=== PATIENT | female | born 1990 | race Caucasian/White ===

== ENCOUNTER 2019-11-23 23:24 | Emergency (ER) | payer MEDICAID, SELFPAY ==
[2019-11-23 23:25] VITALS: BP 132/63; PULSE 72; RESP 16; TEMP 36.2; O2SAT 100
[2019-11-23 23:51] LABS: Basophils Absolute Auto 0.1 K/mm3 (0.0-0.1); Basophils Percent Auto 0.5 % (0.2-1.2); Eosinophils Absolute Auto 0.2 K/mm3 (0-0.3); Hematocrit 40.7 % (37.0-47.0); Hemoglobin 13.1 g/dL (12.0-15.0); Immature Granulocyte Absolute 0.05 K/mm3 (0.00-0.031); Immature Granulocyte Percent A 0.4 % (0-0.5); Lymphocytes Absolute Auto 4.13 K/mm3 (0.9-3.2); Lymphocytes Percent Auto 36.7 % (18.3-44.2); Mean Corpuscular HGB Conc 32.2 g/dl (32-36); Mean Corpuscular Hemoglobin 26.9 pg (26-34); Mean Corpuscular Volume 83.6 fl (80-100); Mean Platelet Volume 10.7 fl (7.4-10.4); Monocytes Absolute Auto 0.5 K/mm3 (0.1-0.6); Monocytes Percent Auto 4.8 % (2.6-8.5); Neutrophils Absolute Auto 6.3 K/mm3 (1.3-6.7); Neutrophils Percent Auto 55.6 % (45.5-73.1); Platelet Count Result 294 k/mm3 (150-375); Red Blood Count 4.87 M/mm3 (4.2-5.4); Red Cell Distribution Width 13.4 % (11.5-14.5); White Blood Count 11.3 K/mm3 (4.5-10.0)
[2019-11-23 23:53] LABS: Add Urine Microscopic? YES; Appearance Urine Clear (Clear); Bacteria Urine Trace /hpf; Bilirubin Urine Negative (Negative); Blood Urine Negative (Negative); Color Urine Yellow (Yellow); Glucose Urine UA Negative (Negative); Ketones Urine Negative (Negative); Leukocyte Esterase Ur Trace LEU/UL (Negative); Mucus Urine Few /lpf; Nitrate Urine Negative (Negative); Protein Urine Negative (Negative); RBC Urine 0-2 /hpf (0-2); Specific Grav Ur 1.029 (1.001-1.035); Squamous Epithelial Cell Urine Moderate /hpf (Few); Urobilinogen Urine Negative mg/dL (<2.0)
[2019-11-24 00:02] LABS: Alanine Aminotransferase 21 U/L (4-35); Albumin Level 4.4 g/dL (3.5-5.1); Alkaline Phosphatase 121 U/L (38-126); Aspartate Amino Transferase 24 U/L (14-36); Bilirubin,Total 0.3 mg/dL (0.2-1.3); Blood Urea Nitrogen 15 mg/dL (7-17); Calcium 9.3 mg/dL (8.4-10.2); Carbon Dioxide 30 mmol/L (22-30); Chloride 103 mmol/L (98-107); Estimated CRCL calculation 94 ml/min; Estimated Glomerular Filt Rate > 60; Glucose 110 mg/dL (65-105); Lipase 144 U/L (23-300); Potassium 3.8 mmol/L (3.4-5.0); Sodium 138 mmol/L (137-145)
[2019-11-24 01:15] VITALS: BP 112/78; PULSE 58; RESP 16; O2SAT 98
[2019-11-24] MEDS: MECLIZINE HCL 25 MG TABLET (01:32)
[2019-11-24] MEDS: SODIUM CHLORIDE 0.9% IV 1,000 ML 999 ML (01:32)
[2019-11-24] MEDS: IBUPROFEN 600 MG TABLET (01:33)
--- NOTE | 2019-11-24 01:33 | PC.NURSE ---
IQRA FROM DR HOPPER TO GIVE MOTRIN 600, MECLIZINE 25 MG AND 1L NS X1
--- NOTE | 2019-11-24 02:57 | ED.HA ---
HPI - Headache General Chief Complaint: Abdominal Pain Stated Complaint: DIZZY/ABD PAIN History of Present Illness HPI Narrative: Patient presents with her fianc? for dizziness and vomiting since 5 PM. She has a history of migraine headaches and has a headache now 8 out of 10. The headache is bilateral temporal. She has photophobia. She has vomited 5 times. She has had vertigo before but never this bad. Her vision is impaired because [place]. She feels a little better since she is already had IV fluids. MD elicited complaint: headache and migraine Onset description: gradually Location: frontal Exacerbating factors: movement of head/neck and light Relieving factors: dark room Context: occurred at rest Associated symptoms: nausea, vomiting and photophobia Treatments prior to arrival: none Related Data Allergies Allergy/AdvReac Type Severity Reaction Status Date / Time No Known Allergies Allergy Verified 11/24/19 00:03 Review of Systems Review of Systems: Narrative: CONSTITUTIONAL: Denies fever, chills, or sweats. EYES: Denies visual changes, redness, or discharge. ENT: Denies rhinorrhea, congestion, sore throat, or otalgia. CARDIOVASCULAR: Denies chest pain, palpitations, or edema. RESPIRATORY: Denies cough or dyspnea. GASTROINTESTINAL: Denies abdominal pain, or diarrhea. GENITOURINARY: Denies dysuria or hematuria. SKIN: Denies rash or itching. MUSCULOSKELETAL: Denies back pain, joint pain, or myalgia. NEUROLOGIC: Denies numbness, or weakness. PSYCHIATRIC: Denies anxiety or depression. [facility] Past Medical History Medical History (Updated 11/24/19 @ 03:01 by Krysta Rodríguez MD) Migraine headache Vertigo Surgical History Surgical History (Updated 11/24/19 @ 03:00 by Krysta Rodríguez MD) History of appendectomy History of ovarian cystectomy Social History Social History (Updated 11/24/19 @ 03:00 by Krysta Rodríguez MD) Smoking status: Current every day smoker Alcohol intake: current Substance use: current Substance use type: marijuana Exam Narrative: Exam Narrative: GENERAL: Well-appearing, well-nourished, and in no acute distress. Fever blister on the top lip. HEAD: Normocephalic, atraumatic. EYES: PERRLA and EOMI. no nystagmus ENT: Nares clear, no rhinorrhea or epistaxis. Mucous membranes moist. NECK: Supple. CHEST: Clear to auscultation. No respiratory distress. HEART: Regular rate and rhythm. No murmur heard. Normal peripheral pulses. ABDOMEN: Soft, nontender, nondistended, normal active bowel sounds. EXTREMITIES: Normal range of motion. No edema. SKIN: Warm, dry, no rash. NEURO: No focal deficits. Alert and oriented x3. PSYCH: Normal mood and affect. Course Reevaluation(s) Reevaluation #1: Went in to recheck on the patient, and she is sound asleep. Woke her up and she said she feels entirely better. Her fianc? is going to take her home. Date: 11/24/19 Time: 04:36 Vital Signs Vital signs: Vital Signs Temperature 97.2 F L 11/23/19 23:25 Pulse Rate 72 11/23/19 23:25 Respiratory Rate 16 11/23/19 23:25 Blood Pressure 132/63 11/23/19 23:25 Pulse Oximetry 100 11/23/19 23:25 Temperature 97.2 F L 11/23/19 23:25 Pulse Rate 57 L 11/24/19 03:28 Respiratory Rate 16 11/24/19 03:28 Blood Pressure 115/67 11/24/19 03:28 Pulse Oximetry 98 11/24/19 03:28 MDM - Headache Differential Diagnosis Differential diagnosis: Likely migraine and headache Medical Records Attestation: I reviewed the patient's medical records. Lab Data Result diagrams: 11/23/19 23:33 11/23/19 23:33 Labs: Lab Results 11/23/19 11/23/19 11/23/19 Range/Units 23:33 23:33 23:33 WBC 11.3 H (4.5-10.0) K/mm3 RBC 4.87 (4.2-5.4) M/mm3 Hgb 13.1 (12.0-15.0) g/dL Hct 40.7 (37.0-47.0) % MCV 83.6 (80-100) fl MCH 26.9 (26-34) pg MCHC 32.2 (32-36) g/dl RDW 13.4 (11.5-14.5) % Plt Coun
[2019-11-24 03:28] VITALS: BP 115/67; PULSE 57; RESP 16; O2SAT 98
[2019-11-24] MEDS: KETOROLAC 15 MG/ML VIAL (*BKC) IV PUSH (03:28)
[2019-11-24] MEDS: SODIUM CHLORIDE 0.9% IV 1,000 ML 999 ML IV CONT (03:28)
[2019-11-24 04:36] VITALS: BP 128/74; PULSE 62; RESP 16; O2SAT 98
== END 2019-11-24 05:00 | disposition home or self-care (01) ==
PROVIDERS: Emergency Provider Emergency Medicine; PCP Physician Assistant
DX: R42 Dizziness and giddiness (principal); G43.909 Migraine, unspecified, not intractable, without status migrainosus; F17.200 Nicotine dependence, unspecified, uncomplicated
CPT/HCPCS: 36415; 80053; 81001; 81025; 83690; 85025; 96374; 96375; 99284; A9270; J1200; J1885; J7030

== ENCOUNTER 2020-01-17 18:15 | Emergency (ER) | payer BC, OTHER, SELFPAY ==
[2020-01-17 18:58] VITALS: BP 124/85; PULSE 79; RESP 18; TEMP 36.6; O2SAT 100
--- NOTE | 2020-01-17 19:14 | ED.LOWEXIN ---
HPI - Extremity Injury (Lower) General Chief Complaint: Extremity Injury, Lower Stated Complaint: R UPPER LEG NUMBNESS, 13 WEEKS PREG Time Seen by Provider: 01/17/20 19:11 History of Present Illness HPI Narrative: Pain in the lateral right thigh down to the knee. Radiates into the right lower back. Worse with prolonged standing. Associated with tingling. Feels swollen. No bruising, chest pain, SOB. Related Data Home Medications Medication Instructions Recorded Confirmed PNV cmb#95-ferrous fumarate-FA 1 tablet PO DAILY 01/17/20 [] paroxetine HCl [Paxil] 10 mg PO QAM 01/17/20 Allergies Allergy/AdvReac Type Severity Reaction Status Date / Time No Known Allergies Allergy Verified 11/24/19 00:03 Review of Systems Review of Systems: All systems reviewed & are unremarkable except as noted in HPI and below Constitutional: Constitutional: Denies fever(s) Cardiovascular: Cardiovascular: Denies chest pain Respiratory: Respiratory: Denies dyspnea Musculoskeletal: Musculoskeletal: Denies back pain PMFSH Past Medical History Medical History Migraine headache Vertigo Surgical History Surgical History History of appendectomy History of ovarian cystectomy Social History Social History Smoking status: Current every day smoker Alcohol intake: current Substance use: current Substance use type: marijuana Exam Const: General: healthy appearing, no acute distress and alert Orientation/consciousness: patient oriented x3 HENMT: Head: normal to inspection Neck: Neck: normal visual inspection and no lymphadenopathy Chest: Chest palpation & inspection: no tenderness Resp: Effort & Inspection: normal respiratory effort Auscultation: clear to auscultation bilaterally, no rales, no rhonchi and no wheezes Cardio: Jugular venous distension: no JVD Rate: regular rate Rhythm: regular rhythm Heart sounds: no murmurs GI: Inspection: non-distended GI Palp: Yes Soft to palpation and No Tenderness to palpation present (GI) Skin: General skin exam: normal color Neuro: General: patient oriented x3 and moves all extremities Speech: normal speech Extrem: Right lower extremity: normal to inspection Left lower extremity: normal to inspection Psych: Appearance: well kempt Affect: normal affect Course Vital Signs Vital signs: Vital Signs Temperature 36.6 C 01/17/20 18:58 Pulse Rate 79 01/17/20 18:58 Respiratory Rate 18 01/17/20 18:58 Blood Pressure 124/85 01/17/20 18:58 Pulse Oximetry 100 01/17/20 18:58 Temperature 36.6 C 01/17/20 18:58 Pulse Rate 79 01/17/20 18:58 Respiratory Rate 18 01/17/20 18:58 Blood Pressure 124/85 01/17/20 18:58 Pulse Oximetry 100 01/17/20 18:58 Procedures Other Procedure Procedure 1: Other Procedure: Bedside Ultrasound I personally performed bedside ultrasound. Right femoral and popliteal veins fully compressible. No DVT. Discharge Plan Discharge Clinical Impression: Sciatica of right side Patient Disposition: Home, Self-Care Condition: Stable Instructions: Sciatica (ED) Prescriptions: New cyclobenzaprine 10 mg tablet 10 mg PO TID PRN (Reason: muscle spasm) Qty: 20 RF: 0 No Action paroxetine HCl [Paxil] 10 mg Tablet 10 mg PO QAM RF: 0 PNV cmb#95-ferrous fumarate-FA [] 28 mg iron- 800 mcg Tablet 1 tablet PO DAILY RF: 0 Follow-up/Referrals: Ender,DARLENE Alaniz [Primary Care Provider] -
--- NOTE | 2020-01-17 19:39 | PC.NURSE ---
[facility] here 193
[2020-01-17] MEDS: CYCLOBENZAPRINE HCL 10 MG TABLET PO (20:02)
== END 2020-01-17 20:18 | disposition home or self-care (01) ==
PROVIDERS: Emergency Provider Emergency Medicine; PCP Physician Assistant
DX: O99.89 Other specified diseases and conditions complicating pregnancy, childbirth and the puerperium (principal); Z3A.13 13 weeks gestation of pregnancy; M54.31 Sciatica, right side; O99.331 Smoking (tobacco) complicating pregnancy, first trimester; F17.200 Nicotine dependence, unspecified, uncomplicated
CPT/HCPCS: 99283; A9270

== ENCOUNTER 2020-01-18 15:10 | Emergency (ER) | payer BC, OTHER, SELFPAY ==
--- NOTE | ~2020-01-18 | US_ITS ---
EXAMINATION: US OB <= 14 weeks fetus DATE: 01/18/2020 16:12 INDICATION: Vaginal bleeding during first trimester TECHNIQUE: Real-time pelvic transabdominal and transvaginal ultrasound was performed. COMPARISON: None. FINDINGS: The uterus measures 10.6 x 5.2 x 7.7 cm. There is an intrauterine gestational sac. A yolk sac is identified. heart motion is identified measuring 169 beats per minute (bpm) by M-mode Do ppler. The crown rump length measures 2.3 cm , which correlates with an estimated gestational a ge of 9 weeks and 0 day(s) (+/-) 6 day(s). The right ovary is not visualized however no right adnexal abnormality is seen. The left ovary measur es 1.8 x 2.2 x 2.7 cm. There is no free fluid in the pelvis. IMPRESSION: 1. Live intrauterine with an estimated gestational age of 9 weeks and 0 day(s) (+/-) 6 day( s) and an estimated delivery date of 08/22/2020. Reviewed, dictated and finalized at location A. IMPRESSION: 1. Live intrauterine with an estimated gestational age of 9 weeks and 0 day(s) (+/-) 6 day(s) and an estimated delivery date of 08/22/2020.
[2020-01-18 15:13] VITALS: BP 116/69; PULSE 92; RESP 17; TEMP 37.1; O2SAT 100
--- NOTE | 2020-01-18 15:24 | ED.FEMALEGU ---
HPI - Female Genitourinary General Chief complaint: Vaginal Bleeding Stated complaint: 13 wks - spotting and cramping Time Seen by Provider: 01/18/20 15:18 Source: patient Mode of arrival: ambulatory Limitations: no limitations History of Present Illness HPI Narrative: Patient is a 29-year-old female, G5, P1 1031, who presents to the emergency department for evaluation of vaginal spotting. Patient reports she is approximately 13 weeks by last menstrual period, has not had a confirmatory ultrasound. In the past, patient has had 3 spontaneous first trimester miscarriages. She denies recent vaginal trauma or intercourse. She denies any new discharge aside from mild spotting. No brisk bleeding. Patient reports mild back pain. No fever or chills. No dysuria or hematuria. Patient follows with Dr. Escalera at [facility]. Pt reports blood type is B+. Related Data Home Medications Medication Instructions Recorded Confirmed PNV cmb#95-ferrous fumarate-FA 1 tablet PO DAILY 01/17/20 [] paroxetine HCl [Paxil] 10 mg PO QAM 01/17/20 Allergies Allergy/AdvReac Type Severity Reaction Status Date / Time No Known Allergies Allergy Verified 01/18/20 15:22 Review of Systems Review of Systems: Narrative: CONSTITUTIONAL: Denies fever CARDIOVASCULAR: Denies chest pain RESPIRATORY: Denies cough or dyspnea. GASTROINTESTINAL: Denies abdominal pain, reports mild back pain : Light vaginal bleeding, no purulent discharge, no dysuria SKIN: Denies rash MUSCULOSKELETAL: Reports mild back pain NEUROLOGIC: Denies headache PMFSH Past Medical History Medical History Migraine headache Vertigo Surgical History Surgical History History of appendectomy History of ovarian cystectomy Social History Social History Smoking status: Current every day smoker Alcohol intake: current Substance use: current Substance use type: marijuana Gender identity (if verbalized by the patient): Female Exam Narrative: Exam Narrative: GENERAL: Awake, alert, conversant HEAD: Normocephalic, atraumatic. EYES: PERRLA and EOMI. ENT: Nares clear, no rhinorrhea or epistaxis. Mucous membranes moist. NECK: Supple. CHEST: No respiratory distress, breathing even and non labored HEART: Regular rate, sinus rhythm ABDOMEN:Non distended, non tender : Labia majora and minora normal without lesions. Vagina with no blood. No blood clot. No cervical motion tenderness. No adnexal tenderness or fullness bilaterally. No discharge present. EXTREMITIES: Normal range of motion. No edema. SKIN: Warm, dry, no rash. NEURO:No focal deficits. Alert and oriented x3 Course Vital Signs Vital signs: Vital Signs Temperature 37.1 C 01/18/20 15:13 Pulse Rate 92 01/18/20 15:13 Respiratory Rate 17 01/18/20 15:13 Blood Pressure 116/69 01/18/20 15:13 Pulse Oximetry 100 01/18/20 15:13 Temperature 37.1 C 01/18/20 15:13 Pulse Rate 92 01/18/20 15:13 Respiratory Rate 17 01/18/20 15:13 Blood Pressure 116/69 01/18/20 15:13 Pulse Oximetry 100 01/18/20 15:13 MDM - Female Genitourinary MDM Narrative Medical decision making narrative: Patient presenting for evaluation vaginal bleeding in the setting of early . At the time of initial assessment, ABCs are intact and vital signs are stable. No severe pain on exam, pelvic exam is reassuring. No sign of cervicitis or PID. No current bleeding. Ultrasound obtained shows intrauterine , heart rate 160s. Hemoglobin and hematocrit is stable. No UTI. At this point, patient given pelvic precautions, discharged home with ORCHESTRA DIRECTOR follow-up. Differential Diagnosis Differential diagnosis: Likely urinary tract infection, bacterial vaginosis, cervicitis, ovarian cyst, vaginitis and dysme
[2020-01-18 16:22] LABS: Basophils Percent Auto 0.4 % (0.2-1.2); Eosinophils Absolute Auto 0.1 K/mm3 (0-0.3); Eosinophils Percent Auto 1.4 % (0-4.4); Hematocrit 38.2 % (37.0-47.0); Hemoglobin 12.6 g/dL (12.0-15.0); Immature Granulocyte Absolute 0.04 K/mm3 (0.00-0.031); Immature Granulocyte Percent A 0.4 % (0-0.5); Lymphocytes Absolute Auto 2.49 K/mm3 (0.9-3.2); Lymphocytes Percent Auto 25.3 % (18.3-44.2); Mean Corpuscular Hemoglobin 26.8 pg (26-34); Mean Corpuscular Volume 81.1 fl (80-100); Mean Platelet Volume 10.6 fl (7.4-10.4); Monocytes Absolute Auto 0.6 K/mm3 (0.1-0.6); Monocytes Percent Auto 6.1 % (2.6-8.5); Neutrophils Absolute Auto 6.5 K/mm3 (1.3-6.7); Neutrophils Percent Auto 66.4 % (45.5-73.1); Platelet Count Result 242 k/mm3 (150-375); Red Blood Count 4.71 M/mm3 (4.2-5.4); Red Cell Distribution Width 15.2 % (11.5-14.5); White Blood Count 9.9 K/mm3 (4.5-10.0)
[2020-01-18 16:34] LABS: Anion Gap 11.7 mmol/L (7-16); Blood Urea Nitrogen 8 mg/dL (7-17); Calcium 9.4 mg/dL (8.4-10.2); Carbon Dioxide 22 mmol/L (22-30); Chloride 104 mmol/L (98-107); Estimated CRCL calculation 138 ml/min; Estimated Glomerular Filt Rate > 60; Glucose 101 mg/dL (65-105); Potassium 3.7 mmol/L (3.4-5.0); Sodium 134 mmol/L (137-145)
[2020-01-18 17:26] LABS: Add Urine Microscopic? NO; Appearance Urine Clear (Clear); Bilirubin Urine Negative (Negative); Blood Urine Negative (Negative); Color Urine Yellow (Yellow); Glucose Urine UA Negative (Negative); Ketones Urine Negative (Negative); Leukocyte Esterase Ur Negative LEU/UL (Negative); Nitrate Urine Negative (Negative); Protein Urine Negative (Negative); Specific Grav Ur 1.014 (1.001-1.035); Urobilinogen Urine Negative mg/dL (<2.0)
== END 2020-01-18 17:48 | disposition home or self-care (01) ==
PROVIDERS: Emergency Provider Emergency Medicine; PCP Physician Assistant
DX: O20.9 Hemorrhage in early pregnancy, unspecified (principal); Z3A.09 9 weeks gestation of pregnancy; O99.331 Smoking (tobacco) complicating pregnancy, first trimester; F17.210 Nicotine dependence, cigarettes, uncomplicated
CPT/HCPCS: 36415; 76801; 80048; 81003; 84702; 85025; 85461; 99284

== ENCOUNTER 2020-02-01 12:08 | Emergency (ER) | payer OTHER, SELFPAY ==
--- NOTE | ~2020-02-01 | US_ITS ---
EXAMINATION: US OB <= 14 weeks fetus DATE: 02/01/2020 13:11 INDICATION: Cramping during first trimester TECHNIQUE: Real-time pelvic transabdominal and transvaginal ultrasound was performed. COMPARISON: None. FINDINGS: The uterus measures 14.4 x 5.5 x 8.6 cm. There is an intrauterine gestational sac. There i s a 1.7 cm hypoechoic area adjacent to the gestational sac. A yolk sac is identified. heart mot ion is identified measuring 154 beats per minute (bpm) by M-mode Doppler. The crown rump length measures 4.1 cm , which correlates with an estimated gestational age of 11 weeks and 0 day(s) (+/-) 7 day(s). The right ovary is not visualized however no right adnexal abnormality is seen. The left ovary measur es 2.4 x 1.8 x 1.7 cm. There is normal vascular flow in the left ovary. There is no free fluid in the pelvis. IMPRESSION: 1. Live intrauterine with an estimated gestational age of 11 weeks and 0 day(s) (+/-) 7 day (s) and an estimated delivery date of 08/22/2020. 2. Small subchorionic hematoma. Reviewed, dictated and finalized at location A. IMPRESSION: 1. Live intrauterine with an estimated gestational age of 11 weeks an d 0 day(s) (+/-) 7 day(s) and an estimated delivery date of 08/22/2020. 2. Small subchorionic hematoma.
[2020-02-01 12:25] VITALS: BP 119/74; PULSE 97; RESP 18; TEMP 36.7; O2SAT 99
--- NOTE | 2020-02-01 12:44 | ED.ABDPAIN ---
HPI - Abdominal Pain General Chief Complaint: Abdominal Pain <Manolo Tejada PA-C - Last Filed: 02/01/20 14:43> Stated Complaint: Craping, 12 Weeks Preg <Manolo Tejada PA-C - Last Filed: 02/01/20 14:43> Time Seen by Provider: 02/01/20 12:09 <Manolo Tejada PA-C - Last Filed: 02/01/20 14:43> Source: patient and family <Manolo Tejada PA-C - Last Filed: 02/01/20 14:43> Mode of arrival: ambulatory <Manolo Tejada PA-C - Last Filed: 02/01/20 14:43> Limitations: no limitations <Manolo Tejada PA-C - Last Filed: 02/01/20 14:43> History of Present Illness HPI narrative: Patient is a 29-year-old female who presents 12 weeks for evaluation of cramping that began this morning noting pain in the lower segments of the abdomen notes that she has been fine through this but is off felt slightly dizzy and lightheaded over the last day but does note history of anxiety and panic disorder. Patient denies illness injury or trauma or any bleeding or discharge. Patient is followed by beauty parlor cleaner out of [facility] who she last saw 2 weeks ago and notes that she has had normal ultrasounds during the <Manolo Tejada PA-C - Last Filed: 02/01/20 14:43> Related Data Home Medications: Home Medications Medication Instructions Recorded Confirmed PNV cmb#95-ferrous fumarate-FA 1 tablet PO DAILY 01/17/20 [] <Manolo Tejada PA-C - Last Filed: 02/01/20 14:43> Allergies/Adverse Reactions: Allergies Allergy/AdvReac Type Severity Reaction Status Date / Time No Known Allergies Allergy Verified 02/01/20 12:27 <Manolo Tejada PA-C - Last Filed: 02/01/20 14:43> Review of Systems Review of Systems: All systems reviewed & are unremarkable except as noted in HPI and below <Manolo Tejada PA-C - Last Filed: 02/01/20 14:43> [facility] Past Medical History Medical History: Medical History Migraine headache Vertigo <Manolo Tejada PA-C - Last Filed: 02/01/20 14:43> Surgical History Surgical History: Surgical History History of appendectomy History of ovarian cystectomy <Manolo Tejada PA-C - Last Filed: 02/01/20 14:43> Social History Social History: Social History Smoking status: Current every day smoker Alcohol intake: current Substance use: current Substance use type: marijuana Gender identity (if verbalized by the patient): Female <Manolo Tejada PA-C - Last Filed: 02/01/20 14:43> Exam Narrative: Exam Narrative: GENERAL: Well-appearing, well-nourished, and in no acute distress. HEAD: Normocephalic, atraumatic. EYES: PERRLA and EOMI. ENT: Nares clear, no rhinorrhea or epistaxis. Mucous membranes moist. Oropharynx without tonsillar hypertrophy exudate or other lesions. CHEST: Clear to auscultation. No respiratory distress. No wheezes rales or rhonchi HEART: Regular rate and rhythm. No murmur heard. Normal peripheral pulses. ABDOMEN: Soft, nontender, distended EXTREMITIES: Normal range of motion. No edema. SKIN: Warm, dry, no rash. NEURO: No focal deficits. Alert and oriented x3. Cranial nerves II through XII grossly intact PSYCH: Normal mood and affect. <Manolo Tejada PA-C - Last Filed: 02/01/20 14:43> Course Course Emergency Course: Patient in the room in no distress resting comfortably aware of case findings treatment plan and diagnosis agreeing to follow-up with her beauty parlor cleaner by phone today feeling much better with interventions made aware of all of her imaging and blood results <Manolo Tejada PA-C - Last Filed: 02/01/20 14:43> Vital Signs Vital signs: Vital Signs Temperature 98.1 F 02/01/20 12:25 Pulse Rate 97 02/01/20 12:25 Respiratory Rate 18 02/01/20 12:25 Blood P
[2020-02-01 13:23] VITALS: BP 102/57; BP 95/52; BP 99/63; PULSE 113; PULSE 67; PULSE 76
[2020-02-01] MEDS: SODIUM CHLORIDE 0.9% IV 1,000 ML 999 ML IV CONT (13:24)
[2020-02-01 13:34] LABS: Basophils Percent Auto 0.4 % (0.2-1.2); Eosinophils Absolute Auto 0.1 K/mm3 (0-0.3); Eosinophils Percent Auto 1.4 % (0-4.4); Hematocrit 37.7 % (37.0-47.0); Hemoglobin 12.2 g/dL (12.0-15.0); Immature Granulocyte Absolute 0.05 K/mm3 (0.00-0.031); Immature Granulocyte Percent A 0.5 % (0-0.5); Lymphocytes Absolute Auto 2.57 K/mm3 (0.9-3.2); Mean Corpuscular HGB Conc 32.4 g/dl (32-36); Mean Corpuscular Hemoglobin 26.3 pg (26-34); Mean Corpuscular Volume 81.4 fl (80-100); Mean Platelet Volume 10.3 fl (7.4-10.4); Monocytes Absolute Auto 0.5 K/mm3 (0.1-0.6); Monocytes Percent Auto 5.5 % (2.6-8.5); Neutrophils Absolute Auto 6.6 K/mm3 (1.3-6.7); Neutrophils Percent Auto 66.2 % (45.5-73.1); Platelet Count Result 239 k/mm3 (150-375); Red Blood Count 4.63 M/mm3 (4.2-5.4); White Blood Count 9.9 K/mm3 (4.5-10.0)
[2020-02-01 13:42] LABS: Add Urine Microscopic? YES; Appearance Urine Clear (Clear); Bacteria Urine Trace /hpf; Bilirubin Urine Negative (Negative); Blood Urine Negative (Negative); Color Urine Yellow (Yellow); Glucose Urine UA Negative (Negative); Ketones Urine Negative (Negative); Leukocyte Esterase Ur Trace LEU/UL (Negative); Mucus Urine Rare /lpf; Nitrate Urine Negative (Negative); Protein Urine Negative (Negative); RBC Urine 0-2 /hpf (0-2); Specific Grav Ur 1.027 (1.001-1.035); Squamous Epithelial Cell Urine Many /hpf (Few); Urobilinogen Urine Negative mg/dL (<2.0); WBC Urine 0-3 /hpf
[2020-02-01 13:45] LABS: Alanine Aminotransferase 12 U/L (4-35); Albumin Level 3.9 g/dL (3.5-5.1); Alkaline Phosphatase 96 U/L (38-126); Anion Gap 10.8 mmol/L (7-16); Aspartate Amino Transferase 17 U/L (14-36); Bilirubin,Total 0.3 mg/dL (0.2-1.3); Blood Urea Nitrogen 8 mg/dL (7-17); Calcium 9.1 mg/dL (8.4-10.2); Carbon Dioxide 23 mmol/L (22-30); Chloride 104 mmol/L (98-107); Estimated CRCL calculation 136 ml/min; Estimated Glomerular Filt Rate > 60; Glucose 100 mg/dL (65-105); Potassium 3.8 mmol/L (3.4-5.0); Sodium 134 mmol/L (137-145)
[2020-02-01 15:04] VITALS: BP 98/56; PULSE 62; RESP 16
== END 2020-02-01 15:05 | disposition home or self-care (01) ==
PROVIDERS: Emergency Medicine Emergency Medical Services; Emergency Provider General Practice; PCP Physician Assistant
DX: O26.891 Other specified pregnancy related conditions, first trimester (principal); R10.9 Unspecified abdominal pain; Z3A.11 11 weeks gestation of pregnancy
CPT/HCPCS: 36415; 76801; 80053; 81001; 84702; 85025; 85461; 96365; 99284; J0131; J7030

== ENCOUNTER 2020-02-23 10:36 | Emergency (ER) | payer OTHER, SELFPAY | END 2020-02-23 11:00 | disposition left against medical advice (07) | LOC: ANHED 03-13 17:48 | PROVIDERS: PCP Physician Assistant | DX: Z53.21 Procedure and treatment not carried out due to patient leaving prior to being seen by health care provider (principal) | CPT/HCPCS: 99199; A4565 ==

== ENCOUNTER 2020-03-01 15:13 | Emergency (ER) | payer OTHER, SELFPAY ==
--- NOTE | ~2020-03-01 | XR_ITS ---
EXAMINATION: XR chest 1V portable DATE: 03/01/2020 16:42 INDICATION: Shortness of breath. Left chest pain. TECHNIQUE: A single frontal view of the chest was obtained. COMPARISON: None. FINDINGS: The chest demonstrates clear lungs without pneumonia, pleural effusion, or pneumothorax. Th e heart size is normal. IMPRESSION: 1. No acute cardiopulmonary disease. Reviewed, dictated and finalized at location A.
[2020-03-01 15:19] VITALS: BP 129/71; PULSE 82; RESP 18; TEMP 36.9; O2SAT 100
--- NOTE | 2020-03-01 15:24 | ECG_ITS ---
Measurements Intervals [place] Rate: 84 P: 44 AR: 149 QRS: 29 QRSD: 97 T: 5 QT: 362 QTc: 429 Interpretive Statements SINUS RHYTHM INCOMPLETE RIGHT BUNDLE BRANCH BLOCK BORDERLINE T WAVE ABNORMALITY- INFERIOR LEADS BASELINE ARTIFACT- I, II, III, AVR, AVF, V4-V6 BORDERLINE ECG Electronically Signed On 03-01-2020 16:32:51 CDT by Geoff Lai D.O.
[2020-03-01 15:43] LABS: Basophils Percent Auto 0.4 % (0.2-1.2); Eosinophils Absolute Auto 0.1 K/mm3 (0-0.3); Eosinophils Percent Auto 1.3 % (0-4.4); Hematocrit 35.5 % (37.0-47.0); Immature Granulocyte Absolute 0.06 K/mm3 (0.00-0.031); Immature Granulocyte Percent A 0.6 % (0-0.5); Lymphocytes Absolute Auto 2.37 K/mm3 (0.9-3.2); Lymphocytes Percent Auto 23.2 % (18.3-44.2); Mean Corpuscular HGB Conc 33.8 g/dl (32-36); Mean Corpuscular Hemoglobin 27.4 pg (26-34); Mean Corpuscular Volume 81.1 fl (80-100); Mean Platelet Volume 10.3 fl (7.4-10.4); Monocytes Absolute Auto 0.6 K/mm3 (0.1-0.6); Monocytes Percent Auto 5.7 % (2.6-8.5); Neutrophils Percent Auto 68.8 % (45.5-73.1); Platelet Count Result 230 k/mm3 (150-375); Red Blood Count 4.38 M/mm3 (4.2-5.4); Red Cell Distribution Width 14.1 % (11.5-14.5); White Blood Count 10.2 K/mm3 (4.5-10.0)
[2020-03-01 15:55] LABS: Anion Gap 7 mmol/L (8-16); Blood Urea Nitrogen 6 mg/dL (7-17); Calcium 9.1 mg/dL (8.4-10.2); Carbon Dioxide 23 mmol/L (22-30); Chloride 105 mmol/L (98-107); Estimated CRCL calculation 137 ml/min; Estimated Glomerular Filt Rate > 60; Glucose 91 mg/dL (65-105); Potassium 3.7 mmol/L (3.4-5.0); Sodium 135 mmol/L (137-145)
--- NOTE | 2020-03-01 15:57 | ED.SOB ---
HPI - SOB/Dyspnea General Chief Complaint: Shortness of Breath/Dyspnea Stated Complaint: 5 months preg/sob Time Seen by Provider: 03/01/20 15:57 History of Present Illness HPI Narrative: Dull left sided chest pain for a few days. Associated with SOB. Worst when she is lying down. No cough, congestion, fever, nayan pain, swelling. She does have ah/o anxiety Additionally she is 5 months and she has not felt the baby move today. Related Data Home Medications Medication Instructions Recorded Confirmed PNV cmb#95-ferrous fumarate-FA 1 tablet PO DAILY 01/17/20 [] Allergies Allergy/AdvReac Type Severity Reaction Status Date / Time No Known Allergies Allergy Verified 02/01/20 12:27 Review of Systems Review of Systems: All systems reviewed & are unremarkable except as noted in HPI and below Constitutional: Constitutional: Denies fever(s) ENT: Denies sore throat Cardiovascular: Cardiovascular: Reports chest pain Respiratory: Respiratory: Denies chest congestion, Denies cough, Reports dyspnea and Denies wheezing Gastrointestinal: Gastrointestinal: Denies abdominal pain, Denies nausea and Denies vomiting Genitourinary: Genitourinary: Denies hematuria and Denies dysuria Musculoskeletal: Musculoskeletal: Reports back pain Neurologic: Denies numbness and Denies weakness Psychiatric: Psychiatric: Reports anxiety PMFSH Past Medical History Medical History Migraine headache Vertigo Surgical History Surgical History History of appendectomy History of ovarian cystectomy Social History Social History Smoking status: Current every day smoker Alcohol intake: current Substance use: current Substance use type: marijuana Gender identity (if verbalized by the patient): Female Exam Const: General: healthy appearing, no acute distress and alert Orientation/consciousness: patient oriented x3 HENMT: Head: normal to inspection Neck: Neck: normal visual inspection and no lymphadenopathy Chest: Chest palpation & inspection: tenderness pectoral muscle on the left Resp: Effort & Inspection: normal respiratory effort Auscultation: clear to auscultation bilaterally, no rales, no rhonchi and no wheezes Cardio: Jugular venous distension: no JVD Rate: regular rate Rhythm: regular rhythm Heart sounds: no murmurs GI: GI Palp: Yes Soft to palpation, Yes Tenderness to palpation present (GI) (minimal bilateral lower quadrant), No Guarding due to palpation present (GI) and No Rebound tenderness present Other: Gravid Skin: General skin exam: normal color Neuro: General: patient oriented x3 and moves all extremities Speech: normal speech Extrem: General: no edema Psych: Appearance: well kempt Affect: normal affect Course Vital Signs Vital signs: Vital Signs Temperature 36.9 C 03/01/20 15:19 Pulse Rate 82 03/01/20 15:19 Respiratory Rate 18 03/01/20 15:19 Blood Pressure 129/71 03/01/20 15:19 Pulse Oximetry 100 03/01/20 15:19 Temperature 36.9 C 03/01/20 15:19 Pulse Rate 82 03/01/20 17:15 Respiratory Rate 16 03/01/20 17:15 Blood Pressure 105/60 03/01/20 17:15 Pulse Oximetry 99 03/01/20 17:15 Procedures Other Procedure Procedure 1: Other Procedure: Bedside US Grossly normal fetus. Reassuring movement. FHR 150. MDM - SOB/Dyspnea MDM Narrative Medical decision making narrative: not tachycardic. O2 saturation 99-100%. Pain and SOB worse at rest. Most likely anxiety. D-dimer ordered during triage came back positive. This is likely related to and obesity. I feel the risk of to the fetus outways the possible benefit of doing a CT at this time. Medical Records Attestation: I reviewed the patient's medical records. Lab Data Attestation: I reviewed the patient's
[2020-03-01 16:14] LABS: D Dimer 0.97 ug/mL (<0.48)
[2020-03-01 16:30] VITALS: BP 105/72; PULSE 80; RESP 16; O2SAT 98
[2020-03-01 17:15] VITALS: BP 105/60; PULSE 82; RESP 16; O2SAT 99
== END 2020-03-01 17:15 | disposition home or self-care (01) ==
PROVIDERS: Emergency Medicine; Emergency Provider Emergency Medicine
DX: O26.892 Other specified pregnancy related conditions, second trimester (principal); R07.89 Other chest pain; O99.332 Smoking (tobacco) complicating pregnancy, second trimester; F17.200 Nicotine dependence, unspecified, uncomplicated; O99.412 Diseases of the circulatory system complicating pregnancy, second trimester; I45.10 Unspecified right bundle-branch block; R94.31 Abnormal electrocardiogram [ECG] [EKG]; Z3A.00 Weeks of gestation of pregnancy not specified
CPT/HCPCS: 36415; 71045; 80048; 85025; 85380; 93005; 99284

== ENCOUNTER 2020-03-06 03:36 | Emergency (ER) | payer OTHER, SELFPAY ==
[2020-03-06 03:47] VITALS: BP 122/78; PULSE 82; RESP 20; TEMP 36.8; O2SAT 100
[2020-03-06] MEDS: SODIUM CHLORIDE 0.9% IV 1,000 ML 999 ML IV CONT (04:42)
--- NOTE | 2020-03-06 04:42 | ED.GENADULT ---
HPI - General Adult General Chief complaint: Urogenital-Female Stated complaint: Pelvic pain, cramps, 17 wks Time Seen by Provider: 03/06/20 03:50 History of Present Illness HPI narrative: Patient is a 29-year-old female who presents the ER with lower pelvic cramping. Ongoing throughout the evening. No vaginal bleeding or leakage of fluid. Mild vaginal discharge. Symptoms are worse with movement and at rest. No urinary frequency or urgency, no dysuria. She is without fevers or chills or sweats. Has had no issues with constipation or diarrhea. Has not taken any pain medication for pelvic cramping. Receives her OB care from [facility], she is 17 weeks along. She has had a ultrasound in her . Related Data Home Medications Medication Instructions Recorded Confirmed PNV cmb#95-ferrous fumarate-FA 1 tablet PO DAILY 01/17/20 [] Allergies Allergy/AdvReac Type Severity Reaction Status Date / Time No Known Allergies Allergy Verified 03/06/20 03:47 Review of Systems Review of Systems: All systems reviewed & are unremarkable except as noted in HPI and below Constitutional: Constitutional: Denies chills, Denies fever(s) and Denies weakness ENT: Denies nasal congestion and Denies sore throat Respiratory: Respiratory: Denies cough, Denies dyspnea and Denies wheezing Gastrointestinal: Gastrointestinal: Reports abdominal pain, Denies nausea and Denies vomiting Genitourinary: Genitourinary: Denies abnormal vaginal bleeding, Denies hematuria, Denies nocturia, Denies dysuria, Reports pelvic pain and Reports vaginal discharge PMFSH Social History Social History Smoking status: Current every day smoker Alcohol intake: current Substance use: current Substance use type: marijuana Gender identity (if verbalized by the patient): Female Exam Narrative: Exam Narrative: GENERAL: Uncomfortable-appearing, well-nourished, and in no acute distress. HEAD: Normocephalic, atraumatic. ENT: Mucous membranes moist. CHEST: Clear to auscultation. No respiratory distress. HEART: Regular rate and rhythm. Normal peripheral pulses. ABDOMEN: Soft, mild bilateral lower quadrant abdominal discomfort, nondistended. EXTREMITIES: Normal range of motion. No edema. NEURO: Alert and oriented x3. PSYCH: Normal mood and affect. Course Course Emergency Course: Pain improved with tylenol and fluids. D/c. Reevaluation(s) Reevaluation #1: Labs pending. Bedside ultrasound shows positive movement and heart rate. Date: 03/06/20 Time: 04:15 Vital Signs Vital signs: Vital Signs Temperature 98.3 F 03/06/20 03:47 Pulse Rate 82 03/06/20 03:47 Respiratory Rate 20 03/06/20 03:47 Blood Pressure 122/78 03/06/20 03:47 Pulse Oximetry 100 03/06/20 03:47 Temperature 98.3 F 03/06/20 03:47 Pulse Rate 82 03/06/20 03:47 Respiratory Rate 20 03/06/20 03:47 Blood Pressure 122/78 03/06/20 03:47 Pulse Oximetry 100 03/06/20 03:47 Medical Decision Making Vital Signs Vital Signs: Vital Signs Temperature 98.3 F 03/06/20 03:47 Pulse Rate 82 03/06/20 03:47 Respiratory Rate 03/06/20 03:47 Blood Pressure 122/78 03/06/20 03:47 Pulse Oximetry 100 03/06/20 03:47 Temperature 98.3 F 03/06/20 03:47 Pulse Rate 82 03/06/20 03:47 Respiratory Rate 20 03/06/20 03:47 Blood Pressure 122/78 03/06/20 03:47 Pulse Oximetry 100 03/06/20 03:47 Lab Data Result diagrams: 03/06/20 04:35 03/06/20 04:35 Labs: Lab Results 03/06/20 03/06/20 03/06/20 Range/Units 04:35 04:35 05:49 WBC 10.6 H (4.5-10.0) K/mm3 RBC 4.30 (4.2-5.4) M/mm3 Hgb 11.9 L (12.0-15.0) g/dL Hct 35.4 L (37.0-47.0) % MCV 82.3 (80-100) fl MCH 27.7 (26-34) pg MCHC 33.6 (32-36) g/dl RDW 14.1 (11.5-14.5) % Plt Count 217 (150-375) k/mm3 MPV 10.6 H (7
[2020-03-06 04:53] LABS: Basophils Absolute Auto 0.1 K/mm3 (0.0-0.1); Basophils Percent Auto 0.5 % (0.2-1.2); Eosinophils Absolute Auto 0.2 K/mm3 (0-0.3); Eosinophils Percent Auto 1.6 % (0-4.4); Hematocrit 35.4 % (37.0-47.0); Hemoglobin 11.9 g/dL (12.0-15.0); Immature Granulocyte Absolute 0.07 K/mm3 (0.00-0.031); Immature Granulocyte Percent A 0.7 % (0-0.5); Lymphocytes Absolute Auto 2.83 K/mm3 (0.9-3.2); Lymphocytes Percent Auto 26.6 % (18.3-44.2); Mean Corpuscular HGB Conc 33.6 g/dl (32-36); Mean Corpuscular Hemoglobin 27.7 pg (26-34); Mean Corpuscular Volume 82.3 fl (80-100); Mean Platelet Volume 10.6 fl (7.4-10.4); Monocytes Absolute Auto 0.6 K/mm3 (0.1-0.6); Monocytes Percent Auto 5.3 % (2.6-8.5); Neutrophils Percent Auto 65.3 % (45.5-73.1); Platelet Count Result 217 k/mm3 (150-375); Red Cell Distribution Width 14.1 % (11.5-14.5); White Blood Count 10.6 K/mm3 (4.5-10.0)
[2020-03-06 05:11] LABS: Anion Gap 7 mmol/L (8-16); Blood Urea Nitrogen 6 mg/dL (7-17); Calcium 9.1 mg/dL (8.4-10.2); Carbon Dioxide 23 mmol/L (22-30); Chloride 105 mmol/L (98-107); Estimated CRCL calculation 162 ml/min; Estimated Glomerular Filt Rate > 60; Glucose 91 mg/dL (65-105); Potassium 3.4 mmol/L (3.4-5.0); Sodium 135 mmol/L (137-145)
[2020-03-06 06:01] LABS: Add Urine Microscopic? YES; Appearance Urine Clear (Clear); Bacteria Urine Trace /hpf; Bilirubin Urine Negative (Negative); Blood Urine Negative (Negative); Color Urine Yellow (Yellow); Glucose Urine UA Negative (Negative); Ketones Urine 1+ mg/dL (Negative); Leukocyte Esterase Ur Negative LEU/UL (Negative); Mucus Urine Moderate /lpf; Nitrate Urine Negative (Negative); Protein Urine Negative (Negative); Squamous Epithelial Cell Urine Moderate /hpf (Few); Urobilinogen Urine Negative mg/dL (<2.0)
[2020-03-06 06:05] LABS: Specific Grav Ur 1.034 (1.001-1.035)
[2020-03-06 06:53] VITALS: BP 99/58; PULSE 80; RESP 17; O2SAT 96
== END 2020-03-06 06:54 | disposition home or self-care (01) ==
PROVIDERS: Emergency Provider Emergency Medicine; PCP Physician Assistant
DX: R10.2 Pelvic and perineal pain (principal); O99.89 Other specified diseases and conditions complicating pregnancy, childbirth and the puerperium; Z3A.17 17 weeks gestation of pregnancy; O99.332 Smoking (tobacco) complicating pregnancy, second trimester; F17.210 Nicotine dependence, cigarettes, uncomplicated
CPT/HCPCS: 36415; 80048; 81001; 85025; 96361; 96374; 99284; J0131; J7030

== ENCOUNTER 2020-04-13 18:33 | Observation (INO) | payer OTHER, SELFPAY ==
--- NOTE | ~2020-04-13 | US_ITS ---
EXAMINATION: US OB limited EXAM DATE: 04/13/2020 21:07 INDICATION: , vaginal spotting, leaking. Check placenta and LAWRENCE. 2nd trimester. TECHNIQUE: Pelvic obstetrical transabdominal sonogram was performed by a technologist. There are mu ltiple grayscale and Doppler images available for interpretation. Comparison is made to prior examina tion from 02/01/2020. FINDINGS: There is a single fetus identified in breech presentation with a heart rate of 155 beats pe r minute. The placenta is located in the posterior position. There is no sonographic evidence of ret roplacental hemorrhage identified. The amniotic fluid index is 14.5 centimeters, which is normal. Attila cental margin to internal cervical os distance is 2.7 cm. There is no cervical funneling. IMPRESSION: 1. Single fetus, breech presentation with heart rate of 155 bpm. 2. Normal amniotic fluid index of 14.5 cm. 3. Placental margin to internal cervical os distance 2.7 cm. Reviewed, dictated and finalized at location A.
--- NOTE | 2020-04-13 18:26 | PC.NURSE ---
REPORT TO MAXX STEWART. TRANSFER TO OB [facility]
[2020-04-13 19:14] VITALS: TEMP 36.4
[2020-04-13 19:17] VITALS: BP 114/62; PULSE 87
[2020-04-13 20:03] LABS: Add Urine Microscopic? YES; Appearance Urine Clear (Clear); Bacteria Urine Trace /hpf; Bilirubin Urine Negative (Negative); Blood Urine Negative (Negative); Color Urine Yellow (Yellow); Glucose Urine UA Negative (Negative); Ketones Urine Negative (Negative); Leukocyte Esterase Ur Negative LEU/UL (NEGATIVE); Mucus Urine Rare /lpf; Nitrate Urine Negative (Negative); Protein Urine Negative (Negative); RBC Urine 0-2 /hpf (0-2); Squamous Epithelial Cell Urine Moderate /hpf (Few); Urobilinogen Urine Negative mg/dL (<2.0)
[2020-04-13 23:29] VITALS: BMI 35.9
--- NOTE | 2020-04-13 23:29 | OBADM ---
This patient, Alexus Starr, admitted to the OB room OB Post 113 for observation. Patient/family oriented to hospital policies and general routines including ID bracelet, bed and alarms, visiting hours, pain management, procedures, bathroom and other care routines, personal items, smoking policy, room service/diet, and visiting hours. Patient/Family are encouraged to report perceived risks to care and to ask questions if they do not understand what they are told or what they should do.
--- NOTE | 2020-05-07 20:42 | P.PNOB_ITS ---
OB - Triage/Final Diagnosis Evaluation Laboratory results: Laboratory Tests 04/13/20 04/13/20 19:52 19:52 Urine Color Yellow Urine Appearance Clear Urine pH 6.0 Ur Specific [place] 1.030 Urine Protein Negative Urine Glucose (UA) Negative Urine Ketones Negative Ur Blood (Man) Negative Urine Nitrate Negative Urine Bilirubin Negative Urine Urobilinogen Negative Ur Leukocyte Esterase Negative Urine RBC 0-2 Urine WBC 4-6 H Ur Squamous Epith Cells Moderate H Urine Bacteria Trace Urine Mucus Rare Blood Type B Positive Antibody Screen Negative Final Diagnosis (1) False labor: Code(s): O47.9 - False labor, unspecified Status: Acute
== END 2020-04-13 22:40 | disposition home or self-care (01) ==
PROVIDERS: Advanced Practice Midwife; Admitting Provider Obstetrics & Gynecology; PCP Physician Assistant; Visit Provider Obstetrics & Gynecology
DX: O47.02 False labor before 37 completed weeks of gestation, second trimester (principal); Z3A.22 22 weeks gestation of pregnancy
CPT/HCPCS: 36415; 76815; 81001; 86850; 86900; 86901; 87086; G0378; G0379

== ENCOUNTER 2020-04-17 19:45 | Observation (INO) | payer OTHER, SELFPAY ==
[2020-04-17 20:00] VITALS: BMI 35.9
[2020-04-17 21:31] LABS: Add Urine Microscopic? YES; Appearance Urine Clear (Clear); Bacteria Urine Trace /hpf; Bilirubin Urine Negative (Negative); Blood Urine Negative (Negative); Color Urine Straw (Yellow); Glucose Urine UA Negative (Negative); Ketones Urine Trace mg/dL (Negative); Leukocyte Esterase Ur Negative LEU/UL (NEGATIVE); Mucus Urine Rare /lpf; Nitrate Urine Negative (Negative); Protein Urine Negative (Negative); Specific Grav Ur 1.009 (1.001-1.035); Squamous Epithelial Cell Urine Occasional /hpf (Few); Urobilinogen Urine Negative mg/dL (<2.0); WBC Urine 0-3 /hpf (0-3)
--- NOTE | 2020-04-18 02:59 | OBADM ---
This patient, Alexus Starr, admitted to the OB room Labor/Delivery/Recovery 107 for observation. Patient/family oriented to hospital policies and general routines including ID bracelet, bed and alarms, visiting hours, pain management, procedures, bathroom and other care routines, personal items, smoking policy, room service/diet, and visiting hours. Patient/Family are encouraged to report perceived risks to care and to ask questions if they do not understand what they are told or what they should do.
--- NOTE | 2020-04-18 03:09 | PC.NURSE ---
[id number] Pt is 22 weeks gestation TO room per wheelchair. Pt states she has not felt baby move for one hour and has low abdominal cramping. Pt concerned she is having contractions see OBIX documentation.
--- NOTE | 2020-04-20 03:06 | P.PNOB_ITS ---
OB - Triage/Final Diagnosis Visit Information Date of evaluation: 04/17/20 Reason for evaluation: threatened labor Evaluation Laboratory results: Laboratory Tests 04/17/20 21:07 Urine Color Straw Urine Appearance Clear Urine pH 6.0 Ur Specific [place] 1.009 Urine Protein Negative Urine Glucose (UA) Negative Urine Ketones Trace Ur Blood (Man) Negative Urine Nitrate Negative Urine Bilirubin Negative Urine Urobilinogen Negative Ur Leukocyte Esterase Negative Urine WBC 0-3 Ur Squamous Epith Cells Occasional Urine Bacteria Trace Urine Mucus Rare
== END 2020-04-17 23:00 | disposition home or self-care (01) ==
PROVIDERS: Advanced Practice Midwife; Admitting Provider Obstetrics & Gynecology; PCP Physician Assistant; Visit Provider Obstetrics & Gynecology
DX: O47.02 False labor before 37 completed weeks of gestation, second trimester (principal); Z3A.22 22 weeks gestation of pregnancy; Z79.899 Other long term (current) drug therapy
CPT/HCPCS: 81001; 87086; 87088; G0378; G0379

== ENCOUNTER 2020-05-26 21:06 | Observation (INO) | payer OTHER, SELFPAY ==
[2020-05-26] VITALS (8 sets, daily range): BP systolic 88–127; BP diastolic 40–71; PULSE 72–82; BMI 38.3
[2020-05-26 21:54] LABS: Basophils Absolute Auto 0.1 K/mm3 (0.0-0.1); Basophils Percent Auto 0.4 % (0.2-1.2); Eosinophils Absolute Auto 0.2 K/mm3 (0-0.3); Eosinophils Percent Auto 1.9 % (0-4.4); Immature Granulocyte Absolute 0.27 K/mm3 (0.00-0.031); Immature Granulocyte Percent A 2.2 % (0-0.5); Lymphocytes Absolute Auto 3.02 K/mm3 (0.9-3.2); Lymphocytes Percent Auto 24.4 % (18.3-44.2); Mean Corpuscular HGB Conc 33.3 g/dl (32-36); Mean Corpuscular Hemoglobin 28.5 pg (26-34); Mean Corpuscular Volume 85.5 fl (80-100); Monocytes Absolute Auto 0.8 K/mm3 (0.1-0.6); Monocytes Percent Auto 6.5 % (2.6-8.5); Neutrophils Percent Auto 64.6 % (45.5-73.1); Platelet Count Result 218 k/mm3 (150-375); Red Blood Count 3.86 M/mm3 (4.2-5.4); Red Cell Distribution Width 14.6 % (11.5-14.5); White Blood Count 12.4 K/mm3 (4.5-10.0)
[2020-05-26 22:01] LABS: Add Urine Microscopic? YES; Amorphous Sediment Urine Few; Appearance Urine Cloudy (Clear); Bacteria Urine Trace /hpf; Bilirubin Urine Negative (Negative); Blood Urine Negative (Negative); Color Urine Yellow (Yellow); Glucose Urine UA Negative (Negative); Ketones Urine Negative (Negative); Leukocyte Esterase Ur Negative LEU/UL (NEGATIVE); Mucus Urine Rare /lpf; Nitrate Urine Negative (Negative); Protein Urine Negative (Negative); RBC Urine 0-2 /hpf (0-2); Specific Grav Ur 1.019 (1.001-1.035); Squamous Epithelial Cell Urine Occasional /hpf (Few); Urobilinogen Urine Negative mg/dL (<2.0)
[2020-05-26 22:04] LABS: Alanine Aminotransferase 12 U/L (4-35); Albumin Level 3.7 g/dL (3.5-5.1); Alkaline Phosphatase 102 U/L (38-126); Anion Gap 6 mmol/L (8-16); Aspartate Amino Transferase 20 U/L (14-36); Bilirubin,Total 0.2 mg/dL (0.2-1.3); Blood Urea Nitrogen 7 mg/dL (7-17); Calcium 9.3 mg/dL (8.4-10.2); Carbon Dioxide 27 mmol/L (22-30); Chloride 104 mmol/L (98-107); Estimated Glomerular Filt Rate > 60; Glucose 96 mg/dL (65-105); Potassium 3.8 mmol/L (3.4-5.0); Sodium 137 mmol/L (137-145); Uric Acid 4.8 mg/dL (2.5-7.5)
[2020-05-26 22:06] LABS: Creatinine Urine 163.8 mg/dL; Total Protein Urine Random 10 mg/dL
[2020-05-26 22:21] LABS: Fetal Fibronectin Negative
--- NOTE | 2020-05-26 22:38 | OBADM ---
This patient, Alexus Starr, admitted to the OB room Labor/Delivery/Recovery 106 for observation. Patient/family oriented to hospital policies and general routines including ID bracelet, bed and alarms, visiting hours, pain management, procedures, bathroom and other care routines, personal items, smoking policy, room service/diet, and visiting hours. Patient/Family are encouraged to report perceived risks to care and to ask questions if they do not understand what they are told or what they should do.
[2020-05-26] MEDS: ACETAMINOPHEN 500 MG TABLET 1000 MG PO (22:47)
--- NOTE | 2020-05-30 07:17 | PM.OBTRLD ---
OB - Triage/Final Diagnosis Visit Information Date of evaluation: 05/26/20 Comments/Additional reasons for admission: elevated blood pressure Evaluation Laboratory results: Laboratory Tests 05/26/20 05/26/20 05/26/20 21:37 21:37 21:37 WBC 12.4 H RBC 3.86 L Hgb 11.0 L Hct 33.0 L MCV 85.5 MCH 28.5 MCHC 33.3 RDW 14.6 H Plt Count 218 MPV 10.0 Immature Gran % (Auto) 2.2 H Neut % (Auto) 64.6 Lymph % (Auto) 24.4 [place] % (Auto) 6.5 Eos % (Auto) 1.9 Baso % (Auto) 0.4 Lymph # (Auto) 3.02 [place] # (Auto) 0.8 H Eos # (Auto) 0.2 Baso # (Auto) 0.1 Abs Immat Gran (auto) 0.27 H Absolute Neuts (auto) 8.0 H Absolute Nucleated RBC 0.0 Nucleated RBC % 0.0 Sodium Potassium Chloride Carbon Dioxide Anion Gap BUN Creatinine Estim Creat Clear Calc Estimated GFR Glucose Uric Acid Calcium Total Bilirubin AST ALT Alkaline Phosphatase Total Protein Albumin Urine Color Yellow Urine Appearance Cloudy H Urine pH 7.0 Ur Specific [place] 1.019 Urine Protein Negative Urine Glucose (UA) Negative Urine Ketones Negative Ur Blood (Man) Negative Urine Nitrate Negative Urine Bilirubin Negative Urine Urobilinogen Negative Ur Leukocyte Esterase Negative Urine RBC 0-2 Ur Squamous Epith Cells Occasional Amorphous Sediment Few H Urine Bacteria Trace Urine Mucus Rare U Random Total Protein 10 Urine Creatinine 163.8 Fibronectin 05/26/20 05/26/20 21:37 21:42 WBC RBC Hgb Hct MCV MCH MCHC RDW Plt Count MPV Immature Gran % (Auto) Neut % (Auto) Lymph % (Auto) [place] % (Auto) Eos % (Auto) Baso % (Auto) Lymph # (Auto) Clarke # (Auto) Eos # (Auto) Baso # (Auto) Abs Immat Gran (auto) Absolute Neuts (auto) Absolute Nucleated RBC Nucleated RBC % Sodium 137 Potassium 3.8 Chloride 104 Carbon Dioxide 27 Anion Gap 6 L BUN 7 Creatinine 0.80 Estim Creat Clear Calc Not Reportable Estimated GFR > 60 Glucose 96 Uric Acid 4.8 Calcium 9.3 Total Bilirubin 0.2 AST 20 ALT 12 Alkaline Phosphatase 102 Total Protein 7.0 Albumin 3.7 Urine Color Urine Appearance Urine pH Ur Specific [place] Urine Protein Urine Glucose (UA) Urine Ketones Ur Blood (Man) Urine Nitrate Urine Bilirubin Urine Urobilinogen Ur Leukocyte Esterase Urine RBC Ur Squamous Epith Cells Amorphous Sediment Urine Bacteria Urine Mucus U Random Total Protein Urine Creatinine Fibronectin Negative
--- NOTE | 2020-06-03 17:22 | PM.OBTRLD ---
OB - Triage/Final Diagnosis Visit Information Date of evaluation: 05/26/20 Reason for evaluation: threatened labor Evaluation Laboratory results: Laboratory Tests 05/26/20 05/26/20 05/26/20 21:37 21:37 21:37 WBC 12.4 H RBC 3.86 L Hgb 11.0 L Hct 33.0 L MCV 85.5 MCH 28.5 MCHC 33.3 RDW 14.6 H Plt Count 218 MPV 10.0 Immature Gran % (Auto) 2.2 H Neut % (Auto) 64.6 Lymph % (Auto) 24.4 [place] % (Auto) 6.5 Eos % (Auto) 1.9 Baso % (Auto) 0.4 Lymph # (Auto) 3.02 [place] # (Auto) 0.8 H Eos # (Auto) 0.2 Baso # (Auto) 0.1 Abs Immat Gran (auto) 0.27 H Absolute Neuts (auto) 8.0 H Absolute Nucleated RBC 0.0 Nucleated RBC % 0.0 Sodium Potassium Chloride Carbon Dioxide Anion Gap BUN Creatinine Estim Creat Clear Calc Estimated GFR Glucose Uric Acid Calcium Total Bilirubin AST ALT Alkaline Phosphatase Total Protein Albumin Urine Color Yellow Urine Appearance Cloudy H Urine pH 7.0 Ur Specific [place] 1.019 Urine Protein Negative Urine Glucose (UA) Negative Urine Ketones Negative Ur Blood (Man) Negative Urine Nitrate Negative Urine Bilirubin Negative Urine Urobilinogen Negative Ur Leukocyte Esterase Negative Urine RBC 0-2 Ur Squamous Epith Cells Occasional Amorphous Sediment Few H Urine Bacteria Trace Urine Mucus Rare U Random Total Protein 10 Urine Creatinine 163.8 Fibronectin 05/26/20 05/26/20 21:37 21:42 WBC RBC Hgb Hct MCV MCH MCHC RDW Plt Count MPV Immature Gran % (Auto) Neut % (Auto) Lymph % (Auto) [place] % (Auto) Eos % (Auto) Baso % (Auto) Lymph # (Auto) [place] # (Auto) Eos # (Auto) Baso # (Auto) Abs Immat Gran (auto) Absolute Neuts (auto) Absolute Nucleated RBC Nucleated RBC % Sodium 137 Potassium 3.8 Chloride 104 Carbon Dioxide 27 Anion Gap 6 L BUN 7 Creatinine 0.80 Estim Creat Clear Calc Not Reportable Estimated GFR > 60 Glucose 96 Uric Acid 4.8 Calcium 9.3 Total Bilirubin 0.2 AST 20 ALT 12 Alkaline Phosphatase 102 Total Protein 7.0 Albumin 3.7 Urine Color Urine Appearance Urine pH Ur Specific [place] Urine Protein Urine Glucose (UA) Urine Ketones Ur Blood (Man) Urine Nitrate Urine Bilirubin Urine Urobilinogen Ur Leukocyte Esterase Urine RBC Ur Squamous Epith Cells Amorphous Sediment Urine Bacteria Urine Mucus U Random Total Protein Urine Creatinine Fibronectin Negative
== END 2020-05-26 23:11 | disposition home or self-care (01) ==
PROVIDERS: Advanced Practice Midwife; Admitting Provider Obstetrics & Gynecology; PCP Physician Assistant; Visit Provider Obstetrics & Gynecology
DX: O16.9 Unspecified maternal hypertension, unspecified trimester (principal); Z3A.00 Weeks of gestation of pregnancy not specified
CPT/HCPCS: 36415; 80053; 81001; 82570; 82731; 84156; 84550; 85025; 87086; 87088; A9270; G0378; G0379

== ENCOUNTER 2020-06-12 19:07 | Observation (INO) | payer OTHER, SELFPAY ==
[2020-06-12] VITALS (11 sets, daily range): BP systolic 108–124; BP diastolic 57–70; PULSE 76–98; TEMP 37; BMI 37.5
[2020-06-12 20:29] LABS: Add Urine Microscopic? YES; Amorphous Sediment Urine Few; Appearance Urine Cloudy (Clear); Bacteria Urine Trace /hpf; Bilirubin Urine Negative (Negative); Blood Urine Negative (Negative); Color Urine Yellow (Yellow); Glucose Urine UA Negative (Negative); Ketones Urine Negative (Negative); Leukocyte Esterase Ur Negative LEU/UL (Negative); Mucus Urine Rare /lpf; Nitrate Urine Negative (Negative); Protein Urine Negative (Negative); RBC Urine 0-2 /hpf (0-2); Specific Grav Ur 1.018 (1.001-1.035); Squamous Epithelial Cell Urine Moderate /hpf (Few); Urobilinogen Urine Negative mg/dL (<2.0); WBC Urine 0-3 /hpf
[2020-06-12 20:50] LABS: Fetal Fibronectin Negative
--- NOTE | 2020-06-12 21:19 | LDADM ---
This patient, Alexus Starr, was admitted to OB Post 117 on 06/12/20 at 19:07. Plans for labor, pain management and were discussed with patient. Patient/family oriented to hospital policies and general routines including ID bracelet, bed and alarms, visiting hours, pain management, procedures, bathroom and other care routines, personal items, smoking policy, room service/diet and guest tray routines, infant security routines, and visiting hours. Patient/Family are encouraged to report perceived risks to care and to ask questions if they do not understand what they are told or what they should do. See OBIX for further documentation.
--- NOTE | 2020-06-12 21:22 | PC.NURSE ---
1906- pt came to L&D c/o contractions/back pain/pelvic pressure since 1714 windy. no complications with the . pt also states that she hasn't felt baby move since she started having pain. pt states that she may also be leaking but she's not sure. 1954- called Dr. Blanc to inform of pt admission. FHT reviewed. pt has felt baby move since she has been here. contractions not picking up on monitor, palpation of abdomen with mild contractions. orders received for FFN, UA, cervical exam and oral hydration. will continue to monitor and call with results of tests/concerns/questions.
--- NOTE | 2020-06-12 22:04 | PC.NURSE ---
2155- called Dr. Blanc- lab results reviewed. FHT reviewed. pt states that abdominal cramping is better but still having some back pain and pelvic pressure. ok to send home with instructions for tylenol for pain, heat to the back as needed, rest, increase po fluid intake. pt agrees that she is ready to go home. pt to f/u in office for regular scheduled appt or sooner if concerns.
--- NOTE | 2020-06-15 07:28 | PM.OBTRLD ---
OB - Triage/Final Diagnosis Evaluation Laboratory results: Laboratory Tests 06/12/20 06/12/20 20:05 20:05 Urine Color Yellow Urine Appearance Cloudy H Urine pH 7.0 Ur Specific [place] 1.018 Urine Protein Negative Urine Glucose (UA) Negative Urine Ketones Negative Ur Blood (Man) Negative Urine Nitrate Negative Urine Bilirubin Negative Urine Urobilinogen Negative Leukocyte Esterase Rfl Negative Urine RBC 0-2 Urine WBC 0-3 Ur Squamous Epith Cells Moderate H Amorphous Sediment Few H Urine Bacteria Trace Urine Mucus Rare Fibronectin Negative Final Diagnosis (1) False labor: Code(s): O47.9 - False labor, unspecified Status: Acute
== END 2020-06-12 22:15 | disposition home or self-care (01) ==
PROVIDERS: Admitting Provider Obstetrics & Gynecology; PCP Physician Assistant; Visit Provider Obstetrics & Gynecology
DX: O47.03 False labor before 37 completed weeks of gestation, third trimester (principal); Z3A.29 29 weeks gestation of pregnancy
CPT/HCPCS: 81001; 82731; 84112; G0378; G0379

== ENCOUNTER 2020-07-12 16:14 | Outpatient (CLI) | payer OTHER, SELFPAY ==
[2020-07-12 17:23] VITALS: BP 114/71; PULSE 93
--- NOTE | 2020-07-12 17:38 | PC.NURSE ---
Pt came in for leaking fluid, ROM plus negative. FHR reactive, called. Orders received to discharge pt home
== END 2020-07-12 17:30 | disposition home or self-care (01) ==
LOC: ANHOBOP 16:23
PROVIDERS: PCP Physician Assistant; Visit Provider Obstetrics & Gynecology
DX: O46.90 Antepartum hemorrhage, unspecified, unspecified trimester (principal); Z3A.00 Weeks of gestation of pregnancy not specified
CPT/HCPCS: 59025; 84112

== ENCOUNTER 2020-07-21 14:21 | Outpatient (CLI) | payer OTHER, SELFPAY ==
--- NOTE | ~2020-07-21 | US_ITS ---
EXAMINATION: US venous doppler [facility] EXAM DATE: 07/21/2020 15:51 INDICATION: Leg pain, swelling of right leg pain. TECHNIQUE: Multiple grayscale, color flow and Doppler images of the lower extremity deep venous syste ms bilaterally were obtained and reviewed. There is no prior study for comparison. FINDINGS: Slow flow, viscous appearing hypoechoic blood in the multiple veins. Right side: The right common femoral, femoral and profunda veins demonstrate normal color flow, respi ratory variation, augmentation and compressibility. Compressibility, color flow confirmed within the right popliteal, posterior tibial, peroneal, and greater saphenous veins. Left side: The left common femoral, femoral and profunda veins demonstrate normal color flow, respira tory variation, augmentation and compressibility. Compressibility, color flow confirmed within the l eft popliteal, posterior tibial, peroneal, and greater saphenous veins. IMPRESSION: 1. No lower extremity deep venous thrombosis bilaterally. 2. Slow flow, echogenic blood in the multiple veins. Reviewed, dictated and finalized at location A. NER MACHINE TENDER
[2020-07-21 14:44] VITALS: BP 124/72; PULSE 92
[2020-07-21 14:46] VITALS: BP 125/75; PULSE 93
[2020-07-21 14:52] VITALS: TEMP 36.9
[2020-07-21 14:59] LABS: Basophils Absolute Auto 0.1 K/mm3 (0.0-0.1); Basophils Percent Auto 0.6 % (0.2-1.2); Eosinophils Absolute Auto 0.2 K/mm3 (0-0.3); Eosinophils Percent Auto 1.4 % (0-4.4); Hematocrit 33.2 % (37.0-47.0); Hemoglobin 10.7 g/dL (12.0-15.0); Immature Granulocyte Absolute 0.23 K/mm3 (0.00-0.031); Lymphocytes Absolute Auto 2.67 K/mm3 (0.9-3.2); Lymphocytes Percent Auto 22.7 % (18.3-44.2); Mean Corpuscular HGB Conc 32.2 g/dl (32-36); Mean Corpuscular Hemoglobin 26.6 pg (26-34); Mean Corpuscular Volume 82.6 fl (80-100); Mean Platelet Volume 10.2 fl (7.4-10.4); Monocytes Absolute Auto 0.6 K/mm3 (0.1-0.6); Monocytes Percent Auto 5.4 % (2.6-8.5); Neutrophils Percent Auto 67.9 % (45.5-73.1); Platelet Count Result 224 k/mm3 (150-375); Red Blood Count 4.02 M/mm3 (4.2-5.4); Red Cell Distribution Width 14.9 % (11.5-14.5); White Blood Count 11.8 K/mm3 (4.5-10.0)
[2020-07-21 15:01] VITALS: BP 127/79; PULSE 92
[2020-07-21 15:05] LABS: Add Urine Microscopic? YES; Appearance Urine Cloudy (Clear); Bacteria Urine Trace /hpf; Bilirubin Urine Negative (Negative); Blood Urine Negative (Negative); Color Urine Yellow (Yellow); Glucose Urine UA Negative (Negative); Ketones Urine Negative (Negative); Leukocyte Esterase Ur Negative LEU/UL (NEGATIVE); Mucus Urine Rare /lpf; Nitrate Urine Negative (Negative); Protein Urine Negative (Negative); RBC Urine 0-2 /hpf (0-2); Specific Grav Ur 1.018 (1.001-1.035); Squamous Epithelial Cell Urine Many /hpf (Few); Urobilinogen Urine Negative mg/dL (<2.0); WBC Urine 0-3 /hpf (0-3)
[2020-07-21 15:06] LABS: Creatinine Urine 110.3 mg/dL; Total Protein Urine Random 8 mg/dL; Ur Ttl Prot Creatinine Ratio 0.07 mg/mg (0-0.20)
[2020-07-21 15:16] VITALS: BP 107/55; PULSE 83
[2020-07-21 15:18] LABS: Alanine Aminotransferase 11 U/L (4-35); Albumin Level 3.6 g/dL (3.5-5.1); Alkaline Phosphatase 142 U/L (38-126); Anion Gap 4 mmol/L (8-16); Aspartate Amino Transferase 22 U/L (14-36); Bilirubin,Total 0.3 mg/dL (0.2-1.3); Blood Urea Nitrogen 8 mg/dL (7-17); Carbon Dioxide 23 mmol/L (22-30); Chloride 104 mmol/L (98-107); Estimated Glomerular Filt Rate > 60; Glucose 100 mg/dL (65-105); Potassium 4.4 mmol/L (3.4-5.0); Sodium 131 mmol/L (137-145); Uric Acid 4.9 mg/dL (2.5-7.5)
--- NOTE | 2020-07-21 16:05 | PC.NURSE ---
Kevin Castro at bedside evaluating patient. Dopplers negative, will give Firoicet one tablet now and discharge patient to home.
== END 2020-07-21 16:26 | disposition home or self-care (01) ==
LOC: ANHOBOP 14:28 → ANHOBPP 14:29
PROVIDERS: Advanced Practice Midwife; PCP Physician Assistant; Visit Provider Obstetrics & Gynecology
DX: O13.9 Gestational [pregnancy-induced] hypertension without significant proteinuria, unspecified trimester (principal); Z3A.00 Weeks of gestation of pregnancy not specified; M79.89 Other specified soft tissue disorders
CPT/HCPCS: 36415; 59025; 80053; 81001; 82570; 84156; 84550; 85025; 87086; 93970; 99199; A9270

== ENCOUNTER 2020-07-22 01:09 | Observation (INO) | payer OTHER, SELFPAY ==
[2020-07-22] VITALS (31 sets, daily range): BP systolic 93–144; BP diastolic 44–113; PULSE 77–106; TEMP 36.5–36.9
[2020-07-22] MEDS: LACTATED RINGERS 500 ML 150 ML IV CONT (03:09)
--- NOTE | 2020-07-22 09:27 | PC.NURSE ---
0920- SJessica Castro CNM at bedside. Patient to be discharged to home with one dose of Ambien 10 mg to be given before discharge.
--- NOTE | 2020-07-22 09:27 | PM.OBPNLAB ---
Pain Control Date/time seen: 07/22/20 09:27 Pt arrived to LD with abd pain and dizziness, monitored overnight with stable VS, no contractions, cervix closed per RN. THis am pt now feeling better no abd pain, occ pressure with some bouts of dizziness, pt has noted been unable to sleep well x 2 days VSS plan: d/c home to rest, increase hydration, ambien for sleep today, f/u wed as scheduled and precautions reviewed
[2020-07-22] MEDS: ZOLPIDEM TARTRATE (*CRX) 5 MG TABLET 10 MG PO (09:31)
--- NOTE | 2020-07-22 09:33 | PM.OBTRLD ---
OB - Triage/Final Diagnosis Visit Information Date of evaluation: 07/22/20 Reason for evaluation: other (abd pain, dizziness) Evaluation Vital signs: Vital Signs - 24 hr 07/22/20 01:30 07/22/20 01:45 07/22/20 02:00 Temperature Pulse Rate 106 H 93 97 Blood Pressure 132/85 121/81 124/79 07/22/20 02:15 07/22/20 02:30 07/22/20 02:45 Temperature Pulse Rate 90 92 97 Blood Pressure 111/66 118/69 112/67 07/22/20 03:00 07/22/20 03:15 07/22/20 03:30 Temperature Pulse Rate 87 85 80 Blood Pressure 100/50 L 115/75 102/79 07/22/20 03:45 07/22/20 04:00 07/22/20 04:05 Temperature Pulse Rate 78 84 84 Blood Pressure 103/57 L 93/44 L 107/61 07/22/20 04:15 07/22/20 04:30 07/22/20 04:45 Temperature Pulse Rate 80 81 83 Blood Pressure 101/49 L 98/47 L 93/52 L 07/22/20 05:09 07/22/20 05:15 07/22/20 05:30 Temperature 36.5 C Pulse Rate 80 77 Blood Pressure 122/67 122/69 07/22/20 05:45 07/22/20 06:00 07/22/20 06:15 Temperature Pulse Rate 77 78 78 Blood Pressure 121/70 118/66 113/62 07/22/20 06:30 07/22/20 06:45 07/22/20 07:00 Temperature 36.9 C Pulse Rate 77 87 92 Blood Pressure 112/57 L 112/74 123/50 L 07/22/20 07:15 07/22/20 07:30 07/22/20 07:45 Temperature Pulse Rate 91 87 90 Blood Pressure 144/113 H 117/69 116/71 07/22/20 08:00 07/22/20 08:15 07/22/20 08:30 Temperature Pulse Rate 84 85 81 Blood Pressure 108/66 97/53 L 115/75 07/22/20 08:45 Temperature Pulse Rate 86 Blood Pressure 110/67
--- NOTE | 2020-07-22 09:49 | PC.NURSE ---
0935- RFA IV removed.
== END 2020-07-22 09:45 | disposition home or self-care (01) ==
PROVIDERS: Admitting Provider Obstetrics & Gynecology; PCP Physician Assistant; Visit Provider Obstetrics & Gynecology
DX: O26.893 Other specified pregnancy related conditions, third trimester (principal); R10.9 Unspecified abdominal pain; R42 Dizziness and giddiness; Z3A.36 36 weeks gestation of pregnancy
CPT/HCPCS: 84112; 96361; 96365; A9270; G0378; G0379; J0131; J7120

== ENCOUNTER 2020-07-26 13:14 | Observation (INO) | payer OTHER, SELFPAY ==
--- NOTE | ~2020-07-26 | US_ITS ---
EXAMINATION: US venous doppler [facility] DATE: 07/26/2020 14:45 INDICATION: Right lower limb pain and swelling TECHNIQUE: Grayscale ultrasound images without and with compression and Doppler ultrasound images of the right lower extremity veins were obtained. COMPARISON: 07/21/2020 FINDINGS: The visualized portions of right common femoral vein, profunda (deep) femoral vein, femoral vein, pop liteal vein, peroneal trunk, posterior tibial veins, peroneal veins and greater saphenous vein outflo w are patent. IMPRESSION: 1. No deep venous thrombosis in the right lower limb. Reviewed, dictated and finalized at location B. [employer]
[2020-07-26 13:21] VITALS: TEMP 36.9
[2020-07-26 13:25] VITALS: BMI 39.4
[2020-07-26 14:16] VITALS: BP 113/64; PULSE 88
[2020-07-26] MEDS: CYCLOBENZAPRINE HCL 10 MG TABLET PO (15:55)
--- NOTE | 2020-07-28 12:21 | PM.OBTRLD ---
OB - Triage/Final Diagnosis Visit Information Date of evaluation: 07/27/20 Reason for evaluation: other (swelling) Comments/Additional reasons for admission: I have assessed the risk for this patient, Alexus Starr, and determined that she would benefit from observation care.
== END 2020-07-26 16:00 | disposition home or self-care (01) ==
PROVIDERS: Admitting Provider Obstetrics & Gynecology; PCP Physician Assistant; Visit Provider Obstetrics & Gynecology
DX: O26.893 Other specified pregnancy related conditions, third trimester (principal); M79.89 Other specified soft tissue disorders; Z3A.37 37 weeks gestation of pregnancy
CPT/HCPCS: 93971; A9270; G0378; G0379

== ENCOUNTER 2020-07-27 13:16 | Observation (INO) | payer OTHER, SELFPAY ==
[2020-07-27] VITALS (7 sets, daily range): BP systolic 96–123; BP diastolic 65–80; PULSE 76–98; TEMP 36.6; BMI 39.6
--- NOTE | ~2020-07-27 | XR_ITS ---
EXAMINATION: XR wrist RT min 3V DATE: 07/27/2020 14:55 INDICATION: Right wrist pain. Fall. TECHNIQUE: 4 views of right wrist were obtained. COMPARISON: None. FINDINGS: Bone alignment is normal. No fracture. Joint spaces are well maintained. IMPRESSION: 1. Normal right wrist. Reviewed, dictated and finalized at location A. LA TENDER HELPER IMPRESSION: 1. Normal right wrist.
--- NOTE | ~2020-07-27 | XR_ITS ---
EXAMINATION: XR hand RT min 3V DATE: 07/27/2020 14:55 INDICATION: Right hand pain. Fall. TECHNIQUE: 3 views of right hand were obtained. COMPARISON: None. FINDINGS: Bone alignment is normal. No fracture. Joint spaces are well maintained. IMPRESSION: 1. Normal right hand. Reviewed, dictated and finalized at location A. F OF FIELD OPERATIONS IMPRESSION: 1. Normal right hand.
[2020-07-27] MEDS: CYCLOBENZAPRINE HCL 10 MG TABLET PO (15:18)
--- NOTE | 2020-07-27 16:07 | OBADM ---
This patient, Alexus Starr, admitted to the OB room OB Post 112 for observation. Patient/family oriented to hospital policies and general routines including ID bracelet, bed and alarms, visiting hours, pain management, procedures, bathroom and other care routines, personal items, smoking policy, room service/diet, and visiting hours. Patient/Family are encouraged to report perceived risks to care and to ask questions if they do not understand what they are told or what they should do.
--- NOTE | 2020-07-27 17:05 | PC.NURSE ---
Updated Dr. Blanc of patient back pain. Patient reports back pain that is worse with palpation. Lower back found to be bruised where patient had fallen. Patient states back is hurting where bruise is. Orders received.
[2020-07-27] MEDS: ACETAMINOPHEN 500 MG TABLET 1000 MG PO (17:13)
[2020-07-27] MEDS: ZOLPIDEM TARTRATE (*CRX) 5 MG TABLET PO (20:23)
[2020-07-27] MEDS: HYDROcodone/acetaminophen (*CRX) 5-325 MG TABLET 1 TAB PO (21:41)
[2020-07-28] MEDS: CYCLOBENZAPRINE HCL 10 MG TABLET PO ×2 (00:01→07:53)
[2020-07-28 07:00] VITALS: BP 107/60; PULSE 81
[2020-07-28] MEDS: ACETAMINOPHEN 500 MG TABLET 1000 MG PO (07:07)
[2020-07-28] MEDS: HYDROcodone/acetaminophen (*CRX) 5-325 MG TABLET 1 TAB PO (09:06)
--- NOTE | 2020-07-28 09:12 | PC.NURSE ---
Pt states she feel better after the Flexeril, however continues to rate pressure an eight .
[2020-07-28 09:33] VITALS: BP 128/69; PULSE 91
[2020-07-28 10:19] LABS: Add Urine Microscopic? YES; Appearance Urine Clear (Clear); Bacteria Urine 1+ /hpf; Bilirubin Urine Negative (Negative); Blood Urine Negative (Negative); Color Urine Straw (Yellow); Glucose Urine UA Negative (Negative); Ketones Urine Negative (Negative); Leukocyte Esterase Ur Trace LEU/UL (Negative); Mucus Urine Rare /lpf; Nitrate Urine Negative (Negative); Protein Urine Negative (Negative); RBC Urine 0-2 /hpf (0-2); Squamous Epithelial Cell Urine Moderate /hpf (Few); Urobilinogen Urine Negative mg/dL (<2.0)
--- NOTE | 2020-07-28 10:23 | PM.IMHP ---
H&P: HPI History of Present Illness Date/Time: 07/28/20 10:23 Chief Complaint: s/p fall on ice Narrative: Alexus Starr is a 29 year old female at 37+ week who fell on ice yesterday at 1300. She fell and landed on her back/butt. Her toddler fell also and while on the ground, she picked toddler up and put her on her belly a little hard. She had back pain prior to this admission, and in fact was seen the day prior for this complaint. She also had been having irregular contractions prior to the fall. She has a prior CS. Since admission she has had a few spurts of contractions and irritability, but has not changed her cervix (1cm) from day prior. No vaginal bleeding at all. This morning she complains of back, abdominal, right thumb pain. XR of thumb was normal. Pain is relieved with flexeril and norco and she states she slept well with ambien. She is able to ambulate. No LE weakness or numbness. Review of Systems Review of Systems: All systems reviewed & are unremarkable except as noted in HPI and below (hpi) PENDING SALE TO [facility] Past Medical History Medical History (Updated 05/07/20 @ 20:42 by RAFAT Martínez) Migraine headache Vertigo Surgical History Surgical History History of appendectomy History of ovarian cystectomy Social History Social History Smoking status: Current every day smoker Alcohol intake: current Substance use: current Substance use type: marijuana Gender identity (if verbalized by the patient): Female Meds Home Medications and Allergies Home Medications Medication Instructions Recorded Confirmed Type PNV cmb#95-ferrous fumarate-FA 1 tablet PO DAILY 01/17/20 07/22/20 History [] Allergies Allergy/AdvReac Type Severity Reaction Status Date / Time No Known Allergies Allergy Verified 03/06/20 03:47 Vital Signs Vital Signs - 24 hr 07/27/20 14:30 07/27/20 15:01 07/27/20 15:30 Temperature Pulse Rate 98 76 93 Blood Pressure 112/73 96/80 L 108/67 07/27/20 16:00 07/27/20 17:00 07/27/20 18:17 Temperature Pulse Rate 95 86 83 Blood Pressure 123/75 119/75 122/72 07/27/20 20:25 07/28/20 07:00 07/28/20 09:33 Temperature 97.9 F Pulse Rate 92 81 91 Blood Pressure 116/65 107/60 128/69 Exam Const: Other: Appears comforable upon entering dark room, but grimaces with interaction. GI: Other: Abdomen soft. Mild tenderness globally, no rebound or guarding. Back/Spine/Pelvis: Back: ecchymosis (near sacrum) and back tenderness Back/spine/pelvis image: 1. area of ecchymosis Skin: General skin exam: normal color and no rashes or lesions noted Extrem: General: normal to inspection and normal exam except as noted Right upper extremity: full ROM Left upper extremity: full ROM Right lower extremity: full ROM Left lower extremity: full ROM Psych: Mental Status: mental status grossly normal Affect: normal affect H&P: Results Labs Labs: Urine 07/28/20 Range/Units 09:42 Urine Color Straw (Yellow) Urine Appearance Clear (Clear) Urine pH 6.0 (5.0-9.0) Ur Specific [place] 1.010 (1.001-1.035) Urine Protein Negative (Negative) mg/dL Urine Glucose (UA) Negative (Negative) mg/dL Assessment and Plan Additional Plan Rh pos s/p fall 1300 yesterday thumb pain- XR normal= ice and tylenol back pain- preexisting but exacerbated by fall. heat, ice, flexeril. no neurologic symptoms abdominal pain- no contractions currently, when present palpate mild per RNs, no cervical change has been made. No suspicion for abruption as no bleeding or regular contractions. suspect also musculoskeletal source of pain. status- category 1 entire admission. normal FM per pt. Pt desires DC home at 24 hours s/p fall. has ambien and flexeril at home already. may have a few norco. FU this week in office. has a
== END 2020-07-28 10:35 | disposition home or self-care (01) ==
PROVIDERS: Admitting Provider Obstetrics & Gynecology; PCP Physician Assistant; Visit Provider Obstetrics & Gynecology
DX: O99.891 Other specified diseases and conditions complicating pregnancy (principal); M25.531 Pain in right wrist; M54.9 Dorsalgia, unspecified; W19.XXXA Unspecified fall, initial encounter; Z3A.37 37 weeks gestation of pregnancy; F17.200 Nicotine dependence, unspecified, uncomplicated
CPT/HCPCS: 73110; 73130; 81001; 84112; A9270; G0378; G0379

== ENCOUNTER 2020-08-07 18:14 | Observation (INO) | payer OTHER, SELFPAY ==
[2020-08-07 18:26] VITALS: BP 123/78; PULSE 77
[2020-08-07 19:01] VITALS: BP 142/66; PULSE 83
[2020-08-07 19:31] VITALS: BP 122/79; PULSE 79
[2020-08-07 20:00] VITALS: BMI 39.4
--- NOTE | 2020-08-07 22:11 | OBADM ---
This patient, Alexus Starr, admitted to the OB room Labor/Delivery/Recovery 103 for observation. Patient/family oriented to hospital policies and general routines including ID bracelet, bed and alarms, visiting hours, pain management, procedures, bathroom and other care routines, personal items, smoking policy, room service/diet, and visiting hours. Patient/Family are encouraged to report perceived risks to care and to ask questions if they do not understand what they are told or what they should do.
--- NOTE | 2020-08-23 08:08 | PM.OBTRLD ---
OB - Triage/Final Diagnosis Visit Information Comments/Additional reasons for admission: I have assessed the risk for this patient, Alexus Starr, and determined that she would benefit from observation care. Final Diagnosis (1) False labor: Code(s): O47.9 - False labor, unspecified Status: Acute
== END 2020-08-07 20:20 | disposition home or self-care (01) ==
PROVIDERS: Admitting Provider Obstetrics & Gynecology; PCP Physician Assistant; Visit Provider Obstetrics & Gynecology
DX: O47.1 False labor at or after 37 completed weeks of gestation (principal); Z3A.37 37 weeks gestation of pregnancy
CPT/HCPCS: G0378; G0379

== ENCOUNTER 2020-08-11 16:31 | Observation (INO) | payer OTHER, SELFPAY ==
--- NOTE | 2020-08-11 16:31 | OBADM ---
This patient, Alexus Starr, admitted to the OB room Labor/Delivery/Recovery 120 for observation. Patient/family oriented to hospital policies and general routines including ID bracelet, bed and alarms, visiting hours, pain management, procedures, bathroom and other care routines, personal items, smoking policy, room service/diet, and visiting hours. Patient/Family are encouraged to report perceived risks to care and to ask questions if they do not understand what they are told or what they should do.
[2020-08-11 16:41] VITALS: TEMP 36.9
--- NOTE | 2020-08-11 16:46 | PC.NURSE ---
Dr. Daniel notified of patient arrival to OB unit. Updated on maternal assessment, sve, assessment and contractions. Orders received.
[2020-08-11 17:01] VITALS: BP 89/59; PULSE 86
--- NOTE | 2020-08-11 17:10 | PC.NURSE ---
Plan of care discussed with patient. Patient states understanding of plan of care and denies any questions.
[2020-08-11] MEDS: DEXTROSE 5%/LACTATED RINGERS 1,000 ML 150 ML IV CONT (17:11)
[2020-08-11 17:16] VITALS: BP 101/61; PULSE 89
[2020-08-11 17:31] VITALS: BP 92/58; PULSE 93
[2020-08-11 17:46] VITALS: BP 104/63; PULSE 94
[2020-08-11 18:01] VITALS: BP 113/74; PULSE 96
--- NOTE | 2020-08-11 18:02 | PC.NURSE ---
Dr. Daniel updated on maternal assessment and SVE. Discharge orders received.
--- NOTE | 2020-08-11 18:11 | PC.NURSE ---
Discharge instructions reviewed with patient. Patient states understanding of discharge instructions and denies questions.
== END 2020-08-11 18:16 | disposition home or self-care (01) ==
PROVIDERS: Admitting Provider Obstetrics & Gynecology; PCP Physician Assistant; Visit Provider Obstetrics & Gynecology
DX: O47.1 False labor at or after 37 completed weeks of gestation (principal); Z3A.38 38 weeks gestation of pregnancy
CPT/HCPCS: 96360; G0378; G0379; J7121

== ENCOUNTER 2020-08-15 04:50 | Inpatient (IN) | payer OTHER, SELFPAY ==
[2020-08-15] VITALS (54 sets, daily range): BP systolic 75–136; BP diastolic 32–82; PULSE 45–97; RESP 12–20; TEMP 36.2–36.7; O2SAT 97–100; BMI 40.3
--- NOTE | 2020-08-15 04:50 | LDADM ---
This patient, Alexus Starr, was admitted to Labor/Delivery/Recovery 120 on 08/15/20 at 04:50. Plans for labor, pain management and were discussed with patient. Patient/family oriented to hospital policies and general routines including ID bracelet, bed and alarms, visiting hours, pain management, procedures, bathroom and other care routines, personal items, smoking policy, room service/diet and guest tray routines, infant security routines, and visiting hours. Patient/Family are encouraged to report perceived risks to care and to ask questions if they do not understand what they are told or what they should do. See OBIX for further documentation.
[2020-08-15] MEDS: LACTATED RINGERS 1,000 ML 125 ML IV CONT ×3 (05:30→08:24)
[2020-08-15 06:02] LABS: Basophils Percent Auto 0.5 % (0.2-1.2); Eosinophils Percent Auto 0.5 % (0-4.4); Hematocrit 32.2 % (37.0-47.0); Hemoglobin 10.3 g/dL (12.0-15.0); Immature Granulocyte Absolute 0.09 K/mm3 (0.00-0.031); Immature Granulocyte Percent A 1.6 % (0-0.5); Lymphocytes Absolute Auto 1.82 K/mm3 (0.9-3.2); Lymphocytes Percent Auto 32.3 % (18.3-44.2); Mean Corpuscular Hemoglobin 26.4 pg (26-34); Mean Corpuscular Volume 82.6 fl (80-100); Mean Platelet Volume 10.5 fl (7.4-10.4); Monocytes Absolute Auto 0.6 K/mm3 (0.1-0.6); Monocytes Percent Auto 9.8 % (2.6-8.5); Neutrophils Absolute Auto 3.1 K/mm3 (1.3-6.7); Neutrophils Percent Auto 55.3 % (45.5-73.1); Nucleated Red Blood Cells Perc 0.4 % (0.0-0.2); Platelet Count Result 194 k/mm3 (150-375); Red Cell Distribution Width 16.1 % (11.5-14.5); White Blood Count 5.6 K/mm3 (4.5-10.0)
--- NOTE | 2020-08-15 07:28 | PM.IMHP ---
H&P: HPI History of Present Illness Date/Time: 08/15/20 07:28 Chief Complaint: Term Narrative: Alexus Starr is a 29 year old female, multiparous, at term with a previous delivery who desires repeat delivery. We have agreed to perform repeat . She has no complaints. She denies any loss of fluid or vaginal bleeding. She denies any contractions. She reports good movement. She denies any nausea, vomiting, fever, chills. She denies any chest pain or shortness of breath. Review of Systems Constitutional: Constitutional: Reports no additional constitutional complaints, Denies fatigue, Denies headache(s), Denies lethargy and Denies weakness Eyes: Eyes: Reports no additional eye complaints, Denies blurry vision and Denies photophobia ENT: Reports as per HPI, Denies headache(s) and Denies neck pain Cardiovascular: Cardiovascular: Denies chest pain, Denies diaphoresis, Denies leg edema, Denies palpitations and Denies dyspnea Respiratory: Respiratory: Denies hemoptysis, Denies dyspnea and Denies wheezing Gastrointestinal: Gastrointestinal: Denies abdominal pain, Denies melena, Denies bloating, Denies hematochezia, Denies nausea and Denies vomiting Genitourinary: Genitourinary: Reports no additional female genitourinary complaints Musculoskeletal: Musculoskeletal: Denies joint swelling, Denies neck pain, Denies numbness and Denies stiffness Neurologic: Denies Abnormal speech present, Denies confusion, Denies headache(s), Denies numbness and Denies weakness Psychiatric: Psychiatric: Denies anxiety, Denies confusion, Denies depression, Denies homicidal ideation and Denies suicidal ideation Endocrine: Endocrine: Denies fatigue and Denies palpitations Allergic/Immunologic: Allergic/Immunologic: Denies wheezing PMFSH Past Medical History Medical History (Updated 08/15/20 @ 07:30 by Sanjeev Daniel MD) Migraine headache Vertigo Surgical History Surgical History (Updated 08/15/20 @ 07:30 by Sanjeev Daniel MD) History of appendectomy History of ovarian cystectomy Family History Family History (Updated 08/10/20 @ 11:00 by Dania Olivo RN) Father Epilepsy Diabetes mellitus Sibling Epilepsy Social History Social History Smoking status: Former smoker Second hand tobacco smoke exposure: Yes Alcohol intake: current Substance use: current Substance use type: marijuana Other substance usage details: Hydrocodone prescribed by Dr. Daniel used for a few days last month Last use: Hydrocodone and Marijuana - over a week ago Gender identity (if verbalized by the patient): Female Spiritual care concerns: No Meds Home Medications and Allergies Home Medications Medication Instructions Recorded Confirmed Type PNV cmb#95-ferrous fumarate-FA 1 tablet PO DAILY 01/17/20 08/15/20 History [] zolpidem 5 mg PO HS PRN 08/07/20 08/15/20 History cyclobenzaprine [Flexeril] 5 mg PO TID PRN 08/15/20 08/15/20 History Allergies Allergy/AdvReac Type Severity Reaction Status Date / Time No Known Allergies Allergy Verified 03/06/20 03:47 Vital Signs Vital Signs - 24 hr 08/15/20 05:23 Pulse Rate 91 Blood Pressure 114/71 Exam Const: General: healthy appearing, comfortable and no acute distress; No confusion Orientation/consciousness: No confusion Eyes: Direct Ophthalmoscopy: No photophobia Resp: Auscultation: clear to auscultation bilaterally, no rales, no rhonchi and no wheezes Cardio: Rate: regular rate Heart sounds: no click, no murmurs and no rubs GI: Inspection: non-distended GI Palp: No abdominal tenderness Auscultation: normal bowel sounds Neuro: General: No confusion Speech: No Abnormal speech present Extrem: General: normal to inspection, no pedal edema and no calf tenderness H&P: Results Labs Labs: Short CBC 08/15/20 Range/Units 05:27 WBC 5.6 (4.5-
--- NOTE | 2020-08-15 07:29 | WPDANESEPPF ---
Anes - Initial Pre Proc Eval Procedure: Operation Date: 08/15/20 07:30 Proposed Procedures p Repeat Section - Sanjeev Daniel MD Date/Time: 08/15/20 07:29 Surgeon: Sanjeev Daniel MD Pre Op Diagnosis: section Patient Data Age: 29 Gender: F Height: 5 ft 5 in Weight: 110 kg Last Vital Signs Pulse 91 08/15/20 05:23 BP 114/71 08/15/20 05:23 Allergies Allergy/AdvReac Type Severity Reaction Status Date / Time No Known Allergies Allergy Verified 03/06/20 03:47 Home Medications Medication Instructions Recorded Confirmed Type PNV cmb#95-ferrous fumarate-FA 1 tablet PO DAILY 01/17/20 08/15/20 History [] zolpidem 5 mg PO HS PRN 08/07/20 08/15/20 History cyclobenzaprine [Flexeril] 5 mg PO TID PRN 08/15/20 08/15/20 History Laboratory Tests 08/15/20 08/15/20 05:27 05:27 WBC 5.6 K/mm3 K/mm3 (4.5-10.0) RBC 3.90 M/mm3 L M/mm3 (4.2-5.4) Hgb 10.3 g/dL L g/dL (12.0-15.0) Hct 32.2 % L % (37.0-47.0) MCV 82.6 fl fl (80-100) MCH 26.4 pg pg (26-34) MCHC 32.0 g/dl g/dl (32-36) RDW 16.1 % H % (11.5-14.5) Plt Count 194 k/mm3 k/mm3 (150-375) MPV 10.5 fl H fl (7.4-10.4) Immature Gran % (Auto) 1.6 % H % (0-0.5) Neut % (Auto) 55.3 % % (45.5-73.1) Lymph % (Auto) 32.3 % % (18.3-44.2) [place] % (Auto) 9.8 % H % (2.6-8.5) Eos % (Auto) 0.5 % % (0-4.4) Baso % (Auto) 0.5 % % (0.2-1.2) Lymph # (Auto) 1.82 K/mm3 K/mm3 (0.9-3.2) [place] # (Auto) 0.6 K/mm3 K/mm3 (0.1-0.6) Eos # (Auto) 0.0 K/mm3 K/mm3 (0-0.3) Baso # (Auto) 0.0 K/mm3 K/mm3 (0.0-0.1) Abs Immat Gran (auto) 0.09 K/mm3 H K/mm3 (0.00-0.031) Absolute Neuts (auto) 3.1 K/mm3 K/mm3 (1.3-6.7) Absolute Nucleated RBC 0.0 K/mm3 K/mm3 (0.0-0.012) Nucleated RBC % 0.4 % H % (0.0-0.2) RPR Pending Patient hx anesthesia problems: none Family hx anesthesia problems: none PMFSH Past Medical History Medical History Migraine headache Vertigo Surgical History Surgical History History of appendectomy History of ovarian cystectomy Family History Family History Father Epilepsy Diabetes mellitus Sibling Epilepsy Social History Social History Smoking status: Former smoker Second hand tobacco smoke exposure: Yes Alcohol intake: current Substance use: current Substance use type: marijuana Other substance usage details: Hydrocodone prescribed by Dr. Daniel used for a few days last month Last use: Hydrocodone and Marijuana - over a week ago Gender identity (if verbalized by the patient): Female Spiritual care concerns: No Anes - Eval Final PreProcedure Day of Procedure 08/15/20 07:29 Patient weight: obese Heart: regular rate and rhythm Lungs: clear to auscultation Airway: Mallampati scale class II Neurological: alert and oriented Last oral intake: >/= 8 hours ASA classification: III Emergent: no Anesthetic plan: proceed Anesthesia type and monitoring: regional spinal and standard monitoring Informed Consent: The patient's anesthetic plan and its attendant risks and benefits were discussed with the patient/family/POA. Questions were solicited and answers provided to the satisfaction of the patient/family/POA.
--- NOTE | 2020-08-15 07:31 | WPDHPUPDATE1 ---
History and Physical Update Update Date/Time: 08/15/20 07:31 History and Physical has been reviewed, including an updated exam of the patient. There are NO changes in the patient's condition. Risks, benefits, and alternatives have been discussed and questions answered. Patient agrees to proceed with procedure.
[2020-08-15] MEDS: ceFAZolin 2 GM/D5W 50 ML 2 GM/50 ML BAG IVPB (07:33)
[2020-08-15 07:58] LABS: Amphetamine Screen Urine Negative (Negative); Barbiturate Screen Urine Negative (Negative); Benzodiazepines Screen Urine Negative (Negative); Cannabinoid Screen Urine Positive (Negative); Cocaine Screen Urine Negative (Negative); Methadone Screen Urine Negative (Negative); Opiate Screen Urine Negative (Negative); Phencyclidine Screen Urine Negative (Negative)
--- NOTE | 2020-08-15 08:21 | P.OP_ITS ---
Procedure Note - Detailed Date of procedure: 08/15/20 Pre-op diagnosis: Previous section Post-op diagnosis: same Procedure performed: low-transverse delivery Description of procedure: The patient was taken the operating room. She was prepped and draped in the dorsal supine position with leftward tilt after induction of spinal anesthetic. When anesthesia was found to be adequate a low- transverse skin incision was made and carried down to the level the fascia with the knife. The fascial incision was made at the midline with a scalpel. The fascial incision was extended laterally with Saavedra scissors. The fascia was t ented upward superior and inferior with Maria Luz clamps. The rectus muscles were dissected off bluntly. The rectus muscles at the midline. The preperitoneal fat was dissected bluntly at the superior aspect of the separate the rectus muscles. The peritoneal cavity was entered bluntly in the same area. The peritoneal incision was extended superior and inferior with good visualization of bladder. Bladder blade was inserted. A low-transverse incision was made on the uterus with the scalpel. It was carried down the level of the amniotic cavity with a knife. The amniotic cavity bluntly. The uterine incision was made laterally with blunt traction. The infant was delivered. The cord was clamped and cut. The infant was handed off to waiting pediatric staff. Cord bloods were obtained. The placenta was removed manually. The uterus was exteriorized. Uterus cleared of all clots and debris. Uterus closed in 0 Vicryl in a running locked fashion. An imbricating layer of 0 Vicryl was also placed on the to bolster the closure. The uterus was returned to the abdomen. The gutters were cleared of all clots and debris. The fascia was closed 0 Vicryl in a running fashion. Subcutaneous tissue was irrigated and bleeding areas were cauterized. The skin was closed with subcuticular absorbable dary. The incision was covered with derma lanier. The patient tolerated the procedure well. She was taken recovery room stable condition. Sponge, lap, needle counts were correct x2. Anesthesia: spinal Surgeon: Sanjeev Daniel MD Drains: No Packing: No Pathology: none sent Complications: No immediate complications Condition: stable Disposition: floor Findings: Normal maternal anatomy. Well above average size infant with normal Apgars.
[2020-08-15] MEDS: OXYTOCIN 30 UNITS/NS 500 ML 30 UNITS/500 ML BAG 125 UNITS IV CONT (10:07)
[2020-08-15] MEDS: fentaNYL CITRATE INJ (*CRX) 100 MCG/2 ML VIAL 25 MCG IV PUSH (10:12)
[2020-08-15] MEDS: diphenhydrAMINE HCl INJ 50 MG/ML VIAL 25 MG IV PUSH ×2 (10:46→19:30)
--- NOTE | 2020-08-15 12:00 | PC.NURSE ---
Pt received marijuana and breast feeding information sheet and was encouraged to read and have any questions answered as she makes a decision to feed her .
[2020-08-15] MEDS: KETOROLAC 30 MG/ML VIAL (*BKC) IV PUSH ×2 (12:35→19:29)
[2020-08-15] MEDS: ONDANSETRON INJ 4 MG/2 ML VIAL IV PUSH (12:38)
[2020-08-15] MEDS: DEXTROSE 5%/0.45% SOD CHL 1,000 ML 125 ML IV CONT (13:06)
[2020-08-15 13:47] LABS: Rapid Plasma Reagin Non-Reactive (NonReactive)
--- NOTE | 2020-08-15 15:04 | PCCCNOTE ---
Care Coordination. Patient referred to Care Coordination for positive marijuana UDS for mom and history of depression. Meconium sent for baby. Met with mother and significant other, Tristan, at bedside. She plans to go home with Tristan. She reports having good family support. She had a shower and setup with [facility]IC in [place]. She didn't want any resource information as she felt it was not needed. Spoke with mom about history of depression and talking with her doctor if she feels any different or has post depression symptoms. Spoke with Alejandra iTnsley at [facility] hotline who took patient's situation as information only ([facility] Intake ID# [id number]).
[2020-08-15] MEDS: HYDROcodone/acetaminophen (*CRX) 5-325 MG TABLET 1 TAB PO (23:30)
[2020-08-16] MEDS: IBUPROFEN 600 MG TABLET PO ×4 (03:21→22:45)
[2020-08-16] MEDS: HYDROcodone/acetaminophen (*CRX) 5-325 MG TABLET 1 TAB PO ×3 (03:21→20:59)
[2020-08-16 03:30] VITALS: BP 109/71; PULSE 63; RESP 16; TEMP 36.3; O2SAT 100
[2020-08-16 05:23] LABS: Basophils Percent Auto 0.4 % (0.2-1.2); Eosinophils Percent Auto 0.5 % (0-4.4); Hematocrit 29.8 % (37.0-47.0); Hemoglobin 9.5 g/dL (12.0-15.0); Immature Granulocyte Absolute 0.07 K/mm3 (0.00-0.031); Immature Granulocyte Percent A 0.9 % (0-0.5); Lymphocytes Absolute Auto 1.97 K/mm3 (0.9-3.2); Lymphocytes Percent Auto 24.2 % (18.3-44.2); Mean Corpuscular HGB Conc 31.9 g/dl (32-36); Mean Corpuscular Volume 81.6 fl (80-100); Mean Platelet Volume 10.9 fl (7.4-10.4); Monocytes Absolute Auto 0.6 K/mm3 (0.1-0.6); Monocytes Percent Auto 7.5 % (2.6-8.5); Neutrophils Absolute Auto 5.4 K/mm3 (1.3-6.7); Neutrophils Percent Auto 66.5 % (45.5-73.1); Platelet Count Result 164 k/mm3 (150-375); Red Blood Count 3.65 M/mm3 (4.2-5.4); White Blood Count 8.1 K/mm3 (4.5-10.0)
--- NOTE | 2020-08-16 07:43 | WPDANLDPN2 ---
Anes-Prog Note L&D Date/Time: 08/16/20 07:43 Comfortable throughout: section Neuraxial method: spinal Epidural/Spinal procedure site: clean & non-tender Neuro status: Neuro function grossly intact. Cardiovascular status: normal Respiratory status: normal Airway patency: baseline Mental status: baseline Post-Op hydration status: normal Vital Signs: Last Vital Signs Temp 36.3 C L 08/16/20 03:30 Pulse 63 08/16/20 03:30 Resp 16 08/16/20 03:30 BP 109/71 08/16/20 03:30 Pulse Ox 100 08/16/20 03:30 Pain score (VAS): 0 I/O: Intake & Output 08/15/20 08/15/20 08/16/20 15:59 23:59 07:59 Intake Total 1850 2000 Output Total 555 800 800 Balance 1295 1200 -800 Post-procedural complaints: none Patient feedback: Patient satisfied with anesthetic care.
--- NOTE | 2020-08-16 07:43 | WPDANLDNPN2 ---
Anes-Prog Note L&D-Neuraxial Date/Time: 08/16/20 07:43 Neuraxial medications: intrathecal PF morphine Opiod-related complaints: none Patient feedback: Patient satisfied with post-operative pain management.
--- NOTE | 2020-08-16 07:50 | P.PNOB_ITS ---
OB - PN: Subj Subjective Date/time seen: 08/16/20 07:50 Patient comments: no complaints, pain well controlled, tolerating diet and flatus present [place] baby status: doing well OB - PN: Obj Data Labs CBC & Chem 7: 08/16/20 03:27 Labs: Laboratory Results - last 24 hr 08/15/20 08/15/20 08/15/20 05:27 05:27 07:31 WBC RBC Hgb Hct MCV MCH MCHC RDW Plt Count MPV Immature Gran % (Auto) Neut % (Auto) Lymph % (Auto) [place] % (Auto) Eos % (Auto) Baso % (Auto) Lymph # (Auto) [place] # (Auto) Eos # (Auto) Baso # (Auto) Abs Immat Gran (auto) Absolute Neuts (auto) Absolute Nucleated RBC Nucleated RBC % Urine Opiates Screen Negative Urine Methadone Screen Negative Ur Barbiturates Screen Negative Ur Phencyclidine Scrn Negative Ur Amphetamine Screen Negative U Benzodiazepines Scrn Negative Urine Cocaine Screen Negative U Cannabinoids Screen Positive A RPR Non-reactive Blood Type B Positive Antibody Screen Negative 08/16/20 03:27 WBC 8.1 RBC 3.65 L Hgb 9.5 L Hct 29.8 L MCV 81.6 MCH 26.0 MCHC 31.9 L RDW 16.0 H Plt Count 164 MPV 10.9 H Immature Gran % (Auto) 0.9 H Neut % (Auto) 66.5 Lymph % (Auto) 24.2 [place] % (Auto) 7.5 Eos % (Auto) 0.5 Baso % (Auto) 0.4 Lymph # (Auto) 1.97 [place] # (Auto) 0.6 Eos # (Auto) 0.0 Baso # (Auto) 0.0 Abs Immat Gran (auto) 0.07 H Absolute Neuts (auto) 5.4 Absolute Nucleated RBC 0.0 Nucleated RBC % 0.0 Urine Opiates Screen Urine Methadone Screen Ur Barbiturates Screen Ur Phencyclidine Scrn Ur Amphetamine Screen U Benzodiazepines Scrn Urine Cocaine Screen U Cannabinoids Screen RPR Blood Type Antibody Screen OB - PN A/P Plan day: 1 Plan: routine care Time Spent With Patient Time: Total time spent is greater than 50% in coordination of care (as documented) at patient's floor/unit and/or counseling patient: Time with patient: less than 15 minutes Review of Systems Review of Systems: All systems reviewed & are unremarkable except as noted in HPI and below Exam Narrative: Exam Narrative: Fundus firm. Vaginal flow controlled. Incision dry and intact. Negative homans. No redness, warmth, or pain of lower ext. Const: General: comfortable Chest: Breast/axilla inspection: normal inspection of the breasts Resp: Effort & Inspection: normal respiratory effort Auscultation: clear to auscultation bilaterally Cardio: Rate: regular rate GI: GI Palp: Yes Soft to palpation Psych: Appearance: grossly normal Affect: normal affect Attitude: cooperative Thought content: Yes Normal thought content present Judgement: Good judgement present (Psych)
--- NOTE | 2020-08-16 08:30 | PC.NURSE ---
PT introductions made and plan of care discussed per post op csection, pain management, bottle feeding, daily care activities. PT verbalized understanding of such care.
[2020-08-16 08:45] VITALS: BP 107/68; PULSE 74; RESP 18; TEMP 36.6; O2SAT 99
[2020-08-16 10:00] VITALS: PULSE 74; RESP 18; O2SAT 99
[2020-08-16] MEDS: DOCUSATE SODIUM 100 MG CAPSULE PO ×2 (10:20→15:44)
[2020-08-16] MEDS: POLYSACCHARIDE IRON COMPLEX 150 MG CAPSULE PO (10:21)
[2020-08-16] MEDS: MULTIVIT/MIN/PREN/FOL AC/IRON TABLET 1 TAB PO (10:22)
[2020-08-16] MEDS: SIMETHICONE 80 MG TAB.CHEW PO ×2 (15:44→22:45)
[2020-08-16] MEDS: HYDROcodone/acetaminophen (*CRX) 10-325 MG TABLET 1 TAB PO (15:47)
[2020-08-16 20:54] VITALS: BP 119/81; PULSE 79; RESP 18; TEMP 36.6; O2SAT 98
[2020-08-16] MEDS: BISACODYL 10 MG SUPPOSITORY RECTAL (22:45)
[2020-08-17] MEDS: IBUPROFEN 600 MG TABLET PO (04:30)
[2020-08-17 07:40] VITALS: BP 123/84; PULSE 85; RESP 18; TEMP 36.6; O2SAT 100
--- NOTE | 2020-08-17 07:45 | PM.OBPNVD ---
OB - PN: Subj Subjective Date/time seen: 08/17/20 07:45 Patient comments: no complaints, pain well controlled, incisional pain, tolerating diet and flatus present OB - PN: Obj Data Labs CBC & Chem 7: 08/16/20 03:27 OB - PN A/P Plan day: 2 Plan: routine care Comments: POD#2 LTCS - no problems, Time Spent With Patient Time: Total time spent is greater than 50% in coordination of care (as documented) at patient's floor/unit and/or counseling patient: Exam Const: General: comfortable, no acute distress and alert Resp: Effort & Inspection: normal respiratory effort Auscultation: no crackles, no rales and no rhonchi Cardio: Rate: regular rate Heart sounds: no click, no murmurs and no rubs GI: Inspection: non-distended GI Palp: No Tenderness to palpation present (GI) Auscultation: normal bowel sounds Other: Incision - CDI Extrem: General: normal to inspection, no pedal edema and no calf tenderness
--- NOTE | 2020-08-17 07:45 | PM.OBDSVD ---
DS: Admitting Diagnosis Admitting Diagnosis Admitting Diagnosis: term DS: Discharge Diagnosis Discharge Diagnosis (1) Previous section: Code(s): Z98.891 - History of uterine scar from previous surgery Status: Acute (2) Term : Code(s): Z34.90 - Encounter for supervision of normal , unspecified, unspecified trimester Status: Acute (3) delivery delivered: Code(s): O82 - Encounter for delivery without indication Status: Acute OB - DS: Summary OB Procedures : NST and Ultrasound OB Procedures Intrapartum: OB Procedures: : None Peripartum Data Delivery Method: Section Procedures: Procedures Operation Date: 08/15/20 07:30 Actual Procedures Side Surgeon p Section Sanjeev Daniel MD complications: none Time Spent with Patient Time attestation: Total time spent providing and/or coordinating discharge services: Discharge Plan Discharge Discharging Clinician: Sanjeev Daniel Patient Disposition: Home, Self-Care Activity: pelvic rest Diet: regular Patient Instructions: Antibiotic Form Stand Alone Forms: General Discharge Information Follow-up/Referrals: Sanjeev Daniel MD [Physician] - Discharge Medications: New hydrocodone-acetaminophen 5-325 mg tablet 1 - 2 tablet PO Q4H PRN (Reason: pain) Qty: 25 RF: 0 Continued PNV cmb#95-ferrous fumarate-FA [] 28 mg iron- 800 mcg Tablet 1 tablet PO DAILY RF: 0 zolpidem 5 mg tablet 5 mg PO HS PRN (Reason: insomnia) RF: 0 cyclobenzaprine [Flexeril] 5 mg Tablet 5 mg PO TID PRN (Reason: Pain) RF: 0 Date of admission: 08/15/20 04:50 Primary Care Provider: Brynn,Alfredo Weinstein Admitting Provider: Sanjeev Daniel Attending physician on admission: Sanjeev Daniel Condition: Stable
[2020-08-17] MEDS: POLYSACCHARIDE IRON COMPLEX 150 MG CAPSULE PO (08:10)
[2020-08-17] MEDS: HYDROcodone/acetaminophen (*CRX) 5-325 MG TABLET 1 TAB PO (08:10)
[2020-08-17] MEDS: MULTIVIT/MIN/PREN/FOL AC/IRON TABLET 1 TAB PO (08:10)
[2020-08-17] MEDS: DOCUSATE SODIUM 100 MG CAPSULE PO (08:10)
[2020-08-17] MEDS: SIMETHICONE 80 MG TAB.CHEW PO (08:14)
--- NOTE | 2020-08-17 10:04 | PC.NURSE ---
Education: Mom and Baby Guide Given to: Mother Follow-Up: Call your delivering provider's office for an appointment to be seen in: Call for appointment Mom and baby should come to the [facility] for the follow-up appointment. Appointment Date/Time: August 18, 2020 at 11:00 am What to expect at your follow-up visit: Physical Assessment Call [phone] if you are unable to keep your appointment time. BREAST CARE: * Wear a snug supportive bra. * For engorgement discomfort: Breast Feeding: * Apply warm moist washcloths * Express milk as needed to relieve engorgement * Wear loose clothing Bottle Feeding: * May apply ice packs * For sore nipples: * Identify correct latch-on * Apply warm moist washcloths before and after nursing * Air dry nipples after nursing * May apply Lansinoh cream to nipples ABDOMINAL INCISION: (if applicable) * Allow incision to air dry * Do NOT use lotions for powders on your incision * When showering, allow soap and water to run over the incision, but do not wash incision Patient viewed the discharge video Mother & Baby Care, The First Two Weeks . Patient was given the opportunity and encouraged to ask questions. Patient verbalized understanding of information shared and has been given the mother/baby guide for home reference.
== END 2020-08-17 10:43 | disposition home or self-care (01) | DRG 540 ==
LOC: ANHLDR 08:22 → ANHOB2 10:46
PROVIDERS: Admitting Provider Obstetrics & Gynecology; PCP Physician Assistant; Visit Provider Obstetrics & Gynecology
PROC: 10D00Z1 Extraction of Products of Conception, Low, Open Approach (ICD-10-PCS; CPT 59514; principal; 2020-08-15 07:30)
DX: O34.211 Maternal care for low transverse scar from previous cesarean delivery (principal); Z37.0 Single live birth; Z3A.39 39 weeks gestation of pregnancy; O99.214 Obesity complicating childbirth; E66.9 Obesity, unspecified; O98.32 Other infections with a predominantly sexual mode of transmission complicating childbirth; B00.9 Herpesviral infection, unspecified; O99.324 Drug use complicating childbirth; F12.90 Cannabis use, unspecified, uncomplicated; O99.344 Other mental disorders complicating childbirth; F41.8 Other specified anxiety disorders; O99.284 Endocrine, nutritional and metabolic diseases complicating childbirth; E28.2 Polycystic ovarian syndrome
CPT/HCPCS: 36415; 80307; 85025; 86592; 86850; 86900; 86901; A9270; J0131; J0690; J1200; J1885; J2274; J2370; J2405; J2590; J3010; J7120

== ENCOUNTER 2020-09-11 10:58 | Outpatient (CLI) | payer OTHER, SELFPAY ==
--- NOTE | ~2020-09-11 | US_ITS ---
EXAMINATION: US soft tissue pelvic EXAM DATE: 09/11/2020 11:40 INDICATION: Abscess of skin, subcutaneous tissue. TECHNIQUE: Multiple grayscale and Doppler images of the symptomatic pelvic soft tissue region, along surgical scar were obtained (by a technologist who performed the scan) and subsequently reviewed. Th ere is no prior study for comparison. FINDINGS: Scanning along patients section scar demonstrated no underlying fluid collection or abdomina l wall abnormality. The uterus is anteverted and unremarkable. IMPRESSION: 1. No abscess or other abnormality identified. Reviewed, dictated and finalized at location A.
== END 2020-09-11 10:59 | disposition home or self-care (01) ==
PROVIDERS: PCP Physician Assistant; Visit Provider Obstetrics & Gynecology
DX: L02.91 Cutaneous abscess, unspecified (principal)
CPT/HCPCS: 76857

== ENCOUNTER 2021-04-05 13:37 | Outpatient (CLI) | payer OTHER, SELFPAY ==
--- NOTE | ~2021-04-05 | CT_ITS ---
EXAMINATION: CT abdomen pelvis wo con DATE: 04/05/2021 13:54 INDICATION: Periumbilical abdominal pain TECHNIQUE: Computed tomography (CT) of the abdomen and pelvis was performed without intravenous contr ast. Automated exposure control and iterative reconstruction technique were employed. Exam dose: 122 6.14 mGy-cm total exam DLP. COMPARISON: None. FINDINGS: The lung bases are clear. Normal heart size. No pericardial or pleural effusion. Status post cholecystectomy. No hepatic, splenic, pancreatic, adrenal or renal space-occupying mass lesion is evident. No bile molly t or pancreatic duct dilatation. No urinary tract calculus or hydroureteronephrosis. Normal caliber of the abdominal aorta. No intraperitoneal or retroperitoneal or pelvic mass lesion or adenopathy or ascites. There is an IUD within the uterus. The adnexal areas and urinary bladder are unremarkable. Status post appendectomy. No bowel obstruction or intraperitoneal free air. Small fat-containing umbilical hernia. Included skeletal structures are unremarkable. IMPRESSION: Status post cholecystectomy Status post appendectomy IUD within uterus Reviewed, dictated and finalized at Location A. Reviewed, dictated and finalized at location A.
== END 2021-04-05 13:38 | disposition home or self-care (01) ==
PROVIDERS: PCP Physician Assistant; Visit Provider Surgery
DX: R10.33 Periumbilical pain (principal); Z90.49 Acquired absence of other specified parts of digestive tract; Z97.5 Presence of (intrauterine) contraceptive device
CPT/HCPCS: 74176

== ENCOUNTER → 2021-05-25 00:05 | Outpatient (CLI) | payer OTHER, SELFPAY ==
[2021-05-25 19:57] LABS: SARS-CoV-2 RNA PCR Negative
== END ==
PROVIDERS: PCP Physician Assistant; Visit Provider Obstetrics & Gynecology
DX: Z01.812 Encounter for preprocedural laboratory examination (principal); Z20.822 Contact with and (suspected) exposure to COVID-19
CPT/HCPCS: C9803; U0003; U0005

== ENCOUNTER 2021-05-29 00:39 | Day surgery (SDC) | payer OTHER, SELFPAY ==
[2021-05-20 10:24] VITALS: BMI 40.6
--- NOTE | 2021-05-20 10:37 | PC.NURSE ---
Report to the Outpatient Waiting Room, entrance under the green pavilion located off [facility], at time 1130 on date 05/29/21. OR Time: 1330. - You and your visitor will be asked a series of questions to screen for COVID 19 for your protection. - A mask is required within the hospital. - Only one visitor is allowed at this time. Patient visitors will be guided where to wait when not with patient. Preoperative COVID Testing Requirements: No COVID Test needed if: (proof is required; if not received patient will have Rapid Test prior to entry) - Patient has received COVID Vaccine at least 14 days prior to procedure date or - Patient has positive COVID test result within last 90 days of surgery date. COVID Test needed if above criteria is not met If not COVID vaccinated a COVID test must be conducted within 72 hours of surgery and patient is asked to isolate self from time of testing until procedure. You will go to the [facility] for your COVID testing. The [facility] site is located at the corner of [address] [facility]. You will only be called if COVID results are positive and your surgeon may reschedule your elective surgery date. Patients may have clear liquids (water, carbonated beverages, clear teas, apple juice) until 3 hours prior to surgery with a maximum of 20 ounces. - No food from midnight until time of surgery - Infants may have breast milk until 4 hours before surgery, formula 6 hours prior to surgery. - Children will be allowed to drink immediately following surgery. If applicable, please bring a bottle or sippy cup to assist with drinking. Juice, water, soda, and popsicles are readily available. For infants on formula, please bring formula the day of surgery. Pacifiers are allowed. Take the following medications with a SIP of water the morning of surgery: TYLENOL (IF NEEDED) Medications to discontinue per physician: IBUPROFEN Date to take last dose: PER DR. WORKMAN Please no make-up, nail nepalese, hairspray, perfume, deodorant, or body powder the day of surgery. No jewelry (including any body piercings) or valuables the day of surgery, leave them at home. Please take a shower or bath the night before, or the morning of, surgery with an antibacterial soap. Wear comfortable, loose fitting clothing. Children are encouraged to wear pajamas. - Jewelry must be removed prior to entering the operating room. Rings and piercings that are not removed may be cut off. - The hospital will not accept responsibility for valuables. - Please leave all valuables, including medications, at home the day of surgery. If you are going home after surgery, a licensed hazmat tanker driver must drive you home. - NO public transportation without another adult. - We recommend that an adult stay with you for 24 hours following discharge. - We also recommend that you do not drive, make important decision, drink alcoholic beverages, or take any drugs that were not prescribed by your health care provider for at least 24 hours after your discharge time. For Pediatric surgeries, we recommend two adults accompany the child home (only one inside the building at this time). Follow any additional instructions given to you from your surgeon. Telephone instructions given to JAYNA HICKMAN and asked if any additional questions and then verbalized understanding. Patient advised to call surgeon office or pre surgery nurse liaison [phone] if any additional questions.
[2021-05-29] VITALS (8 sets, daily range): BP systolic 100–156; BP diastolic 53–83; PULSE 50–74; RESP 14–18; TEMP 36.3–36.7; O2SAT 96–100
--- NOTE | 2021-05-29 06:52 | WPDANESEPPF ---
Anes - Initial Pre Proc Eval Procedure: Operation Date: 05/29/21 10:30 Proposed Procedures p Diagnostic Laparoscopy - Sanjeev Daniel MD Date/Time: 05/29/21 06:52 Surgeon: Sanjeev Daniel MD Pre Op Diagnosis: pelvic pain Patient Data Age: 30 Gender: F Height: 1.6 m Weight: 104 kg Allergies Allergy/AdvReac Type Severity Reaction Status Date / Time No Known Allergies Allergy Verified 05/20/21 10:22 Home Medications Medication Instructions Recorded Confirmed Type levonorgestrel 20 mcg/24 hours (7 1 insert INTRAUTERINE ONCE 03/20/21 05/20/21 History yrs) 52 mg intrauterine device acetaminophen [Tylenol] 325 mg PO ONCE PRN 05/20/21 05/20/21 History ibuprofen 200 mg PO Q6H PRN 05/20/21 05/20/21 History Patient hx anesthesia problems: none Family hx anesthesia problems: none Results Review: All pre-operative results and documents have been reviewed as part of the pre-operative evaluation. [facility] Past Medical History Medical History (Updated 05/29/21 @ 06:53 by Aly Tolbert DO) Asthma Depression Herpes simplex History of suicide attempt Migraine headache Ovarian cancer PCOS (polycystic ovarian syndrome) PTSD (post-traumatic stress disorder) Vertigo Surgical History Surgical History delivery delivered History of appendectomy History of cholecystectomy History of ovarian cystectomy Family History Family History Father Epilepsy Diabetes mellitus Asthma Hyperlipidemia Breast cancer Hypertension Sibling Epilepsy Asthma Mother Asthma Hypertension Unknown Heart disease Social History Social History Smoking status: Current every day smoker Tobacco type: e-cigarettes/vaping Second hand tobacco smoke exposure: Yes Additional smoking assessment comments: uses 1 vape/week Alcohol intake: never Alcohol use details: socially drinks Fireball Substance use: current Substance use type: marijuana Other substance usage details: Hydrocodone prescribed by Dr. 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 Gender identity (if verbalized by the patient): Female Spiritual care concerns: No Anes - Eval Final PreProcedure Day of Procedure 05/29/21 06:52 Patient weight: morbidly obese Heart: regular rate and rhythm Lungs: clear to auscultation and normal air movement Airway: Mallampati scale class 1 Neurological: alert and oriented Last oral intake: >/= 8 hours ASA classification: III Emergent: no Anesthetic plan: proceed Anesthesia type and monitoring: general ETT and standard monitoring Results Review: All pre-operative results and documents have been reviewed as part of the pre-operative evaluation. Informed Consent: The patient's anesthetic plan and its attendant risks and benefits were discussed with the patient/family/POA. Questions were solicited and answers provided to the satisfaction of the patient/family/POA.
[2021-05-29] MEDS: LACTATED RINGERS 1,000 ML 30 ML IV CONT ×2 (08:59→12:12)
--- NOTE | 2021-05-29 08:59 | WPDHPUPDATE1 ---
History and Physical Update Update Date/Time: 05/29/21 08:59 History and Physical has been reviewed, including an updated exam of the patient. There are NO changes in the patient's condition. Risks, benefits, and alternatives have been discussed and questions answered. Patient agrees to proceed with procedure.
[2021-05-29] MEDS: ACETAMINOPHEN 500 MG TABLET 1000 MG PO (09:00)
[2021-05-29] MEDS: KETOROLAC 15 MG/ML VIAL (*BKC) IV PUSH ×2 (09:01→13:24)
[2021-05-29] MEDS: fentaNYL CITRATE INJ (*CRX) 100 MCG/2 ML VIAL 25 MCG IV PUSH ×4 (12:30→13:00)
--- NOTE | 2021-05-29 12:32 | W.PM.PROC2 ---
Procedure Note - Detailed Date of Procedure 05/29/21 Pre-op Diagnosis pelvic pain Post-op Diagnosis same (Endometriosis, pelvic adhesions) Procedure Performed Radical resection of pelvic endometriosis, adhesiolysis-1 hour Surgeon Sanjeev Daniel MD Anesthesia general Indications Chronic pelvic pain Findings Uterus was adherent to the anterior pelvic wall. There was endometriosis throughout the posterior cul-de-sac. There may be endometriosis on the fallopian tubes bilaterally. Description of Procedure The patient was taken to the operating room. She was prepped and draped in the dorsal lithotomy position after induction general anesthesia. A 5 mm incision was made with a scalpel on the abdominal skin in the left upper quadrant of the abdomen. A 5 mm trocar was inserted into the intra-abdominal cavity under direct visualization the scope. In the same fashion a 5 mm left lower quadrant trocar was inserted and a 5 mm infraumbilical trocar was inserted. 1 hour adhesiolysis was performed. The uterus was densely adhered to the anterior pelvic wall. This was cauterized and transected in a stepwise fashion to completely free it. There we saw extensive adhesions in this area. The bilateral ovaries were suspended with a Brandt-Lashell Endoclose needle. The needle was placed through bilateral lower quadrants with a 0 Vicryl. The needle was passed through the ovaries and the ovaries were suspended as the suture was brought back through the abdominal wall and held in place with a hemostat. The bilateral posterior cul-de-sac peritoneum was removed from the pelvic brim down to the cervix and from the perirectal space to the fallopian tube. Ureteral lysis was performed in the pelvic brim down to the uterine arteries. This was all done with blunt and sharp dissection. Cautery was used to make hemostatic. The pelvis was irrigated. Interceed was placed on the anterior uterine surface and the bilateral pelvic cul-de-sac sidewalls. The pneumoperitoneum was reduced. The trocars were removed. Skin was closed with subcuticular 4 micro. The patient's incisions were covered with Dermabond. She was taken recovery room in stable condition. Sponge lap and needle counts were correct x2. Estimated Blood Loss -30.0 Pathology yes Complications No immediate complications Condition stable Disposition same day
[2021-05-29] MEDS: oxyCODONE HCL (*CRX) 5 MG TAB IR PO (13:24)
== END 2021-05-29 14:10 | disposition home or self-care (01) ==
PROVIDERS: PCP Physician Assistant; Visit Provider Obstetrics & Gynecology
PROC: (CPT 49320; principal; 2021-05-29 10:30)
DX: R10.2 Pelvic and perineal pain (principal); K66.8 Other specified disorders of peritoneum; N73.6 Female pelvic peritoneal adhesions (postinfective); E28.2 Polycystic ovarian syndrome; F17.290 Nicotine dependence, other tobacco product, uncomplicated; F12.90 Cannabis use, unspecified, uncomplicated; E66.01 Morbid (severe) obesity due to excess calories; Z68.41 Body mass index [BMI] 40.0-44.9, adult
CPT/HCPCS: 58662; 88305; A9270; J0330; J0360; J1100; J1170; J1200; J1885; J2250; J2405; J2704; J2710; J3010; J7030; J7120

== ENCOUNTER 2024-04-07 11:14 | Emergency (ER) | payer OTHER, SELFPAY ==
[2024-04-07 11:55] VITALS: BP 120/63; PULSE 86; RESP 20; TEMP 37.3; O2SAT 99
--- NOTE | 2024-04-07 20:39 | ED.URI ---
HPI - URI/Sore Throat General Chief Complaint: Upper Respiratory Infection Stated Complaint: cough,runny nose Time Seen by Provider: 04/07/24 12:08 Source: patient, RN notes reviewed and old records reviewed Mode of arrival: ambulatory Limitations: no limitations History of Present Illness HPI Narrative: 33-year-old female to [facility] with complaint postnasal drainage, bilateral ear fullness and discomfort and fever of 101? for 2 days. Patient denies shortness of breath, difficulty swallowing, appetite changes, GI complaints, allergies, pertinent medical history. Patient resting in exam room in no acute distress. Patient able tolerate fluids by mouth. Related Data Home Medications Medication Instructions Recorded Confirmed amitriptyline 10 mg tablet 10 mg PO DAILY 04/07/24 04/07/24 ergocalciferol (vitamin D2) 1,250 1,250 mcg PO WEEKLY 04/07/24 04/07/24 mcg (50,000 unit) capsule escitalopram oxalate 10 mg tablet 10 mg PO DAILY 04/07/24 04/07/24 hydroxyzine HCl 50 mg tablet mg 04/07/24 ubrogepant 50 mg tablet (Ubrelvy) 50 mg PO PRN PRN Migraine Headache 04/07/24 04/07/24 Allergies Allergy/AdvReac Type Severity Reaction Status Date / Time No Known Allergies Allergy Verified 05/29/21 09:14 Review of Systems Review of Systems: All systems reviewed & are unremarkable except as noted in HPI and below Constitutional: Constitutional: Reports as per HPI and Reports fever(s) Eyes: Eyes: Reports no additional eye complaints ENT: Reports as per HPI, Reports otalgia ( Bilateral) and Reports post nasal drip Cardiovascular: Cardiovascular: Reports no additional cardiovascular complaints, Denies chest pain and Denies dyspnea Respiratory: Respiratory: Reports no additional respiratory complaints, Denies cough and Denies dyspnea Musculoskeletal: Musculoskeletal: Reports no additional musculoskeletal complaints Neurologic: Reports system reviewed and no additional complaints, except as documented Psychiatric: Psychiatric: Reports no additional psychiatric complaints PMFSH Past Medical History Medical History Asthma Depression Herpes simplex History of suicide attempt Migraine headache Ovarian cancer PCOS (polycystic ovarian syndrome) PTSD (post-traumatic stress disorder) Vertigo Surgical History Surgical History delivery delivered History of appendectomy History of cholecystectomy History of ovarian cystectomy Family History Family History Father Epilepsy Diabetes mellitus Asthma Hyperlipidemia Breast cancer Hypertension Sibling Epilepsy Asthma Mother Asthma Hypertension Unknown Heart disease Social History Social History Smoking status: Current every day smoker Tobacco type: e-cigarettes/vaping Second hand tobacco smoke exposure: Yes Additional smoking assessment comments: uses 1 vape/week Alcohol intake: never Alcohol use details: socially drinks Fireball Substance use: current Substance use type: marijuana Other substance usage details: Hydrocodone prescribed by Dr. 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 There is no relevant family history pertinent to the patient complaint. Exam Const: General: cooperative, no acute distress, alert, tired appearing and well nourished Nutritional Appearance: well nourished Orientation/consciousness: patient oriented x3
== END 2024-04-07 12:39 | disposition home or self-care (01) ==
PROVIDERS: Emergency Provider Nurse Practitioner Family
DX: H66.92 Otitis media, unspecified, left ear (principal); F17.290 Nicotine dependence, other tobacco product, uncomplicated; J45.909 Unspecified asthma, uncomplicated; E28.2 Polycystic ovarian syndrome; F32.A Depression, unspecified; Z85.43 Personal history of malignant neoplasm of ovary
CPT/HCPCS: 99213; G0463

== ENCOUNTER 2024-07-21 15:42 | Emergency (ER) | payer OTHER, SELFPAY ==
[2024-07-21 15:46] VITALS: BP 121/80; PULSE 94; RESP 16; TEMP 36.5; O2SAT 99
--- NOTE | 2024-07-21 15:50 | ED.URI ---
HPI - URI/Sore Throat General Chief Complaint: Upper Respiratory Infection Stated Complaint: Cough/Headache Time Seen by Provider: 07/21/24 15:43 Source: patient Mode of arrival: ambulatory Limitations: no limitations History of Present Illness HPI Narrative: Patient is a 33-year-old female who presents with cough, sneezing and headache for 4 days. Patient denies any fever, chills, nausea, vomiting, diarrhea. Has not taken anything for symptoms. Patient states she is addition for the voice and it was a struggle due to sneezing and cough. Related Data Home Medications ?Medication ?Instructions ?Recorded ?Confirmed ?Last Taken ?Type amitriptyline 10 mg tablet 10 mg PO DAILY 04/07/24 07/21/24 Unknown History ergocalciferol (vitamin D2) 1,250 1,250 mcg PO WEEKLY 04/07/24 07/21/24 Unknown History mcg (50,000 unit) capsule escitalopram oxalate 10 mg tablet 10 mg PO DAILY 04/07/24 07/21/24 Unknown History hydroxyzine HCl 50 mg tablet mg 04/07/24 Unknown History ubrogepant 50 mg tablet (Ubrelvy) 50 mg PO PRN PRN Migraine Headache 04/07/24 07/21/24 Unknown History alprazolam 0.25 mg tablet mg 07/21/24 Unknown History sumatriptan succinate 50 mg tablet mg PO 07/21/24 Unknown History Allergies Allergy/AdvReac Type Severity Reaction Status Date / Time No Known Allergies Allergy Verified 07/21/24 15:44 Review of Systems Review of Systems: All systems reviewed & are unremarkable except as noted in HPI and below Constitutional: Constitutional: Denies body ache(s), Denies chills, Denies fatigue, Denies fever(s), Reports headache(s), Denies malaise and Denies weakness Eyes: Eyes: Denies blurry vision, Denies itchy eyes and Denies loss of vision ENT: Denies otalgia, Denies headache(s), Denies nasal congestion, Reports nasal discharge, Denies sinus pain and Denies sore throat Cardiovascular: Cardiovascular: Denies chest pain, Denies irregular heart rhythm and Denies dyspnea Respiratory: Respiratory: Reports cough and Denies dyspnea Gastrointestinal: Gastrointestinal: Denies abdominal pain, Denies diarrhea, Denies nausea and Denies vomiting Musculoskeletal: Musculoskeletal: Denies back pain, Denies myalgias and Denies arthralgias Integumentary/Breasts: Skin/Breast: Denies pruritus and Denies rash Neurologic: Denies headache(s), Denies loss of vision and Denies weakness Psychiatric: Psychiatric: Reports no additional psychiatric complaints Endocrine: Endocrine: Denies fatigue Allergic/Immunologic: Allergic/Immunologic: Denies itchy eyes PMFSH Past Medical History Medical History History of suicide attempt PTSD (post-traumatic stress disorder) PCOS (polycystic ovarian syndrome) Herpes simplex Ovarian cancer Depression Vertigo Migraine headache Asthma Surgical History Surgical History History of cholecystectomy delivery delivered History of appendectomy History of ovarian cystectomy Family History Family History Father Epilepsy Diabetes mellitus Asthma Hyperlipidemia Breast cancer Hypertension Sibling Epilepsy Asthma Mother Asthma Hypertension Unknown Heart disease Social History Social History Smoking status: Current every day smoker Tobacco type: e-cigarettes/vaping Second hand tobacco smoke exposure: Yes Additional smoking assessment comments: uses 1 vape/week Alcohol intake: never Alcohol use details: socially drinks Fireball Substance use: current Substance use type: marijuana Other substance usage details: Hydrocodone prescribed by Dr. 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 There is no relevant family history pertinent to the presenting complaint. Exam Const: General: cooperative, healthy appearing, comfortable, no acute distress and well nourished Nutritional Appearance: well nourished Orientation/consciousness: patient oriented x3 Limitations: no limitations HENMT: Head: normal to inspection, normocephalic and atraumatic Ears: hearing grossly normal bilaterally, external ears normal, TM's normal bilaterally, EAC's normal and no periauricular adenopathy Face/Nose/Sinus: Normal external nose present, Abnormal mucous membranes and turbinates present erythematous bilateral and diffuse, normal facial exam, sinuses nontender and face symmetric Face and sinus: normal facial exam, sinuses nontender and face symmetric Mouth: Yes Normal oral and palatal mucosa present, Yes lip normal, Yes tongue normal, Yes Normal salivary glands and ducts present, Yes oropharynx normal and Yes moist mucous membranes Teeth and gingiva: dentition normal Throat: posterior oropharynx normal, tonsils normal and uvula midline Eyes: General: appearance normal, both eyes and all related structures Alignment and Position: alignment normal and position normal Periorbital: periorbital findings normal Eyelids: eyelids normal Pupils: Equal, round and reactive pupils present Neck: Neck: normal visual inspection, full ROM, no lymphadenopathy and supple Chest: Chest palpation & inspection: normal inspection of the chest and normal palpation of entire chest wall Resp: Effort & Inspection: normal respiratory effort and able to speak in complete sentences Auscultation: clear to auscultation bilaterally, no crackles, no rales, no rhonchi and no wheezes Cardio: Rate: regular rate Rhythm: regular rhythm Heart sounds: S1 normal heart sound present and S2 normal heart sound present GI: Inspection: normal to inspection Skin: General skin exam: normal color and no rashes or lesions noted Neuro: General: patient oriented x3 and moves all extremities Cranial nerves: Yes Equal, round and reactive pupils present Speech: normal speech Gait exam (Neuro): Normal gait present Extrem: General: normal to inspection, full ROM and no edema Psych: Appearance: grossly normal and well kempt Mental Status: mental status grossly normal Speech and movement: Normal speech and movement present Affect: normal affect Attitude: cooperative Thought process: Normal thought process present Course Course Emergency Course: Discharge instructions reviewed with patient, as well as provided in writing per nursing staff. The instructions also include specific and strict return/GO TO THE ER as well as f/u information. All questions have been answered, and the patient deny any further questions with discharge and discharge plan. Portions of this record may have been created with voice recognition software Level of Care: Express Care Visit Vital Signs Vital signs: Vital Signs Temperature 36.5 C 07/21/24 15:46 Pulse Rate 94 07/21/24 15:46 Respiratory Rate 16 07/21/24 15:46 Blood Pressure 121/80 07/21/24 15:46 Pulse Oximetry 99 07/21/24 15:46 Oxygen Delivery Room Air 07/21/24 15:46 Temperature 36.5 C 07/21/24 15:46 Pulse Rate 94 07/21/24 15:46 Respiratory Rate 16 07/21/24 15:46 Blood Pressure 121/80 07/21/24 15:46 Pulse Oximetry 99 07/21/24 15:46 Oxygen Delivery Room Air 07/21/24 15:46 Reviewed MDM - URI/Sore Throat MDM Narrative Medical decision making narrative: Pt well hydrated appearing, in no respiratory distress, hemodynamically stable. Recommend supportive care. The patient is stable at time of discharge the clinical impression was discussed and the patient was given the opportunity to ask questions, which were addressed as completely as possible given the information available at present. Anticipatory guidance and return to care precautions were discussed and the importance of primary care follow-up was stressed and encouraged. The patient voiced understanding of the plan, indications to return, and the need for follow-up. Differential diagnosis considered: Marie virus, strep pharyngitis, allergic rhinitis, upper respiratory tract infection, sinusitis, rhinosinusitis, nasopharyngitis. viral pharyngitis, otitis media, otitis externa, otitis effusion, foreign body, cerumen impaction, viral syndrome, and influenza.? Exam findings show no acute concerns or changes; patient is non-toxic appearing and is in no distress.? Patient is appropriate for outpatient treatment and follow-up.? Medical Records Attestation: I reviewed the patient's medical records. Lab Data Attestation: I reviewed the patient's lab results. Labs: Lab Results 07/21/24 Range/Units 16:20 POC Influenza A Ag Negative (Negative) POC Influenza B Ag Negative (Negative) POC SARS CoV-2 Ag Negative (Negative) Discharge Plan Discharge Clinical Impression: Upper respiratory infection Qualifiers: URI type: unspecified viral URI Qualified Code(s): J06.9 - Acute upper respiratory infection, unspecified Patient Disposition: Home, Self-Care Condition: Stable Instructions: Upper Respiratory Infection (ED) Additional Instructions: Your Covid and flu are both negative Your symptoms are likely due to a viral illness, which is not treated with antibiotics. Viral symptoms can be present for up to a few weeks. -Alternate Tylenol and Motrin per package directions for fever or pain. -Antihistamine medication such as Benadryl/Zyrtec at night and Claritin/Chasidy during the day can help improve symptoms. -Use Flonase twice a day for 5 days then daily to help reduce the inflammation and dry up your sinuses. -You can also use Sudafed behind the pharmacy counter(12 or 24 hour). Be sure to drink plenty of water with these medications at least 8 ounces with every dose and it is important to drink 8 to 10 glasses of water per day. Water is a natural decongestant -Eat and drink things that are easy to swallow, like tea or soup, or popsicles. -Oral rinses such as: Salt water gargles and/or may use topical anesthetic (eg. Chloraseptic spray) or lozenges to relieve dryness or throat pain). -Frequent hand washing or hand song and dance performer is one of the best ways to prevent spread of infection. -Using a vaporizer or humidifier at night will also help thin secretions and help with coughing up phlegm. -Follow up with primary care provider in 3-5 days if condition is not improving - For new or worsening symptoms go directly to the nearest ER Patient Language: Romansh Prescriptions: New fluticasone propionate [Flonase Allergy Relief] 50 mcg/actuation spray,suspension 1 spray intranasal DAILY Qty: 16 0RF Rx Instructions: administer into each nostril No Action hydroxyzine HCl 50 mg tablet amitriptyline 10 mg tablet 10 mg PO DAILY ergocalciferol (vitamin D2) 1,250 mcg (50,000 unit) capsule 1,250 mcg PO WEEKLY escitalopram oxalate 10 mg tablet 10 mg PO DAILY Ubrelvy 50 mg tablet 50 mg PO PRN PRN (Reason: Migraine Headache) sumatriptan succinate 50 mg tablet PO alprazolam 0.25 mg tablet Follow-up/Referrals: Ender,DARLENE Alaniz [Primary Care Provider] - 3 Days Stand Alone Forms: Work/School Release IP Time of Disposition: 16:23
[2024-07-21 16:22] LABS: EDCOVIDSCREEN Negative (Negative); EDINFLUASCREEN Negative (Negative); EDINFLUBSCREEN Negative (Negative)
--- OUTSIDE RECORDS SUMMARY | 2024-07-22 06:00 | XMS_ITS | Data Portability ---
Author Organization [facility] [place] Address [address] [place] [address] Care Team Providers Care Gis Analyst Name Role Phone CATHLEEN KEARNEY Primary Care Provider Assessment Encounter Date Assessment Date Assessment LastModified by Organization Details LastModified Time 04/28/2024 04/28/2024 Annual gynecological exam performed. Patient will come back in a year unless there are new symptoms. Not available 04/28/2024 12:24:10 Plan of Treatment Reminders Order Date Submit Date Provider Last Modified By Organization Details Last Modified Time Details Appointments None recorded. Lab 17-hydroxyp rogesterone , QN, serum 2023 024 [facility] (Lab), [address] [place], [address], 4 18:05:38 dhea-sulfat e, serum 2023 024 [facility] (Lab), [address] [place], [address], 4 18:05:33 estradiol, serum 2023 024 [facility] (Lab), [address] [place], [address], 4 18:05:35 FSH (follicle-s timulating hormone), serum 2023 024 [facility] (Lab), [address] [place], [address], 4 18:05:36 HbA1c (hemoglobin A1c), blood 2023 024 [facility] (Lab), [address], [place], [address], 4 18:05:37 lh (luteinizin g hormone), serum 2023 024 [facility] (Lab), [address], [place], [address], 4 18:05:36 progesteron e, serum 2023 024 [facility] (Lab), [address], [place], [address], 4 18:05:35 prolactin, serum 2023 024 [facility] (Lab), [address] [place], [address], 4 18:05:35 shbg (sex hormone-bin ding globulin), serum 2023 024 [facility] (Lab), [address] [place], [address], 4 18:05:33 testosteron e free/testos terone total, ratio, serum 2023 024 [facility] (Lab), [address] [place], [address], 4 18:05:37 CBC w/ auto diff 2023 024 [facility] (Lab), [address] [place], [address], 4 18:05:31 CMP, serum or plasma 2023 024 [facility] (Lab), [address] [place], [address], 4 18:05:32 lipid panel, blood 2023 024 [facility] (Lab), [address] [facility], [place], [address], 4 18:05:32 TSH, serum or plasma 2023 024 [facility] (Lab), [address] [facility], [place], [address], 4 18:05:34 vitamin D, 25-hydroxy, total, serum 2023 024 [facility] (Lab), [address] [facility], [place], [address], 4 18:05:34 Referral None recorded. Procedures None recorded. Surgeries None recorded. Imaging US, pelvis [address], [address], [address], [place], [address], 20:53:52 US, transvagina l [address], [facility] [address], [address], [place], [address], 4 20:53:52 Medication Orders metformin 500 mg tablet 2023 [facility] [place], [address], 4 12:27:25 estradiol 2 mg tablet 2023 [facility], [address] [place], [address], 4 12:27:10 oxycodone-a cetaminophe n 5 mg-325 mg tablet 2023 024 [facility], [address] [place], [address], 12:27:39 Patient TargetsNo targets recorded. Patient InstructionsNo instructions recorded. Reason for Referral None Reported. Results Created Date Observation Date Name Description Value Unit Range Abnormal Flag Note LastModifiedBy Organization Detail LastModifiedTime 09/02/19 24 09/02/2023 CBC W/DIF F WBC 10.1 10'3/ uL 3.5-[address] [facility] (Lab) [address], [place], [address], 09/08/2023 18:05:31 09/02/19 24 09/02/2023 CBC W/DIF F RBC 4.86 10'6/ uL (based on docume nted legal sex) 3.80-[address] [facility] (Lab) [address], [place], [address], 09/08/2023 18:05:31 09/02/19 24 09/02/2023 CBC W/DIF F HGB 13.9 g/dL (based on docume nted legal sex) 11.6-[address] [facility] (Lab) [address], [place], [address], 09/08/2023 18:05:31 09/02/19 24 09/02/2023 CBC W/DIF F HCT 41.2 % (based on docume nted legal sex) 34.0-[address] [facility] (Lab) [address], [place], [address], 09/08/2023 18:05:31 09/02/19 24 09/02/2023 CBC W/DIF F MCV 84.8 fL 80.0-[address] [facility] (Lab) [address] [place], [address], 09/08/2023 18:05:31 09/02/19 24 09/02/2023 CBC W/DIF F MCH 28.6 pg 27.0-[address] [facility] (Lab) [address] [facility], [place], [address], 09/08/2023 18:05:31 09/02/19 24 09/02/2023 CBC W/DIF F MCHC 33.7 g/dL 32.0-[address] [facility] (Lab) [address] [facility], [place], [address], 09/08/2023 18:05:31 09/02/19 24 09/02/2023 CBC W/DIF F RDW 12.6 % 11.0-[address] [facility] (Lab) [address] [facility], [place], [address], 09/08/2023 18:05:31 09/02/19 24 09/02/2023 CBC W/DIF F plt 257 10'3/ uL 150-[address] [facility] (Lab) [address] [facility], [place], [address], 09/08/2023 18:05:31 09/02/19 24 09/02/2023 CBC W/DIF F MPV 11.0 fL 8.8-[address] [facility] (Lab) [address] [facility], [place], [address], 09/08/2023 18:05:31 09/02/19 24 09/02/2023 CBC W/DIF F NRBC's 0.0 % 0.[address] [facility] (Lab) [address] [facility], [place], [address], 09/08/2023 18:05:31 09/02/19 24 09/02/2023 CBC W/DIF F absolute NRBCs 0.0 10'3/ uL 0.[address] [facility] (Lab) [address] [facility], [place], [address], 09/08/2023 18:05:31 09/02/19 24 09/02/2023 CBC W/DIF F neutrophils 63.4 % 34.0-[address] [facility] (Lab) [address] [place], [address], 09/08/2023 18:05:31 09/02/19 24 09/02/2023 CBC W/DIF F lymphocytes 29.0 % 15.0-[address] [facility] (Lab) [address] [facility], [place], [address], 09/08/2023 18:05:31 09/02/19 24 09/02/2023 CBC W/DIF F monocytes 5.0 % 1.0-[address] [facility] (Lab) [address] [facility], [place], [address], 09/08/2023 18:05:31 09/02/19 24 09/02/2023 CBC W/DIF F eosinophils 1.8 % 0.0-8. [address] [facility] (Lab) [address] [facility], [place], [address], 09/08/2023 18:05:31 09/02/19 24 09/02/2023 CBC W/DIF F basophils 0.6 % 0.0-2. [address] [facility] (Lab) [address] [facility], [place], [address], 09/08/2023 18:05:31 09/02/19 24 09/02/2023 CBC W/DIF F immature granulocytes 0.2 % no define d refere nce range Not Available [facility] (Lab) [address] [place], [address], 09/08/2023 18:05:31 09/02/19 24 09/02/2023 CBC W/DIF F absolute neutrophils 6.4 10'3/ uL 1.5-8. [address] [facility] (Lab) [address] [place], [address], 09/08/2023 18:05:31 09/02/19 24 09/02/2023 CBC W/DIF F absolute lymphocytes 2.9 10'3/ uL 1.0-4. [address] [facility] (Lab) [address] [facility], [place], [address], 09/08/2023 18:05:31 09/02/19 24 09/02/2023 CBC W/DIF F absolute monocytes 0.5 10'3/ uL 0.2-1. [address] [facility] (Lab) [address] [facility], [place], [address], 09/08/2023 18:05:31 09/02/19 24 09/02/2023 CBC W/DIF F absolute eosinophils 0.2 10'3/ uL 0.0-0. [address] [facility] (Lab) [address] [facility], [place], [address], 09/08/2023 18:05:31 09/02/19 24 09/02/2023 CBC W/DIF F absolute basophils 0.1 10'3/ uL 0.0-0. [address] [facility] (Lab) [address] [facility], [place], [address], 09/08/2023 18:05:31 09/02/19 24 09/02/2023 CBC W/DIF F absolute immature granulocytes 0.0 10'3/ uL 0.00-0 .10 12:24 AM: P indic ates parti al resul ts on a panel have been relea sed. Addit ional resul ts will follo w. 12:24 AM: This resul t has been final verif ied. No addit ional or bateman ed resul ts are expec jatinder. Not Available [facility] (Lab) [address] [facility], [place], [address], 09/08/2023 18:05:31 09/02/19 24 09/02/2023 LIPID PANEL ,AMA (LDL- CALC) total cholesterol 181 mg/dL 0-199 Not Available [facility] (Lab) [address] [place], [address], 09/08/2023 18:05:32 09/02/19 24 09/02/2023 LIPID PANEL ,AMA (LDL- CALC) triglyceride s 278 mg/dL 0.00-1 50.00 high NCEP Refer ence Value s for Trigl yceri peter: Lyubov l: <150 mg/dL Borde rline High: 150 - 199 mg/dL High: 200 - 499 mg/dL Very High: >/= 500 mg/dL Not Available [facility] (Lab) [address] [facility], [place], [address], 09/08/2023 18:05:32 09/02/19 24 09/02/2023 LIPID PANEL ,AMA (LDL- CALC) HDL cholesterol 42 mg/dL >40 Not Available [facility] (Lab) [address] [facility], [place], [address], 09/08/2023 18:05:32 09/02/19 24 09/02/2023 LIPID PANEL ,AMA (LDL- CALC) LDL cholesterol 99 mg/dL 0-99 Cutof f value s recom mika d by the Delmy nal Soco stero l Educa tion Progr am: KELLY ABLE: Soco stero l <200 mg/dL LDL <100 mg/dL BORDE RLINE : Soco stero l 200-2 39 mg/dL LDL 101-1 59 mg/dL HIGHE R RISK: Soco stero l >240 mg/dL LDL >160 mg/dL , HDL <40 mg/dL Not Available [facility] (Lab) [address] [place], [address], 09/08/2023 18:05:32 09/02/19 24 09/02/2023 LIPID PANEL ,AMA (LDL- CALC) non-HDL cholesterol 139 mg/dL no refere nce range A reaso nable goal for non-H DL soco stero l is one that is 30 mg/dL highe r than the LDL soco stero l goal. Not Available [facility] (Lab) [address], [place], [address], 09/08/2023 18:05:32 09/02/19 24 09/02/2023 LIPID PANEL ,AMA (LDL- CALC) chol/HDL ratio 4.3 . 0.0-5. 0 On October 21, 2022, [facility] labor atori lianne bateman ed the equat ion for calcu latin g estim ated low-d ensit y lipop rotei n-cho leste rol (LDL- C) from the Fried harjinder equat ion to the Yuli n/Hop kins equat ion. This new equat ion is only valid for lipid panel s with trigl yceri peter < 400 mg/dL . Anaisi es have demon stradavid ed that this new equat ion will impro ve the accur acy of LDL-C , espec ially in [place] when LDL-C delores ntrat ions are relat ively low (< 100 mg/dL ), trigl yceri peter are eleva jatinder, or patie nt is non-f astin g. Refer ences : - Yuli marion, Kamlesh Benavides, Jair Hamilton , [facility] angelia harrison, Toy Pearce, Toy milligan, Jayme Dumont. Blanca stevens , and Nitish Eric . 2013. Comp ariso n of a Novel Metho d vs the Fried harjinder Equat ion for Estim ating Low-D ensit y Lipop rotei n Soco stero l Level s from the Stand estela Lipid Profi le. JAMES: The Journ al of the Ameri can Medic al Assoc iatio n 310 (19): 2060- . - Ishaan watkins V, Swetha J, James watkins A, Gela M, Dariela ureña R, Jeff watkins E, Blanca stevens RS, Hernesto SR, Yuli marion SS. Fast ing Versu s Nonfa sting and Low-D ensit y Lipop rotei n Soco stero l Accur acy. Circu hattie marion. 2017Jun 30;137 (1):1 0-19. Not Available [facility] (Lab) [address] [facility], [place], [address], 09/08/2023 18:05:32 09/02/19 24 09/02/2023 CMP(C OMPRE HENSI VE METAB OLIC PANEL ) sodium 139 mmol/ L 133-[address] [facility] (Lab) [address] [facility], [place], [address], 09/08/2023 18:05:32 09/02/19 24 09/02/2023 CMP(C OMPRE HENSI VE METAB OLIC PANEL ) potassium 4.2 mmol/ L 3.5-5. [address] [facility] (Lab) [address] [facility], [place], [address], 09/08/2023 18:05:32 09/02/19 24 09/02/2023 CMP(C OMPRE HENSI VE METAB OLIC PANEL ) chloride 104 mmol/ L 98-[address] [facility] (Lab) [address] [facility], [place], [address], 09/08/2023 18:05:32 09/02/19 24 09/02/2023 CMP(C OMPRE HENSI VE METAB OLIC PANEL ) carbon dioxide 28 mmol/ L 21-[address] [facility] (Lab) [address] [facility], [place], [address], 09/08/2023 18:05:32 09/02/19 24 09/02/2023 CMP(C OMPRE HENSI VE METAB OLIC PANEL ) anion gap 7 mmol/ L 4-[address] [facility] (Lab) [address] [facility], [place], [address], 09/08/2023 18:05:32 09/02/19 24 09/02/2023 CMP(C OMPRE HENSI VE METAB OLIC PANEL ) blood urea nitrogen 13 mg/dL 7-25 Not Available [facility] (Lab) [address] [facility], [place], [address], 09/08/2023 18:05:32 09/02/19 24 09/02/2023 CMP(C OMPRE HENSI VE METAB OLIC PANEL ) creatinine 0.75 mg/dL 0.60-[address] [facility] (Lab) [address] [facility], [place], [address], 09/08/2023 18:05:32 09/02/19 24 09/02/2023 CMP(C OMPRE HENSI VE METAB OLIC PANEL ) egfrcr (CKD-epi 2020) >90 mL/mi n/1.7 3_m2 >=[address] [facility] (Lab) [address] [facility], [place], [address], 09/08/2023 18:05:32 09/02/19 24 09/02/2023 CMP(C OMPRE HENSI VE METAB OLIC PANEL ) calcium 9.6 mg/dL 8.3-[address] [facility] (Lab) [address] [facility], [place], [address], 09/08/2023 18:05:32 09/02/19 24 09/02/2023 CMP(C OMPRE HENSI VE METAB OLIC PANEL ) glucose 102 mg/dL 70-[address] [facility] (Lab) [address] [facility], [place], [address], 09/08/2023 18:05:32 09/02/19 24 09/02/2023 CMP(C OMPRE HENSI VE METAB OLIC PANEL ) protein, total 7.0 g/dL 6.4-8. [address] [facility] (Lab) [address] [facility], [place], [address], 09/08/2023 18:05:32 09/02/19 24 09/02/2023 CMP(C OMPRE HENSI VE METAB OLIC PANEL ) albumin 4.4 g/dL 3.5-5. [address] [facility] (Lab) [address] [facility], [place], [address], 09/08/2023 18:05:32 09/02/19 24 09/02/2023 CMP(C OMPRE HENSI VE METAB OLIC PANEL ) ALT 18 units /L 9-[address] [facility] (Lab) [address] [facility], [place], [address], 09/08/2023 18:05:32 09/02/19 24 09/02/2023 CMP(C OMPRE HENSI VE METAB OLIC PANEL ) alkaline phosphatase 101 units /L 34-[address] [facility] (Lab) [address] [facility], [place], [address], 09/08/2023 18:05:32 09/02/19 24 09/02/2023 CMP(C OMPRE HENSI VE METAB OLIC PANEL ) AST 13 units /L 13-[address] [facility] (Lab) [address] [facility], [place], [address], 09/08/2023 18:05:32 09/02/19 24 09/02/2023 CMP(C OMPRE HENSI VE METAB OLIC PANEL ) bilirubin, total 0.2 mg/dL 0.2-1. [address] [facility] (Lab) [address] [facility], [place], [address], 09/08/2023 18:05:32 09/02/19 24 09/02/2023 DHEA SULFA TE DHEA-sulfate 199 ug/dL Femal e Range s Age(y ) Range (ug/d L) 10-15 34-28 0 15-20 65-36 8 20-25 148-4 07 25-35 99-34 0 35-45 61-33 7 45-55 35-25 6 55-65 19-20 5 65-75 9-246 > 75 12-[address] [facility] (Lab) [address] [facility], [place], [address], 09/08/2023 18:05:33 09/02/19 24 09/02/2023 HUMAN SEX HORMO NE ELIS NG GLOBU TANNER sex hormone binding globulin 22.2 nmole s/L 18.2-[address] [facility] (Lab) [address] [facility], [place], [address], 09/08/2023 18:05:33 09/02/19 24 09/02/2023 TSH, REFLE X FREE T4 TSH 1.61 uIU/m L 0.30-[address] [facility] (Lab) [address] [facility], [place], [address], 09/08/2023 18:05:34 09/02/19 24 09/02/2023 VITAM IN D, 25-OH (TOTA L D2/D3 ) vitamin D, 25-hydroxy, total 12.0 NG/mL 30.0-1 00.0 low Sugge stive of Defic iency : <20 ng/mL Sugge stive of Insuf ficie ncy: 20-29 ng/mL Sugge stive of Suffi cienc y: 30-10 0 ng/mL Sugge stive of Toxic ity: >150 ng/mL Not Available [facility] (Lab) [address] [facility], [place], [address], 09/08/2023 18:05:34 09/02/19 24 09/02/2023 ESTRA DIOL estradiol 23.0 pg/mL This assay was perfo rmed using [employer] ratio n reage nts and test kits. Value s obtai zenaida with other assay metho ds or kits canno t be used inter bateman eably . Femal e Estra diol Range s: Folli cular phasE 12.4- 233 pg/mL Ovula tion phasE 41.0- 398 pg/mL Lutea l phasE 22.3- 341 pg/mL Postm enopa usal <5-13 8 pg/mL Healt hy Pregn ant Women 1st Trime ster 154-3 243 pg/mL 2nd Trime ster 1561- 72128 pg/mL 3rd Trime ster 8525- >3000 0 pg/mL Not Available [facility] (Lab) [address] [place], [address], 09/08/2023 18:05:34 09/02/19 24 09/02/2023 PROGE STERO NE progesterone 0.23 NG/mL This assay was perfo rmed using [employer] ratio n reage nts and test kits. Value s obtai zenaida with other assay metho ds or kits [facility]no t [facility] . Femal e Proge stero ne Range s: Folli cular phasE 0.06- 0.89 ng/mL Ovula tion phasE 0.12- 12.00 ng/mL Lutea l phasE 1.83- 23.90 ng/mL Postm enopa usal <0.05 -0.13 ng/mL Healt hy Pregn ant Women 1st Trime ster 11.0- 44.30 2nd Trime ster 25.40 -83.3 0 3rd Trime ster 58.70 -214. [address] [facility] (Lab) [address] [facility], [place], [address], 09/08/2023 18:05:35 09/02/19 24 09/02/2023 PROLA CTIN prolactin, total 6.89 NG/mL 4.79-2 3.30 This assay was perfo rmed using Ant [employer] Corpo ratio n reage nts and test kits. Value s obtai zenaida with other assay metho ds or kits canno t be used inter [facility] . Not Available [facility] (Lab) [address] [facility], [place], [address], 09/08/2023 18:05:35 09/02/19 24 09/02/2023 LH (LUTE NIZIN G HORMO NE) LH 4.2 mIU/m L This assay was perfo rmed using [employer] ratio n reage nts and test kits. Value s obtai zenaida with other assay metho ds or kits canno t be used [facility] . Femal es Mid-F ollic ular: 2.4-1 2.6 mIU/m L Mid-C ycle: 14.0- 95.6 mIU/m L Mid-L uteal : 1.0-1 1.4 mIU/m L Postm enopa use: 7.7-5 8.5 mIU/m L Not Available [facility] (Lab) [address], [place], [address], 09/08/2023 18:05:36 09/02/19 24 09/02/2023 FSH FSH 6.4 mIU/m L This assay was perfo rmed using Ant [employer] Cor[employer] ratio n reage nts and test kits. Value s obtai zenaida with other assay metho ds or kits canno t be used inter bateman eably . Femal es Folli cular : 3.5-1 2.5 mIU/m L Ovula tion: 4.7-2 1.5 mIU/m L Lutea l: 1.7-7 .7 mIU/m L Postm enopa use: 25.8- 134.8 mIU/m L Not Available [facility] (Lab) [address], [place], [address], 09/08/2023 18:05:36 09/02/19 24 09/02/2023 HEMOG LOBIN A1C hemoglobin A1C 6.0 % 0-5.6 high The Ameri can Diabe kat Assoc iatio n recom mends that a prima ry goal of thera py shoul d be a HBA1C of < 7% and that physi cians shoul d reeva luate the treat ment regim en in patie nts with HBA1C value s consi stent ly > 8%. <5.7% Lyubov l 5.7 - 6.4% Incre ased risk for diabe kat >=6.5 % Diagn ostic of diabe kat <7.0% Goal of thera py >8.0% Actio n sugge sted Not Available [facility] (Lab) [address], [place], [address], 09/08/2023 18:05:37 09/02/19 24 09/02/2023 TESTO STERO NE, FREE( DIALY SIS) AND TOTAL (LC/M S/MS) testosterone , total 16 NG/dL 2-45 For addit ional infor lisa khan e refer to http: //modesta parraque stdia gnost ics.c om/fa q/ Total Testo stero neLCM SMSFA Q165 (This link is being provi ded for [facility] matio nal/ educa chris l purpo ses only. ) This test was devel oped and its elisa tical perfo rmanc e logan cteri stics have been deter mined by [employer]. It has not been clear ed or appro radha by the U.S. Food and Drug Admin istra tion. This assay has been valid ated pursu ant to the CLIA regul ation s and is used for clini ajith purpo ses. Not Available [facility] (Lab) [address] [facility], [place], [address], 09/08/2023 18:05:37 09/02/19 24 09/02/2023 TESTO STERO NE, FREE( DIALY SIS) AND TOTAL (LC/M S/MS) testosterone , free 2.4 pg/mL 0.1-6. 4 This test was devel oped and its elisa tical perfo rmanc e logan cteri stics have been deter mined by [employer] [facility] [place], [place]. It has not been clear ed or appro radha by the U.S. Food and Drug Admin istra tion. This assay has been valid ated pursu ant to the CLIA regul ation s and is used for clini ajith purpo ses. Perfo rming Organ izati on [facility] sia n: Site ID: [id number] Name: [employer] [place] [employer] Addre ss: [id number] [facility] [employer] [place], [place] Direc tor: Josie Scott MD PhD Not Available [facility] (Lab) [address] [place], [address], 09/08/2023 18:05:37 09/02/19 24 09/02/2023 17-OH PROGE STERO NE 17-hydroxypr ogesterone, lc/MS/MS 15 NG/dL Adult Femal e Refer ence Range s for 17-Hy droxy proge stero ne: Pre-M enopa usal Mid Folli cular : 23-10 2 ng/dL Pre-M enopa usal Surge : 67-34 9 ng/dL Pre-M enopa usal Mid Lutea l: 139-4 31 ng/dL Postm enopa usal Phase : < or = 45 ng/dL Pregn anton: First Trime ster: 78-45 7 ng/dL Secon d Trime ster: 90-35 7 ng/dL Third Trime ster: 144-5 78 ng/dL This test was devel oped and its elisa tical perfo rmanc e logan cteri stics have been deter mined by [employer]. It has not been clear ed or appro radha by FDA. This assay has been valid ated pursu ant to the CLIA regul ation s and is used for clini ajith purpo ses. Perfo rming Organ izati on Infor matio n: Site ID: [id number] Name: [employer] [facility] [place] , Addre ss: [id number] [address] [facility] [place] [address] Direc tor: Daksha bocanegra MD,Ph D,CHRIS Not Available [facility] (Lab) [address] [facility], [place], [address], 09/08/2023 18:05:38 04/28/20 24 04/28/2024 IMAGE GUIDE D PAP AND HPV REGAR DLESS image guided Pap, HPV regardless of Pap result SEE RESULT S BELOW CASE REPOR T: Cytol ogy Gynec ologi ajith Repor t Case: [id number] Autho lexis g Provi sarah: Carolyn Esquivel MD Colle cted: 04/28 1453 Order ing Locat ion: [place] [facility] Recei radha: 04/29 1250 First Scree n: Julian Madden, CT Rescr een: Nojacky ni, Steffany ed, CT Speci men: Scree magno Pap - Image d, Cervi x STATE MENT OF ADEQU ACY: Satis facto ry for evalu ation Trans forma tion zone compo nent absen t The absen ce of an endoc ervic al compo nent was confi rmed by an addit ional leola ner. ----- ----- ----- ----- ----- ----- ----- ----- ----- ----- ----- ----- ----- ----- ----- ----- ----- ---- FINAL DIAGN OSIS: Negat gerardo for Intra epith elial Christal marion or Zechariah rankin (NIL) . Elect kaitlynn bell by Steffany Corbin ed, [place] on 2023 at 5:58 PM ----- ----- ----- ----- ----- ----- ----- ----- ----- ----- ----- ----- ----- ----- ----- ----- ----- ---- HPV RESUL TS: HPV mRNA E6/E7 : No HPV mRNA Detec jatinder NOTE: This high risk HPV mRNA assay detec ts fourt een high- risk HPV types (16, 18, 31, 33, 35, 39, 45, 51, 52, 56, 58, 59, 66, 68) witho ut diffe renti ation . COMME NT: This speci men was revie wed by a Cytot echno logis t and/o r Patho logis t (as indic ated in this repor t) after evalu ation using the Thinp rep Imagi ng Syste m. CLINI AJITH INFOR MATIO N: Menst rual Statu s: LMP (if appli cable ): Clini ajith Histo ry/Pr eviou s Pap: Type of Neopl bernadette (if appli cable ): Signi fican t Clini ajith Findi ngs: Other Histo ry: Hormo kalli (if appli cable ): PAP EDUCA CHRIS L NOTE: The Pap Test is a scree magno test with an inher ent false negat gerardo rate. Liqui d-bas ed sampl ing may decre ase, but will not elimi salazar, false negat gerardo resul ts. A negat gerardo resul t does not precl ude the prese nce and/o r devel opmen t of disea se, since the prese nce of abnor mal cells in the sampl e depen ds on the locat ion of the lesio n and sampl ing techn ique. Je nued regul ar scree magno is the best metho d of cance r preve ntion . If repor jatinder cytol ogic findi ng do not corre late with physi ajith and/o r histo rical findi ngs, furth er inves tigat ion is recom mika d, as clini lakshmi schulte nted. Not Available [facility] (Lab) [address], [place], [address], 05/05/2024 19:02:42 04/28/20 24 04/28/2024 CT/GC (SUZY) , THINP REP VIAL chlamydia trachomatis, PCR Negati ve negati ve Not Available [facility] (Lab) [address], [place], [address], 05/05/2024 19:02:43 04/28/20 24 04/28/2024 CT/GC (SUZY) , THINP REP VIAL neisseria gonorrhoeae, PCR Negati ve negati ve Not Available [facility] (Lab) [address], [place], [address], 05/05/2024 19:02:43 04/28/20 24 04/28/2024 TRICH OMONA S VAGIN YANNI (RRNA ) trichomonas vaginalis ribosomal RNA (rrna) Negati ve negati ve Not Available [facility] (Lab) [address], [place], [address], 05/05/2024 19:02:44 10/29/19 24 10/29/2023 , marilynn s No observ ation record ed. [facility] [address], [place], [address], 10/29/2023 17:52:58 10/29/19 24 10/29/2023 US, trans vagin al No observ ation record ed. clara [place] [address], [place], [address], 10/29/2023 17:53:15 10/29/19 24 10/29/2023 US, pelvi s No observ ation record ed. [email or web address] [address] [address], [place], [address], 10/29/2023 22:01:11 Result Notes None recorded. Problems Name Problem SNOMED Code Status Onset Date Resolution Date Notes Provider Name and Address Organization Details Recorded Time Pregnanc y 13716445 Completed 201908/24/2020 Aliza Allan ehl null, [facility] 11:12:00 Past pregnanc y history of pre-ecla mpsia [id number] 9100 Completed & GDM Aliza Allan ehl null, [facility] 11:11:55 Depressi ve disorder 16994781 Completed Aliza Allan ehl null, [facility] 11:11:55 Anxiety 84360898 Completed Aliza Allan ehl null, [facility] 11:11:54 delivery - delivere d 657154906 Completed 10# baby, to repeat ltcs - schd 08/15 Aliza byrnel null, [facility] 11:11:55 Herpes simplex 52828160 Active 2019 1&2 + - valtrex at 36 wks- rx sent 07/25 Aliza Allan ehl null, [facility] 02/26/202 1 11:11:55 Herpes simplex 12040417 Completed 2019 1&2 + - valtrex at 36 wks- rx sent 07/25 Aliza wyatt [facility], [facility] 1 11:11:55 Low lying placenta 832418536 Completed 201905/07/2020 RESOLVED Suyapa Avila null, [facility] 14:18:49 Problem Notes None recorded. Procedures Surgical History Date Name Laterality Status Provider Name and Address Organization Details Recorded Time 022 Date of Last Pap Smear completed Theresa Saba [facility] 04/28/2024 12:29:12 021 LAPAROSCOPY, DIAGNOSTIC (SURG) completed Kaitlynn Javed [facility] 05/30/2021 10:06:52 021 IUD Insertion completed Juaquin Esquivel MD [address], [place], [address], [facility] 10/12/2020 16:20:17 021 section completed Trice Torrez [facility] 10/17/2021 14:25:11 019 Colposcopy completed Coco Calero [facility] 03/07/2020 16:20:43 018 Cholecystectomy completed Re Guthrie [facility] 04/20/2020 12:27:35 018 Appendectomy completed Re Guthrie [facility] 04/20/2020 12:27:29 017 completed Yovana Camp [facility] 03/15/2021 15:28:20 017 Colonoscopy completed Re Guthrie [facility] 04/20/2020 12:27:42 016 Dilation and Curettage completed Re Guthrie [facility] 04/20/2020 12:27:48 Imaging Results Imaging Date Name Status LastModified by Organization Details LastModified Time 10/29/2023 US, pelvis completed [facility] [address], [place], [address], 10/29/2023 17:52:58 10/29/2023 US, transvaginal completed [facility] e [address], [place], [address], 10/29/2023 17:53:15 10/29/2023 US, pelvis completed [email or web address] [address], [place], [address], 10/29/2023 22:01:11 Procedure Notes None recorded. Medical Equipment None Reported. Allergies No known drug allergies Medications Name Sig Start Date Stop Date Status Note LastModified by Organization Details LastModified Time cyclobenzap rine 10 mg tablet 03/07 completed Not Available Not Available Not Available Mirena 21 mcg/24 hr (up to 8 years) 52 mg intrauterin e device Take by intrauter ine route. 10/17 completed Not Available Not Available Not Available metformin 500 mg tablet TAKE 1 TABLET BY MOUTH TWICE DAILY 04/28 completed Not Available Not Available Not Available hydrocodone 7.5 mg-ibuprofe n 200 mg tablet 03/07 completed Not Available Not Available Not Available bupropion HCl SR 150 mg tablet,12 hr sustained-r elease TAKE 1 TABLET BY MOUTH TWICE DAILY 10/17 completed Not Available Not Available Not Available paroxetine 10 mg tablet 03/07 completed Not Available Not Available Not Available ibuprofen 800 mg tablet 03/07 completed Not Available Not Available Not Available fluconazole 150 mg tablet TAKE 1 TABLET BY MOUTH ONE DOSE 05/22 completed Not Available Not Available Not Available metoprolol succinate ER 50 mg tablet,exte nded release 24 hr 09/01 completed Not Available Not Available Not Available hydrocodone 5 mg-acetamin ophen 325 mg tablet Take 1 tablet every 6 hours by oral route. 10/17 completed Not Available Not Available Not Available sumatriptan 25 mg tablet TAKE 1 TABLET BY MOUTH ONCE NEEDED FOR MIGRAINE. USE DIRECTED. MAY REPEAT DOSE IN 2 HOURS IF HEADACHE RECURS 09/01 completed Not Available Not Available Not Available ondansetron HCl 4 mg tablet 03/07 completed Not Available Not Available Not Available sumatriptan 50 mg tablet TAKE ONE TABLET BY MOUTH ONCE NEEDED FOR MIGRAINE OR HEADACHES . USE DIRECTED. MAY REPEAT DOSE IN 2 HOURS IF HEADACHE RECURS active Not Available Not Available No t Available hydroxyzine HCl 50 mg tablet TAKE 1 TABLET BY MOUTH EVERY 6 HOURS (UP TO 4 DOSES) NEEDED FOR ANXIETY active Not Available Not Available No t Available lamotrigine 25 mg tablet TAKE 1 TABLET BY MOUTH TWICE DAILY AROUND THE CLOCK 10/17 completed Not Available Not Available Not Available oxycodone-a cetaminophe n 5 mg-325 mg tablet TAKE 1 TABLET BY MOUTH EVERY 6 HOURS 04/28 completed Not Available Not Available Not Available amoxicillin 875 mg tablet TAKE 1 TABLET BY MOUTH EVERY 12 HOURS 04/28 completed Not Available Not Available Not Available alprazolam 0.25 mg tablet TAKE 1 TABLET BY MOUTH THREE TIMES DAILY NEEDED FOR ANXIETY 04/28 completed Not Available Not Available Not Available amitriptyli ne 10 mg tablet TAKE 1 TABLET BY MOUTH ONCE DAILY active Not Available Not Available No t Available meclizine 25 mg tablet 03/07 completed Not Available Not Available Not Available rizatriptan 10 mg disintegrat ing tablet TAKE 1 TABLET BY MOUTH DIRECTED. MAY REPEAT IN 2 HOURS IF UNRESOLVE D. DO NOT EXCEED 3 TABLETS IN 24 HOURS 09/01 completed Not Available Not Available Not Available pantoprazol e 40 mg tablet,ann marie yed release 04/28 completed Not Available Not Available Not Available estradiol 2 mg tablet Take 1 tablet every day by oral route. 04/28 completed Not Available Not Available Not Available hydroxyzine HCl 25 mg tablet TAKE 1 TABLET BY MOUTH 4 TIMES DAILY NEEDED 04/28 completed Not Available Not Available Not Available Valtrex 500 mg tablet Take 1 tablet twice a day by oral route. 10/17 completed Not Available Not Available Not Available zolpidem 5 mg tablet TAKE 1 TABLET BY MOUTH EVERY DAY AT BEDTIME NEEDED FOR IMSONIA 09/10 completed Not Available Not Available Not Available ergocalcife rol (vitamin D2) 1,250 mcg (50,000 unit) capsule TAKE 1 CAPSULE BY MOUTH ONCE A WEEK active Not Available Not Available No t Available ibuprofen 600 mg tablet TAKE 1 TABLET BY MOUTH EVERY 8 HOURS 09/01 completed Not Available Not Available Not Available methylpredn isolone 4 mg tablets in a dose pack TAKE BY MOUTH DIRECTED ON INSIDE OF PACKAGE 04/28 completed Not Available Not Available Not Available ondansetron 4 mg disintegrat ing tablet DISSOLVE 1 TABLET IN MOUTH EVERY 8 HOURS NEEDED FOR NAUSEA 09/01 completed Not Available Not Available Not Available amoxicillin 875 mg-potassiu m clavulanate 125 mg tablet TAKE 1 TABLET BY MOUTH TWICE DAILY 01/18 completed Not Available Not Available Not Available buspirone 15 mg tablet TAKE 1 TABLET BY MOUTH TWICE DAILY 10/17 completed Not Available Not Available Not Available oxycodone 5 mg tablet Take 2 tablets every 6 hours by oral route. 10/17 completed Not Available Not Available Not Available hydroxyzine pamoate 25 mg capsule TAKE 1 CAPSULE BY MOUTH FOUR TIMES DAILY NEEDED 10/17 completed Not Available Not Available Not Available etonogestre l 0.12 mg-ethinyl estradiol 0.015 mg/24 hr vaginal ring 03/07 completed Not Available Not Available Not Available azithromyci n 500 mg tablet TAKE 1 TABLET BY MOUTH ONCE DAILY FOR 3 DAYS 09/01 completed Not Available Not Available Not Available escitalopra m 10 mg tablet TAKE 1 TABLET BY MOUTH ONCE DAILY active Not Available Not Available No t Available aripiprazol e 10 mg tablet TAKE 1 TABLET BY MOUTH ONCE DAILY IN THE EVENING 10/17 completed Not Available Not Available Not Available cyclobenzap rine 5 mg tablet TAKE 1 TABLET BY MOUTH THREE TIMES DAILY 09/10 completed Not Available Not Available Not Available aripiprazol e 5 mg tablet TAKE 1 TABLET BY MOUTH EVERY DAY IN THE EVENING FOR 7 DAYS 05/22 completed Not Available Not Available Not Available topiramate 50 mg tablet TAKE 1/2 (ONE-HALF ) TABLET BY MOUTH TWICE DAILY FOR 7 DAYS THEN TAKE 1 TABLET BY MOUTH TWICE DAILY THEREAFTE R 09/01 completed Not Available Not Available Not Available nitrofurant oin monohydrate /macrocryst als 100 mg capsule 03/07 completed Not Available Not Available Not Available hydroxyzine HCl 11/21 completed Not Available Not Available Not Available Monistat 3 04/20 completed Not Available Not Available Not Available Tylenol 09/10 completed Not Available Not Available Not Available buspirone 11/21 completed Not Available Not Available Not Available 09/10 completed Not Available Not Available Not Available bupropion HCl 11/21 completed Not Available Not Available Not Available PrePlus 27 mg iron-1 mg tablet 03/07 completed Not Available Not Available Not Available Ubrelvy 50 mg tablet TAKE 1 TABLET BY MOUTH ONCE DAILY NEEDED active Not Available Not Available No t Available Vitals Date Recorded Body weight Systolic blood pressure Diastolic blood pressure Provider Name and Address Organization Details Last Updated DateTime 09/02/2023 50585.77 g 123 mm[Hg] 85 mm[Hg] Trice [facility] 09/02/2023 17:19:14 Date Recorded Body height Body mass index (BMI) Body weight Systolic blood pressure Diastolic blood pressure Provider Name and Address Organization Details Last Updated DateTime 10/28/2023 160.02 cm 36.8 kg/m2 33411.21 g 142 mm[Hg] 81 mm[Hg] [facility] 4 17:42:17 Date Recorded Body height Body mass index (BMI) Body weight Systolic blood pressure Diastolic blood pressure Provider Name and Address Organization Details Last Updated DateTime 10/29/2023 160.02 cm 36.8 kg/m2 85969.21 g 100 mm[Hg] 66 mm[Hg] [facility] 4 16:52:34 Date Recorded Body height Body mass index (BMI) Body weight Systolic blood pressure Diastolic blood pressure Provider Name and Address Organization Details Last Updated DateTime 04/28/2024 160.02 cm 38.4 kg/m2 76755.54 g 118 mm[Hg] 84 mm[Hg] Theresa Saba [facility] 12:25:44 Social History Question Answer Notes LastModified by Organizat ion Details LastModified Time Tobacco Smoking Status Former Smoker Re Guthrie berny, [facility] 04/20/2020 12:26:57 What Is Your Level Of Alcohol Consumption? Occasional [email or web address] Information not available 04/20/2020 If You Are , What Was Your Level Of Alcohol Consumption Prior To ? Occasional Information not available 07/18/2020 How Many Years Have You Consumed Alcohol? 17 [email or web address] Information not available 10/29/2023 Are You Blind Or Do You Have Difficulty Seeing? No Information not available 10/17/2021 What Is Your Level Of Caffeine Consumption? Occasional Information not available 04/28/2024 How Much Tobacco Do You Chew? None [email or web address] Information not available 10/29/2023 In The 14 Days Before Symptom Onset, Have You Had Close Contact With A Laboratory-confir med COVID-19 While That Case Was Ill? No [email or web address] Information not available 10/29/2023 In The 14 Days Before Symptom Onset, Have You Had Close Contact With A Person Who Is Under Investigation For COVID-19 While That Person Was Ill? No [email or web address] Information not available 10/29/2023 Have You Been To An Area Known To Be High Risk For COVID-19? No [email or web address] Information not available 10/29/2023 Are You Deaf Or Do You Have Serious Difficulty Hearing? No Information not available 10/17/2021 What Type Of Diet Are You Following? REGULAR Information not available 10/17/2021 Which Illicit Or Recreational Drugs Have You Used? Marijuana [email or web address] Information not available 07/18/2020 Do You Or Have You Ever Used E-cigarettes Or Vape? Former User Of Electronic Cigarettes [email or web address] Information not available 07/18/2020 What Is The Highest Grade Or Level Of School You Have Completed Or The Highest Degree You Have Received? 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 2 [email or web address] Information not available 07/18/2020 On Those Days That You Engage In Moderate To Strenuous Exercise, How Many Minutes, On Average, Do You Exercise? 30 [email or web address] Information not available 07/18/2020 Are There Any Guns Present In Your Home? No [email or web address] Information not available 10/29/2023 How Many Years Have You Used Illicit Or Recreational Drugs? 1 [email or web address] Information not available 07/18/2020 What Was The Date Of Your Most Recent Tobacco Screening? 07/18/2020 [email or web address] Information not available 07/18/2020 What Is Your Current Pack Years? 10-19packyears [email or web address] Information not available 07/18/2020 Have You Ever Been Counseled For Unhealthy Alcohol Use? No [email or web address] Information not available 07/18/2020 Do You Use Protection During Sex? No [email or web address] Information not available 10/29/2023 Do You Use Your Seat Belt Or Car Seat Routinely? Yes Information not available 10/29/2023 Do You Have Smoke And Carbon Monoxide Detectors In Your Home? Yes [email or web address] Information not available 10/29/2023 At What Age Did You Start Smoking Tobacco? 28 [email or web address] Information not available 07/18/2020 Do You Or Have You Ever Used Smokeless Tobacco? Never Used Smokeless Tobacco [email or web address] Information not available 04/20/2020 How Much Tobacco Do You Smoke? No [email or web address] Information not available 04/20/2020 Do You Feel Stressed (tense, Restless, Nervous, Or Anxious, Or Unable To Sleep At Night)? [id number] [email or web address] Information not available 10/29/2023 Do You Use Any Illicit Or Recreational Drugs? Yes Information not available 07/18/2020 Do You Use Sunscreen Routinely? No [email or web address] Information not available 10/29/2023 Has Tobacco Cessation Counseling Been Provided? No [email or web address] Information not available 07/18/2020 How Many Years Have You Smoked Tobacco? 4 Information not available 04/28/2024 Have You Used IV Drugs? No [email or web address] Information not available 07/18/2020 Do You Or Have You Ever Used Any Other Forms Of Tobacco Or Nicotine? Yes [email or web address] Information not available 07/18/2020 How Many Years Have You Used E-cigarettes Or Vape? 3 [email or web address] Information not available 07/18/2020 Sex: Unknown Functional Status Question Answer Note LastModified by Organizat ion Details LastModified Time Do you have difficulty walking or climbing stairs? No Information not available 10/17/2021 Are you able to walk? [email or web address] Information not available 10/17/2021 Are you able to care for yourself? Yes Information not available 10/17/2021 Do you have difficulty dressing or bathing? No Information not available 10/17/2021 What is your exercise level? Moderate Information not available 04/28/2024 Mental Status None recorded. Family History Relationship Description Onset Age of this Age Resolved Age Notes LastModified by Organization Details LastModified Time Mother Asthma Not available 03/07/2020 16:24:16 Mother Hypertensive disorder Not available 2019 16:26:00 Mother Cyst of ovary [email or web address] Not available 2023 11:41:59 Father Asthma Not available 03/07/2020 16:24:16 Father Diabetes mellitus Not available 2019 16:25:30 Father Hypercholest [email or web address] Not available 2019 16:25:43 Father Hypertensive disorder Not available 2019 16:26:00 Father Malignant tumor of breast Not available 2019 16:54:19 Sister Asthma Not available 03/07/2020 16:24:16 Brother Asthma Not available 03/07/2020 16:24:16 Brother Seizure disorder [email or web address] Not available 2023 11:41:59 Maternal Grandmother Asthma Not available 02/2020 16:53:40 Maternal Grandmother Heart disease Not available 2019 16:54:54 Maternal Grandmother Hypertensive disorder Not available 2019 16:55:41 Maternal Grandfather Asthma Not available 02/2020 16:53:45 Maternal Grandfather Heart disease Not available 2019 16:55:05 Maternal Grandfather Hypertensive disorder Not available 2019 16:55:50 Paternal Grandfather Asthma Not available 02/2020 16:53:52 Paternal Grandfather Heart disease Not available 2019 16:55:08 Paternal Grandfather Hypertensive disorder Not available 2019 16:55:54 Paternal Aunt Asthma Not pedro ilable 03/07/2020 16:53:59 Maternal Uncle Asthma Not available 03/07/20 16:54:04 Paternal Uncle Asthma Not available 03/07/20 16:54:07 Paternal Uncle Malignant tumor of colon Not available 2019 16:55:23 Paternal Grandmother Heart disease Not available 2019 16:54:54 Paternal Grandmother Hypertensive disorder Not available 2019 16:55:45 Maternal Aunt Cyst of ovary [email or web address] Not available 2023 11:41:59 Medical History Condition Response Ovarian Cancer Y Anxiety Disorder Y Gestational Diabetes Y Other Y Endometriosis Y Depression/ depression Y Headaches Y Polycystic ovary syndrome Y Hypertension Y Asthma Y Gynecological History Statement/Question Response Abnormal Pap Y Date of LMP 07/30/2020 On BCP's at Conception? N Was last menstrual period normal N STIs/STDs Y HPV Vaccine N Colposcopy 11/10/2018 13 Current Control Method IUD Date of control 10/13/2020 Sexually Active? Y Menses Monthly N Age of first menstrual cycle 14 Date of Last Pap Smear 10/17/2021 Sexual Problems? N LMP Unknown 06/29/2016 Obstetrics History GPAL:G 6 P 2 0 4 2 Type Value Full Term 2 Spontaneous 4 Living 2 Total 6 Past Encounters Encounter ID Performer Location Encounter Start Date Encounter Closed Date Diagnosis/Indication Diagnosis SNOMED-CT Code Diagnosis ICD10 Code Diagnosis Note [id number] Juaquin Esquivel MD [place] [address] [address] 03/07/2020 16:07:20 03/07/2020 17:44:12 screening 168738329 Z36.9 Routine an tenatal care 981129585 Z34.82 [id number] Juaquin Esquivel MD [place] [address],[place] [address] 04/03/2020 13:14:36 04/03/2020 15:18:39 [id number] [facility] [address],[place] [address] 04/03/2020 13:15:02 04/03/2020 15:00:53 screening for malformation 341487444 Z36.3 [id number] Juaquin Esquivel MD [place] [address],[place] [address] 04/03/2020 15:23:43 04/03/2020 15:52:06 Routine care 373378527 Z34.82 [id number] [facility] [address],[place] [address] 04/20/2020 11:54:42 04/20/2020 15:03:56 Routine care 041812849 Z34.92 [id number] Maye Myrick [place] [address],[place] [address] 05/07/2020 17:28:36 05/08/2020 10:13:58 screening 096135833 Z36.2 Z3A.24 Low lying placenta 57948 2006 O44.40 [id number] [facility] [address],[place] [address] 05/07/2020 17:29:52 05/08/2020 10:15:03 Routine care 188839095 Z34.92 [id number] Juaquin Esquivel MD [place] [address],[place] [address] 06/01/2020 13:57:40 06/01/2020 14:42:14 Routine care 882612336 Z34.82 [id number] Juaquin Esquivel MD [place] [address],[place] [address] 06/08/2020 10:10:15 06/08/2020 11:22:10 Routine care 952206119 Z34.82 [id number] [facility] [address],[place] [address] 06/20/2020 12:12:51 06/20/2020 12:41:38 Routine care 909253183 Z34.92 s ection following previous section 136929802 O34.219 [id number] Juaquin Esquivel MD [place] [address],[place] [address] 07/06/2020 10:07:46 07/06/2020 11:32:58 Routine care 994351870 Z34.82 [id number] [facility] [address],[place] [address] 07/18/2020 09:15:03 07/18/2020 10:02:29 Routine care 902215838 Z34.92 [id number] Davina Castro [facility] [address],[place] [address] 07/25/2020 11:29:51 07/25/2020 15:17:36 Herpes simplex 81390800 B00.9 Routine an tenatal care 413820204 Z34.92 [id number] [facility] [address],[place] [address] 08/02/2020 09:24:40 08/02/2020 10:21:07 Routine care 396355412 Z34.92 [id number] Maye Myrick [place] [address],[place] [address] 08/06/2020 10:14:47 08/06/2020 10:52:24 Uterine size for dates discrepancy 418882449 O26.843 Z3A.37 [id number] Juaquin Esquivel MD [place] [address],[place] [address] 08/09/2020 10:18:21 08/09/2020 11:31:20 Routine care 185740967 Z34.82 [id number] Aliza Adamshaylie [facility] [address],[place] [address] 08/09/2020 11:31:36 08/09/2020 12:32:29 Reduced movement 183624900 O36.8130 [id number] Juaquin Esquivel MD [place] [address],[place] [address] 08/16/2020 10:50:06 08/16/2020 10:53:11 [id number] Juaquin Esquivel MD [place] [address],[place] [address] 08/23/2020 10:36:13 08/23/2020 16:53:07 Postoperative care 908898463 Z48.89 this patient is a 29-year-ol d multipara presents forpostopf ollow-up. She is 1 weekpostop from a delivery. Her incision is clean dry and intact. She has no complaints . Her baby is doing well. She is doing well. Her bleeding is normal. She denies any nausea, vomiting, fever, chills. [id number] Juaquin Esquivel MD [place] [address],[place] [address] 09/10/2020 16:54:07 09/11/2020 17:47:45 Complication of obstetrical surgical wound 37050333 O90.89 this patient is a 29-year-ol d female with right-side d lower abdominal pain. She went to the ER. Imaging of the abdomen revealed a fluid collection in the subcutaneo us fat near the abdominal wall in the area of the incision. She is tender in this area. There is no evidence of infection. No erythema, no warmth, note palpable mass. We agreed to arrange for a drain to be placed in Radiology Department tomorrow afternoon. [id number] Juaquin Esquivel MD [place] [address],[place] [address] 09/13/2020 10:33:41 09/13/2020 12:10:18 Postoperative pain 789757594 G89.18 this patient is a 29-year-ol d female presents for postoperat gerardo pain. She has proximally 2-3 weeks postop from a delivery. She has severe burning pain on her right lower flank. It is in the most lateral aspect of the abdominal wall on the right lower side. She has a burning sensation of the skin. She was imaged twice. Ultrasound the subcutaneo us fat did not show any abscess. An image from an outside facility discussed a small pocket of fluid in the subcutaneo us fat near the abdominal wall on the right side. We agreed to observe. She is going to require more pain medication . We will consider medication s for nerve pain if this does not resolve quickly. the abdomen was examined previously and there were no significan t findings there.Yaya tional precaution yessenia measures were taken to minimize potential exposure to the Covid-19 virus during this patient? 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 All staff wore face coverings during this encounter, as well as provided additional cleaning and sanitizing of all surfaces, including countertop s, pens, chairs, door handles, light switches, etc, prior to and following the patient? s visit. [id number] Juaquin Esquivel MD [place] [address] [address] 10/12/2020 15:23:36 10/12/2020 16:23:18 Contraception care management [id number] Z30.9 IUD was inserted. She tolerated the procedure well. [id number] Juaquin Esquivel MD [place] [address] [address] 11/21/2020 16:36:01 11/21/2020 17:24:33 Contraception care management [id number] Z30.9 This patient is a 29-year-ol d who presents for IUD check. She has no complaints . She was examined with a speculum. The cervix appears normal, the IUD string appears normally placed, the IUD was not visible. She will follow up as needed. [id number] Juaquin Esquivel MD [place] [address] [address] 01/18/2021 11:49:18 01/18/2021 12:48:54 Pain in pelvis [id number] R10.2 This patient is a 30 -year-old female with pelvic pain. We have agreed to complete the evaluation with pelvic ultrasound . The patient will return after the pelvic ultrasound to discuss those findings and to develop a treatment plan. A comprehens gerardo history and physical exam was performed today. We spent over 25 minutes face-to-fa ce. The patient was given precaution s. She will contact clinic if pelvic pain increases in frequency or intensity. Also notify clinic of any new symptoms associated with pelvic pain. She does not appear to have an acute pelvic infection today, but was asked to contact us Immediatel y with nausea, vomiting, fever, chills. [id number] Maye [facility] [address] [address] 02/06/2021 15:01:39 02/06/2021 15:50:25 Pain in pelvis [id number] R10.2 This patient is a 30 -year-old female with pelvic pain. We have agreed to complete the evaluation with pelvic ultrasound . The patient will return after the pelvic ultrasound to discuss those findings and to develop a treatment plan. A comprehens gerardo history and physical exam was performed today. We spent over 25 minutes face-to-fa ce. The patient was given precaution s. She will contact clinic if pelvic pain increases in frequency or intensity. Also notify clinic of any new symptoms associated with pelvic pain. She does not appear to have an acute pelvic infection today, but was asked to contact us Immediatel y with nausea, vomiting, fever, chills. [id number] Juaquin Esquivel MD [place] [address] [address] 02/14/2021 14:10:26 02/14/2021 15:09:15 Pain in pelvis [id number] R10.2 Endometrio sis of pelvis [id number] N80.3 this patient is a 30-year-ol d female presents for follow-up on ultrasound . She has got pelvic pain. Her pain pelvic pain consistent with endometrio sis. It occurs at the time of her menses. It is longstandi ng. She had it when she was in her late teens. She was previously diagnosed with endometrio sis. The ultrasound is normal. We agreed to treatment with Orlissa. we agreed this after discussing all her treatment options. The patient has had multiple abdominal surgeries and we wish to avoid a repeat surgery. We spent more than 25 minutes face-to-fa ce. In that time we also counseled her on her excessive body weight. We talked about counting calories, healthy eating. She will start Mariana. She was given 1 month the samples. She will turn in 1 month. She has Mirena for contracept ion. [id number] Juaquin Esquivel MD [place] [address],[place] [address] 03/15/2021 15:11:24 03/15/2021 16:11:14 Pain in pelvis [id number] R10.2 this patient is a 30-year-ol d female with longstandi ng pelvic pain. Her pelvic pain complaints are very consistent with the diagnosis of endometrio sis. We recently tried a medical treatment that suppresses ovarian function. She has not tolerate that well. The patient has a hernia and a consult with General surgery for the hernia. We discussed possibly at that time performing diagnostic laparoscop y and examining the pelvis. She is going to see Dr. Hooper. She will take this note with her and this may facilitate organising a co-surgeon with Dr. Hooper. She may benefit from surgical remediatio n of endometrio sis. That could be done at that time. [id number] Juaquin Esquivel MD [place] [address] [address] 04/18/2021 16:45:37 04/19/2021 18:18:00 Pain in pelvis [id number] R10.2 this patient is a 30-year-ol d female with longstandi ng pelvic pain. Her pelvic pain complaints are very consistent with the diagnosis of endometrio sis. We recently tried a medical treatment that suppresses ovarian function. She has not tolerate that well. The patient has a hernia and a consult with General surgery for the hernia. We discussed possibly at that time performing diagnostic laparoscop y and examining the pelvis. She is going to see Dr. Hooper. She will take this note with her and this may facilitate organising a co-surgeon with Dr. Hooper. She may benefit from surgical remediatio n of endometrio sis. That could be done at that time. [id number] Juaquin Esquivel MD [place] [address],[place] [address] 05/22/2021 15:53:02 05/27/2021 13:15:07 Pain in pelvis [id number] R10.2 this patient is a 30-year-ol d female with longstandi ng pelvic pain. we have agreed to perform diagnostic laparoscop y. She understand s the risks, benefits, and alternativ es. She has completed the informed consent process and is ready to proceed. [id number] Juaquin Esquivel MD [place] [address],[place] [address] 05/30/2021 09:47:51 05/30/2021 09:48:12 [id number] Juaquin Esquivel MD [place] [address],[place] [address] 06/06/2021 17:17:49 06/07/2021 09:46:39 Postoperative care [id number] Z48.89 This patient is a 30-year-ol d female presents for postoperat gerardo care. She is 1 week postop from a diagnostic laparoscop y with adhesiolys is and resection of endometrio sis. She reports improvemen t in the pain she had previously experience d. We discussed the findings. Her uterus with care to the anterior pelvic wall. She appeared to have endometrio sis The bilateral pelvic sidewalls. She is recovering normally. Her incisions are clean dry and intact. She will follow-up as needed [id number] EUGENIA Alvarez [place] [address],[facility] [place] [address] 10/17/2021 13:55:56 10/17/2021 15:21:27 Contraception care management [id number] Z30.9 First menses since having IUD placed one year ago. Bleeding started one week ago, has now stopped. Bleeding is light. No other symptoms.W e discussed normal to have a light menses with Mirena IUD. Would like to r/o STI's and do a pap smear. Her last pap was in 2020, normal per patient. Has a hx of abnormal pap and colpo done in 2019, did not require any procedures .Will send for STI testing.St swathi seen today, her partner can feel the strings. I did attempt to tuck strings to the side, we discussed seeing if this helps before cutting strings (as strings are already fairly short and could risk harder removal if cut shorter)Pa tient to log menses and call the office if any heavy bleeding or prolonged bleeding occurs.She agrees to this plan.Red flag symptoms discussed with patient. Time spent with patient was 25 minutes discussing the above. Venereal d isease screening [id number] Z11.3 Intrauteri ne device check [id number] Z30.431 [id number] Juaquin Esquivel MD [place] [address] [address] 09/02/2023 17:12:52 09/02/2023 18:06:55 Polycystic ovary syndrome [id number] E28.2 32-year-ol d female with history of PCOS. Reports weight gain and bloating. Feelings of malaise. She would like to be treated again for PCOS. We talked about treatment options. We talked about metformin and spironolac tone. Talked about weight loss. Talked about screening for other disease. We agreed to labs. We spent 20 minutes face-to-fa ce. More 50% was counseling . [id number] Juaquin Esquivel MD [place] [address] [address] 10/28/2023 17:12:14 10/29/2023 06:04:16 Pain in pelvis [id number] R10.2 patient is a 32-year-ol d female with pelvic pain. She has had about a week and a half of pelvic pain. She went to the emergency department was evaluated. They performed a CT scan of the abdomen and pelvis. There was no specific findings suggestive of gynecologi c etiology type problem. She appeared to be in some pain. She is known to have cystic ovaries in the past. We agreed pelvic ultrasound soon as possible. We agreed to short-term follow-up. She will require pain management . She also has some abnormal bleeding with her IUD. Up to this point she has not had any bleeding IUD. We agreed estrogen. She has had her IUD for some time now. Spent over 20 minutes face-to-fa ce. More than 50% was counseling . Abnormal u terine bleeding [id number] 9100 N93.9 [id number] Pamela Goldstein [place] [address] [address] 10/29/2023 15:45:55 10/29/2023 16:49:23 Pain in pelvis [id number] R10.2 patient is a 32-year-ol d female with pelvic pain. She has had about a week and a half of pelvic pain. She went to the emergency department was evaluated. They performed a CT scan of the abdomen and pelvis. There was no specific findings suggestive of gynecologi c etiology type problem. She appeared to be in some pain. She is known to have cystic ovaries in the past. We agreed pelvic ultrasound soon as possible. We agreed to short-term follow-up. She will require pain management . She also has some abnormal bleeding with her IUD. Up to this point she has not had any bleeding IUD. We agreed estrogen. She has had her IUD for some time now. Spent over 20 minutes face-to-fa ce. More than 50% was counseling . [id number] Juaquin Esquivel MD [place] [address] [address] 10/29/2023 15:46:19 10/29/2023 17:37:43 Pain in pelvis [id number] R10.2 a 32-year-ol d female who presents for follow-up on ultrasound . She came yesterday for follow-up from the emergency department . She had an episode of pain that landed her in the emergency department . CT scan was essentiall y normal. She was led to believe there were some findings on the CT scan. We repeated imaging today. Today was an ultrasound . Her ovaries looked normal. The uterus looks normal. The IUD is normally placed. Her pain is reasonably well controlled . It does not require further evaluation and treatment. We will continue to observe her pain. We spent 20 minutes face-to-fa ce. More than 50% was counseling . [id number] Juaquin Esquivel MD [place] [address] [address] 04/28/2024 11:41:03 04/28/2024 13:49:54 Gynecologic examination [id number] Z01.419 Annual gynecologi ajith exam performed. Patient will come back in a year unless there are new symptoms. Suggest Calcium with Vitamin D if not eating in diet. Patient advised to get annual flu shot. Recommend yearly physicals and preform monthly breast exams. Genetic testing is available for patients with family history of cancer. Engage in safe sexual practices, use condoms. Encouraged to have daily exercise. Avoid tobacco and illicit drugs, moderation of alcohol. If BMI greater than 25 dietary consult advised. If you have any questions please call or email. Pap smear- today laboratory evaluation - done Health Concerns Section Related Observation LastModified by Organization Detai ls LastModified Time None Recorded Concern Status LastModified by Organization Details LastModified Time None Recorded Advance Directives Directive None Recorded Payers Encounter Date Sequence Insurance Name Policy Number Policy Witt Covered Member ID Witt Member ID Guarantor Name 09/02/2023 1 [facility] (MEDICAID HMO) [id number] Alexus Ro [id number] Alexus L Ro 10/28/2023 1 [employer] [facility] [place] ([place] H[place]) [id number] Alexus Ro [id number] Alexus L Lovilia 10/29/2023 1 [employer] [facility] [place] ([place] [id number] Alexus Lovilia [id number] Alexus L Ro 10/29/2023 1 [employer] [facility] [place] [id number] Alexus Ro [id number] Alexus L Ro 04/28/2024 1 [employer] [facility] [place] [id number] Alexus Ro [id number] Alexus L Ro Notes Date Note Type Note Provider Name and Address Organization Details Recorded Time 09/02/2023 text/html 32-year-old daylin lim with history of PCOS. Reports weight gain and bloating. Feelings of malaise. She would like to be treated again for PCOS. We talked about treatment options. We talked about metformin and spironolactone. Talked about weight loss. Talked about screening for other disease. We agreed to labs. We spent 20 minutes [id number]. More 50% was counseling. Juaquin Esquivel MD [address], [place], [address], [facility] 09/02/2023 18:03:29 10/28/2023 text/html patient is a 32-year-old female with pelvic pain. She has had about a week and a half of pelvic pain. She went to the emergency department was evaluated. They performed a CT scan of the abdomen and pelvis. There was no specific findings suggestive of gynecologic etiology type problem. She appeared to be in some pain. She is known to have cystic ovaries in the past. We agreed pelvic ultrasound soon as possible. We agreed to short-term follow-up. She will require pain management. She also has some abnormal bleeding with her IUD. Up to this point she has not had any bleeding IUD. We agreed estrogen. She has had her IUD for some time now. Spent over 20 minutes [id number]. More than 50% was counseling. Juaquin Esquivel MD [address], [place], [address], [facility] 10/29/2023 15:36:51 10/29/2023 text/html a 32-year-old female who presents for follow-up on ultrasound. She came yesterday for follow-up from the emergency department. She had an episode of pain that landed her in the emergency department. CT scan was essentially normal. She was led to believe there were some findings on the CT scan. We repeated imaging today. Today was an ultrasound. Her ovaries looked normal. The uterus looks normal. The IUD is normally placed. Her pain is reasonably well controlled. It does not require further evaluation and treatment. We will continue to observe her pain. We spent 20 minutes [id number]. More than 50% was counseling. Juaquin Esquivel MD [address], [place], [address], [facility] 10/29/2023 17:33:29 04/28/2024 text/html Annual GYNReport ed bypatient.History: no gynecologic complaints Menstrual cycle:Normal menses Urinary symptoms:No hematuria; No incontinence Vulva:No genital lesion Vagina:Normal vaginal discharge Breast:No breast pain; No breast lump Current Contraception:Intr auterine device (iud) Sexual complaints:No sexual complaints; No pain during intercourse Psychological symptoms:Depressio n;Anxiety; TXed Preventive measures:Encourage self breast examination; Encourage regular exercise Juaquin Esquivel MD [address], [place], [address], [facility] 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 See 07/29/2020 pt case. TERRY crespo Problem Name Start Date End Date Resolution Snomed Code Not e Past history of pre-eclampsia [id number] & GDM Depressive disorder [id number] Anxiety [id number] delivery - delivered [id number] 10# baby, to repeat ltcs - schd 08/15 Herpes simplex 01/24/2020 [id number] 1&2 + - valtrex at 36 wks- rx sent 07/25 Quinn Calculation Initial Quinn Date Initial Exam Date Initial Exam Provider Initial Ultrasound Date Last Menstrual Period Date Ultra Sound Weeks Gestation 08/22/2020 03/07/2020 01/18/2020 9 Eighteen To Twenty Week Quinn Update Ultra Sound Date Fundal Height At Umbil Quickening Date Ultra Sound Latest Weeks Gestation Final Quinn Confirmed By Final Quinn Confirmed Date Final Quinn Date Ultra Sound Latest Days Gestation 0 [email or web address] 03/07/2020 08/22/19 21 0 Pre- Flowsheet Flowsheet Date 03/07/2020 Hood Score Blood Edema Fundus Height Fundus Units Glucose Ketones Leukocytes Nitrite Labor Signs Protein Cervic Dilation Cervic Effacement Cervic Station 16 Type Weight in lbs Pre/Post Dialysis Refused Weight 218.356507771611 BP Diastolic BP Location Tested BP Systolic BP Type 67 R arm 103 sitting Fetus Heart Rate Present A 145 Fetus Movement Comments this patient is a 29-year-ol d 6 para 1041 who presents for initial care. She has a history of preeclampsia, delivery, macrosomia. She will repeat delivery. She is going to start a baby aspirin. Flowsheet Date 04/03/2020 Hood Score Blood Edema Fundus Height Fundus Units Glucose Ketones Leukocytes Nitrite Labor Signs Protein Cervic Dilation Cervic Effacement Cervic Station Type Weight in lbs Pre/Post Dialysis Refused BP Diastolic BP Location Tested BP Systolic BP Type Fetus Heart Rate Present Fetus Movement Comments Flowsheet Date 04/03/2020 Hood Score Blood Edema Fundus Height Fundus Units Glucose Ketones Leukocytes Nitrite Labor Signs Protein Cervic Dilation Cervic Effacement Cervic Station trace Type Weight in lbs Pre/Post Dialysis Refused Weight 215.088039847115 BP Diastolic BP Location Tested BP Systolic BP Type 72 R arm 117 sitting Fetus Heart Rate Present Fetus Movement A Yes Comments Flowsheet Date 04/03/2020 Hood Score Blood Edema Fundus Height Fundus Units Glucose Ketones Leukocytes Nitrite Labor Signs Protein Cervic Dilation Cervic Effacement Cervic Station 19 trace Type Weight in lbs Pre/Post Dialysis Refused Weight 215.024540710558 BP Diastolic BP Location Tested BP Systolic BP Type 72 R arm 117 sitting Fetus Heart Rate Present A 130 Fetus Movement A Yes Comments Flowsheet Date 04/12/2020 Hood Score Blood Edema Fundus Height Fundus Units Glucose Ketones Leukocytes Nitrite Labor Signs Protein Cervic Dilation Cervic Effacement Cervic Station Type Weight in lbs Pre/Post Dialysis Refused BP Diastolic BP Location Tested BP Systolic BP Type 73 L arm 111 sitting Fetus Heart Rate Present Fetus Movement Comments Flowsheet Date 04/20/2020 Hood Score Blood Edema Fundus Height Fundus Units Glucose Ketones Leukocytes Nitrite Labor Signs Protein Cervic Dilation Cervic Effacement Cervic Station neg none trace Type Weight in lbs Pre/Post Dialysis Refused Weight 219.677500864160 BP Diastolic BP Location Tested BP Systolic BP Type 72 108 Fetus Heart Rate Present A 145 Fetus Movement A Yes Comments ON PROBLEM [id number] PATIENT I S HERE FOR FOLLOW UP FROM LABOR AND DELIVERY FOR CONTRACTIONS AND LEAKING FLUID, feeling better today, no cntx, no leaking, pelvic rest, labor precautions Flowsheet Date 05/07/2020 Hood Score Blood Edema Fundus Height Fundus Units Glucose Ketones Leukocytes Nitrite Labor Signs Protein Cervic Dilation Cervic Effacement Cervic Station Type Weight in lbs Pre/Post Dialysis Refused BP Diastolic BP Location Tested BP Systolic BP Type Fetus Heart Rate Present Fetus Movement Comments Flowsheet Date 05/07/2020 Hood Score Blood Edema Fundus Height Fundus Units Glucose Ketones Leukocytes Nitrite Labor Signs Protein Cervic Dilation Cervic Effacement Cervic Station 24 trace Type Weight in lbs Pre/Post Dialysis Refused Weight 228.607161754645 BP Diastolic BP Location Tested BP Systolic BP Type 74 112 Fetus Heart Rate Present A 156 Fetus Movement A Yes Comments Pt doing well. LLP resolved. RTC in 4 weeks for routine visit and 28 week labs. Flowsheet Date 06/01/2020 Hood Score Blood Edema Fundus Height Fundus Units Glucose Ketones Leukocytes Nitrite Labor Signs Protein Cervic Dilation Cervic Effacement Cervic Station 32 trace Type Weight in lbs Pre/Post Dialysis Refused Weight 227.086888103710 BP Diastolic BP Location Tested BP Systolic BP Type 83 R arm 145 sitting Fetus Heart Rate Present A 145 Fetus Movement A Yes Comments Given precautions on preecla mpsia, asked to return in 1 week for blood pressure check. Blood pressure was repeated today. Flowsheet Date 06/08/2020 Hood Score Blood Edema Fundus Height Fundus Units Glucose Ketones Leukocytes Nitrite Labor Signs Protein Cervic Dilation Cervic Effacement Cervic Station 32 trace Type Weight in lbs Pre/Post Dialysis Refused Weight 226.359930578282 BP Diastolic BP Location Tested BP Systolic BP Type 79 R arm 121 sitting Fetus Heart Rate Present A 145 Fetus Movement A Yes Comments patient complains of pelvic pressure, she reports recent loss of urine, she has been having uterine cramping or contractions. They sound irregular. A pelvic exam and speculum exam were performed. Her cervix is long thick and closed. Her baby is high in the pelvis. Flowsheet Date 06/20/2020 Hood Score Blood Edema Fundus Height Fundus Units Glucose Ketones Leukocytes Nitrite Labor Signs Protein Cervic Dilation Cervic Effacement Cervic Station none 31 neg Type Weight in lbs Pre/Post Dialysis Refused Weight 228.716869804246 BP Diastolic BP Location Tested BP Systolic BP Type 79 120 Fetus Heart Rate Present A 138 Fetus Movement A Yes Comments Doing well. TDAP and Flu mckenna t encouraged. Pt states her c/s is scheduled on the . I will send a task to make sure it is scheduled. Flowsheet Date 07/06/2020 Hood Score Blood Edema Fundus Height Fundus Units Glucose Ketones Leukocytes Nitrite Labor Signs Protein Cervic Dilation Cervic Effacement Cervic Station 34 0cm 10% -4 Type Weight in lbs Pre/Post Dialysis Refused Weight 234.278170648236 BP Diastolic BP Location Tested BP Systolic BP Type 77 R arm 122 sitting Fetus Heart Rate Present A 145 Fetus Movement A Yes Comments reported some sporadic contr actions, loss of mucous plug, pelvic pressure. She was checked and her cervix was long thick and closed. Flowsheet Date 07/18/2020 Hood Score Blood Edema Fundus Height Fundus Units Glucose Ketones Leukocytes Nitrite Labor Signs Protein Cervic Dilation Cervic Effacement Cervic Station neg trace 37 trace 0cm Type Weight in lbs Pre/Post Dialysis Refused Weight 236.209796871108 BP Diastolic BP Location Tested BP Systolic BP Type 61 103 Fetus Heart Rate Present A 132 Fetus Movement A Yes Comments patient states that having p ainful contractions, discharge, swelling, nausea and vomiting, precautions reviewed Flowsheet Date 07/25/2020 Hood Score Blood Edema Fundus Height Fundus Units Glucose Ketones Leukocytes Nitrite Labor Signs Protein Cervic Dilation Cervic Effacement Cervic Station neg trace trace 0cm Type Weight in lbs Pre/Post Dialysis Refused Weight 237.250764569218 BP Diastolic BP Location Tested BP Systolic BP Type 60 109 Fetus Heart Rate Present A 144 Present Fetus Movement A Yes Comments patient states that having s ome pain, contractions, dizziness, swelling in leg, nausea and vomiting, precautions reviewed, labor precautions reviewed, f/u one week with dr esquivel, start valtrex Flowsheet Date 08/02/2020 Hood Score Blood Edema Fundus Height Fundus Units Glucose Ketones Leukocytes Nitrite Labor Signs Protein Cervic Dilation Cervic Effacement Cervic Station neg trace 40 trace Type Weight in lbs Pre/Post Dialysis Refused Weight [id number] BP Diastolic BP Location Tested BP Systolic BP Type 67 136 Fetus Heart Rate Present A 127 Fetus Movement A Yes Comments Doing well. Still a little s ore in her back from recent fall. Was evaluated at [place]. Taking flexeril. Growth u/s to be scheduled for s.d. Flowsheet Date 08/06/2020 Hood Score Blood Edema Fundus Height Fundus Units Glucose Ketones Leukocytes Nitrite Labor Signs Protein Cervic Dilation Cervic Effacement Cervic Station Type Weight in lbs Pre/Post Dialysis Refused BP Diastolic BP Location Tested BP Systolic BP Type Fetus Heart Rate Present Fetus Movement Comments Flowsheet Date 08/09/2020 Hood Score Blood Edema Fundus Height Fundus Units Glucose Ketones Leukocytes Nitrite Labor Signs Protein Cervic Dilation Cervic Effacement Cervic Station 38 trace Type Weight in lbs Pre/Post Dialysis Refused Weight [id number] BP Diastolic BP Location Tested BP Systolic BP Type 84 R arm 150 sitting 72 R arm 122 sitting Fetus Heart Rate Present A 145 Fetus Movement A Yes Comments decreased movement -to get NST Flowsheet Date 08/09/2020 Hood Score Blood Edema Fundus Height Fundus Units Glucose Ketones Leukocytes Nitrite Labor Signs Protein Cervic Dilation Cervic Effacement Cervic Station Type Weight in lbs Pre/Post Dialysis Refused BP Diastolic BP Location Tested BP Systolic BP Type Fetus Heart Rate Present Fetus Movement Comments Flowsheet Date 08/15/2020 Hood Score Blood Edema Fundus Height Fundus Units Glucose Ketones Leukocytes Nitrite Labor Signs Protein Cervic Dilation Cervic Effacement Cervic Station Type Weight in lbs Pre/Post Dialysis Refused BP Diastolic BP Location Tested BP Systolic BP Type Fetus Heart Rate Present Fetus Movement Comments Flowsheet Date 08/23/2020 Hood Score Blood Edema Fundus Height Fundus Units Glucose Ketones Leukocytes Nitrite Labor Signs Protein Cervic Dilation Cervic Effacement Cervic Station Type Weight in lbs Pre/Post Dialysis Refused Weight 222.73142183295 BP Diastolic BP Location Tested BP Systolic BP Type 100 R arm 145 standing 90 R arm 140 sitting Fetus Heart Rate Present Fetus Movement Comments Menstrual History Last Menstrual Date Menses Monthly On Bcp Conception Prior Menses Frequency Hcg Plus Date Menarche Onset Age Genetic Screening And Infection History Question Response Note Mental Retardation/Autism false Patient's Age Will Be 35 Yea rs Or Older At Estimated Date of Delivery false Thalassemia (Occitan, Burmese, Mediterranean, Or Background): MCV < 80 false Neural Tube Defect (Meningom yelocele, Spina Bifida, Or Anencephaly) false Congenital Heart Defect false Down Syndrome false Gerson-Sachs (eg, Nondenominational, Cajun, Egyptian-[place]) f alse Amina Disease false Sickle Cell Disease Or Trait () false Hemophilia Or Other Blood Disorders false Muscular Dystrophy false Cystic Fibrosis false Hubbell's Chorea false Intellectual Disability/Autism false If Yes, Was Person Tested For Fragile X? false Other Inherited Genetic Or Chromosomal Disorder false Maternal Metabolic Disorder (eg, Type 1 Diabetes , PKU) false Patient Or Baby's Father Had A Child With Defects Not Listed Above false Recurrent Loss, Or A Stillbirth false Medications (including Suppl ements, Vitamins, Herbs, OTC Drugs), Illicit/Recreational Drugs, Alcohol false If Yes, Agent(s) And Strength/Dosage false Any Other Genetic History false Live With Someone With TB Or Exposed To TB false Patient Or Partner Has History Of Genital Herpes true HSV 1&2 Rash Or Viral Illness Since Last Menstrual Perio d false History Of STD, Gonorrhea, Chlamydia, HPV, Syphi lis true Gonorrhea Other Infection History false History of HIV false History of Hepatitis false Prior GBS-infected child false Hemoglobinopathy Or Carrier false Other Structural Defect false Recent Travel History Outside of Country false Delivery Information Delivery Date Delivery Type Labor Anesthesia Weeks Gestation Incision Type Labor Labor Length Hrs Delivered By Post Complications Tubal Sterilization Discharge Date Comments 1 None [facility]al 39 Low Transvers e false Juaquin Esquivel MD Marijuana use & HSV Discharge Information Feeding Method Contraceptive Method Maternal HG B and HCT Levels Ob Episode Information Episode Created Date Number of Fetuses Patient Bloodtype Patient rh Status Prepregnancy Weight lbs Domestic Partner Domestic Partner Phone Father 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 03/07/20 20 1 CLOSED Fetus Data First Name Last Name Admitted to NICU Weight (g) Sex Living Outcome Pediatric Complications Fetus ID Race Codes Race Delivery Type [id number] 7 F Full Term [id number] Primary Quinn Calculation Initial Quinn Date Initial Exam Date Initial Exam Provider Initial Ultrasound Date Last Menstrual Period Date Ultra Sound Weeks Gestation 0 Eighteen To Twenty Week Quinn Update Ultra Sound Date Fundal Height At Umbil Quickening Date Ultra Sound Latest Weeks Gestation Final Quinn Confirmed By Final Quinn Confirmed Date Final Quinn Date Ultra Sound Latest Days Gestation 0 0 Menstrual History Last Menstrual Date Menses Monthly On Bcp Conception Prior Menses Frequency Hcg Plus Date Menarche Onset Age Delivery Information Delivery Date Delivery Type Labor Anesthesia Weeks Gestation Incision Type Labor Labor Length Hrs Delivered By Post Complications Tubal Sterilization Discharge Date Comments 7 37.5 Nelly GDM, Pre-eclam psia Discharge Information Feeding Method Contraceptive Method Maternal HG B and HCT Levels Ob Episode Information Episode Created Date Number of Fetuses Patient Bloodtype Patient rh Status Prepregnancy Weight lbs Domestic Partner Domestic Partner Phone Father 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 04/20/20 20 1 CLOSED Fetus Data First Name Last Name Admitted to NICU Weight (g) Sex Living Outcome Pediatric Complications Fetus ID Race Codes Race Delivery Type , Spontane ous [id number] Quinn Calculation Initial Quinn Date Initial Exam Date Initial Exam Provider Initial Ultrasound Date Last Menstrual Period Date Ultra Sound Weeks Gestation 0 Eighteen To Twenty Week Quinn Update Ultra Sound Date Fundal Height At Umbil Quickening Date Ultra Sound Latest Weeks Gestation Final Quinn Confirmed By Final Quinn Confirmed Date Final Quinn Date Ultra Sound Latest Days Gestation 0 0 Menstrual History Last Menstrual Date Menses Monthly On Bcp Conception Prior Menses Frequency Hcg Plus Date Menarche Onset Age Delivery Information Delivery Date Delivery Type Labor Anesthesia Weeks Gestation Incision Type Labor Labor Length Hrs Delivered By Post Complications Tubal Sterilization Discharge Date Comments 0 2020 MISCARRAI GE Discharge Information Feeding Method Contraceptive Method Maternal HG B and HCT Levels Ob Episode Information Episode Created Date Number of Fetuses Patient Bloodtype Patient rh Status Prepregnancy Weight lbs Domestic Partner Domestic Partner Phone Father 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 04/20/20 20 1 CLOSED Fetus Data First Name Last Name Admitted to NICU Weight (g) Sex Living Outcome Pediatric Complications Fetus ID Race Codes Race Delivery Type , Spontane ous 5585 Quinn Calculation Initial Quinn Date Initial Exam Date Initial Exam Provider Initial Ultrasound Date Last Menstrual Period Date Ultra Sound Weeks Gestation 0 Eighteen To Twenty Week Quinn Update Ultra Sound Date Fundal Height At Umbil Quickening Date Ultra Sound Latest Weeks Gestation Final Quinn Confirmed By Final Quinn Confirmed Date Final Quinn Date Ultra Sound Latest Days Gestation 0 0 Menstrual History Last Menstrual Date Menses Monthly On Bcp Conception Prior Menses Frequency Hcg Plus Date Menarche Onset Age Delivery Information Delivery Date Delivery Type Labor Anesthesia Weeks Gestation Incision Type Labor Labor Length Hrs Delivered By Post Complications Tubal Sterilization Discharge Date Comments 9 2019 MISCARRIA GE Discharge Information Feeding Method Contraceptive Method Maternal HG B and HCT Levels Ob Episode Information Episode Created Date Number of Fetuses Patient Bloodtype Patient rh Status Prepregnancy Weight lbs Domestic Partner Domestic Partner Phone Father 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 04/20/20 20 1 CLOSED Fetus Data First Name Last Name Admitted to NICU Weight (g) Sex Living Outcome Pediatric Complications Fetus ID Race Codes Race Delivery Type , Spontane ous 5583 Quinn Calculation Initial Quinn Date Initial Exam Date Initial Exam Provider Initial Ultrasound Date Last Menstrual Period Date Ultra Sound Weeks Gestation 0 Eighteen To Twenty Week Quinn Update Ultra Sound Date Fundal Height At Umbil Quickening Date Ultra Sound Latest Weeks Gestation Final Quinn Confirmed By Final Quinn Confirmed Date Final Quinn Date Ultra Sound Latest Days Gestation 0 0 Menstrual History Last Menstrual Date Menses Monthly On Bcp Conception Prior Menses Frequency Hcg Plus Date Menarche Onset Age Delivery Information Delivery Date Delivery Type Labor Anesthesia Weeks Gestation Incision Type Labor Labor Length Hrs Delivered By Post Complications Tubal Sterilization Discharge Date Comments 2015 MISCARRIA GE Discharge Information Feeding Method Contraceptive Method Maternal HG B and HCT Levels Ob Episode Information Episode Created Date Number of Fetuses Patient Bloodtype Patient rh Status Prepregnancy Weight lbs Domestic Partner Domestic Partner Phone Father 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 04/20/20 20 1 CLOSED Fetus Data First Name Last Name Admitted to NICU Weight (g) Sex Living Outcome Pediatric Complications Fetus ID Race Codes Race Delivery Type [id number] Quinn Calculation Initial Quinn Date Initial Exam Date Initial Exam Provider Initial Ultrasound Date Last Menstrual Period Date Ultra Sound Weeks Gestation 0 Eighteen To Twenty Week Quinn Update Ultra Sound Date Fundal Height At Umbil Quickening Date Ultra Sound Latest Weeks Gestation Final Quinn Confirmed By Final Quinn Confirmed Date Final Quinn Date Ultra Sound Latest Days Gestation 0 0 Menstrual History Last Menstrual Date Menses Monthly On Bcp Conception Prior Menses Frequency Hcg Plus Date Menarche Onset Age Delivery Information Delivery Date Delivery Type Labor Anesthesia Weeks Gestation Incision Type Labor Labor Length Hrs Delivered By Post Complications Tubal Sterilization Discharge Date Comments 2017 MISCARRIA GE Discharge Information Feeding Method Contraceptive Method Maternal HG B and HCT Levels
== END 2024-07-21 16:23 | disposition home or self-care (01) ==
PROVIDERS: Emergency Provider Nurse Practitioner Family; PCP Physician Assistant
DX: J06.9 Acute upper respiratory infection, unspecified (principal); Z20.822 Contact with and (suspected) exposure to COVID-19; F17.290 Nicotine dependence, other tobacco product, uncomplicated; E28.2 Polycystic ovarian syndrome; J45.909 Unspecified asthma, uncomplicated; Z85.43 Personal history of malignant neoplasm of ovary; F32.A Depression, unspecified
CPT/HCPCS: 87426; 87804; 99213; G0463

== ENCOUNTER 2024-11-28 11:04 | Outpatient (CLI) | payer OTHER, SELFPAY ==
--- OUTSIDE RECORDS SUMMARY | 2024-11-28 11:44 | XMS_ITS | Clinical Summary ---
Author Organization [facility] Address [address] [place] [address] Phone Care Team Providers Care Licensed Professional Counselor Name Role Phone Alfredo Handley Primary Care Provider [phone] Gina Hastings APRN, CUSTOMER STRATEGY MANAGER Unavailable + [phone] Jennifer Leonard APRN, [employer] [facility] Unavailable [phone] Allergies No known active allergies Medications amitriptyline (ELAVIL) 10 MG TabletIndicatio ns:Chronic migraine w/o aura, not intractable, w/o stat migr Take 1 tablet by mouth nightly 30 Tablet 06/17/2023 Active SUMAtriptan (IMITREX) 50 MG TabletIndicatio ns:Chronic migraine w/o aura, not intractable, w/o stat migr Take 1 Tablet by mouth once as needed for Migraine or Headaches. Use as directed. May repeat dose in 2 hours if headache recurs. 9 Tablet 3 08/03/2023 Active ALPRAZolam (XANAX) 0.25 MG Tablet Take 1 Tablet by mouth 3 times daily as needed. Active Active Problems Problem Noted Date Diagnosed Date NAYELI (obstructive sleep apnea) 02/18/2024 Asthma without status asthmaticus 02/18/2024 Encounters Date Type Department Care Team Description 09/19/2024 3:57 PM CDT - 09/19/2024 7:40 PM CDT Emergency [facility] [place] [phone] Darlene Morales APRN, SHILOH Pelvic pain Discharge Disposition: Discharged to home or Selfcare 09/19/2024 Travel from Last 3 Months Immunizations Immunization Administration Dates Next Due Influenza Vaccine, Quadrivalent, PF 09/20/2016 TDAP Vaccine 09/20/2016 Family History Medical History Relation Name Comments Breast Cancer Father Cancer Father Diabetes Father Heart Attack Father Hypertension Father Diabetes Paternal Grandmother Hypertension Paternal Grandmother Relation Name Status Comments Father Paternal Grandmother Social History Tobacco Use Types Packs/Day Years Used Date Smoking Tobacco: Never Smokeless Tobacco: Former Tobacco Cessation:Counseling Given: Not Answered Alcohol Use Standard Drinks/Week Comments Yes 0 (1 standard drink = 0.6 oz pure alcohol) occasional, every other weekend Sexually Active Control Partners Comments Yes Male Condom Male Comments No Sex and Gender Information Value Date Recorded Sex Assigned at Not on file Legal Sex Female 9:13 PM CDT Gender Identity Not on file Sexual Orientation Not on file Last Filed Vital Signs Vital Sign Reading Time Taken Comments Blood Pressure 136/88 09/19/2024 7:30 PM CDT Pulse 103 09/19/2024 7:30 PM CDT Temperature 37.1 C (98.8 F) 09/19/2024 4:02 PM CDT Respiratory Rate 17 09/19/2024 7:30 PM CDT Oxygen Saturation 100% 09/19/2024 7:30 PM CDT Inhaled Oxygen Concentration - - Weight 98 kg (216 lb) 09/19/2024 4:02 PM CDT Height 160 cm (5' 3) 09/19/2024 4:02 PM CDT Body Mass Index 38.26 09/19/2024 4:02 PM CDT Plan of Treatment Upcoming Encounters Date Type Department Care Team (Late st Contact Info) Description 12/06/2024 10:30 AM CDT Office Visit [facility] [address] [place] [address] Jennifer Leonard APRN, SOC[employer] WORK[facility] [address] [address] Health Maintenance Due Date Last Done Comments Pneumococcal Immunization Combined (1 of 2 - PCV) 12/29/2010 Pap Smear 12/29/2012 Cervical Cancer Screening (CCS) 12/29/2021 HPV/Cotest 12/29/2021 SARS-COV-2 Immunization ( - 2023- season) 2024 Influenza Immunization (Season Ended) 2025 09/20/2016 Td Immunization Every 10 Years (Adults With 1 Tdap) 04/29/2028 04/29/2018, 09/20/2016, 04/12/2008 Respiratory Syncytial Virus (RSV) Immunization (Adult) (1 - 1-dose 75+ series) 12/29/2066 Hepatitis B Immunization Completed 998, 07/14/1994, 07/09/1993 DTaP/Tdap/Td Immunization Discontinued 2017, 09/20/2016, 04/12/2008, Additional history exists Hepatitis C Virus (HCV) Screening Completed 07/13/2019 Meningococcal Immunization (ACWY) Aged Out No longer eligible based on patient's age to complete this topic Rotavirus Immunization Aged Out No lo nger eligible based on patient's age to complete this topic Procedures Procedure Name Priority Date/Time Associated Diagnosis Comments CT ABDOMEN PELVIS W/ CONTRAST Stat with Interpretation 09/19/2024 6:21 PM CDT POCT URINE HCG () STAT 09/19/2024 5:24 PM CDT URINALYSIS REFLEX IF INDICATED BY ABNORMAL RESULTS STAT 09/19/2024 5:21 PM CDT CBC WITH AUTO DIFFERENTIAL STAT 09/19/2024 4:07 PM CDT COMPLETE BLOOD COUNT (CBC) WITH DIFF STAT 09/19/2024 4:07 PM CDT CMP (COMPREHENSIVE METABOLIC PANEL) STAT 09/19/2024 4:07 PM CDT HEPATITIS C ANTIBODY STAT 07/13/2019 7:26 PM RELIGIOUS LEADER from Last 3 Months or Most Recently Relevant to Health Maintenance Results * CT ABDOMEN PELVIS W/ CONTRAST (09/19/2024 6:21 PM CDT) Anatomical Region Laterality Modality Abdomen N/A Computed Tomogra phy 09/19/2024 6:47 PM CDT Impressions 09/19/2024 6:49 PM CDT IMPRESSION: No acute finding. Mild hepatic steatosis. Narrative 09/19/2024 6:49 PM CDT EXAM DESCRIPTION: CT ABDOMEN PELVIS W/ CONTRAST REASON FOR STUDY: Endometriosis pain for the last three days. Hx of HTN TECHNIQUE: CT scan of the abdomen and pelvis performed with intravenous and without oral contrast using helical scanning technique with dynamic intravenous contrast injection. Reconstructed coronal and sagittal MPR images reviewed. All images stored on PACS. Automated exposure control was used as a dose optimization technique for this examination. CONTRAST TYPE/DOSE: 100mL of IOPAMIDOL 76 % IV SOLN injected via Intravenous COMPARISON: 10/21/2023 FINDINGS: LOWER CHEST: No significant pulmonary abnormalities. No effusion. LIVER: Mild diffuse hepatic steatosis. GALLBLADDER: Surgically absent. BILE DUCTS: No intrahepatic or extrahepatic ductal dilatation. SPLEEN: Normal size. No focal lesions. PANCREAS: No identified cystic or solid masses. No significant calcifications. No adjacent inflammation or peripancreatic fluid collections. Pancreatic duct not dilated. ADRENALS: Normal. KIDNEYS/URINARY TRACT: No identified significant cystic or solid masses. No visualized stones. No hydronephrosis or hydroureter. Symmetric enhancement. There are a few punctate cysts in the left kidney. Urinary bladder is unremarkable. GI: No dilated bowel loops. No obvious wall thickening. The appendix is surgically absent. No significant diverticular disease. PERITONEUM: No ascites or free air. RETROPERITONEUM: No mass or adenopathy. REPRODUCTIVE: No significant abnormality. Intrauterine device in place. Multiple small ovarian follicles in the bilateral ovaries. No hemorrhagic cysts identified. VASCULATURE: No abdominal aortic aneurysm. MUSCULOSKELETAL: No significant abnormality. OTHER: No other abnormality. THIS IS AN ELECTRONICALLY VERIFIED FINAL REPORT 09/19/2024 6:47 PM - Electronically signed by Lino Perdomo M.D. MM: MM Report ID: [id number] Reading Location: [place] [address] Procedure Note Lino Perdomo MD - 09/19/2024 EXAM DESCRIPTION: CT ABDOMEN PELVIS W/ CONTRAST REASON FOR STUDY: Endometriosis pain for the last three days. Hx of HTN TECHNIQUE: CT scan of the abdomen and pelvis performed with intravenous and without oral contrast using helical scanning technique with dynamic intravenous contrast injection. Reconstructed coronal and sagittal MPR images reviewed. All images stored on PACS. Automated exposure control was used as a dose optimization technique for this examination. CONTRAST TYPE/DOSE: 100mL of IOPAMIDOL 76 % IV SOLN injected via Intravenous COMPARISON: 10/21/2023 FINDINGS: LOWER CHEST: No significant pulmonary abnormalities. No effusion. LIVER: Mild diffuse hepatic steatosis. GALLBLADDER: Surgically absent. BILE DUCTS: No intrahepatic or extrahepatic ductal dilatation. SPLEEN: Normal size. No focal lesions. PANCREAS: No identified cystic or solid masses. No significant calcifications. No adjacent inflammation or peripancreatic fluid collections. Pancreatic duct not dilated. ADRENALS: Normal. KIDNEYS/URINARY TRACT: No identified significant cystic or solid masses. No visualized stones. No hydronephrosis or hydroureter. Symmetric enhancement. There are a few punctate cysts in the left kidney. Urinary bladder is unremarkable. GI: No dilated bowel loops. No obvious wall thickening. The appendix is surgically absent. No significant diverticular disease. PERITONEUM: No ascites or free air. RETROPERITONEUM: No mass or adenopathy. REPRODUCTIVE: No significant abnormality. Intrauterine device in place. Multiple small ovarian follicles in the bilateral ovaries. No hemorrhagic cysts identified. VASCULATURE: No abdominal aortic aneurysm. MUSCULOSKELETAL: No significant abnormality. OTHER: No other abnormality. THIS IS AN ELECTRONICALLY VERIFIED FINAL REPORT 09/19/2024 6:47 PM - Electronically signed by Lino Perdomo M.D. MM: MM Report ID: [id number] Reading Location: [place] [address] IMPRESSION: No acute finding. Mild hepatic steatosis. Darlene Morales DIRECTOR OF ENTERPRISE STRATEGY, SOCIAL WORKER HEALTH SERVICES IMG CT ORDERABLES Final Result * POCT Urine HCG () (09/19/2024 5:24 PM CDT) POC URINE Negative POC URINE CONTROL [place] Urine 09/19/2024 5:24 PM CDT Darlene Morales DIRECTOR OF ENTERPRISE STRATEGY, SOCIAL WORKER HEALTH SERVICES POINT OF CARE TEST ING (MANUAL) Final Result * (ABNORMAL) Urinalysis w/ Reflex (09/19/2024 5:21 PM CDT) [facility] SPECIFIC GRAVITY 1.010 1.003 - 1.030 09/19/2024 5:56 PM CDT [facility] URINE PH 6.0 5.0 - 9.0 09/19/2024 5:56 PM CDT [facility] WBC ESTERASE Negative Negative 09/19/2024 5:56 PM CDT [facility] NITRITE Negative Negative 09/19/2024 5:56 PM CDT [facility] PROTEIN, RANDOM URINE 15 mg/dL(A) Negative 09/19/2024 5:56 PM CDT [facility] URINE GLUCOSE, QUAL Negative Negative 09/19/2024 5:56 PM CDT [facility] URINE KETONES Negative Negative 09/19/2024 5:56 PM CDT [facility] UROBILINOGEN Normal Normal mg/dL 09/19/2024 5:56 PM CDT [facility] URINE BLOOD Negative Negative felicia/ul 09/19/2024 5:56 PM CDT [facility] URINALYSIS COLOR Yellow 09/20/19 5:56 PM CDT [facility] URINALYSIS CLARITY Clear 09/19/2024 5:56 PM CDT [facility] Urine URINE SPECIMEN / Unknown Non-Phlebotomy Collection / Unknown 09/19/2024 5:21 PM CDT 09/19/2024 5:48 PM CDT Darlene Morales DIRECTOR OF ENTERPRISE STRATEGY, SOCIAL WORKER HEALTH SERVICES URINE ORDERABLES F inal Result [facility] [address] [place] [address] * (ABNORMAL) CBC with Auto Differential (09/19/2024 4:07 PM CDT) WBC 12.18(H) 4.00 - 12.00 10(3)/mcL 09/19/2024 4:20 PM CDT [facility] RBC 5.06 3.80 - 5.30 10(6)/mcL 09/19/2024 4:20 PM CDT [facility] HEMOGLOBIN (HGB) 14.9 12.0 - 15.8 g/dL 09/19/2024 4:20 PM CDT [facility] HEMATOCRIT (HCT) 43.5 36.0 - 47.0 % 09/19/2024 4:20 PM CDT [facility] MCV 86.0 82.0 - 96.0 fL 09/19/2024 4:20 PM CDT [facility] MCH 29.4 26.0 - 34.0 pg 09/19/2024 4:20 PM CDT [facility] MCHC 34.3 31.0 - 36.0 g/dL 09/19/2024 4:20 PM CDT [facility] PLATELET COUNT 268 140 - 440 10(3)/mcL 09/19/2024 4:20 PM CDT [facility] RDW 11.9 11.8 - 15.5 % 09/19/2024 4:20 PM CDT [facility] MPV 10.4 9.7 - 12.4 fL 09/19/2024 4:20 PM CDT [facility] NEUTROPHILS 61.3 47.0 - 73.0 % 09/19/2024 4:20 PM CDT [facility] LYMPHOCYTES 31.9 18.0 - 42.0 % 09/19/2024 4:20 PM CDT [facility] MONOCYTES 4.7 4.0 - 12.0 % 09/19/2024 4:20 PM CDT [facility] EOSINOPHILS 1.4 0.0 - 5.0 % 09/19/2024 4:20 PM CDT [facility] BASOPHILS 0.7 0.0 - 1.0 % 09/19/2024 4:20 PM CDT [facility] ABSOLUTE NEUTROPHILS 7.48 1.60 - 7.70 10(3)/mcL 09/19/2024 4:20 PM CDT [facility] ABSOLUTE LYMPHOCYTES 3.88(H) 1.30 - 3.20 10(3)/mcL 09/19/2024 4:20 PM CDT [facility] ABSOLUTE MONOCYTES 0.57 0.20 - 1.00 10(3)/mcL 09/19/2024 4:20 PM CDT [facility] ABSOLUTE EOSINOPHIL 0.17 0.00 - 0.40 10(3)/mcL 09/19/2024 4:20 PM CDT [facility] ABSOLUTE BASOPHILS 0.08 0.00 - 0.10 10(3)/mcL 09/19/2024 4:20 PM CDT [facility] NRBC PER 100 WBC 0 09/20/19 4:20 PM CDT [facility] Blood Venipuncture / Unknown 09/19/2024 4:07 PM CDT 09/19/2024 4:16 PM CDT us Darlene Morales DIRECTOR OF ENTERPRISE STRATEGY, SOCIAL WORKER HEALTH SERVICES HEMATOLOGY ORDERAB LES Final Result [facility] [address] [place] [address] * (ABNORMAL) CMP (09/19/2024 4:07 PM CDT) SODIUM 141 136 - 145 mmol/L 09/19/2024 4:36 PM CDT [facility] POTASSIUM 3.8 3.5 - 5.1 mmol/L 09/19/2024 4:36 PM CDT [facility] CHLORIDE 106 98 - 107 mmol/L 09/19/2024 4:36 PM CDT [facility] CO2, VENOUS 27 22 - 30 mmol/L 09/19/2024 4:36 PM CDT [facility] ANION GAP 11.8 <18.0 mmol/L 09/19/2024 4:36 PM CDT [facility] GLUCOSE 127(H) 70 - 99 mg/dL 09/19/2024 4:36 PM CDT [facility] BUN 8 5 - 18 mg/dL 09/19/2024 4:36 PM T [facility] CREATININE, BLOOD 0.73 0.60 - 1.00 mg/dL 09/19/2024 4:36 PM CDT [facility] BUN/CREATININE RATIO 11(L) 12 - 20 ratio 09/19/2024 4:36 PM CDT [facility] TOTAL PROTEIN 8.1(H) 6.0 - 8.0 g/dL 09/19/2024 4:36 PM CDT [facility] ALBUMIN 4.5 3.5 - 5.0 g/dL 09/19/2024 4:36 PM T [facility] A/G RATIO 1.3 1.0 - 2.2 09/19/2024 4:36 PM CDT [facility] CALCIUM 9.6 8.7 - 10.5 mg/dL 09/19/2024 4:36 PM CDT [facility] T BILI 0.4 0.2 - 1.2 mg/dL 09/19/2024 4:36 PM CDT [facility] SGOT (AST) 23 <43 U/L 09/19/2024 4:36 PM CDT [facility] SGPT (ALT) 39 <56 U/L 09/19/2024 4:36 PM CDT [facility] ALKALINE PHOSPHATASE 97 40 - 150 U/L 09/19/2024 4:36 PM CDT [facility] GFR, ESTIMATED >60 >=60 09/19/2024 4:36 PM CDT [facility] Comment: Creatinine Clearance is the preferred criteria for selecting drug dose adjustments in renally impaired patients. The GFR is provided as additional pertinent clinical information. GFR is reported in mL/min/1.73 sq m. Calculation based on the Chronic Kidney Disease Epidemiology Collaboration (CKD- EPI) equation refit without adjustment for race. GFR, EST. >60 >=60 025 4:36 PM CDT [facility] GFR, EST. NONAFRICAN >60 >=60 09/19/2024 4:36 PM CDT [facility] Blood Venipuncture / Unknown 09/19/2024 4:07 PM CDT 09/19/2024 4:16 PM CDT Darlene Morales APRN, [facility] CHEMISTRY ORDERABL ES Final Result Performing Organization Address City/[facility] Co de Phone Number [facility] [address] [place] [address] * Hepatitis C (Hcv) Antibody (07/13/2019 7:26 PM RELIGIOUS LEADER) hepatitis C antibody 0.18 <1 S/CO 07/14/2019 2:47 PM RELIGIOUS LEADER [facility] Comment: Signal/Cutoff ratio < 0.79 is Nondetected Signal/Cutoff ratio 0.80-0.99 is Grayzone Signal/Cutoff ratio > 0.99 is Detected Supplemental assays are recommended if signal/cutoff ratio is >/=1.00. Signal/cutoff ratio result >/= 5.00 is 97% predictive of positivity for recombinant immunoblot assay (RIBA) and will be reported to the [place] Department of Public Health as required. Blood specimen (specimen) Butterfly Puncture / Unknown 07/13/2019 7:26 PM RELIGIOUS LEADER 07/13/2019 7:46 PM RELIGIOUS LEADER Sonya Goodrich PAC CHEMISTRY ORDERABLES Final R esult Performing Organization Address City/[facility] Co de Phone Number [facility] [address] [place] [address], from Last 3 Months or Most Recently Relevant to Health Maintenance Insurance MEDICAID [id number] Advance Directives * Full Code (Latest Code Status on File) Date Activated Date Inactivated Comments 09/19/2016 5:56 AM 09/22/2016 5:44 PM CPR-Full Lizandro atment: FULL ARREST: Attempt Resuscitation/CPR wit intubation and mechanical ventilation. PRE-ARREST: Use entire range of life support measures to stabilize the patient. * Full Code Date Activated Date Inactivated Comments 09/17/2016 11:31 AM 09/17/2016 5:24 PM CPR-Full Tr eatment: FULL ARREST: Attempt Resuscitation/CPR wit intubation and mechanical ventilation. PRE-ARREST: Use entire range of life support measures to stabilize the patient. * Full Code Date Activated Date Inactivated Comments 09/17/2016 11:04 AM 09/17/2016 11:29 AM CPR-Full T reatment: FULL ARREST: Attempt Resuscitation/CPR wit intubation and mechanical ventilation. PRE-ARREST: Use entire range of life support measures to stabilize the patient. * Full Code Date Activated Date Inactivated Comments 09/12/2016 11:32 PM 09/13/2016 4:30 AM CPR-Full Tr eatment: FULL ARREST: Attempt Resuscitation/CPR wit intubation and mechanical ventilation. PRE-ARREST: Use entire range of life support measures to stabilize the patient. * Full Code Date Activated Date Inactivated Comments 09/06/2016 1:01 AM 09/06/2016 5:27 AM CPR-Full Lizandro atment: FULL ARREST: Attempt Resuscitation/CPR wit intubation and mechanical ventilation. PRE-ARREST: Use entire range of life support measures to stabilize the patient. Care Teams Licensed Professional Counselor Relationship Specialty Start Date End Date Alfredo Handley, SARAH [address] [place] [id number] PCP - General Physician Quill Layer 04/21/19 Gina Hastings APRN, CUSTOMER STRATEGY MANAGER [address] [place] [address] Nurse Practitioner Advanced Practice Nurse 02/27/23 Jennifer Leonard APRN, [employer] [address] [address] Nurse Practitioner Advanced Practice Nurse 02/18/24
--- OUTSIDE RECORDS SUMMARY | 2024-11-28 11:44 | XMS_ITS | Clinical Summary ---
Author Organization [facility] Address [address] [place] [address] Care Team Providers Care Crime Scene Photographer Name Role Phone Alfredo Handley Primary Care Provider [phone] David Escalera MD Unavailable + [phone] Allergies No known active allergies Medications topiramate (TOPAMAX) 50 mg tabletIndications:C hronic migraine without aura without status migrainosus, not intractable Take half tablet (25 mg) po twice a day for one week, then one tablet po twice a day 60 tablet 3 2 Active rizatriptan RAISIN WASHER (MAXALT-RAISIN WASHER) 10 mg disintegrating tabletIndications:M igraine May repeat in 2 hours if unresolved. Do not exceed 30 mg in 24 hours. 9 tablet 3 2 Active Active Problems Problem Noted Date Diagnosed Date Chronic migraine without aur a without status migrainosus, not intractable 06/04/2022 Refused influenza vaccine 12/07/2018 Epistaxis 12/07/2018 Assessment & Plan (12/08/2018 12:53 PM CDT): Reviewed not to tilt head back w/nose bleeds. To tilt head down & apply pressure to bridge of nose. Can try ice pack to nose also. Swallowing blood during nose bleeds will cause n/v. Neg nare exam no scabs/edema. Discussed rinsing w/nasal saline to moisten passageways. Reviewed red flags. Anxiety and depression 12/07/2018 Assessment & Plan (12/08/2018 12:51 PM CDT): Inconsistency/non-compliance w/medical treatment in past year. Will resume sertraline 25mg daily & trazodone 50mg qhs. Stressed need for compliance & follow-up. Reviewed med Ses & scheduling. Denies thoughts of SI/HI. Discussed need to f/u w/counselor/therapist. Reviewed red flags. Middle ear effusion, bilateral 12/07/2018 Assessment & Plan (12/08/2018 12:48 PM CDT): To start loratadine & flonase nasal spray daily. Aware that it will not improve overnight but will take several days to dry out middle ear. Reviewed red flags. Sore throat 12/07/2018 Assessment & Plan (12/08/2018 12:47 PM CDT): NEGATIVE rapid strep test in office. May use warm salt water gargles for pain or otc chloraseptic spray/lozenges. otc tylenol/ibuprofen prn pain/fever. Reviewed red flags; to go to ER if any drooling or difficulty breathing. Push fluids, relative rest. Morbid obesity with BMI of 40.0-44.9, adult 11/2017 Assessment & Plan (12/08/2018 12:54 PM CDT): Reviewed need to lose weight, reviewed health benefits. Reviewed recommendations for daily intake & activity 20-30 minutes/day. Discussed healthy diet and importance of regular physical activity. Hematemesis with nausea 10/21/2017 Assessment & Plan (10/21/2017 5:09 PM CDT): Pt states she had 4 episodes of bloody emesis since 0430 this am. States she went to [facility] this morning but they did not do anything for her and told her to f/u with her primary care. Called [place] and there is no record of her being seen today. Has hx of appendectomy and cholecystectomy. Denies any extra stress in her life. Denies blood or dark stools. No emesis while in clinic. C/o of epigastric pain that is now more diffuse in her abdomin. C/o pain with light palpation. Reviewed case with Dr. Kathleen-he reassessed patient Red flags discussed with patient. Will get blood work and have pt get EGD and start Protonix BID Generalized abdominal pain 10/21/2017 Assessment & Plan (10/21/2017 5:11 PM CDT): Generalized abdominal pain, right worse than left with nausea and c/o of vomiting blood clots and mucous with blood. Will check labs, GI referral. Obesity (BMI 30-39.9) 01/02/2017 Assessment & Plan (10/21/2017 5:02 PM CDT): Obesity is unchanged. Discussed the patient's BMI. The BMI is above average; BMI management plan is completed. Diet interventions: low calorie (1000 kCal/d) deficit diet. Bipolar I disorder, most rec ent episode (or current) manic, mild 12/04/2016 Polycystic ovarian syndrome 01/24/2015 Overview (03/04/2018): Ovarian cyst No pathologic diagnosis 11/12/2013 Overview (10/03/2016): No diagnosis Immunizations Immunization Administration Dates Next Due HPV, Quadrivalent 04/13/2013,11/09/2012,10/12/19 13 Influenza, Quadrivalent, Spl it, Preservative Free, Intramuscular 09/20/2016 Influenza, Split 10/07/2013 Influenza, Unspecified 12/07/2018(Deferr ed: Patient Refused),10/30/2017(Deferred: Patient Refused),06/29/2017(Deferred: Patient Refused) Tdap 09/20/2016 Surgical History Surgery Date Site/Laterality Comments OTHER SURGICAL HISTORY ovarian cyst: laparoscopy OTHER SURGICAL HISTORY 06/29/2011 - 06/28/2012 Appendicitis: Appendectomy CHOLECYSTECTOMY 11/14/2016 SECTION 09/19/2016 COLON SURGERY 11/11/2012 APPENDECTOMY Medical History Medical History Date Comments Cyst of ovary 2011 ovarian cyst Hx Other Medical 2011 Appendicitis; O utcome: successful Awareness under anesthesia Hypertension Asthma Endometriosis Family History Medical History Relation Name Comments Asthma Father Asthma; Breast cancer Father Cancer, breast ; Coronary artery disease Father Jhon nary artery disease; Diabetes Father Diabetes mellit us; Hypertension Father Hypertension; Diabetes Maternal Grandmother Diabete s mellitus; Hypertension Maternal Grandmother Hyperte nsion; Anemia Mother Anemia; Other Mother female problems ; unspecified cervical bleeding Diabetes Paternal Grandfather Diabete s mellitus; Hypertension Paternal Grandfather Hyperte nsion; Diabetes Paternal Grandmother Diabete s mellitus; Relation Name Status Comments Father Alive Maternal Grandmother Mother Alive Paternal Grandfather Paternal Grandmother Social History Tobacco Use Types Packs/Day Years Used Date Smoking Tobacco: Some Days Smokeless Tobacco: Never Alcohol Use Standard Drinks/Week Comments No 0 (1 standard drink = 0.6 oz pur e alcohol) PHQ-2 Answer Date Recorded PHQ-2 Score 5 02/18/2019 Comments No Sex and Gender Information Value Date Recorded Sex Assigned at Not on file Legal Sex Female 5:11 PM GROUND 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 OFFICER Gender Identity Not on file Sexual Orientation Not on file Obstetrics History Para Term AB IAB SAB Ectopic Multiple Livin g Live Births 1 Date Outcome GA Total Labor Labor/2nd/3rd Weight Sex Type Anes PTL Cecile A1 A5 Name Clin Last Filed Vital Signs Vital Sign Reading Time Taken Comments Blood Pressure 112/70 06/04/2022 1:31 PM [employer]OUND 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 OFFICER Pulse 72 06/04/2022 1:31 PM [employer]OUND 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 OFFICER Temperature 36.8 C (98.2 F) 09/10/2020 5:51 AM CDT Respiratory Rate 17 09/10/2020 6:15 AM CDT Oxygen Saturation 100% 06/04/2022 1:31 PM [employer]OUND 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 OFFICER Inhaled Oxygen Concentration - - Weight 102.4 kg (225 lb 12.8 oz) 06/04/2022 1:31 PM GR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 OFFICER Height 165.1 cm (5' 5) 06/04/2022 1:31 PM GROUND 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 OFFICER Body Mass Index 37.58 06/04/2022 1:31 PM 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 OFFICER Plan of Treatment Health Maintenance Due Date Last Done Comments Breast Cancer Screening-Mammogram 1991 Cervical Cancer Screening 1991 Hepatitis C Screening 1991 Varicella Vaccines (1 of 2 - 13+ 2-dose series) 12/29/2004 Pneumococcal vaccine <65 (1 of 2 - PCV) 12/29/2010 Regular Well Visit/Exam 18-64 07/24/2018 07/24/2017 Depression Screening 12/08/2019 12/07/2018, 12/07/2018, 03/04/2018, Additional history exists DTaP/Tdap/Td Vaccine (9 - Td or Tdap) 04/29/2028 04/29/2018, 09/20/2016, 04/12/2008, Additional history exists Hepatitis B Screening Completed 08/15/1997 , 07/14/1994, 07/09/1993 HPV Vaccines Completed 04/13/2013, 10/27, 10/11/2012, Additional history exists Influenza Vaccine Discontinued 09/20/2016, 10/07/2013 Insurance [facility] Advance Directives For more information, please contact: [phone] * Full Code (Latest Code Status on File) Date Activated Date Inactivated Comments 09/17/2019 5:13 AM 09/17/2019 2:53 PM * Full Code Date Activated Date Inactivated Comments 09/10/2019 9:13 AM 09/10/2019 3:33 PM * Full Code Date Activated Date Inactivated Comments 10/26/2017 9:51 AM 10/26/2017 2:24 PM Care Teams Crime Scene Photographer Relationship Specialty Start Date End Date Alfredo Handley PA [address] [place] [address] PCP - General 09/03/19 David Escalera MD [address] [place] [address] Consulting Physician Obstetrics and Gynecology 09/17/19
--- OUTSIDE RECORDS SUMMARY | 2024-11-28 11:44 | XMS_ITS | Referral Summary ---
Author Organization [facility] Address [address] [place] [address] Care Team Providers Care Enforcement Safety Officer Name Role Phone Alfredo Handley Primary Care Provider [phone] David Escalera MD Unavailable + [phone] Allergies No known active allergies Medications topiramate (TOPAMAX) 50 mg tabletIndications:C hronic migraine without aura without status migrainosus, not intractable Take half tablet (25 mg) po twice a day for one week, then one tablet po twice a day 60 tablet 3 2 Active rizatriptan STORE OPERATIONS ASSOCIATE (MAXALT-STORE OPERATIONS ASSOCIATE) 10 mg disintegrating tabletIndications:M igraine May repeat [...] 0430 this am. States she went to [facility] this morning but they did not do anything for her and told her to f/u with her primary care. Called [place] [place] and there is no record of her [...] Refused),10/30/2017(Deferred: Patient Refused),06/29/2017(Deferred: Patient Refused) Tdap 09/20/2016 Social History Tobacco Use Types Packs/Day Years Used Date Smoking Tobacco: Some Days Smokeless Tobacco: Never Alcohol Use Standard Drinks/Week Comments No 0 (1 standard drink = 0.6 oz pur e alcohol) PHQ-2 Answer Date Recorded PHQ-2 Score 5 02/18/2019 Comments No Sex and Gender Information Value Date Recorded Sex Assigned at Not on file Legal Sex Female 5:11 PM ELOCUTION TEACHER Gender Identity Not on file Sexual Orientation Not on file Last Filed Vital Signs Vital Sign Reading Time Taken Comments Blood Pressure 112/70 06/04/2022 1:31 PM ELOCUTION TEACHER Pulse 72 06/04/2022 1:31 PM ELOCUTION TEACHER Temperature 36.8 C (98.2 F) 09/10/2020 5:51 AM CDT Respiratory Rate 17 09/10/2020 6:15 AM CDT Oxygen Saturation 100% 06/04/2022 1:31 PM ELOCUTION TEACHER Inhaled Oxygen Concentration - - Weight 102.4 kg (225 lb 12.8 oz) 06/04/2022 1:31 PM ELOCUTION TEACHER Height 165.1 cm (5' 5) 06/04/2022 1:31 PM ELOCUTION TEACHER Body Mass Index 37.58 06/04/2022 1:31 PM ELOCUTION TEACHER Plan of Treatment Not on file Insurance [facility] Advance Directives For more information, please contact: [phone] * Full Code (Latest Code Status on File) Date Activated Date Inactivated Comments 09/17/2019 5:13 AM 09/17/2019 2:53 PM * Full Code Date Activated Date Inactivated Comments 09/10/2019 9:13 AM 09/10/2019 3:33 PM * Full Code Date Activated Date Inactivated Comments 10/26/2017 9:51 AM 10/26/2017 2:24 PM Care Teams Enforcement Safety Officer Relationship Specialty Start Date End Date Alfredo Handley PA [address] [place] [address] PCP - General 09/03/19 David Escalera MD [address] [place] [address] Consulting Physician Obstetrics and Gynecology 09/17/19
--- OUTSIDE RECORDS SUMMARY | 2024-11-28 11:44 | XMS_ITS | Continuity of Care Document ---
Author Organization [facility] [place] Address [address] [place] [address] Care Team Providers Care Prescriptionist Name Role Phone CATHLEEN KEARNEY Primary Care Provider Assessment No assessment recorded. Plan of Treatment Reminders Order Date Submit Date Provider Last Modified By Organization Details Last Modified Time Details Appointments SURG PRE OP 2024 09:45A Pankaj WORKMAN MD Not available Not available Not available Robotic TLH 2024 09:00A Pankaj WORKMAN MD Not available Not available Not available SURG POST OP 2024 11:45A Pankaj WORKMAN MD Not available Not available Not available Lab None recorded . Referral None recorded . Procedures None recorded . Surgeries None recorded . Imaging None recorded . Medication Orders None recorded . Patient TargetsNo targets recorded. Patient InstructionsNo instructions recorded. Reason for Referral None Reported. Problems Name Problem SNOMED Code Status Onset Date Resolution Date Notes Provider Name and Address Organization Details Recorded Time Pregnanc y 24069237 Completed 201908/24/2020 Aliza Allan ehl null, [facility] 11:12:00 Past pregnanc y history of pre-ecla mpsia 28922170600 9100 Completed & GDM Aliza Allan ehl null, [facility] 11:11:55 Depressi ve disorder 59134833 Completed Aliza Allan ehl null, [facility] 11:11:55 Anxiety 49488299 Completed Aliza wyatt null, [facility] 1 11:11:54 delivery - delivere d 881459928 Completed 10# baby, to repeat ltcs - schd 08/15 Aliza wyatt null, [facility] 1 11:11:55 Herpes simplex 08036009 Active 2019 1&2 + - valtrex at 36 wks- rx sent 07/25 Aliza wyatt null, [facility] 11:11:55 Herpes simplex 60165633 Completed 2019 1&2 + - valtrex at 36 wks- rx sent 07/25 Aliza wyatt null, [facility] 1 11:11:55 Low lying placenta 929685352 Completed 201905/07/2020 DENISE Avila [facility], [facility] 14:18:49 Problem Notes None recorded. Procedures Surgical History Date Name Laterality Status Provider Name and Address Organization Details Recorded Time 024 Date of Last Pap Smear completed Emily Delgado [facility] 09/16/2024 09:44:47 021 LAPAROSCOPY, DIAGNOSTIC (SURG) completed Kaitlynn Javed [facility] 05/30/2021 10:06:52 021 IUD Insertion completed Juaquin Workman MD [address], [place], [address], [facility] 10/12/2020 16:20:17 021 section completed Trice Torrez [facility] 10/17/2021 14:25:11 019 Colposcopy completed Coco Calero [facility] 03/07/2020 16:20:43 018 Cholecystectomy completed Re [facility] 04/20/2020 12:27:35 018 Appendectomy completed Re [facility] 04/20/2020 12:27:29 017 completed Yovana Conrado [facility] 03/15/2021 15:28:[address] [facility] 04/20/2020 12:27:42 016 Dilation and Curettage completed [facility] 04/20/2020 12:27:48 Imaging Results None recorded. Procedure Notes None recorded. Medical Equipment None [...] completed Not Available Not Available Not Available atorvastati n 20 mg tablet TAKE 1 TABLET BY MOUTH ONCE DAILY FOR 90 DAYS active Not Available Not Available No t Available ibuprofen 800 mg tablet 03/07 completed Not Available Not Available Not Available fluconazole 150 mg tablet TAKE 1 TABLET BY MOUTH ONE DOSE 05/22 completed Not Available Not Available Not Available metoprolol succinate ER 50 mg tablet,exte nded release 24 hr 09/01 completed Not Available Not Available Not Available hydrocodone 5 mg-acetamin ophen 325 mg tablet TAKE 1 TABLET BY MOUTH EVERY 6 HOURS 09/30 completed Not Available Not Available Not Available sumatriptan 25 mg tablet TAKE 1 TABLET BY MOUTH ONCE NEEDED FOR MIGRAINE. USE DIRECTED. MAY REPEAT DOSE IN 2 HOURS IF HEADACHE RECURS 09/01 completed Not Available Not Available Not Available ondansetron HCl 4 mg tablet 03/07 completed Not Available Not Available Not Available sumatriptan 50 mg tablet TAKE 1 TABLET BY MOUTH TWICE DAILY NEEDED active Not Available Not Available No t Available hydroxyzine HCl 50 mg tablet TAKE 1 TABLET BY MOUTH EVERY 6 HOURS (UP TO 4 DOSES) NEEDED FOR ANXIETY 11/28 completed Not Available Not Available Not Available lamotrigine 25 mg tablet TAKE 1 [...] MOUTH THREE TIMES DAILY NEEDED FOR ANXIETY active Not Available Not Available No t Available amitriptyli ne 10 mg tablet TAKE 1 TABLET BY MOUTH ONCE DAILY 11/28 completed Not Available Not Available Not Available meclizine 25 mg tablet 03/07 completed [...] completed Not Available Not Available Not Available norethindro ne acetate 5 mg tablet active Not Available Not Available Not Available ergocalcife rol (vitamin D2) 1,250 mcg (50,000 unit) capsule TAKE 1 CAPSULE BY MOUTH ONCE A WEEK 11/28 completed Not Available Not Available Not Available ibuprofen 600 mg tablet TAKE 1 [...] TAKE 1 TABLET BY MOUTH ONCE DAILY 11/28 completed Not Available Not Available Not Available aripiprazol e 10 mg tablet TAKE [...] No t Available Vitals Date Recorded Body height Body mass index (BMI) Body weight Systolic blood pressure Diastolic blood pressure Provider Name and Address Organization Details Last Updated DateTime 11/28/2024 160.02 cm 37.7 kg/m2 18195.17 g 114 mm[Hg] 76 mm[Hg] Theresa Saba [facility] 5 11:39:01 Social History Question Answer Notes LastModified by Organizat ion Details LastModified Time Tobacco Smoking Status Former Smoker Re arrieta, [facility] 04/20/2020 12:26:57 If You Are , What Was Your Level Of Alcohol Consumption Prior To ? Occasional [email or web address] Information not available 07/18/2020 How Many Years Have You Consumed Alcohol? 17 [email or web address] Information not available 10/29/2023 Are You Blind Or Do You Have Difficulty Seeing? No Information not available 10/17/2021 What Is Your Level Of Caffeine Consumption? Occasional Information not available 04/28/2024 How Much Tobacco Do You Chew? None [email or web address] Information not available 10/29/2023 In The 14 Days Before Symptom Onset, Have You Had Close Contact With A [facility] COVID-19 While That Case Was Ill? No Information not available 10/29/2023 In The 14 Days Before Symptom Onset, Have You Had Close Contact With A Person Who Is Under Investigation For COVID-19 While That Person Was Ill? No [email or web address] Information not available 10/29/2023 Have You Been To An Area Known To Be High Risk For COVID-19? No [email or web address] Information not available 10/29/2023 Are You Deaf Or Do You Have Serious Difficulty Hearing? No Information not available 10/17/2021 What Type Of Diet Are You Following? REGULAR Information not available 10/17/2021 Which Illicit Or Recreational Drugs Have You Used? Marijuana Information not available 07/18/2020 What Is The Highest Grade Or Level Of School You Have Completed Or The Highest Degree You Have Received? [id number] Information not available 10/29/2023 How Many Days Of Moderate To Strenuous Exercise, Like A Brisk Walk, Did You Do In The Last 7 Days? 2 [email or web address] Information not available 07/18/2020 On Those Days That You Engage In Moderate To Strenuous Exercise, How Many Minutes, On Average, Do You Exercise? 30 [email or web address] Information not available 07/18/2020 Are There Any Guns Present In Your Home? No Information not available 10/29/2023 How Many Years Have You Used Illicit Or Recreational Drugs? 1 [email or web address] Information not available 07/18/2020 What Was The Date Of Your Most Recent Tobacco Screening? 07/18/2020 [email or web address] Information not available 07/18/2020 What Is Your Current Pack Years? 10-19packyears [email or web address] Information not available 07/18/2020 Have You Ever Been Counseled For Unhealthy Alcohol Use? No [email or web address] Information not available 07/18/2020 Do You Use Protection During Sex? No [email or web address] Information not available 10/29/2023 Do You Use Your Seat Belt Or Car Seat Routinely? Yes Information not available 10/29/2023 Do You Have Smoke And Carbon Monoxide Detectors In Your Home? Yes [email or web address] Information not available 10/29/2023 At What Age Did You Start Smoking Tobacco? 28 [email or web address] Information not available 07/18/2020 How Much Tobacco Do You Smoke? No [email or web address] Information not available 04/20/2020 Do You Use Sunscreen Routinely? No [email or web address] Information not available 10/29/2023 Has Tobacco Cessation Counseling Been Provided? No [email or web address] Information not available 07/18/2020 How Many Years Have You Smoked Tobacco? 4 Information not available 04/28/2024 Have You Used IV Drugs? No [email or web address] Information not available 07/18/2020 Do You Have Difficulty Walking Or Climbing Stairs? No Information not available 10/17/2021 How Many Years Have You Used E-cigarettes Or Vape? 3 [email or web address] Information not available 07/18/2020 Sex: Unknown Functional Status Question Answer Note LastModified by Organizat ion Details LastModified Time Do you use any illicit or recreational drugs? Yes Information not available 07/18/2020 Do you or have you ever used any other forms of tobacco or nicotine? Yes [email or web address] Information not available 07/18/2020 What is your level of alcohol consumption? Occasional [email or web address] Information not available 04/20/2020 Do you or have you ever used smokeless tobacco? Never used smokeless tobacco [email or web address] Information not available 04/20/2020 Are you able to walk? YESWOREST Information not available 10/17/2021 Are you able to care for yourself? 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 No Information not available 10/17/2021 Do you or have you ever used e-cigarettes or vape? Former user of electronic cigarettes [email or web address] Information not available 07/18/2020 What is your exercise level? Moderate Information not available 04/28/2024 Mental Status Question Answer Note LastModified by Organization D etails LastModified Time Do you feel stressed (tense, restless, nervous, or anxious, or unable to sleep at night)? [id number] [email or web address] Information not available 10/29/2023 Family History Relationship Description Onset Age of this Age Resolved Age Notes LastModified by Organization Details LastModified Time Mother Asthma Not available 03/07/2020 16:24:16 Mother Hypertensive disorder Not available 2019 16:26:00 Mother Cyst of ovary [email or web address] Not available 2024 10:49:48 Father Asthma Not available 03/07/2020 16:24:16 Father Diabetes mellitus Not available 2019 16:25:30 Father Hypercholest erolemia Not available 2019 16:25:43 Father Hypertensive disorder Not available 2019 16:26:00 Father Malignant tumor of breast Not available 2019 16:54:19 Sister Asthma Not available 03/07/2020 16:24:16 Brother Asthma Not available 03/07/2020 16:24:16 Brother Seizure disorder [email or web address] Not available 2024 10:49:48 Maternal Grandmother Asthma Not available 02/2020 16:53:40 [...] 2019 16:55:45 Maternal Aunt Cyst of ovary [email or web address] Not available 2024 10:49:48 Medical History Condition Response Ovarian Cancer Y [...] cycle 13 Date of Last Pap Smear 04/28/2024 Sexual Problems? N LMP Unknown 06/29/2016 Obstetrics History GPAL:G 6 P 2 0 4 2 Type Value Full Term 2 Spontaneous 4 Living 2 Total 6 Past Encounters Encounter ID Performer Location Encounter Start Date Encounter Closed Date Diagnosis/Indication Diagnosis SNOMED-CT Code Diagnosis ICD10 Code Diagnosis Note [id number] Juaquin Workman MD [facility] [address] [address] 11/28/2024 10:49:44 11/28/2024 12:03:23 Pain in pelvis 45290871 R10.2 this patient is a 33-year-ol d female with pelvic pain and endometrio sis. We have agreed to perform robotic assisted total hysterecto my and bilateral salpingect lex. She understand s the risks, benefits, and alternativ es. She has completed The informed consent process and is ready to proceed. Endometrio sis (clinical) [id number] N80.9 Health Concerns Section Related Observation LastModified by Organization Detai ls LastModified Time None Recorded Concern Status LastModified by Organization Details LastModified Time None Recorded Payers Encounter Date Sequence Insurance Name Policy Number Policy Witt Covered Member ID Witt Member ID Guarantor Name 11/28/2024 1 [facility] (MEDICAID HMO) [id number] Alexus Starr [id number] Alexus Starr Notes Date Note Type Note Provider Name and Address Organization Details Recorded Time 11/28/2024 text/html this patient is a 33-year-old female with pelvic pain and endometriosis. We have agreed to perform robotic assisted total hysterectomy and bilateral salpingectomy. She understands the risks, benefits, and alternatives. She has completed The informed consent process and is ready to proceed. The patient understands the procedure. The procedure was described to the patient in great detail. the patient also understands the risks. The risks were also explained in detail. She understands that injuries May occur during surgery. She understands these injuries can result in hospitalization, more surgery, and severe illness. She understands there is risk of hemorrhage and infection. Juaquin Workman MD [address], [place], [address], [facility] 11/28/2024 12:03:12 OBGyn Episode No OBEpisode recorded.
--- OUTSIDE RECORDS SUMMARY | 2024-11-28 11:44 | XMS_ITS | Encounter Summary ---
Author Organization [facility] Address [address] [place] [address] Phone Care Team Providers Care Press Supervisor Name Role Phone Alfredo Handley Primary Care Provider Gina Hastings MODEL MAKER, ADVERTISING SPECIALIST Unavailable Jennifer Leonard APRN, SAP BASIS CONSULTANT Unavailable [phone] Reason for Visit * Reason Comments Medication Refill Encounter Details Date Type Department Care Team (Late st Contact Info) Description 06/17/2023 Refill [facility] - Neurology [facility] [address] [place] [address] Gina Hastings, MODEL MAKER, ADVERTISING SPECIALIST [address] [place] [address] Medication Refill Social History Tobacco Use Types Packs/Day Years Used Date Smoking Tobacco: Never Smokeless Tobacco: Former Alcohol Use Standard Drinks/Week Comments Yes 0 (1 standard drink = 0.6 oz pure alcohol) occasional, every other weekend Sexually Active Control Partners Comments Yes Male Condom Male Comments No Sex and Gender Information Value Date Recorded Sex Assigned at Not on file Legal Sex Female 9:13 PM CDT Gender Identity Not on file Sexual Orientation Not on file documented as of this encounter Miscellaneous Notes * Telephone Encounter - Charlene Zamorano RN - 06/17/2023 1:19 PM HUMAN RESOURCES COMPENSATION ANALYST Medication failed the protocol, provider to review and approve the medication order if appropriate. Requested Prescriptions Pending Prescriptions Disp Refills amitriptyline (ELAVIL) 10 MG Tablet [Pharmacy Med Name: Amitriptyline HCl 10 MG Oral Tablet] 30 Tablet 0 Sig: Take 1 Tablet by mouth nightly. Not Delegated - Tricyclic Agents Protocol Failed - 06/17/2023 10:51 AM Failed - This refill cannot be delegated Passed - Visit with relevant provider in past 12 months or upcoming 90 days Recent Visits Date Type Provider Dept 02/27/23 Office Visit Gina Hastings APRN, [facility] [place] Showing recent visits within past 365 days and meeting all other requirements Future Appointments Date Type Provider Dept 08/03/23 Appointment Gina Hastings APRN, [facility] [place] [facility] Showing future appointments within next 90 days and meeting all other requirements N RESOURCES COMPENSATION ANALYST documented in this encounter Plan of Treatment Upcoming Encounters Date Type Department Care Team (Late st Contact Info) Description 12/06/2024 10:30 AM CDT Office Visit [facility] - Pulmonology & Sleep Medicine - [place] [address] [place] [address] Jennifer Leonard APRN, [employer] BASIS CONSULTANT [address] [id number] documented as of this encounter Visit Diagnoses Diagnosis Chronic migraine w/o aura, not intractable, w/o stat migr documented in this encounter Care Teams Press Supervisor Relationship Specialty Start Date End Date Alfredo Handley PAC [address] [place] [id number] PCP - General Physician Associate Professor Of Geography 04/21/19 Gina Hastings APRN, ADVERTISING SPECIALIST [address] [place] [address] Nurse Practitioner Advanced Practice Nurse 02/27/23 Jennifer Leonard APRN, SAP BASIS CONSULTANT [address] [facility] [facility] [address] Nurse Practitioner Advanced Practice Nurse 02/18/24 documented as of this encounter
--- OUTSIDE RECORDS SUMMARY | 2024-11-28 11:45 | XMS_ITS | Data Portability ---
Author Organization [facility] Address [address] [place] [address] Care Team Providers Care Ob Scrub Tech Name Role Phone CATHLEEN KEARNEY Primary Care Provider [phone] Assessment Encounter Date Assessment Date Assessment LastModified by Organization Details LastModified Time 04/28/2024 04/28/2024 Annual gynecological exam performed. Patient will come back in a year unless there are new symptoms. Not available 04/28/2024 12:24:10 Plan of Treatment Reminders Order Date Submit Date Provider Last Modified By Organization Details Last Modified Time Details Appointments SURG PRE OP 2024 09:45A Pankaj ESQUIVEL MD Not available Not available Not available Robotic TLH 2024 09:00A Pankaj ESQUIVEL MD Not available Not available Not available SURG POST OP 2024 11:45A Pankaj ESQUIVEL MD Not available Not available Not available Lab None recorded. Referral None recorded. Procedures None recorded. Surgeries robotic assisted hysterect lex with salpingec rubio (SURG) 2024 025 [id number], [address], [place], [address], 10/07/2024 13:16:56 Imaging US, pelvis 2024 025 [email or web address] [place], [address], [place], [address], 09/23/2024 21:06:13 US, transvagi nal 2024 025 [email or web address] [address], [address], [place], [address], 09/23/2024 21:06:13 Medication Orders norethind toshia acetate 5 mg tablet 2024 025 [facility], [address] [place] [address], [address], 11/28/2024 11:39:11 Patient TargetsNo targets recorded. Patient InstructionsNo instructions recorded. Reason for Referral None Reported. Results Created Date Observation Date Name Description Value Unit Range Abnormal Flag Note LastModifiedBy Organization Detail LastModifiedTime 04/28/20 24 04/28/2024 IMAGE GUIDE D PAP AND HPV REGAR DLESS image guided Pap, HPV regardless of Pap result SEE RESULT S BELOW CASE REPOR T: Cytol ogy Gynec ologi nayan Repor t Case: [id number] Autho riluna g Provi sarah: Carolyn Esquivel MD Colle cted: 04/28 1453 Order ing Locat ion: [place] [facility] Recei radha: 04/29 1250 First Scree n: Julian Madden, CT Rescr een: Steffany Corbin ed, CT Speci men: Lilaniranjan kiran Pap - Image d, Cervi x STATE MENT OF ADEQU ACY: Satis facto ry for evalu ation Trans forma tion zone compo nent absen t The absen ce of an endoc ervic al compo nent was confi rmed by an addit ional scree ner. ----- ----- ----- ----- ----- ----- ----- ----- ----- ----- ----- ----- ----- ----- ----- ----- ----- ---- FINAL DIAGN OSIS: Negat gerardo for Intra epith elial Lesbrian n or Zechariah rankin (NIL) . Elect kaitlynn silvestre d by Steffany Corbin ed, CT on 2023 [...] Thinp rep Imagi ng Syste m. CLINI NAYAN INFOR MATIO N: Menst rual Statu s: LMP (if appli cable ): Clini nayan Histo ry/Pr eviou s Pap: Type of Neopl bernadette (if appli cable ): Signi fican t Clini nayan Findi ngs: Other Histo ry: Hormo kalli [...] ng do not corre late with physi nayan and/o r histo rical findi ngs, fur er inves tigat ion is recom mika d, as clini lakshmi schulte nted. Not Available [facility] (Lab) [address] [facility], [place], [address], 05/05/2024 19:02:42 04/28/20 24 04/28/2024 CT/GC (SUZY) , THINP REP VIAL chlamydia trachomatis, PCR Negati ve negati ve Not Available [facility] (Lab) [address] [facility], [place], [address], 05/05/2024 19:02:43 04/28/20 24 04/28/2024 CT/GC (SUZY) , THINP REP VIAL neisseria gonorrhoeae, PCR Negati ve negati ve Not Available [facility] (Lab) [address] [facility], [place], [address], 05/05/2024 19:02:43 04/28/20 24 04/28/2024 TRICH OMONA S VAGIN YANNI (RRNA ) trichomonas vaginalis ribosomal RNA (rrna) Negati ve negati ve Not Available [facility] (Lab) [address] [facility], [place], [address], 05/05/2024 19:02:44 09/23/19 25 09/22/2024 US, pelvi s No observ ation record ed. [email or web address] [place] [address], [place], [address], 09/22/2024 15:12:29 09/23/19 25 09/22/2024 US, trans vagin al No observ ation record ed. [email or web address] [place] [address], [place], [address], 09/22/2024 15:12:42 09/23/19 25 09/22/2024 US, pelvi s No observ ation record ed. [email or web address] [place] [address], [place], [address], 09/22/2024 15:39:11 Result Notes None recorded. Problems Name Problem SNOMED Code Status Onset Date Resolution Date Notes Provider Name and Address Organization Details Recorded Time Pregnanc y 25237617 Completed 201908/24/2020 [facility]:12[facility]00 Past pregnanc y history of pre-ecla mpsia 49587511762 9100 Completed & GDM Aliza byrnel null, [facility] 11:11:55 Depressi ve disorder 37206529 Completed Aliza Sanjana ehl null, [facility] 11:11:55 Anxiety 38228988 Completed [facility] 11:11:54 delivery - delivere d 348849256 Completed 10# baby, to repeat ltcs - schd 08/15 Aliza wyatt [facility] 11:11:55 Herpes simplex 79888854 Active 2019 1&2 + - valtrex at 36 wks- rx sent 07/25 Aliza wyatt [facility] 11:11:55 Herpes simplex 24592502 Completed 2019 1&2 + - valtrex at 36 wks- rx sent 07/25 Aliza wyatt [facility] 11:11:55 Low lying placenta 612724595 Completed 201905/07/2020 RESOLVED Suyapa Avila [facility] 14:18:49 Problem Notes None recorded. Procedures Surgical History Date Name Laterality Status Provider Name and Address Organization Details Recorded Time 024 Date of Last Pap Smear completed Emily Delgado [facility] 09/16/2024 09:44:47 021 LAPAROSCOPY, DIAGNOSTIC (SURG) completed Kaitlynn Javed [facility] 05/30/2021 10:06:52 021 IUD Insertion completed Juaquin Esquivel MD [address], [place], [address], [facility] 10/12/2020 16:20:17 021 section completed Trice Torrez [facility] 10/17/2021 14:25:11 019 Colposcopy completed Coco Calero [facility] 03/07/2020 16:20:43 018 Cholecystectomy completed [facility] 04/20/2020 12:27:35 018 Appendectomy completed [facility] 04/20/2020 12:27:29 017 completed Yovana Camp [facility] 03/15/2021 15:28:20 017 Colonoscopy completed [facility] 04/20/2020 12:27:42 016 Dilation and Curettage completed [facility] 04/20/2020 12:27:48 Imaging Results [...] and Address Organization Details Last Updated DateTime 09/16/2024 160.02 cm 38.3 kg/m2 90524.95 g 132 mm[Hg] 92 mm[Hg] Emily Delgado [facility] 09:43:23 Date Recorded Body height Body mass index (BMI) Body weight Systolic blood pressure Diastolic blood pressure Provider Name and Address Organization Details Last Updated DateTime 09/30/2024 160.02 cm 38.8 kg/m2 07779.73 g 118 mm[Hg] 80 mm[Hg] [facility] 5 11:39:48 Date Recorded Body height Body mass index (BMI) Body weight Systolic blood pressure Diastolic blood pressure Provider Name and Address Organization Details Last Updated DateTime 11/28/2024 160.02 cm 37.7 kg/m2 81966.17 g 114 mm[Hg] 76 mm[Hg] [facility] 5 11:39:01 Date Recorded Body height Body mass index (BMI) Body weight Systolic blood pressure Diastolic blood pressure Provider Name and Address Organization Details Last Updated DateTime 04/28/2024 160.02 cm 38.4 kg/m2 89774.54 g 118 mm[Hg] 84 mm[Hg] [facility] 4 12:25:44 Social History Question Answer Notes LastModified by Organizat ion Details LastModified Time Tobacco Smoking Status Former Smoker Re arrieta, [facility] 04/20/2020 12:26:57 If You Are , What Was Your Level Of Alcohol Consumption Prior To ? Occasional Information not available 07/18/2020 How Many Years Have You Consumed Alcohol? 17 [email or web address] Information not available 10/29/2023 Are You Blind Or Do You Have Difficulty Seeing? No Information not available 10/17/2021 What Is Your Level Of Caffeine Consumption? Occasional Information not available 04/28/2024 How Much Tobacco Do You Chew? None [email or web address] Information not available 10/29/2023 In The 14 Days Before Symptom Onset, Have You Had Close Contact With A Laboratory-confir med COVID-19 While That Case Was Ill? No [email or web address] Information not available 10/29/2023 In The 14 Days Before Symptom Onset, Have You Had Close Contact With A Person Who Is Under Investigation For COVID-19 While That Person Was Ill? No [email or web address] Information not available 10/29/2023 Have You Been To An Area Known To Be High Risk For COVID-19? No [email or web address] Information not available 10/29/2023 Are You Deaf Or Do You Have Serious Difficulty Hearing? No Information not available 10/17/2021 What Type Of Diet Are You Following? REGULAR Information not available 10/17/2021 Which Illicit Or Recreational Drugs Have You Used? Marijuana [email or web address] Information not available 07/18/2020 What Is The Highest Grade Or Level Of School You Have Completed Or The Highest Degree You Have Received? [id number] [email or web address] Information not available 10/29/2023 How Many Days Of Moderate To Strenuous Exercise, Like A Brisk Walk, Did You Do In The Last 7 Days? 2 [email or web address] Information not available 07/18/2020 On Those Days That You Engage In Moderate To Strenuous Exercise, How Many Minutes, On Average, Do You Exercise? 30 [email or web address] Information not available 07/18/2020 Are There Any Guns Present In Your Home? No [email or web address] Information not available 10/29/2023 How Many Years Have You Used Illicit Or Recreational Drugs? 1 [email or web address] Information not available 07/18/2020 What Was The Date Of Your Most Recent Tobacco Screening? 07/18/2020 Information not available 07/18/2020 What Is Your Current Pack Years? 10-19packyears [email or web address] Information not available 07/18/2020 Have You Ever Been Counseled For Unhealthy Alcohol Use? No [email or web address] Information not available 07/18/2020 Do You Use Protection During Sex? No [email or web address] Information not available 10/29/2023 Do You Use Your Seat Belt Or Car Seat Routinely? Yes Information not available 10/29/2023 Do You Have Smoke And Carbon Monoxide Detectors In Your Home? Yes [email or web address] Information not available 10/29/2023 At What Age Did You Start Smoking Tobacco? 28 [email or web address] Information not available 07/18/2020 How Much Tobacco Do You Smoke? No [email or web address] Information not available 04/20/2020 Do You Use Sunscreen Routinely? No [email or web address] Information not available 10/29/2023 Has Tobacco Cessation Counseling Been Provided? No [email or web address] Information not available 07/18/2020 How Many Years Have You Smoked Tobacco? 4 Information not available 04/28/2024 Have You Used IV Drugs? No [email or web address] Information not available 07/18/2020 Do You Have Difficulty Walking Or Climbing Stairs? No Information not available 10/17/2021 How Many Years Have You Used E-cigarettes Or Vape? 3 [email or web address] Information not available 07/18/2020 Sex: Unknown Functional Status Question Answer Note LastModified by Organizat ion Details LastModified Time Do you use any illicit or recreational drugs? Yes [email or web address] Information not available 07/18/2020 Do you or have you ever used any other forms of tobacco or nicotine? Yes Information not available 07/18/2020 What is your level of alcohol consumption? Occasional [email or web address] Information not available 04/20/2020 Do you or have you ever used smokeless tobacco? Never used smokeless tobacco [email or web address] Information not available 04/20/2020 Are you able to walk? YESWOREST Information not available 10/17/2021 Are you able to care for yourself? 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 No Information not available 10/17/2021 Do you or have you ever used e-cigarettes or vape? Former user of electronic cigarettes [email or web address] Information not available 07/18/2020 What is your exercise level? Moderate Information not available 04/28/2024 Mental Status Question Answer Note LastModified by Organization D etails LastModified Time Do you feel stressed (tense, restless, nervous, or anxious, or unable to sleep at night)? [id number] [email or web address] Information not available 10/29/2023 Family History Relationship Description Onset Age of this Age Resolved Age Notes LastModified by Organization Details LastModified Time Mother Asthma Not available 03/07/2020 16:24:16 Mother Hypertensive disorder Not available 2019 16:26:00 Mother Cyst of ovary [email or web address] Not available 2024 10:49:48 Father Asthma Not available 03/07/2020 16:24:16 Father Diabetes mellitus Not available 2019 16:25:30 Father Hypercholest erolemia Not available 2019 16:25:43 Father Hypertensive disorder Not available 2019 16:26:00 Father Malignant tumor of breast Not available 2019 16:54:19 Sister Asthma Not available 03/07/2020 16:24:16 Brother Asthma Not available 03/07/2020 16:24:16 Brother Seizure disorder [email or web address] Not available 2024 10:49:48 Maternal Grandmother Asthma [...] 2019 16:55:45 Maternal Aunt Cyst of ovary [email or web address] Not available 2024 10:49:48 Medical History Condition Response Anxiety Disorder Y Ovarian Cancer Y Other Y Gestational Diabetes Y Endometriosis Y Depression/ depression Y Headaches [...] SNOMED-CT Code Diagnosis ICD10 Code Diagnosis Note [id number] Juaquin Esquivel MD [place] [address] [address] 03/07/2020 16:07:20 03/07/2020 17:44:12 screening 119194465 Z36.9 Routine an tenatal care 919702960 Z34.82 [id number] Juaquin Esquivel MD [place] [address],[place] [address] 04/03/2020 13:14:36 04/03/2020 15:18:39 [id number] Juaquin Esquivel MD [place] [address],[place] [address] 04/03/2020 13:15:02 04/03/2020 15:00:53 screening for malformation 306161725 Z36.3 [id number] Juaquin Esquivel MD [place] [address],[place] [address] 04/03/2020 15:23:43 04/03/2020 15:52:06 Routine care 134840330 Z34.82 38704 [facility] [address],[place] [address] 04/20/2020 11:54:42 04/20/2020 15:03:56 Routine care 839987129 Z34.92 [id number] Juaquin Esquivel MD [place] [address],[place] [address] 05/07/2020 17:28:36 05/08/2020 10:13:58 screening 302296792 Z36.2 Z3A.24 Low lying placenta 38327 2007 O44.[address] [facility] [address],[place] [address] 05/07/2020 17:29:52 05/08/2020 10:15:03 Routine care 421014169 Z34.92 [id number] MD Rodo Wood [address],[place] [address] 06/01/2020 13:57:40 06/01/2020 14:42:14 Routine care 419727342 Z34.82 [id number] Juaquin Esquivel MD [place] [address],[place] [address] 06/08/2020 10:10:15 06/08/2020 11:22:10 Routine care 937741007 Z34.[id number] [facility] [address],[place] [address] 06/20/2020 12:12:51 06/20/2020 12:41:38 Routine care 902694782 Z34.92 s ection following previous section 321354904 O34.219 [id number] Juaquin Esquivel MD [place] [address],[place] [address] 07/06/2020 10:07:46 07/06/2020 11:32:58 Routine care 290860659 Z34.82 11818 Davina Castro CNM [place] [address],[place] [address] 07/18/2020 09:15:03 07/18/2020 10:02:29 Routine care 378406626 Z34.92 55323 Davina Castro CNM [place] [address],[place] [address] 07/25/2020 11:29:51 07/25/2020 15:17:36 Herpes simplex 55095763 B00.9 Routine an tenatal care 661500493 Z34.[id number] [facility] [address],[place] [address] 08/02/2020 09:24:40 08/02/2020 10:21:07 Routine care 771111883 Z34.92 [id number] Juaquin Esquivel MD [place] [address],[place] [address] 08/06/2020 10:14:47 08/06/2020 10:52:24 Uterine size for dates discrepancy 325507888 O26.843 Z3A.37 [id number] Juaquin Esquivel MD [place] [address],[place] [address] 08/09/2020 10:18:21 08/09/2020 11:31:20 Routine care 155934932 Z34.82 [id number] Juaquin Esquivel MD [place] [address],[place] [address] 08/09/2020 11:31:36 08/09/2020 12:32:29 Reduced movement 053479094 O36.8130 [id number] Juaquin Esquivel MD [place] [address],[place] [address] 08/16/2020 10:50:06 08/16/2020 10:53:11 [id number] Juaquin Esquivel MD [place] [address],[place] [address] 08/23/2020 10:36:13 08/23/2020 16:53:07 Postoperative care 647294698 Z48.89 this patient is a 29-year-ol d multipara presents forpostopf ollow-up. She is 1 weekpostop from a delivery. Her incision is clean dry and intact. She has no complaints . Her baby is doing well. She is doing well. Her bleeding is normal. She denies any nausea, vomiting, fever, chills. [id number] Juaquin Esquivel MD [place] [address] [address] 09/10/2020 16:54:07 09/11/2020 17:47:45 Complication of obstetrical surgical wound 67544357 O90.89 this patient is a 29-year-ol d [...] be placed in Radiology Department tomorrow afternoon. [id number] Juaquin Esquivel MD [place] [address] [address] 09/13/2020 10:33:41 09/13/2020 12:10:18 Postoperative pain 850209201 G89.18 this patient is a 29-year-ol d [...] exposure to the Covid-19 virus during this patient s visit, including available hand materials planning analyst upon arrive, temperatur e check and being asked a series of screening questions. All staff wore face coverings during this encounter, as well as provided additional cleaning and sanitizing of all surfaces, including countertop s, pens, chairs, door handles, light switches, etc, prior to and following the patient s visit. [id number] Juaquin Esquivel MD [place] [address],[place] [address] 10/12/2020 15:23:36 10/12/2020 16:23:18 Contraception care management 506314686 Z30.9 IUD was inserted. She tolerated the procedure well. [id number] Juaquin Esquivel MD [place] [address],[place] [address] 11/21/2020 16:36:01 11/21/2020 17:24:33 Contraception care management 238305459 Z30.9 This patient is a 29-year-ol d who presents for IUD check. She has no complaints . She was examined with a speculum. The cervix appears normal, the IUD string appears normally placed, the IUD was not visible. She will follow up as needed. [id number] Juaquin Esquivel MD [place] [address],[place] [address] 01/18/2021 11:49:18 01/18/2021 12:48:54 Pain in pelvis 33022853 R10.2 This patient is a 30 -year-old [...] Immediatel y with nausea, vomiting, fever, chills. [id number] Juaquin Esquivel MD [place] [address],[place] [address] 02/06/2021 15:01:39 02/06/2021 15:50:25 Pain in pelvis 67768878 R10.2 This patient is a 30 -year-old [...] Immediatel y with nausea, vomiting, fever, chills. [id number] Juaquin Esquivel MD [place] [address] [address] 02/14/2021 14:10:26 02/14/2021 15:09:15 Pain in pelvis 47122194 R10.2 Endometrio sis of pelvis 80884684 N80.3 this patient is a 30-year-ol d [...] in 1 month. [facility] Juaquin Esqu[facility] MD [place] [address] [address] 03/15/2021 15:11:24 03/15/2021 16:11:14 Pain in pelvis 69509894 R10.2 this patient is a 30-year-ol d [...] That could be done at that time. [id number] Juaquin Esquivel MD [place] [address],[place] [address] 04/18/2021 16:45:37 04/19/2021 18:18:00 Pain in pelvis 84221665 R10.2 this patient is a 30-year-ol d [...] That could be done at that time. [id number] Juaquin Esquivel MD [place] [address],[place] [address] 05/22/2021 15:53:02 05/27/2021 13:15:07 Pain in pelvis 77658322 R10.2 this patient is a 30-year-ol d female with longstandi ng pelvic pain. we have agreed to perform diagnostic laparoscop y. She understand s the risks, benefits, and alternativ es. She has completed the informed consent process and is ready to proceed. [id number] Juaquin Esquivel MD [place] [address],[place] [address] 05/30/2021 09:47:51 05/30/2021 09:48:12 [id number] Juaquin Esquivel MD [place] [address],[place] [address] 06/06/2021 17:17:49 06/07/2021 09:46:39 Postoperative care 994443355 Z48.89 This patient is a 30-year-ol d [...] and intact. She will follow-up as needed [id number] EUGENIA Alvarez [place] [address] [address] 10/17/2021 13:55:56 10/17/2021 15:21:27 Contraception care management 452323368 Z30.9 First menses since having IUD placed [...] any procedures .Will send for STI testing.St rings seen today, her partner can feel the [...] discussing the above. Venereal d isease screening 084712898 Z11.3 Intrauteri ne device check 000874004 Z30.431 [id number] Juaquin Esquivel MD [place] [address] [address] 09/02/2023 17:12:52 09/02/2023 18:06:55 Polycystic ovary syndrome 649820778 E28.2 32-year-ol d female with history of PCOS. Reports weight gain and bloating. Feelings of malaise. She would like to be treated again for PCOS. We talked about treatment options. We talked about metformin and spironolac tone. Talked about weight loss. Talked about screening for other disease. We agreed to labs. We spent 20 minutes face-to-fa ce. More 50% was counseling . [id number] Juaquin Esquivel MD [place] [address] [address] 10/28/2023 17:12:14 10/29/2023 06:04:16 Pain in pelvis 39304617 R10.2 patient is a 32-year-ol d female [...] was counseling . Abnormal u terine bleeding 6405333684 9100 N93.9 [id number] Juaquin Esquivel MD [place] [address] [address] 10/29/2023 15:45:55 10/29/2023 16:49:23 Pain in pelvis 83925196 R10.2 patient is a 32-year-ol d female [...] ce. More than 50% was counseling . [id number] Juaquin Esquivel MD [place] [address] [address] 10/29/2023 15:46:19 10/29/2023 17:37:43 Pain in pelvis 35687771 R10.2 a 32-year-ol d female who presents [...] ce. More than 50% was counseling . [id number] Juaquin Esquivel MD [place] [address] [address] 04/28/2024 11:41:03 04/28/2024 13:49:54 Gynecologic examination 62208098 Z01.419 Annual gynecologi nayan exam performed. Patient will come back in [...] Pap smear- today laboratory evaluation - done [id number] PATRICK STAFFORD MD [place] [address] [address] 09/16/2024 09:11:38 09/16/2024 10:49:14 Endometriosis of pelvis 46378155 N80.9 - long hx of endometrio sis including multiple abdominal surgeries- has tried and failed multiple options of medical management , including orlissa- worsening abdominal cramping, pain, and bloating- will update pelvic US- briefly discussed hysterecto my as surgical option for endometrio sis management with possible BSO and HRT post op if ovaries look diseased at time of procedure- will trial Aygestin for symptom management until US follow up [id number] Juaquin Esquivel MD [place] [address] [address] 09/22/2024 14:27:01 09/22/2024 15:18:35 Pain in pelvis 04860847 R10.2 a 32-year-ol d female who presents [...] ce. More than 50% was counseling . [id number] Juaquin Esquivel MD [place] [address] [address] 09/30/2024 10:55:07 10/03/2024 08:39:32 Endometriosis of pelvis 94346769 N80.9 This patient is a 33-year-ol d female with longstandi ng severe pelvic pain. She has failed various medical treatments including control pills, patches, currently has the IUD which is ineffectiv e in controllin g her pain. She has severe dysmenorrh ea, pain with intercours e, pelvic pain throughout the menstrual cycle. We discussed treatment options in detail. She would like definitive surgical treatment. We agreed to move forward with robotic assisted hysterecto my with bilateral salpingect lex. The patient understand s the procedure. The procedure was described to the patient in great detail. the patient also understand s the risks. The risks were also explained in detail. She understand s that injuries May occur during surgery. She understand s these injuries can result in hospitaliz ation, more surgery, and severe illness. She understand s there is risk of hemorrhage and infection. I spent over 30 minutes on this patient's care in total. Pain in pelvis [id number] R10.2 a 32-year-ol d female who presents [...] ce. More than 50% was counseling . Dyspareunia 22724616 N94 .10 Dysmenorrhea [id number] N 94.6 [id number] Juaquin Esquivel MD [place] [address] [address] 11/28/2024 10:49:44 11/28/2024 12:03:23 Pain in pelvis 40523404 R10.2 this patient is a 33-year-ol d female with pelvic pain and endometrio sis. We have agreed to perform robotic assisted total hysterecto my and bilateral salpingect lex. She understand s the risks, benefits, and alternativ es. She has completed The informed consent process and is ready to proceed. Endometrio sis (clinical) [id number] N80.9 Health Concerns Section Related Observation LastModified by Organization Detai ls LastModified Time None Recorded Concern Status LastModified by Organization Details LastModified Time None Recorded Advance Directives Directive None Recorded Payers Encounter Date Sequence Insurance Name Policy Number Policy Witt Covered Member ID Witt Member ID Guarantor Name 04/28/2024 1 [facility] (MEDICAID HMO) [id number] [place] [id number] Alexus L [place] 09/16/2024 1 [facility] (MEDICAID HMO) [id number] Alexus [place] [id number] Alexus L [place] 09/22/2024 1 [facility] (MEDICAID HMO) [id number] Alexus Ro [id number] Alexus L Ro 09/30/2024 1 [facility] (MEDICAID HMO) [id number] Alexus Ro [id number] Alexus L Ro 11/28/2024 1 [facility] (MEDICAID HMO) [id number] Alexus Ro [id number] Alexus L Ro Notes Date Note Type Note Provider Name and Address Organization Details Recorded Time 04/28/2024 text/html Annual GYNReport ed bypatient.History:n o gynecologic complaints Menstrual cycle:Normal menses Urinary symptoms:No hematuria; No incontinence Vulva:No genital lesion Vagina:Normal vaginal discharge Breast:No breast pain; No breast lump Current Contraception:Intra uterine device (iud) Sexual complaints:No sexual complaints; No pain during intercourse Psychological symptoms:Depression ;Anxiety; TXed Preventive measures:Encourage self breast examination; Encourage regular exercise Juaquin Esquivel MD [address], [place], [address], [facility] 04/28/2024 12:53:51 09/16/2024 text/html Patient presents for worsening abdominal and pelvic pain. She reports pelvic cramping and bloating for the past 3 weeks. She has a history of endometriosis and is currently using IUD for contraception and medical management. She has a history of endometriosis excision and ovarian cyst removal in 2020. She reports some relief after the surgery however pain has continued to worsen. She has tried Orlissa in the past prior to excision in 2020 without relief. Pain improved with IUD however now worsening again. She is interested in considering hysterectomy for definitive management of endometriosis. PATRICK STAFFORD MD [address], [place], [address], [facility] 09/16/2024 10:26:16 09/30/2024 text/html This patient is a 33-year-old female with longstanding severe pelvic pain. She has failed various medical treatments including control pills, patches, currently has the IUD which is ineffective in controlling her pain. She has severe dysmenorrhea, pain with intercourse, pelvic pain throughout the menstrual cycle. We discussed treatment options in detail. She would like definitive surgical treatment. We agreed to move forward with robotic assisted hysterectomy with bilateral salpingectomy. The patient understands the procedure. The procedure was described to the patient in great detail. the patient also understands the risks. The risks were also explained in detail. She understands that injuries May occur during surgery. She understands these injuries can result in hospitalization, more surgery, and severe illness. She understands there is risk of hemorrhage and infection. I spent over 30 minutes on this patient's care in total. Juaquin Esquivel MD [address], [place], [address], [facility] 10/01/2024 13:02:39 11/28/2024 text/html this patient is a 33-year-old [...] is risk of hemorrhage and infection. Juaquin Esquivel MD [address], [place], [address], [facility] 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 Status 03/07/20 20 1 B [...] Code Not e Past history of pre-eclampsia [id number] & GDM Depressive disorder [id number] Anxiety [id number] delivery - delivered [id number] 10# baby, to repeat ltcs - schd 08/15 Herpes simplex 01/24/2020 [id number] 1&2 + - valtrex at 36 wks- [...] Gestation 0 [email or web address] 03/07/2020 08/22/19 21 0 Pre-anthony Flowsheet Flowsheet Date 03/07/2020 Hood Score Blood Edema Fundus Height Fundus Units Glucose Ketones Leukocytes Nitrite Labor Signs Protein Cervic Dilation Cervic Effacement Cervic Station 16 Type Weight in lbs Pre/Post Dialysis Refused Weight 218.759232686354 BP Diastolic BP Location Tested BP Systolic [...] Weight in lbs Pre/Post Dialysis Refused Weight 215.255720610820 BP Diastolic BP Location Tested BP Systolic BP Type 72 R arm 117 sitting Fetus Heart Rate Present Fetus Movement A Yes Comments Flowsheet Date 04/03/2020 Hood Score Blood Edema Fundus Height Fundus Units Glucose Ketones Leukocytes Nitrite Labor Signs Protein Cervic Dilation Cervic Effacement Cervic Station 19 trace Type Weight in lbs Pre/Post Dialysis Refused Weight 215.120895802753 BP Diastolic BP Location Tested BP Systolic [...] Weight in lbs Pre/Post Dialysis Refused Weight 219.588431122217 BP Diastolic BP Location Tested BP Systolic BP Type 72 108 Fetus Heart Rate Present A 145 Fetus Movement A Yes Comments ON PROBLEM [id number] PATIENT I S HERE FOR FOLLOW UP [...] Weight in lbs Pre/Post Dialysis Refused Weight 228.736163858391 BP Diastolic BP Location Tested BP Systolic [...] Weight in lbs Pre/Post Dialysis Refused Weight 227.908086974046 BP Diastolic BP Location Tested BP Systolic [...] Weight in lbs Pre/Post Dialysis Refused Weight 226.590484389401 BP Diastolic BP Location Tested BP Systolic [...] Weight in lbs Pre/Post Dialysis Refused Weight 228.882095276700 BP Diastolic BP Location Tested BP Systolic [...] Weight in lbs Pre/Post Dialysis Refused Weight 234.205995439383 BP Diastolic BP Location Tested BP Systolic [...] Weight in lbs Pre/Post Dialysis Refused Weight 236.654642413010 BP Diastolic BP Location Tested BP Systolic [...] Weight in lbs Pre/Post Dialysis Refused Weight 237.656640630457 BP Diastolic BP Location Tested BP Systolic [...] Weight in lbs Pre/Post Dialysis Refused Weight 241.49536144377 BP Diastolic BP Location Tested BP Systolic BP Type 67 136 Fetus Heart Rate Present A 127 Fetus Movement A Yes Comments Doing well. Still a little s ore in her back from recent fall. Was evaluated at [place]. Taking flexeril. Growth u/s to be scheduled [...] Weight in lbs Pre/Post Dialysis Refused Weight 245.032420966368 BP Diastolic BP Location Tested BP Systolic [...] Weight in lbs Pre/Post Dialysis Refused Weight 222.97751109649 BP Diastolic BP Location Tested BP Systolic [...] At Estimated Date of Delivery false Thalassemia (Tajik, Vincentian, Mediterranean, Or Background): MCV < 80 false Neural Tube Defect (Meningom yelocele, Spina Bifida, Or Anencephaly) false Congenital Heart Defect false Down Syndrome false Gerson-Sachs (eg, Islam, Cajun, Estonian-Ivorian) f alse Amina Disease false Sickle Cell Disease Or Trait () false Hemophilia Or Other Blood Disorders false Muscular Dystrophy false Cystic Fibrosis false Ar's Chorea false Intellectual Disability/Autism false If Yes, [...] Domestic Partner Domestic Partner Phone Father Name Die Sinking Machine Operator Status 03/07/20 20 1 CLOSED [...] Domestic Partner Domestic Partner Phone Father Name Die Sinking Machine Operator Status 04/20/20 1 CLOSED Fetus Data First Name Last [...] Domestic Partner Domestic Partner Phone Father Name Die Sinking Machine Operator Status 04/20/20 20 1 CLOSED [...] Post Complications Tubal Sterilization Discharge Date Comments 2018 [place] [employer] Discharge Information Feeding Method Contraceptive Method Maternal HG B and HCT Levels Ob Episode Information Episode Created Date Number of Fetuses Patient Bloodtype Patient rh Status Prepregnancy Weight lbs Domestic Partner Domestic Partner Phone Father Name Die Sinking Machine Operator Status 04/20/20 1 CLOSED Fetus Data First Name Last [...] Post Complications Tubal Sterilization Discharge Date Comments 6 2015 [place] [employer] Discharge Information Feeding Method Contraceptive Method Maternal HG B and HCT Levels Ob Episode Information Episode Created Date Number of Fetuses Patient Bloodtype Patient rh Status Prepregnancy Weight lbs Domestic Partner Domestic Partner Phone Father Name Die Sinking Machine Operator Status 04/20/20 1 CLOSED Fetus Data First Name Last [...]
[2024-11-28 11:49] LABS: Anion Gap 12 mmol/L (4-12); Blood Urea Nitrogen 11 mg/dL (7-17); Calcium 9.6 mg/dL (8.4-10.2); Carbon Dioxide 21 mmol/L (22-30); Chloride 105 mmol/L (98-107); Estimated Glomerular Filt Rate > 60; Glucose 176 mg/dL (65-110); Sodium 138 mmol/L (137-145)
[2024-11-28 12:00] LABS: Prothrombin Time 13.4 Seconds (11.1-14.7)
[2024-11-28 12:01] LABS: Partial Thromboplastin Time 25.8 Seconds (22.3-36.8)
--- NOTE | 2024-11-28 12:30 | ECG_ITS ---
Test Date: 2024-11-28 11:30:56 Measurements Intervals [place] Rate: 79 P: 37 WI: 147 QRS: 27 QRSD: 103 T: 7 QT: 392 QTc: 452 Interpretive Statements SINUS RHYTHM WITH SINUS ARRHYTHMIA INCOMPLETE RIGHT BUNDLE BRANCH BLOCK BORDERLINE T WAVE ABNORMALITY- INFERIOR LEADS BASELINE ARTIFACT- I, II, III, AVR, AVL, AVF, V1-V6 BORDERLINE ECG No previous ECG available for comparison Electronically Signed On 11-28-2024 11:51:12 CDT by Geoff Lai D.O.
== END 2024-11-28 11:05 | disposition home or self-care (01) ==
PROVIDERS: Anesthesiology; PCP Physician Assistant; Visit Provider Obstetrics & Gynecology
DX: K76.9 Liver disease, unspecified (principal); E78.00 Pure hypercholesterolemia, unspecified; N80.30 Endometriosis of pelvic peritoneum, unspecified; R94.31 Abnormal electrocardiogram [ECG] [EKG]
CPT/HCPCS: 36415; 80048; 85610; 85730; 86850; 86900; 86901; 93005

== ENCOUNTER 2024-11-30 00:15 | Day surgery (SDC) | payer OTHER, SELFPAY ==
--- NOTE | 2024-11-25 09:29 | PC.NURSE ---
Report to the Outpatient Waiting Room, entrance under the green pavilion located off [facility], at time _7 AM on date __11/30/24 . Planned Procedure Time: ___9 AM .? Time changes happen often and if your time is changed the preop area will call you the afternoon before. - You and your visitor will be asked to self-screen and do not enter if you have any COVID symptoms. Please call surgeon if you need to reschedule. - A mask is optional within the hospital at this time. Patients may have clear liquids (water, carbonated beverages, clear teas, apple juice) until 3 hours prior to surgery ( 6am) with a maximum of 20 ounces. - No food from midnight until time of surgery and no smoking, or chewing tobacco (or any form of nicotine). No chewing gum, candy or mints. Take only the following medications with a SIP of water on the morning of surgery: ___ALPRAZOLAM,HYDROXYZINE DO NOT STOP ANY OF YOUR OTHER PRESCRIPTION MEDICATIONS PRIOR TO SURGERY EXCEPT THE FOLLOWING Hold all vitamins and supplements for 3 days per anesthesiologist.LAST DOSE 11/26/24 Medications to discontinue per physician NONE Please no make-up, nail liberian, hairspray, perfume, deodorant, or body powder the day of surgery.? No jewelry (including any body piercings) or valuables the day of surgery, leave them at home.? Please take a shower or bath the night before, or the morning of, surgery with an antibacterial soap.? Wear comfortable, loose fitting clothing.? Children are encouraged to wear pajamas. - Jewelry must be removed prior to entering the operating room.? Rings and piercings that are not removed may be cut off. - The hospital will not accept responsibility for valuables.? - Please leave all valuables, including medications, at home the day of surgery. If you are going home after surgery, a licensed star route mail driver must drive you home.? - NO public transportation without another adult if you receive anesthesia. - We recommend that an adult stay with you for 24 hours following discharge. - We also recommend that you do not drive, make important decision, drink alcoholic beverages, or take any drugs that were not prescribed by your health care provider for at least 24 hours after your discharge time. Follow any additional instructions given to you from your surgeon. Telephone instructions given to ___PATIENT and asked if any additional questions and then verbalized understanding. Patient advised to call surgeon office or pre surgery nurse liaison [phone] if any additional questions.
[2024-11-25 11:03] VITALS: BMI 36.9
[2024-11-30] VITALS (10 sets, daily range): BP systolic 117–138; BP diastolic 76–96; PULSE 54–81; RESP 10–20; TEMP 36.2–36.7; O2SAT 97–100; BMI 36.8
--- OUTSIDE RECORDS SUMMARY | 2024-11-30 00:20 | XMS_ITS | Data Portability ---
Author Organization [facility] Address [address] [place] [address] [place] [address] Care Team Providers Care Silhouette Artist Name Role Phone CATHLEEN KEARNEY Primary Care Provider Assessment Encounter Date Assessment Date Assessment LastModified by Organization Details LastModified Time 04/28/2024 04/28/2024 Annual gynecological exam performed. Patient will come back in a year unless there are new symptoms. Not available 04/28/2024 12:24:10 Plan of Treatment Reminders Order Date Submit Date Provider Last Modified By Organization Details Last Modified Time Details Appointments Robotic TLH 2024 09:00A Pankaj DANIEL MD Not available Not available Not available SURG POST OP 2024 11:45A Pankaj DANIEL MD Not available Not available Not available Lab None recorded. Referral None recorded. Procedures None recorded. Surgeries robotic assisted hysterect lex with salpingec rubio (SURG) 2024 025 [facility], [address], [place], [address], 10/07/2024 13:16:56 Imaging US, pelvis 2024 025 [email or web address] [place] [facility] [address], [address], [place], [address], 09/23/2024 21:06:13 US, transvagi nal 2024 025 [email or web address] [place], [facility] [address], [address], [place], [address], 09/23/2024 21:06:13 Medication Orders norethind toshia acetate 5 mg tablet [email or web address] [place] [address] Pharmacy [facility] [place], [address] [place] [address], [address], 11/28/2024 11:39:11 Patient TargetsNo targets recorded. Patient [...] 50 Autho lexis g Provi sarah: Carolyn Daniel MD Colle cted: 04/28 1453 Order ing Locat ion: [place] Patho logy Recei radha: 04/29 1250 First Scree n: Julian Madden, CT Rescr een: Steffany Corbin ed, CT Speci men: Screniranjan kiran Pap - Image d, Cervi x [...] nayan and/o r histo rical findi ngs, furth er inves tigat ion is recom mika d, as clini lakshmi schulte nted. Not Available [facility] (Lab) [address], [place], [address], 05/05/2024 19:02:42 04/28/20 24 04/28/2024 CT/GC (SUZY) , THINP REP VIAL chlamydia trachomatis, PCR Negati ve negati ve Not Available [facility] (Lab) [address] [facility], [place], [address], 05/05/2024 19:02:43 04/28/20 24 04/28/2024 CT/GC (SUZY) , THINP REP VIAL neisseria gonorrhoeae, PCR Negati ve negati ve Not Available [facility] (Lab) [address] [facility], [place], [address], 05/05/2024 19:02:43 04/28/20 24 04/28/2024 TRICH OMONA S VAGIN YANNI (RRNA ) trichomonas vaginalis ribosomal RNA (rrna) Negati ve negati ve Not Available [facility] (Lab) [address] [facility], [place], [address], 05/05/2024 19:02:44 09/23/19 25 09/22/2024 US, pelvi s No observ ation record ed. [email or web address] [place] [address], [place], [address], 09/22/2024 15:12:29 09/23/19 25 09/22/2024 US, trans vagin al No observ ation record ed. [email or web address] [place] [address], [place], [address], 09/22/2024 15:12:42 09/23/19 25 09/22/2024 US, pelvi s No observ ation record ed. [email or web address] [address] [address], [place], [address], 09/22/2024 15:39:11 Result Notes None recorded. Problems Name Problem SNOMED Code Status Onset Date Resolution Date Notes Provider Name and Address Organization Details Recorded Time Pregnanc y 97717559 Completed 201908/24/2020 Aliza wyatt null, [facility] 11:12:00 Past pregnanc y history of pre-ecla mpsia 44668489677 9100 Completed & GDM Aliza byrnel null, [facility] 11:11:55 Depressi ve disorder 11838666 Completed Aliza byrnel null, [facility] 11:11:55 Anxiety 59621506 Completed [place] [facility] 11:11:54 delivery - delivere d 409481173 Completed 10# baby, to repeat ltcs - schd 08/15 [facility] 11:11:55 Herpes simplex 83683631 Active 2019 1&2 + - valtrex at 36 wks- rx sent 07/25 [facility] 11:11:55 Herpes simplex 00458060 Completed 2019 1&2 + - valtrex at 36 wks- rx sent 07/25 [facility] 11:11:55 Low lying placenta 875975642 Completed 201905/07/2020 RESOLVED Su[facility], [facility] 14:18:49 Problem Notes None recorded. Procedures Surgical History Date Name Laterality Status Provider Name and Address Organization Details Recorded Time 024 Date of Last Pap Smear completed Emily Delgado [facility] 09/16/2024 09:44:47 021 LAPAROSCOPY, DIAGNOSTIC (SURG) completed Kaitlynn Javed [facility] 05/30/2021 10:06:52 021 IUD Insertion completed Juaquin Daniel MD [address], [place], [address], [facility] 10/12/2020 16:20:17 021 section completed Trice Torrez [facility] 10/17/2021 14:25:11 019 Colposcopy completed Coco Calero [facility] 03/07/2020 16:20:43 018 Cholecystectomy completed [facility] 04/20/2020 12:27:35 018 Appendectomy completed [facility] 04/20/2020 12:27:29 017 completed Yovana Camp [facility] 03/15/2021 15:28:20 017 Colonoscopy completed [facility] 04/20/2020 12:27:42 016 Dilation and Curettage completed [facility] 04/20/2020 12:27:48 Imaging Results None recorded. [...] Updated DateTime 09/16/2024 160.02 cm 38.3 kg/m2 26179.95 g 132 mm[Hg] 92 mm[Hg] Emily Delgado [facility] 09:43:23 Date Recorded Body height Body mass index (BMI) Body weight Systolic blood pressure Diastolic blood pressure Provider Name and Address Organization Details Last Updated DateTime 09/30/2024 160.02 cm 38.8 kg/m2 80170.73 g 118 mm[Hg] 80 mm[Hg] Theresa [facility] 5 11:39:48 Date Recorded Body height Body mass index (BMI) Body weight Systolic blood pressure Diastolic blood pressure Provider Name and Address Organization Details Last Updated DateTime 11/28/2024 160.02 cm 37.7 kg/m2 33462.17 g 114 mm[Hg] 76 mm[Hg] [facility] 5 11:39:01 Date Recorded Body height Body mass index (BMI) Body weight Systolic blood pressure Diastolic blood pressure Provider Name and Address Organization Details Last Updated DateTime 04/28/2024 160.02 cm 38.4 kg/m2 52238.54 g 118 mm[Hg] 84 mm[Hg] [facility] 4 12:25:44 Social History Question Answer Notes LastModified by Organizat ion Details LastModified Time Tobacco Smoking Status Former Smoker Re arrieta, [facility] 04/20/2020 12:26:57 If You Are , What Was Your Level Of Alcohol Consumption Prior To ? Occasional [email or web address] Information not available 07/18/2020 How Many Years Have You Consumed Alcohol? 17 [email or web address] Information not available 10/29/2023 Are You Blind Or Do You Have Difficulty Seeing? No Information not available 10/17/2021 What Is Your Level Of Caffeine Consumption? Occasional Information not available 04/28/2024 How Much Tobacco Do You Chew? None [email or web address] Information not available 10/29/2023 In The 14 Days Before Symptom Onset, Have You Had Close Contact With A Laboratory-confir med COVID-19 While That Case Was Ill? No [email or web address] Information not available 10/29/2023 In The 14 Days Before Symptom Onset, Have You Had Close Contact With A Person Who Is Under Investigation For COVID-19 While That Person Was Ill? No [email or web address] Information not available 10/29/2023 Have You Been To An Area Known To Be High Risk For COVID-19? No Information not available 10/29/2023 Are You Deaf Or Do You Have Serious Difficulty Hearing? No Information not available 10/17/2021 What Type Of Diet Are You Following? REGULAR Information not available 10/17/2021 Which Illicit Or Recreational Drugs Have You Used? Marijuana Information not available 07/18/2020 What Is The Highest Grade Or Level Of School You Have Completed Or The Highest Degree You Have Received? [id number] [email or web address] Information not available 10/29/2023 How Many Days Of Moderate To Strenuous Exercise, Like A Brisk Walk, Did You Do In The Last 7 Days? 2 [email or web address] Information not available 07/18/2020 On Those Days That You Engage In Moderate To Strenuous Exercise, How Many Minutes, On Average, Do You Exercise? 30 [email or web address] Information not available 07/18/2020 Are There Any Guns Present In Your Home? No [email or web address] Information not available 10/29/2023 How Many Years Have You Used Illicit Or Recreational Drugs? 1 [email or web address] Information not available 07/18/2020 What Was The Date Of Your Most Recent Tobacco Screening? 07/18/2020 [email or web address] Information not available 07/18/2020 What Is Your Current Pack Years? 10-19packyears [email or web address] Information not available 07/18/2020 Have You Ever Been Counseled For Unhealthy Alcohol Use? No [email or web address] Information not available 07/18/2020 Do You Use Protection During Sex? No [email or web address] Information not available 10/29/2023 Do You Use Your Seat Belt Or Car Seat Routinely? Yes [email or web address] Information not available 10/29/2023 Do You Have Smoke And Carbon Monoxide Detectors In Your Home? Yes [email or web address] Information not available 10/29/2023 At What Age Did You Start Smoking Tobacco? 28 [email or web address] Information not available 07/18/2020 How Much Tobacco Do You Smoke? No [email or web address] Information not available 04/20/2020 Do You Use Sunscreen Routinely? No Information not available 10/29/2023 Has Tobacco Cessation Counseling Been Provided? No [email or web address] Information not available 07/18/2020 How Many Years Have You Smoked Tobacco? 4 Information not available 04/28/2024 Have You Used IV Drugs? No [email or web address] Information not available 07/18/2020 Do You Have Difficulty Walking Or Climbing Stairs? No Information not available 10/17/2021 How Many Years Have You Used E-cigarettes Or Vape? 3 [email or web address] Information not available 07/18/2020 Sex: Unknown Functional Status Question Answer Note LastModified by Organizat ion Details LastModified Time Do you use any illicit or recreational drugs? Yes [email or web address] Information not available 07/18/2020 Do you or have you ever used any other forms of tobacco or nicotine? Yes [email or web address] Information not available 07/18/2020 What is your level of alcohol consumption? Occasional [email or web address] Information not available 04/20/2020 Do you or have you ever used smokeless tobacco? Never used smokeless tobacco [email or web address] Information not available 04/20/2020 Are you able to walk? YESWOREST Information not available 10/17/2021 Are you able to care for yourself? 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 No Information not available 10/17/2021 Do you or have you ever used e-cigarettes or vape? Former user of electronic cigarettes [email or web address] Information not available 07/18/2020 What is your exercise level? Moderate Information not available 04/28/2024 Mental Status Question Answer Note LastModified by Organization D etails LastModified Time Do you feel stressed (tense, restless, nervous, or anxious, or unable to sleep at night)? [id number] [email or web address] Information not available 10/29/2023 Family History Relationship Description Onset Age of this Age Resolved Age Notes LastModified by Organization Details LastModified Time Mother Asthma Not available 03/07/2020 16:24:16 Mother Hypertensive disorder Not available 2019 16:26:00 Mother Cyst of ovary [email or web address] Not available 2024 10:49:48 Father Asthma Not available 03/07/2020 16:24:16 Father Diabetes mellitus Not available 2019 16:25:30 Father Hypercholest erolemia Not available 2019 16:25:43 Father Hypertensive disorder Not available 2019 16:26:00 Father Malignant tumor of breast Not available 2019 16:54:19 Sister Asthma Not available 03/07/2020 16:24:16 Brother Asthma Not available 03/07/2020 16:24:16 Brother Seizure disorder [email or web address] Not available 2024 10:49:48 Maternal Grandmother Asthma [...] 16:53:59 Maternal Uncle Asthma Not available 03/07/20 20 16:54:04 Paternal Uncle Asthma Not available 03/07/20 20 16:54:07 Paternal Uncle Malignant tumor of colon Not available 2019 16:55:23 Paternal Grandmother Heart disease Not available 2019 16:54:54 Paternal Grandmother Hypertensive disorder Not available 2019 16:55:45 Maternal Aunt Cyst of ovary Not available 2024 10:49:48 Medical History Condition [...] SNOMED-CT Code Diagnosis ICD10 Code Diagnosis Note [id number] Juaquin Daniel MD [place] [address] [address] 03/07/2020 16:07:20 03/07/2020 17:44:12 screening 084288527 Z36.9 Routine an tenatal care 110522984 Z34.82 [id number] Juaquin Daniel MD [place] [address],[place] [address] 04/03/2020 13:14:36 04/03/2020 15:18:39 [id number] Juaquin Daniel MD [place] [address],[place] [address] 04/03/2020 13:15:02 04/03/2020 15:00:53 screening for malformation 731451809 Z36.3 [id number] Juaquin Daniel MD [place] [address] [address] 04/03/2020 15:23:43 04/03/2020 15:52:06 Routine care 173067453 Z34.82 [id number] Davina Castro [facility] [address],[place] [address] 04/20/2020 11:54:42 04/20/2020 15:03:56 Routine care 870205250 Z34.92 [id number] Juaquin Daniel MD [place] [address],[place] [address] 05/07/2020 17:28:36 05/08/2020 10:13:58 screening 746298452 Z36.2 Z3A.24 Low lying placenta 34172 2006 O44.40 [id number] Jazmín Tamez [facility] [address],[place] [address] 05/07/2020 17:29:52 05/08/2020 10:15:03 Routine care 909263291 Z34.92 [id number] MD Rodo Wood [address],[place] [address] 06/01/2020 13:57:40 06/01/2020 14:42:14 Routine care 167543731 Z34.82 [id number] Juaquin Daniel MD [place] [address],[place] [address] 06/08/2020 10:10:15 06/08/2020 11:22:10 Routine care 854127153 Z34.82 [id number] Jazmín Tamez [facility] [address],[place] [address] 06/20/2020 12:12:51 06/20/2020 12:41:38 Routine care 685928318 Z34.92 s ection following previous section 542323672 O34.219 [id number] Juaquin Daniel MD [place] [address],[place] [address] 07/06/2020 10:07:46 07/06/2020 11:32:58 Routine care 267259775 Z34.82 84808 [facility] [address],[place] [address] 07/18/2020 09:15:03 07/18/2020 10:02:29 Routine care 884359963 Z34.92 56085 [facility] [address],[place] [address] 07/25/2020 11:29:51 07/25/2020 15:17:36 Herpes simplex 77146884 B00.9 Routine an tenatal care 870768563 Z34.92 [id number] Jazmínzuleima WeimadanYOU [place] [address],[place] [address] 08/02/2020 09:24:40 08/02/2020 10:21:07 Routine care 267046982 Z34.92 [id number] Juaquin Daniel MD [place] [address],[place] [address] 08/06/2020 10:14:47 08/06/2020 10:52:24 Uterine size for dates discrepancy 362867762 O26.843 Z3A.37 [id number] Juaquin Daniel MD [place] [address],[place] [address] 08/09/2020 10:18:21 08/09/2020 11:31:20 Routine care 521860089 Z34.82 [id number] Juaquin Daniel MD [place] [address],[place] [address] 08/09/2020 11:31:36 08/09/2020 12:32:29 Reduced movement 132550169 O36.8130 [id number] Juaquin Daniel MD [place] [address],[place] [address] 08/16/2020 10:50:06 08/16/2020 10:53:11 [id number] Juaquin Daniel MD [place] [address],[place] [address] 08/23/2020 10:36:13 08/23/2020 16:53:07 Postoperative care 530099284 Z48.89 this patient is a 29-year-ol d multipara presents forpostopf ollow-up. She is 1 weekpostop from a delivery. Her incision is clean dry and intact. She has no complaints . Her baby is doing well. She is doing well. Her bleeding is normal. She denies any nausea, vomiting, fever, chills. [id number] MD Rodo Wood [address] [address] 09/10/2020 16:54:07 09/11/2020 17:47:45 Complication of obstetrical surgical wound 46840041 O90.89 this patient is a 29-year-ol d [...] be placed in Radiology Department tomorrow afternoon. [id number] MD Rodo Wood [address] [address] 09/13/2020 10:33:41 09/13/2020 12:10:18 Postoperative pain 220972768 G89.18 this patient is a 29-year-ol d [...] this patient s visit, including available hand pi/senior research associate upon arrive, temperatur e check and being asked a series of screening questions. All staff wore face coverings during this encounter, as well as provided additional cleaning and sanitizing of all surfaces, including countertop s, pens, chairs, door handles, light switches, etc, prior to and following the patient s visit. [id number] MD Rodo Wood [address] [address] 10/12/2020 15:23:36 10/12/2020 16:23:18 Contraception care management 445748207 Z30.9 IUD was inserted. She tolerated the procedure well. [id number] Juaquin Daniel MD [place] [address] [address] 11/21/2020 16:36:01 11/21/2020 17:24:33 Contraception care management 233506970 Z30.9 This patient is a 29-year-ol d who presents for IUD check. She has no complaints . She was examined with a speculum. The cervix appears normal, the IUD string appears normally placed, the IUD was not visible. She will follow up as needed. [id number] Juaquin Daniel MD [place] [address] [address] 01/18/2021 11:49:18 01/18/2021 12:48:54 Pain in pelvis 44819374 R10.2 This patient is a 30 -year-old [...] Immediatel y with nausea, vomiting, fever, chills. [id number] Juaquin Daniel MD [place] [address] [address] 02/06/2021 15:01:39 02/06/2021 15:50:25 Pain in pelvis 59371454 R10.2 This patient is a 30 -year-old [...] Immediatel y with nausea, vomiting, fever, chills. [id number] Juaquin Daniel MD [place] [address] [address] 02/14/2021 14:10:26 02/14/2021 15:09:15 Pain in pelvis 31408202 R10.2 Endometrio sis of pelvis 37361407 N80.3 this patient is a 30-year-ol d [...] month. She has Mirena for contracept ion. [id number] Juaquin Daniel MD [place] [address] [address] 03/15/2021 15:11:24 03/15/2021 16:11:14 Pain in pelvis 26199838 R10.2 this patient is a 30-year-ol d [...] That could be done at that time. [id number] Juaquin Daniel MD [place] [address],[place] [address] 04/18/2021 16:45:37 04/19/2021 18:18:00 Pain in pelvis 83745020 R10.2 this patient is a 30-year-ol d [...] That could be done at that time. [id number] Juaquin Daniel MD [place] [address],[place] [address] 05/22/2021 15:53:02 05/27/2021 13:15:07 Pain in pelvis 92803909 R10.2 this patient is a 30-year-ol d female with longstandi ng pelvic pain. we have agreed to perform diagnostic laparoscop y. She understand s the risks, benefits, and alternativ es. She has completed the informed consent process and is ready to proceed. [id number] Juaquin Daniel MD [place] [address],[place] [address] 05/30/2021 09:47:51 05/30/2021 09:48:12 [id number] Juaquin Daniel MD [place] [address],[place] [address] 06/06/2021 17:17:49 06/07/2021 09:46:39 Postoperative care 754701369 Z48.89 This patient is a 30-year-ol d [...] and intact. She will follow-up as needed [id number] EUGENIA Alvarez [place] [address] [address] 10/17/2021 13:55:56 10/17/2021 15:21:27 Contraception care management 646925907 Z30.9 First menses since having IUD placed one year ago. Bleeding started one week ago, has now stopped. Bleeding is light. No other symptoms.W niranjan discussed normal to have a light menses with Mirena IUD. Would like to r/o STI's and do a pap smear. Her last pap was in 2020, normal per patient. Has a hx of abnormal pap and colpo done in 2018, did not require any procedures .Will send [...] discussing the above. Venereal d isease screening 066060206 Z11.3 Intrauteri ne device check 101367113 Z30.431 [id number] Juaquin Daniel MD [place] [address] [address] 09/02/2023 17:12:52 09/02/2023 18:06:55 Polycystic ovary syndrome 629756393 E28.2 32-year-ol d female with history of PCOS. Reports weight gain and bloating. Feelings of malaise. She would like to be treated again for PCOS. We talked about treatment options. We talked about metformin and spironolac tone. Talked about weight loss. Talked about screening for other disease. We agreed to labs. We spent 20 minutes face-to-fa ce. More 50% was counseling . [id number] Juaquin Daniel MD [place] [address] [address] 10/28/2023 17:12:14 10/29/2023 06:04:16 Pain in pelvis 25686206 R10.2 patient is a 32-year-ol d female [...] was counseling . Abnormal u terine bleeding 2446466843 9100 N93.9 [id number] Juaquin Daniel MD [place] [address] [address] 10/29/2023 15:45:55 10/29/2023 16:49:23 Pain in pelvis 12647877 R10.2 patient is a 32-year-ol d female [...] ce. More than 50% was counseling . [id number] Juaquin Daniel MD [place] [address] [address] 10/29/2023 15:46:19 10/29/2023 17:37:43 Pain in pelvis 52729946 R10.2 a 32-year-ol d female who presents [...] ce. More than 50% was counseling . [id number] Juaquin Daniel MD [place] [address] [address] 04/28/2024 11:41:03 04/28/2024 13:49:54 Gynecologic examination 47719847 Z01.419 Annual gynecologi nayan exam performed. Patient [...] Pap smear- today laboratory evaluation - done [id number] PATRICK STAFFORD MD [place] [address] [address] 09/16/2024 09:11:38 09/16/2024 10:49:14 Endometriosis of pelvis 50882335 N80.9 - long hx of endometrio sis [...] for symptom management until US follow up [id number] Juaquin Daniel MD [place] [address] [address] 09/22/2024 14:27:01 09/22/2024 15:18:35 Pain in pelvis 76885526 R10.2 a 32-year-ol d female who presents [...] ce. More than 50% was counseling . [id number] Juaquin Daniel MD [place] [address] [address] 09/30/2024 10:55:07 10/03/2024 08:39:32 Endometriosis of pelvis 10899413 N80.9 This patient is a 33-year-ol d [...] patient's care in total. Pain in pelvis 74887362 R10.2 a 32-year-ol d female who presents [...] More than 50% was counseling . Dyspareunia 69000223 N94 .10 Dysmenorrhea 863204930 N 94.6 [id number] Juaquin Daniel MD [place] [address] [address] 11/28/2024 10:49:44 11/28/2024 12:03:23 Pain in pelvis 50861308 R10.2 this patient is a 33-year-ol d female with pelvic pain and endometrio sis. We have agreed to perform robotic assisted total hysterecto my and bilateral salpingect lex. She understand s the risks, benefits, and alternativ es. She has completed The informed consent process and is ready to proceed. Endometrio sis (clinical) 805283445 N80.9 Health Concerns Section Related Observation LastModified by Organization Detai ls LastModified Time None Recorded Concern Status LastModified by Organization Details LastModified Time None Recorded Advance Directives Directive None Recorded Payers Encounter Date Sequence Insurance Name Policy Number Policy Witt Covered Member ID Witt Member ID Guarantor Name 04/28/2024 1 [facility] (MEDICAID HMO) [id number] Alexus Ro [id number] Alexus L Benton 09/16/2024 1 [facility] (MEDICAID HMO) [id number] Alexus Ro [id number] Alexus L Benton 09/22/2024 1 [facility] (MEDICAID HMO) [id number] 0003 Alexus Benton [id number] Alexus L Benton 09/30/2024 1 [facility] (MEDICAID HMO) [id number] 0003 Alexus Ro [id number] Alexus L Benton 11/28/2024 1 [facility] (MEDICAID HMO) [id number] 0003 Alexus Starr [id number] Alexus Starr Notes Date Note Type Note [...] self breast examination; Encourage regular exercise Juaquin Daniel MD [address], [place], [address], [facility] 04/28/2024 12:53:51 09/16/2024 text/html Patient presents [...] endometriosis. PATRICK STAFFORD MD [address], [place], [address], [facility] 09/16/2024 10:26:16 09/30/2024 text/html This patient [...] on this patient's care in total. Juaquin Daniel MD [address], [place], [address], [facility] 10/01/2024 13:02:39 11/28/2024 text/html this patient [...] is risk of hemorrhage and infection. Juaquin Daniel MD [address], [place], [address], [facility] 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 Supervisor Status 03/07/20 20 1 B Positive 213 [...] Code Not e Past history of pre-eclampsia [id number] & GDM Depressive disorder [id number] Anxiety [id number] delivery - delivered [id number] 10# baby, to repeat ltcs - schd 08/15 Herpes simplex 01/24/2020 [id number] 1&2 + - valtrex at 36 wks- [...] Weight in lbs Pre/Post Dialysis Refused Weight 218.460860979483 BP Diastolic BP Location Tested BP Systolic [...] Weight in lbs Pre/Post Dialysis Refused Weight 215.638505710228 BP Diastolic BP Location Tested BP Systolic BP Type 72 R arm 117 sitting Fetus Heart Rate Present Fetus Movement A Yes Comments Flowsheet Date 04/03/2020 Hood Score Blood Edema Fundus Height Fundus Units Glucose Ketones Leukocytes Nitrite Labor Signs Protein Cervic Dilation Cervic Effacement Cervic Station 19 trace Type Weight in lbs Pre/Post Dialysis Refused Weight 215.651255723814 BP Diastolic BP Location Tested BP Systolic [...] Weight in lbs Pre/Post Dialysis Refused Weight 219.537590397487 BP Diastolic BP Location Tested BP Systolic BP Type 72 108 Fetus Heart Rate Present A 145 Fetus Movement A Yes Comments ON PROBLEM [id number] PATIENT I S HERE FOR FOLLOW UP [...] Weight in lbs Pre/Post Dialysis Refused Weight 228.769186386037 BP Diastolic BP Location Tested BP Systolic [...] Weight in lbs Pre/Post Dialysis Refused Weight 227.422702813050 BP Diastolic BP Location Tested BP Systolic [...] Weight in lbs Pre/Post Dialysis Refused Weight 226.111352812489 BP Diastolic BP Location Tested BP Systolic [...] Weight in lbs Pre/Post Dialysis Refused Weight 228.495153477646 BP Diastolic BP Location Tested BP Systolic [...] Weight in lbs Pre/Post Dialysis Refused Weight 234.454739419875 BP Diastolic BP Location Tested BP Systolic [...] Weight in lbs Pre/Post Dialysis Refused Weight 236.779551379832 BP Diastolic BP Location Tested BP Systolic [...] Weight in lbs Pre/Post Dialysis Refused Weight 237.005044275485 BP Diastolic BP Location Tested BP Systolic BP Type 60 109 Fetus Heart Rate Present A 144 Present Fetus Movement A Yes Comments patient states that having s ome pain, contractions, dizziness, swelling in leg, nausea and vomiting, precautions reviewed, labor precautions reviewed, f/u one week with kaiden trujillo valtrex Flowsheet Date 08/02/2020 Hood Score Blood Edema Fundus Height Fundus Units Glucose Ketones Leukocytes Nitrite Labor Signs Protein Cervic Dilation Cervic Effacement Cervic Station neg trace 40 trace Type Weight in lbs Pre/Post Dialysis Refused Weight 241.71515024293 BP Diastolic BP Location Tested BP Systolic BP Type 67 136 Fetus Heart Rate Present A 127 Fetus Movement A Yes Comments Doing well. Still a little s ore in her back from recent fall. Was evaluated at [place]. Taking flexeril. Growth u/s to be scheduled [...] Weight in lbs Pre/Post Dialysis Refused Weight 245.905017921798 BP Diastolic BP Location Tested BP Systolic [...] Weight in lbs Pre/Post Dialysis Refused Weight 222.45543542086 BP Diastolic BP Location Tested BP Systolic [...] At Estimated Date of Delivery false Thalassemia (Ukrainian, Azerbaijani, Mediterranean, Or Background): MCV < 80 false Neural Tube Defect (Meningom yelocele, Spina Bifida, Or Anencephaly) false Congenital Heart Defect false Down Syndrome false Gerson-Sachs (eg, Faith, Cajun, Mohawk-Sunnyside) f alse Amina Disease false Sickle Cell [...] inal 39 Low Transvers e false Juaquin Daniel MD Marijuana use & HSV Discharge Information Feeding Method Contraceptive Method Maternal HG B and HCT Levels Ob Episode Information Episode Created Date Number of Fetuses Patient Bloodtype Patient rh Status Prepregnancy Weight lbs Domestic Partner Domestic Partner Phone Father Name Human Resources Department Supervisor Status 03/07/20 20 1 CLOSED Fetus Data [...] Domestic Partner Domestic Partner Phone Father Name Human Resources Department Supervisor Status 04/20/20 20 1 CLOSED Fetus Data [...] Domestic Partner Domestic Partner Phone Father Name Human Resources Department Supervisor Status 04/20/20 20 1 CLOSED Fetus Data [...] Domestic Partner Domestic Partner Phone Father Name Human Resources Department Supervisor Status 04/20/20 1 CLOSED Fetus Data First [...] Domestic Partner Domestic Partner Phone Father Name Human Resources Department Supervisor Status 04/20/20 20 1 CLOSED Fetus Data [...]
--- OUTSIDE RECORDS SUMMARY | 2024-11-30 00:20 | XMS_ITS | Clinical Summary ---
Author Organization [facility] Address [address] [place] [address] Phone Care Team Providers Care Greenskeeper Name Role Phone Alfredo Handley Primary Care Provider [phone] Gina Hastings APRN, CARPET BINDER Unavailable + [phone] Jennifer Leonard APRN, COMPRESSOR HOUSE OPERATOR Unavailable [phone] Allergies No known active allergies Medications amitriptyline [...] 09/19/2024 7:40 PM CDT Emergency [facility] Emergency 1 [facility] [place] [id number] Darlene Morales APRN, SHILOH Pelvic pain Discharge [...] Medical Group - Pulmonology & Sleep Medicine [facility] [address] [place] [address] Jennifer Leonard APRN, COMPRESSOR HOUSE OPERATOR [address] [place] [id number] Health Maintenance Due Date Last Done Comments [...] Hepatitis B Immunization Completed 998, 07/14/1994, 07/09/1993 Human Papillomavirus (HPV) Immunization Completed 04/13/2013, 11/09/2012, 10/11/2012, Additional history exists DTaP/Tdap/Td Immunization Discontinued 2017, 09/20/2016, 04/12/2008, Additional [...] HEPATITIS C ANTIBODY STAT 07/13/2019 7:26 PM ASSISTANT PROPERTY MANAGER from Last 3 Months or Most Recently [...] Lino Perdomo M.D. MM: MM Report ID: [id number] Reading Location: [place] [address] Procedure Note Lino Perdomo MD - 09/19/2024 [...] Lino Perdomo M.D. MM: MM Report ID: [id number] Reading Location: [place] [address] IMPRESSION: No acute finding. Mild hepatic steatosis. Darlene Morales APRN, CNP IMG CT ORDERABLES Final Result * POCT Urine HCG () (09/19/2024 5:24 PM CDT) Pathologist [facility] POC URINE Negative POC URINE CONTROL Medical Case Worker Pass Urine 09/19/2024 5:24 PM CDT Darlene Morales APRN, CNP POINT OF CARE TEST ING (MANUAL) Final Result * (ABNORMAL) Urinalysis w/ Reflex (09/19/2024 5:21 PM CDT) Pathologist [facility] SPECIFIC GRAVITY 1.010 1.003 - 1.030 09/19/2024 5:56 PM CDT [facility] URINE PH 6.0 5.0 - 9.0 09/19/2024 5:56 PM CDT [facility] WBC ESTERASE Negative Negative 09/19/2024 5:56 PM CDT [facility] NITRITE Negative Negative 09/19/2024 5:56 PM CDT [facility] PROTEIN, RANDOM URINE 15 mg/dL(A) Negative 09/19/2024 5:56 PM CDT [facility] URINE GLUCOSE, QUAL Negative Negative 09/19/2024 5:56 PM CDT [facility] URINE KETONES Negative Negative 09/19/2024 5:56 PM CDT [facility] UROBILINOGEN Normal Normal mg/dL 09/19/2024 5:56 PM CDT [facility] URINE BLOOD Negative Negative felicia/ul 09/19/2024 5:56 PM CDT [facility] URINALYSIS COLOR Yellow 09/20/19 5:56 PM CDT [facility] URINALYSIS CLARITY Clear 09/19/2024 5:56 PM CDT [facility] Urine URINE SPECIMEN / Unknown Non-Phlebotomy Collection / Unknown 09/19/2024 5:21 PM CDT 09/19/2024 5:48 PM CDT us Darlene Morales TIP LENGTH CHECKER, COMPRESSOR HOUSE OPERATOR URINE ORDERABLES F inal Result [facility] [address] [place] [address] * (ABNORMAL) CBC with Auto Differential (09/19/2024 4:07 PM CDT) WBC 12.18(H) 4.00 - 12.00 10(3)/mcL 09/19/2024 4:20 PM CDT [facility] RBC 5.06 3.80 - 5.30 10(6)/mcL 09/19/2024 4:20 PM CDT [facility] HEMOGLOBIN (HGB) 14.9 12.0 - 15.8 g/dL 09/19/2024 4:20 PM CDT [facility] HEMATOCRIT (HCT) 43.5 36.0 - 47.0 % 09/19/2024 4:20 PM CDT [facility] MCV 86.0 82.0 - 96.0 fL 09/19/2024 4:20 PM CDT [facility] MCH 29.4 26.0 - 34.0 pg 09/19/2024 4:20 PM CDT [facility] MCHC 34.3 31.0 - 36.0 g/dL 09/19/2024 4:20 PM CDT [facility] PLATELET COUNT 268 140 - 440 10(3)/mcL 09/19/2024 4:20 PM CDT [facility] RDW 11.9 11.8 - 15.5 % 09/19/2024 4:20 PM CDT [facility] MPV 10.4 9.7 - 12.4 fL 09/19/2024 4:20 PM CDT [facility] NEUTROPHILS 61.3 47.0 - 73.0 % 09/19/2024 4:20 PM CDT [facility] LYMPHOCYTES 31.9 18.0 - 42.0 % 09/19/2024 4:20 PM CDT [facility] MONOCYTES 4.7 4.0 - 12.0 % 09/19/2024 4:20 PM CDT [facility] EOSINOPHILS 1.4 0.0 - 5.0 % 09/19/2024 4:20 PM CDT [facility] BASOPHILS 0.7 0.0 - 1.0 % 09/19/2024 4:20 PM CDT [facility] ABSOLUTE NEUTROPHILS 7.48 1.60 - 7.70 10(3)/[facility] 09/19/2024 4:20 PM CDT [facility] ABSOLUTE LYMPHOCYTES 3.88(H) 1.30 - 3.20 10(3)/[facility] 09/19/2024 4:20 PM CDT [facility] ABSOLUTE MONOCYTES 0.57 0.20 - 1.00 10(3)/[facility] 09/19/2024 4:20 PM CDT [facility] ABSOLUTE EOSINOPHIL 0.17 0.00 - 0.40 10(3)/[facility] 09/19/2024 4:20 PM CDT [facility] ABSOLUTE BASOPHILS 0.08 0.00 - 0.10 10(3)/[facility] 09/19/2024 4:20 PM CDT [facility] NRBC PER 100 WBC 0 09/20/19 4:20 PM CDT [facility] Blood Venipuncture / Unknown 09/19/2024 4:07 PM CDT 09/19/2024 4:16 PM CDT us Darlene Morales TIP LENGTH CHECKER, COMPRESSOR HOUSE OPERATOR HEMATOLOGY ORDERAB LES Final Result [facility] [address] [place] [address] * (ABNORMAL) CMP (09/19/2024 4:07 PM CDT) SODIUM 141 136 - 145 mmol/L 09/19/2024 4:36 PM CDT [facility] POTASSIUM 3.8 3.5 - 5.1 mmol/L 09/19/2024 4:36 PM CDT [facility] CHLORIDE 106 98 - 107 mmol/L 09/19/2024 4:36 PM CDT [facility] CO2, VENOUS 27 22 - 30 mmol/L 09/19/2024 4:36 PM CDT [facility] ANION GAP 11.8 <18.0 mmol/L 09/19/2024 4:36 PM CDT [facility] GLUCOSE 127(H) 70 - 99 mg/dL 09/19/2024 4:36 PM CDT [facility] BUN 8 5 - 18 mg/dL 09/19/2024 4:36 PM CDT [facility] CREATININE, BLOOD 0.73 0.60 - 1.00 mg/dL 09/19/2024 4:36 PM CDT [facility] BUN/CREATININE RATIO 11(L) 12 - 20 ratio 09/19/2024 4:36 PM CDT [facility] TOTAL PROTEIN 8.1(H) 6.0 - 8.0 g/dL 09/19/2024 4:36 PM CDT [facility] ALBUMIN 4.5 3.5 - 5.0 g/dL 09/19/2024 4:36 PM CDT [facility] A/G RATIO 1.3 1.0 - 2.2 09/19/2024 4:36 PM CDT [facility] CALCIUM 9.6 8.7 - 10.5 mg/dL 09/19/2024 4:36 PM CDT [facility] T BILI 0.4 0.2 - 1.2 mg/dL 09/19/2024 4:36 PM CDT [facility] SGOT (AST) 23 <43 U/L 09/19/2024 4:36 PM CDT [facility] SGPT (ALT) 39 <56 U/L 09/19/2024 4:36 PM CDT [facility] ALKALINE PHOSPHATASE 97 40 - 150 U/L 09/19/2024 4:36 PM CDT [facility] GFR, ESTIMATED >60 >=60 09/19/2024 4:36 PM CDT [facility] Comment: Creatinine Clearance is the preferred criteria for selecting drug dose adjustments in renally impaired patients. The GFR is provided as additional pertinent clinical information. GFR is reported in mL/min/1.73 sq m. Calculation based on the Chronic Kidney Disease Epidemiology Collaboration (CKD- EPI) equation refit without adjustment for race. GFR, EST. >60 >=60 025 4:36 PM CDT [facility] GFR, EST. NONAFRICAN >60 >=60 09/19/2024 4:36 PM CDT [facility] Blood Venipuncture / Unknown 09/19/2024 4:07 PM CDT 09/19/2024 4:16 PM CDT us Darlene Morales APRN, CNP CHEMISTRY ORDERABL ES Final Result [facility] [address] [place] [address] * Hepatitis C (Hcv) Antibody (07/13/2019 7:26 PM ASSISTANT PROPERTY MANAGER) hepatitis C antibody 0.18 <1 S/CO 07/14/2019 2:47 PM ASSISTANT PROPERTY MANAGER [facility] Comment: Signal/Cutoff ratio < 0.79 is Nondetected Signal/Cutoff ratio 0.80-0.99 is Grayzone Signal/Cutoff ratio > 0.99 is Detected Supplemental assays are recommended if signal/cutoff ratio is >/=1.00. Signal/cutoff ratio result >/= 5.00 is 97% predictive of positivity for recombinant immunoblot assay (RIBA) and will be reported to the [place] Department of Public Health as required. Blood specimen (specimen) Butterfly Puncture / Unknown 07/13/2019 7:26 PM ASSISTANT PROPERTY MANAGER 07/13/2019 7:46 PM ASSISTANT PROPERTY MANAGER us Sonya Goodrich PAC CHEMISTRY ORDERABLES Final R esult [facility] [address] [place] [address], [place] from Last 3 Months or Most Recently [...] measures to stabilize the patient. Care Teams Greenskeeper Relationship Specialty Start Date End Date Alfredo Handley PAC [address] [place] [address] PCP - General Physician Economics Lecturer 04/21/19 Gina Hastings APRN, CARPET BINDER [address] [place] [address] Nurse Practitioner Advanced Practice Nurse 02/27/23 Jennifer Leonard APRN, COMPRESSOR HOUSE OPERATOR [address] [address] Nurse Practitioner Advanced Practice Nurse 02/18/24
--- OUTSIDE RECORDS SUMMARY | 2024-11-30 00:20 | XMS_ITS | Clinical Summary ---
Author Organization [facility] Address [address] [place] [address] Care Team Providers Care Heel Reducer Name Role Phone Alfredo Handley Primary Care Provider [phone] David Escalera MD Unavailable [phone] Allergies No known active allergies Medications topiramate (TOPAMAX) 50 mg tabletIndications:C hronic migraine without aura without status migrainosus, not intractable Take half tablet (25 mg) po twice a day for one week, then one tablet po twice a day 60 tablet 3 2 Active rizatriptan DIRECTOR INSTRUCTIONAL MATERIAL (MAXALT-DIRECTOR INSTRUCTIONAL MATERIAL) 10 mg disintegrating tabletIndications:M igraine May repeat [...] 0430 this am. States she went to [facility] this morning but they did not do anything for her and told her to f/u with her primary care. Called [facility] and there is no record of her [...] on file Legal Sex Female 5:11 PM RIDE OPERATOR Gender Identity Not on file Sexual Orientation Not on file Obstetrics History Para Term AB IAB SAB Ectopic Multiple Livin g Live Births 1 Date Outcome GA Total Labor Labor/2nd/3rd Weight Sex Type Anes PTL Cecile A1 A5 Name Clin Last Filed Vital Signs Vital Sign Reading Time Taken Comments Blood Pressure 112/70 06/04/2022 1:31 PM RIDE OPERATOR Pulse 72 06/04/2022 1:31 PM RIDE OPERATOR Temperature 36.8 C (98.2 F) 09/10/2020 5:51 AM CDT Respiratory Rate 17 09/10/2020 6:15 AM CDT Oxygen Saturation 100% 06/04/2022 1:31 PM RIDE OPERATOR Inhaled Oxygen Concentration - - Weight 102.4 kg (225 lb 12.8 oz) 06/04/2022 1:31 PM RIDE OPERATOR Height 165.1 cm (5' 5) 06/04/2022 1:31 PM RIDE OPERATOR Body Mass Index 37.58 06/04/2022 1:31 PM RIDE OPERATOR Plan of Treatment Health Maintenance Due Date [...] exists Influenza Vaccine Discontinued 09/20/2016, 10/07/2013 Insurance [facility] Advance Directives For more information, please contact: [phone] * Full Code (Latest Code Status on File) Date Activated Date Inactivated Comments 09/17/2019 5:13 AM 09/17/2019 2:53 PM * Full Code Date Activated Date Inactivated Comments 09/10/2019 9:13 AM 09/10/2019 3:33 PM * Full Code Date Activated Date Inactivated Comments 10/26/2017 9:51 AM 10/26/2017 2:24 PM Care Teams Heel Reducer Relationship Specialty Start Date End Date Alfredo Handley PA [address] [place] [address] PCP - General 09/03/19 David Escalera MD [address] [place] [address] Consulting Physician Obstetrics and Gynecology 09/17/19
--- OUTSIDE RECORDS SUMMARY | 2024-11-30 00:20 | XMS_ITS | Referral Summary ---
Author Organization [facility] Address [address] [place] [address] Care Team Providers Care Sandwich Hand Name Role Phone Alfredo Handley Primary Care Provider [phone] David Escalera MD Unavailable [phone] Allergies No known active allergies Medications topiramate (TOPAMAX) 50 mg tabletIndications:C hronic migraine without aura without status migrainosus, not intractable Take half tablet (25 mg) po twice a day for one week, then one tablet po twice a day 60 tablet 3 2 Active rizatriptan SCREENPLAY WRITER (MAXALT-SCREENPLAY WRITER) 10 mg disintegrating tabletIndications:M igraine May repeat [...] 0430 this am. States she went to [facility] this morning but they did not do anything for her and told her to f/u with her primary care. Called [facility] and there is no record of her [...] on file Legal Sex Female 5:11 PM DOCUMENTATION IMPROVEMENT SPECIALIST Gender Identity Not on file Sexual Orientation Not on file Last Filed Vital Signs Vital Sign Reading Time Taken Comments Blood Pressure 112/70 06/04/2022 1:31 PM DOCUMENTATION IMPROVEMENT SPECIALIST Pulse 72 06/04/2022 1:31 PM DOCUMENTATION IMPROVEMENT SPECIALIST Temperature 36.8 C (98.2 F) 09/10/2020 5:51 AM CDT Respiratory Rate 17 09/10/2020 6:15 AM CDT Oxygen Saturation 100% 06/04/2022 1:31 PM DOCUMENTATION IMPROVEMENT SPECIALIST Inhaled Oxygen Concentration - - Weight 102.4 kg (225 lb 12.8 oz) 06/04/2022 1:31 PM DOCUMENTATION IMPROVEMENT SPECIALIST Height 165.1 cm (5' 5) 06/04/2022 1:31 PM DOCUMENTATION IMPROVEMENT SPECIALIST Body Mass Index 37.58 06/04/2022 1:31 PM DOCUMENTATION IMPROVEMENT SPECIALIST Plan of Treatment Not on file Insurance [facility] Advance Directives For more information, please contact: [phone] * Full Code (Latest Code Status on File) Date Activated Date Inactivated Comments 09/17/2019 5:13 AM 09/17/2019 2:53 PM * Full Code Date Activated Date Inactivated Comments 09/10/2019 9:13 AM 09/10/2019 3:33 PM * Full Code Date Activated Date Inactivated Comments 10/26/2017 9:51 AM 10/26/2017 2:24 PM Care Teams Sandwich Hand Relationship Specialty Start Date End Date Alfredo Handley PA [address] [place] [address] PCP - General 09/03/19 David Escalera MD [address] [place] [address] Consulting Physician Obstetrics and Gynecology 09/17/19
--- OUTSIDE RECORDS SUMMARY | 2024-11-30 00:20 | XMS_ITS | Encounter Summary ---
Author Organization [facility] Address [address] [place] [address] Phone Care Team Providers Care Radio Dispatcher Name Role Phone Alfredo Handley Primary Care Provider Gina Hastings INTERNET SOURCER, REAMING MACHINE TENDER Unavailable Jennifer Leonard APRN, WIRE REPAIRER Unavailable [phone] Reason for Visit * Reason Comments Medication Refill Encounter Details Date Type Department Care Team (Late st Contact Info) Description 06/17/2023 Refill [facility] - [facility]rology [facility] [address] [place] [address] Gina Hastings, INTERNET SOURCER, REAMING MACHINE TENDER [address] [place] [address] Medication Refill Social History Tobacco Use Types [...] Charlene Zamorano RN - 06/17/2023 1:19 PM CORONER FORENSIC TECHNICIAN Medication failed the protocol, provider to review [...] Dept 02/27/23 Office Visit Gina Hastings APRN, [facility] [place] [facility] Showing recent visits within past 365 days and meeting all other requirements Future Appointments Date Type Provider Dept 08/03/23 Appointment Gina Hastings APRN, [facility] [place] [facility] Showing future appointments within next 90 days and meeting all other requirements NER FORENSIC TECHNICIAN documented in this encounter Plan of Treatment Upcoming Encounters Date Type Department Care Team (Late st Contact Info) Description 12/06/2024 10:30 AM CDT Office Visit [facility] - Pulmonology & Sleep Medicine - [place] [address] [place] [address] Jennifer Leonard APRN, WIRE REPAIRER #[address] [address] documented as of this encounter Visit Diagnoses Diagnosis Chronic migraine w/o aura, not intractable, w/o stat migr documented in this encounter Care Teams Radio Dispatcher Relationship Specialty Start Date End Date Alfredo Handley PAC [address] [place] [address] PCP - General Physician Manager File 04/21/19 Gina Hastings APRN, REAMING MACHINE TENDER [address] [place] [address] Nurse Practitioner Advanced Practice Nurse 02/27/23 Jennifer Leonard APRN, WIRE REPAIRER [address] [facility] [address] [address] Nurse Practitioner Advanced Practice Nurse 02/18/24 documented as of this encounter
[2024-11-30] MEDS: LACTATED RINGERS 1,000 ML 30 ML IV CONT ×2 (10:00→14:35)
[2024-11-30] MEDS: ACETAMINOPHEN 500 MG TABLET 1000 MG PO ×3 (10:05→22:10)
[2024-11-30] MEDS: KETOROLAC 15 MG/ML VIAL (*BKC) IV PUSH (10:05)
[2024-11-30 10:29] LABS: BEDSIDEPREGUCG Negative (Negative)
--- NOTE | 2024-11-30 11:14 | P.PNAN_ITS ---
Anes - Initial Pre Proc Eval Procedure: Operation Date: 11/30/24 11:30 Proposed Procedures p Robotic Assisted Hysterectomy with Bilateral Salpingectomy - Juaquin Daniel MD Date/Time: 11/30/24 11:14 Surgeon: Juaquin Daniel MD Pre Op Diagnosis: endometriosis of pelvis Patient Data Age: 33 Gender: F Height: 1.63 m Weight: 97.3 kg Last Vital Signs Temp 36.6 C 11/30/24 09:05 Pulse 81 11/30/24 09:05 Resp 16 11/30/24 09:05 BP 117/76 11/30/24 09:05 Pulse Ox 99 11/30/24 09:05 O2 Del Method Room Air 11/30/24 09:05 Allergies Allergy/AdvReac Type Severity Reaction Status Date / Time No Known Allergies Allergy Verified 11/30/24 10:08 Home Medications ?Medication ?Instructions ?Recorded ?Confirmed ?Type amitriptyline 10 mg tablet 10 mg PO DAILY 04/07/24 11/30/24 History ergocalciferol (vitamin D2) 1,250 1,250 mcg PO WEEKLY 04/07/24 11/30/24 History mcg (50,000 unit) capsule escitalopram oxalate 10 mg tablet 10 mg PO DAILY 04/07/24 11/30/24 History hydroxyzine HCl 50 mg tablet 50 mg PO PRN PRN anxiety 04/07/24 11/30/24 History ubrogepant 50 mg tablet (Ubrelvy) 50 mg PO PRN PRN Migraine Headache 04/07/24 11/25/24 History alprazolam 0.25 mg tablet 0.25 mg PO PRN PRN anxiety 07/21/24 11/30/24 History fluticasone propionate 50 1 spray intranasal DAILY #16 grams 07/21/24 11/30/24 Rx mcg/actuation nasal spray,suspension (Flonase Allergy Relief) sumatriptan succinate 50 mg tablet 50 mg PO PRN PRN migraine headache 07/21/24 11/25/24 History atorvastatin 20 mg tablet 20 mg PO HS 11/25/24 11/30/24 History norethindrone acetate 5 mg tablet 5 mg PO DAILY 11/25/24 11/30/24 History Laboratory Tests 11/30/24 09:05 POC Urine HCG, Qual Negative (Negative) Patient hx anesthesia problems: post op nausea/vomiting Family hx anesthesia problems: none Results Review: All pre-operative results and documents have been reviewed as part of the pre- operative evaluation. [facility] Past Medical History Medical History History of suicide attempt PTSD (post-traumatic stress disorder) PCOS (polycystic ovarian syndrome) Herpes simplex Ovarian cancer Depression Vertigo Migraine headache Asthma Surgical History Surgical History History of cholecystectomy delivery delivered History of appendectomy History of ovarian cystectomy Family History Family History Father Epilepsy Diabetes mellitus Asthma Hyperlipidemia Breast cancer Hypertension Sibling Epilepsy Asthma Mother Asthma Hypertension Unknown Heart disease Social History Social History Smoking status: Current every day smoker Tobacco type: e-cigarettes/vaping Second hand tobacco smoke exposure: Yes Additional smoking assessment comments: CURRENTLY VAPING Alcohol intake: never Alcohol use details: socially drinks Fireball Substance use: current Substance use type: marijuana Other substance usage details: Hydrocodone prescribed by Dr. 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 Informed Consent: The patient's anesthetic plan and its attendant risks and benefits were discussed with the patient/family/POA. Questions were solicited and answers provided to the satisfaction of the patient/family/POA.
[2024-11-30] MEDS: SCOPOLAMINE 1 MG PATCH 1 PATCH TRANSDERM (11:20)
--- NOTE | 2024-11-30 11:45 | WPDHPUPDATE1 ---
History and Physical Update Update Date/Time: 11/30/24 11:45 History and Physical has been reviewed, including an updated exam of the patient. There are NO changes in the patient's condition. Risks, benefits, and alternatives have been discussed and questions answered. Patient agrees to proceed with procedure.
[2024-11-30] MEDS: ceFAZolin 2 GM/D5W 50 ML 2 GM/50 ML BAG IVPB (12:15)
[2024-11-30] MEDS: ceFAZolin SODIUM 1 GM VIAL (13:14)
--- NOTE | 2024-11-30 13:53 | S_PTH ---
PATIENT: Alexus Starr LOC: [facility] U#:[id number] AGE/SX: 33/F ROOM: RE11/30/[address]: Juaquin Daniel MD : 1990 BED: DIS: 12/01/2024 SPEC #: [id number] RECD: 11/30/24 14:05 STATUS: NICOLAS REQ #: [id number] ISMA: 11/30/24 13:[address]: Juaquin Daniel DEPT: [facility] Surgical RECD BY: Priscila Dunaway ENTERED: 11/30/24 14:05 SP TYPE: Surgical OTHR DR: Alfredo Handley, PA Tissues: A - Uterus Procedures: Hematoxylin and Eosin Stain Gross and Microscopic Level 5
--- NOTE | 2024-11-30 14:35 | P.OP_ITS ---
Procedure Note - Detailed Date of Procedure 11/30/24 Pre-op Diagnosis endometriosis of pelvis, pelvic pain Post-op Diagnosis Same Procedure Performed Robot assisted Total hysterectomy with bilateral salpingectomy. Surgeon Juaquin Daniel MD Anesthesia General Indications pelvic pain Findings Scarring of the uterine surface, normal-appearing bilateral fallopian tubes and ovaries. Scarring of the peritoneum in the posterior cul-de-sac. Description of Procedure This patient was taken to the operating room. She was prepped and draped in the dorsal lithotomy position after induction of general anesthesia. The uterine manipulator and Sulema cup were placed. This was done with a speculum and tenaculum. The speculum was placed. The cervix was grasped with a tenaculum. The stay sutures were placed at 3 and 9:00 a.m.. The stay sutures of 0 Vicryl were tied to the appropriately Size scope after it was slipped around the cervix.. The tip of the MAL manipulator was placed in the intrauterine cavity. The cup was slid into place around the cervix and into the fornices. It was locked into place. The sutures were then wrapped around the handle and tied under tension. A 8 mm skin incision was made in the left upper quadrant the abdomen. a 5 mm Visiport trocar was inserted into abdominal cavity and pneumoperitoneum was achieved. A 8 mm supraumbilical incision was made and a 8 mm trocar was in serted into the intrauterine cavity under direct visualization of the scope. an 8 mm incision was made in the right upper quadrant of the abdomen and an 8 mm robotic trocar was placed the inter uterine cavity under direct visualization the scope. An 11 mm trocar was inserted in the right upper quadrant of the abdomen rectal is a cystoscope after an incision was made there as well. The robot was docked. Electronic Orientation of the robot was performed. Bilateral ureteral lysis was performed. This was done from the pelvic brim down to the uterine artery. This was done with careful dissection using sharp and blunt dissection. The fallopian tubes were removed bilaterally. The mesosalpinx around the fallopian tubes were cauterized transected with LigaSure cautery. This was done in a bilateral fashion from the ovary to the uterine cornua. The fallopian tube was transected at the uterine cornu and amputated. The tube was taken out the left lower quadrant trocar site. In a stepwise fashion along the lateral aspects of the uterus the round ligament and broad ligaments were cauterized transected down to the level of the uterine arteries. A bladder flap was created in the bladder was moved distally to the end of the cervix and over the Sulema cup. The bilateral uterine arteries were cauterized and transected. Colpotomy was then performed. In a circumferential fashion the va tracy was transected using unipolar cautery. The incision was made down on the Sulema cup. The uterus and cervix were taken out through the vagina. A pneumo occluder was placed in the vagina. The vaginal cuff was closed with a 0 V lock suture in a running fashion. The pelvis was irrigated with copious amounts antibiotic irrigation. The ureters were again examined and found to be intact and flowing freely under the uterine arteries into the bladder. The bladder was intact. It was examined directly. Cystoscopy was performed after administration of methylene blue. The cystoscope was inserted. Bladder was distended with fluid. The ureteric meatus was observed bilaterally. Blue fluid was seen to egress bilaterally. The bladder was drained and the cystoscope was withdrawn. The vagina was irrigated with Betadine solution after removal of the Pneumo occluder. the trocars were removed after the robot was undocked. The skin was closed with subacute or Dermabond. The patient was taken to recovery room. She was stable condition. Sponge lap and needle counts were correct x2. Estimated Blood Loss 150 Drains Yes Packing No Pathology Yes Complications No immediate complications Condition Stable Disposition Floor
[2024-11-30] MEDS: fentaNYL CITRATE INJ (*CRX) 100 MCG/2 ML VIAL 25 MCG IV PUSH ×3 (14:55→15:10)
--- NOTE | 2024-11-30 15:52 | OBPPTRN ---
Patient transferred to post room #276 via (stretcher). Support person present. Oriented to unit, room, information board, rooming in, admission packet and security measures. Patient verbalizes understanding.
[2024-11-30] MEDS: KETOROLAC 30 MG/ML VIAL (*BKC) IV PUSH ×2 (16:18→22:11)
[2024-11-30] MEDS: oxyCODONE HCL (*CRX) 5 MG TAB IR 10 MG PO ×2 (16:18→23:37)
[2024-11-30] MEDS: DOCUSATE SODIUM 100 MG CAPSULE PO (16:19)
[2024-11-30] MEDS: SIMETHICONE 80 MG TAB.CHEW PO (16:19)
[2024-11-30] MEDS: DEXTROSE 5%/0.45% SOD CHL 1,000 ML 125 ML IV CONT (16:50)
[2024-11-30] MEDS: ALPRAZolam (*CRX) 0.25 MG TABLET PO (22:10)
[2024-11-30] MEDS: ATORVASTATIN 20 MG TABLET PO (22:11)
[2024-12-01 04:18] VITALS: BP 109/71; PULSE 65; RESP 18; TEMP 36.4; O2SAT 99
[2024-12-01] MEDS: oxyCODONE HCL (*CRX) 5 MG TAB IR 10 MG PO (04:26)
[2024-12-01] MEDS: KETOROLAC 30 MG/ML VIAL (*BKC) IV PUSH (04:28)
[2024-12-01] MEDS: ACETAMINOPHEN 500 MG TABLET 1000 MG PO (04:28)
[2024-12-01] MEDS: DOCUSATE SODIUM 100 MG CAPSULE PO (07:16)
[2024-12-01] MEDS: ESCITALOPRAM OXALATE 10 MG TABLET PO (07:16)
[2024-12-01] MEDS: AMITRIPTYLINE HCL 10 MG TABLET PO (07:16)
[2024-12-01] MEDS: SIMETHICONE 80 MG TAB.CHEW PO (07:16)
[2024-12-01] MEDS: ERGOCALCIFEROL (VITAMIN D2) 1,250 MCG (50,000 UNITS) CAPSULE 1250 MCG PO (07:16)
--- NOTE | 2024-12-01 07:17 | PM.GYNPNOP ---
SOFT METALS ENGRAVER HAND - A/P Postoperative Procedures: Procedures Operation Date: 11/30/24 11:30 Actual Procedure Side Surgeon p Robotic Assisted Hysterectomy with Bilateral Salpingectomy Bilateral Juaquin Daniel MD Postoperative day: 1 Postoperative status: doing well Postoperative plan: see orders Time Spent With Patient Time: Total time spent is greater than 50% in coordination of care (as documented) at patient's floor/unit and/or counseling patient: Time with patient: less than 15 minutes SOFT METALS ENGRAVER HAND- PN:Subj Post-Op Subjective Date/time seen: 12/01/24 07:17 Subjective: patient reports feeling better, patient has no complaints and pain is well controlled Exam Const: General: healthy appearing, comfortable and no acute distress Resp: Auscultation: clear to auscultation bilaterally, no rales, no rhonchi and no wheezes Cardio: Rate: regular rate Heart sounds: no click, no murmurs and no rubs GI: Inspection: non-distended Auscultation: normal bowel sounds Extrem: General: normal to inspection, no pedal edema and no calf tenderness SOFT METALS ENGRAVER HAND - PN: Obj Data Vital Signs Vital Signs: Vital Signs - 24 hr 11/30/24 09:05 11/30/24 14:35 11/30/24 14:50 Temperature 97.8 F 98 F Pulse Rate 81 68 66 Respiratory Rate 16 10 L 20 Blood Pressure 117/76 132/84 136/88 Pulse Oximetry 99 100 100 Oxygen Delivery Room Air Simple Face Mask Simple Face Mask Oxygen Flow Rate 8 8 11/30/24 15:01 11/30/24 15:05 11/30/24 15:20 Temperature Pulse Rate 69 75 Respiratory Rate 17 16 Blood Pressure 136/79 138/93 H Pulse Oximetry 98 97 Oxygen Delivery Room Air Room Air Room Air Oxygen Flow Rate 11/30/24 15:35 11/30/24 15:45 11/30/24 16:30 Temperature 97.7 F 97.6 F Pulse Rate 63 60 57 L Respiratory Rate 14 15 16 Blood Pressure 135/93 H 137/96 H 124/76 Pulse Oximetry 97 98 100 Oxygen Delivery Room Air Room Air Oxygen Flow Rate 11/30/24 16:30 11/30/24 19:31 11/30/24 21:00 Temperature 97.2 F L Pulse Rate 57 L 60 Respiratory Rate 16 18 Blood Pressure 135/86 Pulse Oximetry 100 100 Oxygen Delivery Room Air Room Air Oxygen Flow Rate 11/30/24 23:52 12/01/24 04:18 Temperature 98.0 F 97.5 F L Pulse Rate 54 L 65 Respiratory Rate 18 18 Blood Pressure 119/81 109/71 Pulse Oximetry 99 99 Oxygen Delivery Oxygen Flow Rate Intake/Output Intake/Output: Intake & Output 11/28/24 11/29/24 11/30/24 12/01/24 23:59 23:59 23:59 23:59 Intake Total 250 Output Total 350 Balance -100 Meds/Results Medications: Active Medications Generic Name Dose Route Start Last Admin Trade Name Freq PRN Reason Stop Dose Admin Acetaminophen 1,000 mg 11/30/24 18:00 12/01/24 04:28 Acetaminophen 500 Mg Tablet PO 1,000 mg Q6HR AL Administration Alprazolam 0.25 mg 11/30/24 21:00 11/30/24 22:10 Alprazolam (*Crx) 0.25 Mg Tablet PO 0.25 mg QHS AL Administration Amitriptyline HCl 10 mg 12/01/24 09:00 Amitriptyline Hcl 10 Mg Tablet PO DAILY [facility] Atorvastatin Calcium 20 mg 11/30/24 21:00 11/30/24 22:11 Atorvastatin 20 Mg Tablet PO 20 mg HS AL Administration Docusate Sodium 100 mg 11/30/24 17:00 11/30/24 16:19 Docusate Sodium 100 Mg Capsule PO 100 mg BID AL Administration Ergocalciferol 1,250 mcg 12/01/24 09:00 Ergocalciferol (Vitamin D2) 1,250 Mcg (50,000 Units) Capsule PO WEEKLY [facility] Escitalopram Oxalate 10 mg 12/01/24 09:00 Escitalopram Oxalate 10 Mg Tablet PO DAILY [facility] Fluticasone Propionate 1 spray 12/01/24 09:00 Fluticasone Propionate 0.05% Na Spr 16 Gm Btl (*Bkc) NASAL DAILY [facility] Hydroxyzine HCl 50 mg 11/30/24 15:48 Hydroxyzine Hcl 25 Mg Tablet PO Q6H PRN anxiety Dextrose/Sodium Chloride 1,000 mls @ 125 mls/hr 11/30/24 15:48 11/30/24 16:50 Dextrose 5% Sodium Chloride 0.45% IV CONT 125 mls/hr .Q8H AL Administration Ibuprofen 600 mg 12/01/24 12:00 Ibuprofen 600 Mg Tablet PO Q6HR AL Naloxone HCl 0.1 mg 11/30/24 15:48 Naloxone Hcl 0.4 Mg/Ml Vial IV PUSH Q2M PRN Respiratory rate less than 10 Ondansetron HCl 4 mg 11/30/24 15:48 Ondansetron Inj 4 Mg/2 Ml Vial IV PUSH Q6H PRN Nausea And Vomiting Oxycodone HCl 5 mg 11/30/24 15:48 Oxycodone Hcl (*Crx) 5 Mg Tab Ir PO Q4H PRN Pain Rated 4-6 Oxycodone HCl 10 mg 11/30/24 15:48 12/01/24 04:26 Oxycodone Hcl (*Crx) 5 Mg Tab Ir PO 10 mg Q6H PRN Administration Pain Rated 7-10 Simethicone 80 mg 11/30/24 17:00 11/30/24 16:19 Simethicone 80 Mg Tab.Chew PO 80 mg TIDWM AL Administration Sumatriptan Succinate 50 mg 11/30/24 15:48 Sumatriptan Succinate 25 Mg Tablet PO Q2H PRN migraine headache Labs Labs: Laboratory Results - last 24 hr 11/30/24 09:05 POC Urine HCG, Qual Negative
[2024-12-01 07:45] VITALS: BP 117/78; PULSE 81; RESP 16; TEMP 36.6; O2SAT 98
== END 2024-12-01 07:51 | disposition home or self-care (01) ==
LOC: ANHSURGERY 08:57 → ANHOB2 15:58
PROVIDERS: PCP Physician Assistant; Visit Provider Obstetrics & Gynecology
PROC: (CPT 58571; principal; 2024-11-30 11:30)
DX: N85.8 Other specified noninflammatory disorders of uterus (principal); R10.2 Pelvic and perineal pain; F17.290 Nicotine dependence, other tobacco product, uncomplicated; F12.90 Cannabis use, unspecified, uncomplicated; E66.9 Obesity, unspecified; Z68.36 Body mass index [BMI] 36.0-36.9, adult
CPT/HCPCS: 58571; S2900; 88307; 99199; A9270; J0690; J1100; J1885; J2003; J2250; J2405; J2704; J3010; J7030; J7120; Q9968

== ENCOUNTER 2024-12-05 15:56 | Emergency (ER) | payer OTHER, SELFPAY ==
--- NOTE | ~2024-12-05 | US_ITS ---
LEFT UPPER EXTREMITY VENOUS ULTRASOUND Ordering provider: Pete Mcelroy MD History: . Swelling at left wrist near iv site. . Comparison: None FINDINGS: --JUGULAR: Patent and free of thrombus. Normal compressibility, phasic flow and augmentation. --SUBCLAVIAN: Patent and free of thrombus. Normal compressibility, phasic flow and augmentation. --AXILLARY: Patent and free of thrombus. Normal compressibility, phasic flow and augmentation. --BRACHIAL: Patent and free of thrombus. Normal compressibility, phasic flow and augmentation. --CEPHALIC: Patent and free of thrombus. Normal compressibility, phasic flow and augmentation. --BASILIC: Patent and free of thrombus. Normal compressibility, phasic flow and augmentation. --RADIAL: Patent and free of thrombus. Normal compressibility, phasic flow and augmentation. --ULNAR: Patent and free of thrombus. Normal compressibility, phasic flow and augmentation. Superficial noncompressible vein is seen in the area of swelling. IMPRESSION: No deep vein thrombosis. Superficial vein which is noncompressible is seen in the area of the swelling. Reviewed, dictated and finalized at location A.
[2024-12-05 16:00] VITALS: BP 129/92; PULSE 73; RESP 16; TEMP 36.6; O2SAT 100
[2024-12-05 16:20] VITALS: BP 134/75; PULSE 77; RESP 20; TEMP 36.6; O2SAT 98
--- OUTSIDE RECORDS SUMMARY | 2024-12-05 16:34 | XMS_ITS | Encounter Summary ---
Author Organization [facility] Address [address] [place] [email or web address] [address] Phone Care Team Providers Care Health Information Technician Name Role Phone Alfredo Handley Primary Care Provider Gina Hastings ADJUNCT SPANISH INSTRUCTOR, MICROBIOLOGY ANALYST Unavailable Jennifer Leonard APRN, PRIVACY MANAGER Unavailable [phone] Reason for Visit * Reason Comments Medication Refill Encounter Details Date Type Department Care Team (Late st Contact Info) Description 06/17/2023 Refill [facility] - Neurology [facility] [address] [place] [address] Gina Hastings, ADJUNCT SPANISH INSTRUCTOR, MICROBIOLOGY ANALYST [address] [place] [address] Medication Refill Social History Tobacco Use Types [...] Charlene Zamorano RN - 06/17/2023 1:19 PM RODENT EXTERMINATOR Medication failed the protocol, provider to review [...] Dept 02/27/23 Office Visit Gina Hastings APRN, [facility] [place] Showing recent visits within past 365 days and meeting all other requirements Future Appointments Date Type Provider Dept 08/03/23 Appointment Gina Hastings APRN, [facility] [place] Showing future appointments within next 90 days and meeting all other requirements NT EXTERMINATOR documented in this encounter Plan of Treatment Not on file documented as of this encounter Visit Diagnoses Diagnosis Chronic migraine w/o aura, not intractable, w/o stat migr documented in this encounter Care Teams Health Information Technician Relationship Specialty Start Date End Date Alfredo Handley PAC [address] [place] [id number] PCP - General Physician Electrical Logging Operator 04/21/19 Gina Hastings APRN, MICROBIOLOGY ANALYST [address] [place] [address] Nurse Practitioner Advanced Practice Nurse 02/27/23 Jennifer Leonard APRN, PRIVACY MANAGER [address] [address] Nurse Practitioner Advanced Practice Nurse 02/18/24 documented as of this encounter
--- OUTSIDE RECORDS SUMMARY | 2024-12-05 16:34 | XMS_ITS | Data Portability ---
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 Plan of Treatment Reminders Order Date Submit Date Provider Last Modified By Organization Details Last Modified Time Details Appointments SURG POST OP 2024 11:45A Pankaj ESQUIVEL MD Not available Not available Not available Lab None recorded. Referral None recorded. Procedures None recorded. Surgeries robotic assisted hysterect lex with salpingec rubio (SURG) 2024 025 [facility], [address] [address], [place], [address], 11/30/2024 16:06:06 Imaging US, pelvis 2024 [address], [address], [place], [address], 09/23/2024 21:06:13 US, transvagi nal [address], [address], [place], [address], 09/23/2024 21:06:13 Medication Orders norethind toshia acetate 5 mg tablet [address] [facility], [address] [facility], [place], [address], 11/28/2024 11:39:11 Patient TargetsNo targets recorded. Patient InstructionsNo instructions recorded. Reason for Referral None Reported. Results Created Date Observation Date Name Description Value Unit Range Abnormal Flag Note LastModifiedBy Organization Detail LastModifiedTime 09/23/1909/22/2024 US, pelvi s No observ ation record ed. [email or web address] [facility] [address], [place], [address], 09/22/2024 15:12:29 09/23/1909/22/2024 US, trans vagin al No observ ation record ed. [email or web address] [facility] [address], [place], [address], 09/22/2024 15:12:42 09/23/19 25 09/22/2024 US, pelvi s No observ ation record ed. [email or web address] [address] [address], [place], [address], 09/22/2024 15:39:11 Result Notes None recorded. Problems Name Problem SNOMED Code Status Onset Date Resolution Date Notes Provider Name and Address Organization Details Recorded Time Pregnanc y 74924850 Completed 201908/24/2020 Aliza arrieta, [facility] 11:12:00 Past pregnanc y history of pre-ecla mpsia 05274237166 9100 Completed & GDM Aliza byrnel null, [facility] 11:11:55 Depressi ve disorder 15619079 Completed Aliza Allan ehl null, [facility] 11:11:55 Anxiety 63499502 Completed Aliza byrnel null, [facility] 11:11:54 delivery - delivere d 070957581 Completed 10# baby, to repeat ltcs - schd 08/15 Aliza byrnel berny [facility] 11:11:55 Herpes simplex 82057030 Active 2019 1&2 + - valtrex at 36 wks- rx sent 07/25 Aliza byrne null, [facility] 11:11:55 Herpes simplex 45818621 Completed 2019 1&2 + - valtrex at 36 wks- rx sent 07/25 Aliza byrne null, [facility] 11:11:55 Low lying placenta 260751270 Completed 201905/07/2020 RESOLVED Suyapa Avila [facility], [facility] 14:18:49 Problem Notes None recorded. Procedures Surgical History Date Name Laterality Status Provider Name and Address Organization Details Recorded Time 025 ROBOTIC ASSISTED HYSTERECTOMY WITH SALPINGECTOMY (SURG) completed Theresa Saba [facility] 12/01/2024 11:58:22 024 Date of Last Pap Smear completed Emily Delgado [facility] 09/16/2024 09:44:47 021 LAPAROSCOPY, DIAGNOSTIC (SURG) completed Kaitlynn Javed [facility] 05/30/2021 10:06:52 021 IUD Insertion completed Juaquin Esquivel MD [address], [place], [address], [facility] 10/12/2020 16:20:17 021 section completed Trice Torrez [facility] 10/17/2021 14:25:11 019 Colposcopy completed Coco Calero [facility] 03/07/2020 16:20:43 018 Cholecystectomy completed Re Guthrie [facility] 04/20/2020 12:27:35 018 Appendectomy completed Re Guthrie [facility] 04/20/2020 12:27:29 017 completed Yovana Camp [facility] 03/15/2021 15:28:20 017 Colonoscopy completed [facility] 04/20/2020 12:27:42 016 Dilation and Curettage completed [facility] 04/20/2020 12:27:48 Imaging Results None recorded. [...] Updated DateTime 09/16/2024 160.02 cm 38.3 kg/m2 18729.95 g 132 mm[Hg] 92 mm[Hg] Emily Delgado [facility] 5 09:43:23 Date Recorded Body height Body mass index (BMI) Body weight Systolic blood pressure Diastolic blood pressure Provider Name and Address Organization Details Last Updated DateTime 09/30/2024 160.02 cm 38.8 kg/m2 27163.73 g 118 mm[Hg] 80 mm[Hg] Theresa [facility] 5 11:39:48 Date Recorded Body height Body mass index (BMI) Body weight Systolic blood pressure Diastolic blood pressure Provider Name and Address Organization Details Last Updated DateTime 11/28/2024 160.02 cm 37.7 kg/m2 98689.17 g 114 mm[Hg] 76 mm[Hg] Theresa [facility] 5 11:39:01 Social History Question Answer Notes LastModified by Organizat ion Details LastModified Time Tobacco Smoking Status Former Smoker Re arrieta, [facility] 04/20/2020 12:26:57 If You Are , What Was Your Level Of Alcohol Consumption Prior To ? Occasional [email or web address] Information not available 07/18/2020 How Many Years Have You Consumed Alcohol? 17 [email or web address] Information not available 10/29/2023 Are You Blind Or Do You Have Difficulty Seeing? No Information not available 10/17/2021 What Is Your Level Of Caffeine Consumption? Occasional Information not available 04/28/2024 How Much Tobacco Do You Chew? None [email or web address] Information not available 10/29/2023 In The 14 Days Before Symptom Onset, Have You Had Close Contact With A Laboratory-confir med COVID-19 While That Case Was Ill? No [email or web address] Information not available 10/29/2023 In The 14 Days Before Symptom Onset, Have You Had Close Contact With A Person Who Is Under Investigation For COVID-19 While That Person Was Ill? No Information not available 10/29/2023 Have You Been To An Area Known To Be High Risk For COVID-19? No [email or web address] Information not available 10/29/2023 Are You Deaf Or Do You Have Serious Difficulty Hearing? No Information not available 10/17/2021 What Type Of Diet Are You Following? REGULAR Information not available 10/17/2021 Which Illicit Or Recreational Drugs Have You Used? Marijuana [email or web address] Information not available 07/18/2020 What Is The Highest Grade Or Level Of School You Have Completed Or The Highest Degree You Have Received? [id number] [email or web address] Information not available 10/29/2023 How Many Days Of Moderate To Strenuous Exercise, Like A Brisk Walk, Did You Do In The Last 7 Days? 2 Information not available 07/18/2020 On Those Days That You Engage In Moderate To Strenuous Exercise, How Many Minutes, On Average, Do You Exercise? 30 [email or web address] Information not available 07/18/2020 Are There Any Guns Present In Your Home? No [email or web address] Information not available 10/29/2023 How Many Years Have You Used Illicit Or Recreational Drugs? 1 [email or web address] Information not available 07/18/2020 What Was The Date Of Your Most Recent Tobacco Screening? 07/18/2020 [email or web address] Information not available 07/18/2020 What Is Your Current Pack Years? 10-19packyears Information not available 07/18/2020 Have You Ever Been Counseled For Unhealthy Alcohol Use? No [email or web address] Information not available 07/18/2020 Do You Use Protection During Sex? No [email or web address] Information not available 10/29/2023 Do You Use Your Seat Belt Or Car Seat Routinely? Yes [email or web address] Information not available 10/29/2023 Do You Have Smoke And Carbon Monoxide Detectors In Your Home? Yes [email or web address] Information not available 10/29/2023 At What Age Did You Start Smoking Tobacco? 28 [email or web address] Information not available 07/18/2020 How Much Tobacco Do You Smoke? No [email or web address] Information not available 04/20/2020 Do You Use Sunscreen Routinely? No [email or web address] Information not available 10/29/2023 Has Tobacco Cessation Counseling Been Provided? No [email or web address] Information not available 07/18/2020 How Many Years Have You Smoked Tobacco? 4 Information not available 04/28/2024 Have You Used IV Drugs? No [email or web address] Information not available 07/18/2020 Do You Have Difficulty Walking Or Climbing Stairs? No Information not available 10/17/2021 How Many Years Have You Used E-cigarettes Or Vape? 3 [email or web address] Information not available 07/18/2020 Sex: Unknown Functional Status Question Answer Note LastModified by Organizat ion Details LastModified Time Do you use any illicit or recreational drugs? Yes [email or web address] Information not available 07/18/2020 Do you or have you ever used any other forms of tobacco or nicotine? Yes [email or web address] Information not available 07/18/2020 What is your level of alcohol consumption? Occasional [email or web address] Information not available 04/20/2020 Do you or have you ever used smokeless tobacco? Never used smokeless tobacco [email or web address] Information not available 04/20/2020 Are you able to walk? YESWOREST Information not available 10/17/2021 Are you able to care for yourself? 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 No Information not available 10/17/2021 Do you or have you ever used e-cigarettes or vape? Former user of electronic cigarettes [email or web address] Information not available 07/18/2020 What is your exercise level? Moderate Information not available 04/28/2024 Mental Status Question Answer Note LastModified by Organization D etails LastModified Time Do you feel stressed (tense, restless, nervous, or anxious, or unable to sleep at night)? [id number] [email or web address] Information not available 10/29/2023 Family History Relationship Description Onset Age of this Age Resolved Age Notes LastModified by Organization Details LastModified Time Mother Asthma Not available 03/07/2020 16:24:16 Mother Hypertensive disorder Not available 2019 16:26:00 Mother Cyst of ovary [email or web address] Not available 2024 10:49:48 Father Asthma Not available 03/07/2020 16:24:16 Father Diabetes mellitus Not available 2019 16:25:30 Father Hypercholest erolemia Not available 2019 16:25:43 Father Hypertensive disorder Not available 2019 16:26:00 Father Malignant tumor of breast Not available 2019 16:54:19 Sister Asthma Not available 03/07/2020 16:24:16 Brother Asthma Not available 03/07/2020 16:24:16 Brother Seizure disorder [email or web address] Not available 2024 10:49:48 Maternal Grandmother Asthma [...] 2019 16:55:45 Maternal Aunt Cyst of ovary [email or web address] Not available 2024 10:49:48 Medical History Condition [...] SNOMED-CT Code Diagnosis ICD10 Code Diagnosis Note [id number] MD Rodo Wood [address] [address] 03/07/2020 16:07:20 03/07/2020 17:44:12 screening 426211733 Z36.9 Routine an tenatal care 194954168 Z34.82 [id number] MD Rodo Wood [address],[place] [address] 04/03/2020 13:14:36 04/03/2020 15:18:39 [id number] MD Rodo Wood [address],[place] [address] 04/03/2020 13:15:02 04/03/2020 15:00:53 screening for malformation 760431532 Z36.3 [id number] MD Rodo Wood [address],[place] [address] 04/03/2020 15:23:43 04/03/2020 15:52:06 Routine care 832360268 Z34.82 31438 Davina Castro [facility] [address],[place] [address] 04/20/2020 11:54:42 04/20/2020 15:03:56 Routine care 911379759 Z34.92 [id number] Juaquin Esquivel MD [facility] [address],[place] [address] 05/07/2020 17:28:36 05/08/2020 10:13:58 screening 021471364 Z36.2 Z3A.24 Low lying placenta 55873 2006 O44.40 11133 [facility] [address],[place] [address] 05/07/2020 17:29:52 05/08/2020 10:15:03 Routine care 113355140 Z34.92 [id number] MD Rodo Wood [address],[place] [address] 06/01/2020 13:57:40 06/01/2020 14:42:14 Routine care 867338090 Z34.82 [id number] MD Rodo Wood [address],[place] [address] 06/08/2020 10:10:15 06/08/2020 11:22:10 Routine care 230504242 Z34.82 16103 [facility] [address],[place] [address] 06/20/2020 12:12:51 06/20/2020 12:41:38 Routine care 197110337 Z34.92 s ection following previous section 989069647 O34.219 [id number] Juaquin Esquivel MD [facility] [address],[place] [address] 07/06/2020 10:07:46 07/06/2020 11:32:58 Routine care 530812527 Z34.82 [id number] Davina Castro [facility] [address],[place] [address] 07/18/2020 09:15:03 07/18/2020 10:02:29 Routine care 300952748 Z34.92 [id number] Davina Castro [facility] [address],[place] [address] 07/25/2020 11:29:51 07/25/2020 15:17:36 Herpes simplex 73270181 B00.9 Routine an tenatal care 330993556 Z34.92 95993 Jazmín Tamez [facility] [address],[place] [address] 08/02/2020 09:24:40 08/02/2020 10:21:07 Routine care 996185748 Z34.92 [id number] Juaquin Esquivel MD [facility] [address],[place] [address] 08/06/2020 10:14:47 08/06/2020 10:52:24 Uterine size for dates discrepancy 227876864 O26.843 Z3A.37 [id number] Juaquin Esquivel MD [facility] [address],[place] [address] 08/09/2020 10:18:21 08/09/2020 11:31:20 Routine care 468724910 Z34.82 [id number] Juaquin Esquivel MD [facility] [address],[place] [address] 08/09/2020 11:31:36 08/09/2020 12:32:29 Reduced movement 878617216 O36.8130 [id number] Juaquin Esquivel MD [facility] [address],[place] [address] 08/16/2020 10:50:06 08/16/2020 10:53:11 [id number] Juaquin Esquivel MD [facility] [address],[place] [address] 08/23/2020 10:36:13 08/23/2020 16:53:07 Postoperative care 547111152 Z48.89 this patient is a 29-year-ol d multipara presents forpostopf ollow-up. She is 1 weekpostop from a delivery. Her incision is clean dry and intact. She has no complaints . Her baby is doing well. She is doing well. Her bleeding is normal. She denies any nausea, vomiting, fever, chills. 23722 Juaquin Esquivel MD [facility] [address],[place] [address] 09/10/2020 16:54:07 09/11/2020 17:47:45 Complication of obstetrical surgical wound 64844695 O90.89 this patient is a 29-year-ol d [...] be placed in Radiology Department tomorrow afternoon. [id number] Juaquin Esquivel MD [facility] [address],[place] [address] 09/13/2020 10:33:41 09/13/2020 12:10:18 Postoperative pain 014448999 G89.18 this patient is a 29-year-ol d [...] this patient s visit, including available hand double cutter upon arrive, temperatur e check and being asked a series of screening questions. All staff wore face coverings during this encounter, as well as provided additional cleaning and sanitizing of all surfaces, including countertop s, pens, chairs, door handles, light switches, etc, prior to and following the patient s visit. [id number] Juaquin Esquivel MD [facility] [address] [address] 10/12/2020 15:23:36 10/12/2020 16:23:18 Contraception care management 420587391 Z30.9 IUD was inserted. She tolerated the procedure well. [id number] Juaquin Esquivel MD [facility] [address] [address] 11/21/2020 16:36:01 11/21/2020 17:24:33 Contraception care management 414907582 Z30.9 This patient is a 29-year-ol d who presents for IUD check. She has no complaints . She was examined with a speculum. The cervix appears normal, the IUD string appears normally placed, the IUD was not visible. She will follow up as needed. [id number] Juaquin Esquivel MD [facility] [address] [address] 01/18/2021 11:49:18 01/18/2021 12:48:54 Pain in pelvis 47859468 R10.2 This patient is a 30 -year-old [...] Immediatel y with nausea, vomiting, fever, chills. [id number] Juaquin Esquivel MD [facility] [address] [address] 02/06/2021 15:01:39 02/06/2021 15:50:25 Pain in pelvis 62985064 R10.2 This patient is a 30 -year-old [...] Immediatel y with nausea, vomiting, fever, chills. [id number] Juaquin Esquivel MD [facility] [address] [address] 02/14/2021 14:10:26 02/14/2021 15:09:15 Pain in pelvis 03295704 R10.2 Endometrio sis of pelvis 71754131 N80.3 this patient is a 30-year-ol d [...] month. She has Mirena for contracept ion. [id number] Juaquin Esquivel MD [facility] [address],[place] [address] 03/15/2021 15:11:24 03/15/2021 16:11:14 Pain in pelvis 32324315 R10.2 this patient is a 30-year-ol d [...] That could be done at that time. [id number] Juaquin Esquivel MD [facility] [address],[place] [address] 04/18/2021 16:45:37 04/19/2021 18:18:00 Pain in pelvis 51436543 R10.2 this patient is a 30-year-ol d [...] That could be done at that time. [id number] Juaquin Esquivel MD [facility] [address] [place] [address] 05/22/2021 15:53:02 05/27/2021 13:15:07 Pain in pelvis 68470280 R10.2 this patient is a 30-year-ol d female with longstandi ng pelvic pain. we have agreed to perform diagnostic laparoscop y. She understand s the risks, benefits, and alternativ es. She has completed the informed consent process and is ready to proceed. [id number] Juaquin Esquivel MD [facility] [address],[place] [address] 05/30/2021 09:47:51 05/30/2021 09:48:12 [id number] Juaquin Esquivel MD [facility] [address],[place] [address] 06/06/2021 17:17:49 06/07/2021 09:46:39 Postoperative care 878490776 Z48.89 This patient is a 30-year-ol d [...] and intact. She will follow-up as needed 63726 EUGENIA Alvarez [facility] [address],[place] [address] 10/17/2021 13:55:56 10/17/2021 15:21:27 Contraception care management 155950937 Z30.9 First menses since having IUD placed one year ago. Bleeding started one week ago, has now stopped. Bleeding is light. No other symptoms.Diana ureña discussed normal to have a light menses [...] and could risk harder removal if cut shorter)Vikram molina to log menses and call the office if any heavy bleeding or prolonged bleeding occurs.She agrees to this plan.Red flag symptoms discussed with patient. Time spent with patient was 25 minutes discussing the above. Venereal d isease screening 685093762 Z11.3 Intrauteri ne device check 862556709 Z30.431 [id number] Juaquin Esquivel MD [facility] [address] [address] 09/02/2023 17:12:52 09/02/2023 18:06:55 Polycystic ovary syndrome 275824315 E28.2 32-year-ol d female with history of PCOS. Reports weight gain and bloating. Feelings of malaise. She would like to be treated again for PCOS. We talked about treatment options. We talked about metformin and spironolac tone. Talked about weight loss. Talked about screening for other disease. We agreed to labs. We spent 20 minutes face-to-fa ce. More 50% was counseling . [id number] Juaquin Esquivel MD [facility] [address] [address] 10/28/2023 17:12:14 10/29/2023 06:04:16 Pain in pelvis 96781334 R10.2 patient is a 32-year-ol d female [...] was counseling . Abnormal u terine bleeding 3894704393 9100 N93.9 [id number] Juaquin Esquivel MD [facility] [address] [address] 10/29/2023 15:45:55 10/29/2023 16:49:23 Pain in pelvis 57935852 R10.2 patient is a 32-year-ol d female [...] ce. More than 50% was counseling . [id number] Juaquin Esquivel MD [facility] [address] [address] 10/29/2023 15:46:19 10/29/2023 17:37:43 Pain in pelvis 92949804 R10.2 a 32-year-ol d female who presents [...] ce. More than 50% was counseling . [id number] Juaquin sEquivel MD [facility] [address] [address] 04/28/2024 11:41:03 04/28/2024 13:49:54 Gynecologic examination 94045523 Z01.419 Annual gynecologi nayan exam performed. Patient [...] Pap smear- today laboratory evaluation - done [id number] PATRICK STAFFORD MD [facility] [address] [address] 09/16/2024 09:11:38 09/16/2024 10:49:14 Endometriosis of pelvis 96174262 N80.9 - long hx of endometrio sis [...] for symptom management until US follow up [id number] Juaquin Esquivel MD [facility] [address] [address] 09/22/2024 14:27:01 09/22/2024 15:18:35 Pain in pelvis 12775006 R10.2 a 32-year-ol d female who presents [...] ce. More than 50% was counseling . [id number] Juaquin Esquivel MD [facility] [address] [address] 09/30/2024 10:55:07 10/03/2024 08:39:32 Endometriosis of pelvis 67519300 N80.9 This patient is a 33-year-ol d [...] patient's care in total. Pain in pelvis 47782237 R10.2 a 32-year-ol d female who presents [...] More than 50% was counseling . Dyspareunia 61463459 N94 .10 Dysmenorrhea 922855960 N 94.6 [id number] Juaquin Esquivel MD [facility] [address] [address] 11/28/2024 10:49:44 11/28/2024 12:03:23 Pain in pelvis 64705939 R10.2 this patient is a 33-year-ol d female with pelvic pain and endometrio sis. We have agreed to perform robotic assisted total hysterecto my and bilateral salpingect lex. She understand s the risks, benefits, and alternativ es. She has completed The informed consent process and is ready to proceed. Endometrio sis (clinical) 771825336 N80.9 Health Concerns Section Related Observation LastModified by Organization Detai ls LastModified Time None Recorded Concern Status LastModified by Organization Details LastModified Time None Recorded Advance Directives Directive None Recorded Payers Encounter Date Sequence Insurance Name Policy Number Policy Witt Covered Member ID Witt Member ID Guarantor Name 09/16/2024 1 [facility] (MEDICAID HMO) [id number] Alexus Oto [id number] Alexus L Oto 09/22/2024 1 [facility] (MEDICAID HMO) [id number] Alexus Ro [id number] Alexus L Ro 09/30/2024 1 [facility] (MEDICAID HMO) [id number] Alexus Oto [id number] Alexus L Ro 11/28/2024 1 [facility] [place] ([place]ICAID H[place]) [id number] Alexus Ro [id number] Alexus L Ro Notes Date Note Type Note Provider Name and Address Organization Details Recorded Time 09/16/2024 text/html Patient presents for worsening abdominal [...] endometriosis. PATRICK STAFFORD MD [address], [place], [address], [facility] 09/16/2024 10:26:16 09/30/2024 text/html This patient [...] total. Juaquin Esquivel MD [address], [place], [address], [facility] 10/01/2024 13:02:39 11/28/2024 text/html this patient [...] infection. Juaquin Esquivel MD [address], [place], [address], [facility] 11/28/2024 12:03:12 OBGyn Episode Ob Episode Information Episode Created Date Number of Fetuses Patient Bloodtype Patient rh Status Prepregnancy Weight lbs Domestic Partner Domestic Partner Phone Father Name Pantograph Transferrer Status 03/07/20 20 1 B Positive 213 [...] Code Not e Past history of pre-eclampsia [id number] & GDM Depressive disorder 34587744 Anxiety 37159220 delivery - delivered 658337655 10# baby, to repeat ltcs - schd 08/15 Herpes simplex 01/24/2020 14181790 1&2 + - valtrex at 36 wks- [...] Weight in lbs Pre/Post Dialysis Refused Weight 218.288437916825 BP Diastolic BP Location Tested BP Systolic [...] Weight in lbs Pre/Post Dialysis Refused Weight 215.987099097198 BP Diastolic BP Location Tested BP Systolic BP Type 72 R arm 117 sitting Fetus Heart Rate Present Fetus Movement A Yes Comments Flowsheet Date 04/03/2020 Hood Score Blood Edema Fundus Height Fundus Units Glucose Ketones Leukocytes Nitrite Labor Signs Protein Cervic Dilation Cervic Effacement Cervic Station 19 trace Type Weight in lbs Pre/Post Dialysis Refused Weight 215.776044664066 BP Diastolic BP Location Tested BP Systolic [...] Weight in lbs Pre/Post Dialysis Refused Weight 219.996361744109 BP Diastolic BP Location Tested BP Systolic BP Type 72 108 Fetus Heart Rate Present A 145 Fetus Movement A Yes Comments ON PROBLEM [id number] PATIENT I S HERE FOR FOLLOW UP [...] Weight in lbs Pre/Post Dialysis Refused Weight 228.864726043689 BP Diastolic BP Location Tested BP Systolic [...] Weight in lbs Pre/Post Dialysis Refused Weight 227.806069981896 BP Diastolic BP Location Tested BP Systolic [...] Weight in lbs Pre/Post Dialysis Refused Weight 226.440180403797 BP Diastolic BP Location Tested BP Systolic [...] Weight in lbs Pre/Post Dialysis Refused Weight 228.240074493034 BP Diastolic BP Location Tested BP Systolic [...] Weight in lbs Pre/Post Dialysis Refused Weight 234.825008953797 BP Diastolic BP Location Tested BP Systolic [...] Weight in lbs Pre/Post Dialysis Refused Weight 236.649306736271 BP Diastolic BP Location Tested BP Systolic [...] Weight in lbs Pre/Post Dialysis Refused Weight 237.122376248772 BP Diastolic BP Location Tested BP Systolic [...] Weight in lbs Pre/Post Dialysis Refused Weight 241.32326470000 BP Diastolic BP Location Tested BP Systolic BP Type 67 136 Fetus Heart Rate Present A 127 Fetus Movement A Yes Comments Doing well. Still a little s ore in her back from recent fall. Was evaluated at [facility]. Taking flexeril. Growth u/s to be scheduled [...] Weight in lbs Pre/Post Dialysis Refused Weight 245.327348498648 BP Diastolic BP Location Tested BP Systolic [...] Weight in lbs Pre/Post Dialysis Refused Weight 222.86715426892 BP Diastolic BP Location Tested BP Systolic [...] At Estimated Date of Delivery false Thalassemia (St Helenian, Urdu, Mediterranean, Or Background): MCV < 80 false Neural Tube Defect (Meningom yelocele, Spina Bifida, Or Anencephaly) false Congenital Heart Defect false Down Syndrome false Gerson-Sachs (eg, Restorationism, Cajun, Pashto-Kennerdell) f alse Amina Disease false Sickle Cell Disease Or Trait () false Hemophilia Or Other Blood Disorders false Muscular Dystrophy false Cystic Fibrosis false Cambria's Chorea false Intellectual Disability/Autism false If Yes, [...] Domestic Partner Domestic Partner Phone Father Name Pantograph Transferrer Status 03/07/20 20 1 CLOSED Fetus Data [...] Domestic Partner Domestic Partner Phone Father Name Pantograph Transferrer Status 04/20/20 20 1 CLOSED Fetus Data [...] Domestic Partner Domestic Partner Phone Father Name Pantograph Transferrer Status 04/20/20 20 1 CLOSED Fetus Data [...] Complications Tubal Sterilization Discharge Date Comments 9 2018 [place] [facility] Discharge Information Feeding Method Contraceptive Method Maternal HG B and HCT Levels Ob Episode Information Episode Created Date Number of Fetuses Patient Bloodtype Patient rh Status Prepregnancy Weight lbs Domestic Partner Domestic Partner Phone Father Name Pantograph Transferrer Status 04/20/20 1 CLOSED Fetus Data First [...] Domestic Partner Domestic Partner Phone Father Name Pantograph Transferrer Status 04/20/20 1 CLOSED Fetus Data First [...]
--- OUTSIDE RECORDS SUMMARY | 2024-12-05 16:34 | XMS_ITS | Clinical Summary ---
Author Organization [facility] Address [address] [place] [address] Care Team Providers Care Used Car Renovator Name Role Phone Alfredo Handley Primary Care Provider [phone] David Escalera MD Unavailable [phone] Allergies No known active allergies Medications topiramate (TOPAMAX) 50 mg tabletIndications:C hronic migraine without aura without status migrainosus, not intractable Take half tablet (25 mg) po twice a day for one week, then one tablet po twice a day 60 tablet 3 2 Active rizatriptan CLIENT SUPPORT MANAGER (MAXALT-CLIENT SUPPORT MANAGER) 10 mg disintegrating tabletIndications:M igraine May repeat [...] 0430 this am. States she went to [facility] this morning but they did not do anything for her and told her to f/u with her primary care. Called [facility] and there is no record of her [...] on file Legal Sex Female 5:11 PM SUPERVISOR DRY CELL ASSEMBLY Gender Identity Not on file Sexual Orientation Not on file Obstetrics History Para Term AB IAB SAB Ectopic Multiple Livin g Live Births 1 Date Outcome GA Total Labor Labor/2nd/3rd Weight Sex Type Anes PTL Cecile A1 A5 Name Clin Last Filed Vital Signs Vital Sign Reading Time Taken Comments Blood Pressure 112/70 06/04/2022 1:31 PM SUPERVISOR DRY CELL ASSEMBLY Pulse 72 06/04/2022 1:31 PM SUPERVISOR DRY CELL ASSEMBLY Temperature 36.8 C (98.2 F) 09/10/2020 5:51 AM CDT Respiratory Rate 17 09/10/2020 6:15 AM CDT Oxygen Saturation 100% 06/04/2022 1:31 PM SUPERVISOR DRY CELL ASSEMBLY Inhaled Oxygen Concentration - - Weight 102.4 kg (225 lb 12.8 oz) 06/04/2022 1:31 PM SUPERVISOR DRY CELL ASSEMBLY Height 165.1 cm (5' 5) 06/04/2022 1:31 PM SUPERVISOR DRY CELL ASSEMBLY Body Mass Index 37.58 06/04/2022 1:31 PM SUPERVISOR DRY CELL ASSEMBLY Plan of Treatment Health Maintenance Due Date [...] exists Influenza Vaccine Discontinued 09/20/2016, 10/07/2013 Insurance [facility] Advance Directives For more information, please contact: [phone] * Full Code (Latest Code Status on File) Date Activated Date Inactivated Comments 09/17/2019 5:13 AM 09/17/2019 2:53 PM * Full Code Date Activated Date Inactivated Comments 09/10/2019 9:13 AM 09/10/2019 3:33 PM * Full Code Date Activated Date Inactivated Comments 10/26/2017 9:51 AM 10/26/2017 2:24 PM Care Teams Used Car Renovator Relationship Specialty Start Date End Date Alfredo Handley PA [address] [place] [address] PCP - General 09/03/19 David Escalera MD [address] [place] [address] Consulting Physician Obstetrics and Gynecology 09/17/19
--- OUTSIDE RECORDS SUMMARY | 2024-12-05 16:34 | XMS_ITS | Clinical Summary ---
Author Organization [facility] Address [address] [place] [address] Phone Care Team Providers Care Pressure Supervisor Name Role Phone Alfredo Handley Primary Care Provider [phone] Gina Hastings APRN, PANEL BEATER Unavailable + [phone] Jennifer Leonard APRN, [employer] OFFICER Unavailable [phone] Allergies No known active allergies Medications amitriptyline [...] 09/19/2024 7:40 PM CDT Emergency [facility] Emergency [address] [facility] [place] [address] Darlene Morales APRN, [employer] OFFICER Pelvic pain Discharge Disposition: Discharged to home [...] 09/19/2024 4:02 PM CDT Plan of Treatment Health Maintenance Due Date Last Done Comments Pneumococcal Immunization Combined (1 of 2 - PCV) 12/29/2010 Pap Smear 12/29/2012 Cervical Cancer Screening (CCS) 12/29/2021 HPV/Cotest 12/29/2021 SARS-COV-2 Immunization ( season) 2024 Influenza Immunization (Season Ended) 2025 [...] HEPATITIS C ANTIBODY STAT 07/13/2019 7:26 PM TIMING MACHINE OPERATOR from Last 3 Months or Most Recently [...] Lino Perdomo M.D. MM: MM Report ID: [id number] [place] Location: [id number] Procedure Note Lino Perdomo MD - 09/19/2024 [...] Lino Perdomo M.D. MM: MM Report ID: [id number] [place] Location: [id number] IMPRESSION: No acute finding. Mild hepatic steatosis. Darlene Morales APRN, CNP IM CT ORDERABLES Final Result * POCT Urine HCG () (09/19/2024 5:24 PM CDT) POC URINE Negative POC URINE CONTROL Velocity [place]ooter Pass Urine 09/19/2024 5:24 PM CDT Darlene Morales APRN, CNP POINT OF CARE TEST ING (MANUAL) Final Result * (ABNORMAL) Urinalysis w/ Reflex (09/19/2024 5:21 PM CDT) [facility] SPECIFIC GRAVITY 1.010 1.003 - 1.030 09/19/2024 5:56 PM CDT [facility] URINE PH 6.0 5.0 - 9.0 09/19/2024 5:56 PM CDT [facility] WBC ESTERASE Negative Negative 09/19/2024 5:56 PM CDT [facility] NITRITE Negative Negative 09/19/2024 5:56 PM CDT [facility] PROTEIN, RANDOM URINE 15 mg/dL(A) Negative 09/19/2024 5:56 PM CDT [facility] URINE GLUCOSE, QUAL Negative Negative 09/19/2024 5:56 PM CDT [facility] URINE KETONES Negative Negative 09/19/2024 5:56 PM CDT [facility] UROBILINOGEN Normal Normal mg/dL 09/19/2024 5:56 PM CDT [facility] URINE BLOOD Negative Negative felicia/ul 09/19/2024 5:56 PM CDT [facility] URINALYSIS COLOR Yellow 09/20/19 5:56 PM CDT [facility] URINALYSIS CLARITY Clear 09/19/2024 5:56 PM CDT [facility] Urine URINE SPECIMEN / Unknown Non-Phlebotomy Collection / Unknown 09/19/2024 5:21 PM CDT 09/19/2024 5:48 PM CDT us Darlene Morales APRN, CNP URINE ORDERABLES F inal Result [facility] [address] [place] [address] * (ABNORMAL) CBC with Auto Differential (09/19/2024 4:07 PM CDT) [facility] WBC 12.18(H) 4.00 - 12.00 10(3)/mcL 09/19/2024 4:20 PM CDT [facility] RBC 5.06 3.80 - 5.30 10(6)/mcL 09/19/2024 4:20 PM CDT [facility] HEMOGLOBIN (HGB) 14.9 12.0 - 15.8 g/dL 09/19/2024 4:20 PM CDT [facility] HEMATOCRIT (HCT) 43.5 36.0 - 47.0 % 09/19/2024 4:20 PM CDT [facility] MCV 86.0 82.0 - 96.0 fL 09/19/2024 4:20 PM CDT [facility] MCH 29.4 26.0 - 34.0 pg 09/19/2024 4:20 PM CDT [facility] MCHC 34.3 31.0 - 36.0 g/dL 09/19/2024 4:20 PM CDT [facility] PLATELET COUNT 268 140 - 440 10(3)/[facility] 09/19/2024 4:20 PM CDT [facility] RDW 11.9 11.8 - 15.5 % 09/19/2024 4:20 PM CDT [facility] MPV 10.4 9.7 - 12.4 fL 09/19/2024 4:20 PM CDT [facility] NEUTROPHILS 61.3 47.0 - 73.0 % 09/19/2024 4:20 PM CDT [facility] LYMPHOCYTES 31.9 18.0 - 42.0 % 09/19/2024 4:20 PM CDT [facility] MONOCYTES 4.7 4.0 - 12.0 % 09/19/2024 4:20 PM CDT [facility] EOSINOPHILS 1.4 0.0 - 5.0 % 09/19/2024 4:20 PM CDT [facility] BASOPHILS 0.7 0.0 - 1.0 % 09/19/2024 4:20 PM CDT [facility] ABSOLUTE NEUTROPHILS 7.48 1.60 - 7.70 10(3)/mcL 09/19/2024 4:20 PM CDT [facility] ABSOLUTE LYMPHOCYTES 3.88(H) 1.30 - 3.20 10(3)/[facility] 09/19/2024 4:20 PM CDT [facility] ABSOLUTE MONOCYTES 0.57 0.20 - 1.00 10(3)/[facility] 09/19/2024 4:20 PM CDT [facility] ABSOLUTE EOSINOPHIL 0.17 0.00 - 0.40 10(3)/[facility] 09/19/2024 4:20 PM CDT [facility] ABSOLUTE BASOPHILS 0.08 0.00 - 0.10 10(3)/[facility] 09/19/2024 4:20 PM CDT [facility] NRBC PER 100 WBC 0 09/20/19 4:20 PM CDT [facility] Blood Venipuncture / Unknown 09/19/2024 4:07 PM CDT 09/19/2024 4:16 PM CDT us Darlene Morales APRN, CNP HEMATOLOGY ORDERAB LES Final Result [facility] [address] [place] [address] * (ABNORMAL) CMP (09/19/2024 4:07 PM CDT) SODIUM 141 136 - 145 mmol/L 09/19/2024 4:36 PM CDT [facility] POTASSIUM 3.8 3.5 - 5.1 mmol/L 09/19/2024 4:36 PM CDT [facility] CHLORIDE 106 98 - 107 mmol/L 09/19/2024 4:36 PM CDT [facility] CO2, VENOUS 27 22 - 30 mmol/L 09/19/2024 4:36 PM CDT [facility] ANION GAP 11.8 <18.0 mmol/L 09/19/2024 4:36 PM T [facility] GLUCOSE 127(H) 70 - 99 mg/dL 09/19/2024 4:36 PM T [facility] BUN 8 5 - 18 mg/dL 09/19/2024 4:36 PM [facility] CREATININE, BLOOD 0.73 0.60 - 1.00 mg/dL 09/19/2024 4:36 PM T [facility] BUN/CREATININE RATIO 11(L) 12 - 20 ratio 09/19/2024 4:36 PM T [facility] TOTAL PROTEIN 8.1(H) 6.0 - 8.0 g/dL 09/19/2024 4:36 PM T [facility] ALBUMIN 4.5 3.5 - 5.0 g/dL 09/19/2024 4:36 PM [facility] A/G RATIO 1.3 1.0 - 2.2 09/19/2024 4:36 PM T [facility] CALCIUM 9.6 8.7 - 10.5 mg/dL 09/19/2024 4:36 PM T [facility] T BILI 0.4 0.2 - 1.2 mg/dL 09/19/2024 4:36 PM [facility] SGOT (AST) 23 <43 U/L 09/19/2024 4:36 PM [facility] SGPT (ALT) 39 <56 U/L 09/19/2024 4:36 PM [facility] ALKALINE PHOSPHATASE 97 40 - 150 U/L 09/19/2024 4:36 PM [facility] GFR, ESTIMATED >60 >=60 09/19/2024 4:36 PM [facility] Comment: Creatinine Clearance is the preferred criteria for selecting drug dose adjustments in renally impaired patients. The GFR is provided as additional pertinent clinical information. GFR is reported in mL/min/1.73 sq m. Calculation based on the Chronic Kidney Disease Epidemiology Collaboration (CKD- EPI) equation refit without adjustment for race. GFR, EST. >60 >=60 025 4:36 PM CDT [facility] GFR, EST. NONAFRICAN >60 >=60 09/19/2024 4:36 PM CDT [facility] Blood Venipuncture / Unknown 09/19/2024 4:07 PM CDT 09/19/2024 4:16 PM CDT us Darlene Morales APRN, [employer] OFFICER CHEMISTRY ORDERABL ES Final Result Performing Organization Address [facility]/ZIP Co de Phone Number [facility] [address] [place] [address] * Hepatitis C (Hcv) Antibody (07/13/2019 7:26 PM TIMING MACHINE OPERATOR) hepatitis C antibody 0.18 <1 S/CO 07/14/2019 2:47 PM TIMING MACHINE OPERATOR [facility] Comment: Signal/Cutoff ratio < 0.79 is Nondetected Signal/Cutoff ratio 0.80-0.99 is Grayzone Signal/Cutoff ratio > 0.99 is Detected Supplemental assays are recommended if signal/cutoff ratio is >/=1.00. Signal/cutoff ratio result >/= 5.00 is 97% predictive of positivity for recombinant immunoblot assay (RIBA) and will be reported to the [place] Department of Public Health as required. Blood specimen (specimen) Butterfly Puncture / Unknown 07/13/2019 7:26 PM TIMING MACHINE OPERATOR 07/13/2019 7:46 PM TIMING MACHINE OPERATOR us Sonya Askew Page PAC CHEMISTRY ORDERABLES Final R esult [facility] [address] [place] [address], from Last 3 Months or Most Recently [...] measures to stabilize the patient. Care Teams Pressure Supervisor Relationship Specialty Start Date End Date Alfredo Handley, [facility] [address] [place] [address] PCP - General Physician Culinary Director 04/21/19 Gina Hastings APRN, PANEL BEATER [address] [place] [address] Nurse Practitioner Advanced Practice Nurse 02/27/23 Jennifer Leonard APRN, [employer] OFFICER [address] [address] Nurse Practitioner Advanced Practice Nurse 02/18/24
--- OUTSIDE RECORDS SUMMARY | 2024-12-05 16:34 | XMS_ITS | Referral Summary ---
Author Organization [facility] Address [address] [place] [address] Care Team Providers Care Bottle House Quality Control Technician Name Role Phone Alfredo Handley Primary Care Provider [phone] David Escalera MD Unavailable [phone] Allergies No known active allergies Medications topiramate (TOPAMAX) 50 mg tabletIndications:C hronic migraine without aura without status migrainosus, not intractable Take half tablet (25 mg) po twice a day for one week, then one tablet po twice a day 60 tablet 3 2 Active rizatriptan CHIMNEY SWEEPER (MAXALT-CHIMNEY SWEEPER) 10 mg disintegrating tabletIndications:M igraine May repeat [...] 0430 this am. States she went to [facility] this morning but they did not do anything for her and told her to f/u with her primary care. Called [facility] and there is no record of her [...] on file Legal Sex Female 5:11 PM GEAR GENERATOR SET UP OPERATOR Gender Identity Not on file Sexual Orientation Not on file Last Filed Vital Signs Vital Sign Reading Time Taken Comments Blood Pressure 112/70 06/04/2022 1:31 PM GEAR GENERATOR SET UP OPERATOR Pulse 72 06/04/2022 1:31 PM GEAR GENERATOR SET UP OPERATOR Temperature 36.8 C (98.2 F) 09/10/2020 5:51 AM CDT Respiratory Rate 17 09/10/2020 6:15 AM CDT Oxygen Saturation 100% 06/04/2022 1:31 PM GEAR GENERATOR SET UP OPERATOR Inhaled Oxygen Concentration - - Weight 102.4 kg (225 lb 12.8 oz) 06/04/2022 1:31 PM GEAR GENERATOR SET UP OPERATOR Height 165.1 cm (5' 5) 06/04/2022 1:31 PM GEAR GENERATOR SET UP OPERATOR Body Mass Index 37.58 06/04/2022 1:31 PM GEAR GENERATOR SET UP OPERATOR Plan of Treatment Not on file Insurance [facility] Advance Directives For more information, please contact: [phone] * Full Code (Latest Code Status on File) Date Activated Date Inactivated Comments 09/17/2019 5:13 AM 09/17/2019 2:53 PM * Full Code Date Activated Date Inactivated Comments 09/10/2019 9:13 AM 09/10/2019 3:33 PM * Full Code Date Activated Date Inactivated Comments 10/26/2017 9:51 AM 10/26/2017 2:24 PM Care Teams Bottle House Quality Control Technician Relationship Specialty Start Date End Date Alfredo Handley PA [address] [place] [address] PCP - General 09/03/19 David Escalera MD [address] [place] [address] Consulting Physician Obstetrics and Gynecology 09/17/19
--- OUTSIDE RECORDS SUMMARY | 2024-12-05 17:08 | XMS_ITS | Clinical Summary ---
Author Organization [facility] Address [address] [place] [address] Care Team Providers Care Zigzag Elastic Attacher Name Role Phone Alrfedo Handley Primary Care Provider [phone] David Escalera MD Unavailable [phone] Allergies No known active allergies Medications topiramate (TOPAMAX) 50 mg tabletIndications:C hronic migraine without aura without status migrainosus, not intractable Take half tablet (25 mg) po twice a day for one week, then one tablet po twice a day 60 tablet 3 2 Active rizatriptan PROJECT ADMINISTRATOR (MAXALT-PROJECT ADMINISTRATOR) 10 mg disintegrating tabletIndications:M igraine May repeat [...] 0430 this am. States she went to [facility] this morning but they did not do anything for her and told her to f/u with her primary care. Called [place] and there is no record of her [...] on file Legal Sex Female 5:11 PM LEATHER LACER Gender Identity Not on file Sexual Orientation Not on file Obstetrics History Para Term AB IAB SAB Ectopic Multiple Livin g Live Births 1 Date Outcome GA Total Labor Labor/2nd/3rd Weight Sex Type Anes PTL Cecile A1 A5 Name Clin Last Filed Vital Signs Vital Sign Reading Time Taken Comments Blood Pressure 112/70 06/04/2022 1:31 PM LEATHER LACER Pulse 72 06/04/2022 1:31 PM LEATHER LACER Temperature 36.8 C (98.2 F) 09/10/2020 5:51 AM CDT Respiratory Rate 17 09/10/2020 6:15 AM CDT Oxygen Saturation 100% 06/04/2022 1:31 PM LEATHER LACER Inhaled Oxygen Concentration - - Weight 102.4 kg (225 lb 12.8 oz) 06/04/2022 1:31 PM LEATHER LACER Height 165.1 cm (5' 5) 06/04/2022 1:31 PM LEATHER LACER Body Mass Index 37.58 06/04/2022 1:31 PM LEATHER LACER Plan of Treatment Health Maintenance Due Date [...] exists Influenza Vaccine Discontinued 09/20/2016, 10/07/2013 Insurance [facility] Advance Directives For more information, please contact: [phone] * Full Code (Latest Code Status on File) Date Activated Date Inactivated Comments 09/17/2019 5:13 AM 09/17/2019 2:53 PM * Full Code Date Activated Date Inactivated Comments 09/10/2019 9:13 AM 09/10/2019 3:33 PM * Full Code Date Activated Date Inactivated Comments 10/26/2017 9:51 AM 10/26/2017 2:24 PM Care Teams Zigzag Elastic Attacher Relationship Specialty Start Date End Date Alfredo Handley PA [address] [place] [address] PCP - General 09/03/19 David Escalera MD [address] [place] [address] Consulting Physician Obstetrics and Gynecology 09/17/19
--- OUTSIDE RECORDS SUMMARY | 2024-12-05 17:08 | XMS_ITS | Referral Summary ---
Author Organization [facility] Address [address] [place] [address] Care Team Providers Care High School Mathematics Teacher Name Role Phone Alfredo Handley Primary Care Provider [phone] David Escalera MD Unavailable [phone] Allergies No known active allergies Medications topiramate (TOPAMAX) 50 mg tabletIndications:C hronic migraine without aura without status migrainosus, not intractable Take half tablet (25 mg) po twice a day for one week, then one tablet po twice a day 60 tablet 3 2 Active rizatriptan LOCK AND DAM EQUIPMENT REPAIRER (MAXALT-LOCK AND DAM EQUIPMENT REPAIRER) 10 mg disintegrating tabletIndications:M igraine May repeat [...] 0430 this am. States she went to [facility] this morning but they did not do anything for her and told her to f/u with her primary care. Called [place] and there is no record of her [...] on file Legal Sex Female 5:11 PM PREANALYTICS TEAM LEAD Gender Identity Not on file Sexual Orientation Not on file Last Filed Vital Signs Vital Sign Reading Time Taken Comments Blood Pressure 112/70 06/04/2022 1:31 PM PREANALYTICS TEAM LEAD Pulse 72 06/04/2022 1:31 PM PREANALYTICS TEAM LEAD Temperature 36.8 C (98.2 F) 09/10/2020 5:51 AM CDT Respiratory Rate 17 09/10/2020 6:15 AM CDT Oxygen Saturation 100% 06/04/2022 1:31 PM PREANALYTICS TEAM LEAD Inhaled Oxygen Concentration - - Weight 102.4 kg (225 lb 12.8 oz) 06/04/2022 1:31 PM PREANALYTICS TEAM LEAD Height 165.1 cm (5' 5) 06/04/2022 1:31 PM PREANALYTICS TEAM LEAD Body Mass Index 37.58 06/04/2022 1:31 PM PREANALYTICS TEAM LEAD Plan of Treatment Not on file Insurance [facility] Advance Directives For more information, please contact: [phone] * Full Code (Latest Code Status on File) Date Activated Date Inactivated Comments 09/17/2019 5:13 AM 09/17/2019 2:53 PM * Full Code Date Activated Date Inactivated Comments 09/10/2019 9:13 AM 09/10/2019 3:33 PM * Full Code Date Activated Date Inactivated Comments 10/26/2017 9:51 AM 10/26/2017 2:24 PM Care Teams [employer] Mathematics Teacher Relationship Specialty Start Date End Date Alfredo Handley PA [address] [place] [address] PCP - General 09/03/19 David Escalera MD [address] [place] [address] Consulting Physician Obstetrics and Gynecology 09/17/19
--- OUTSIDE RECORDS SUMMARY | 2024-12-05 17:08 | XMS_ITS | Encounter Summary ---
Author Organization [facility] Address [address] [place] [address] [place] [address] Phone Care Team Providers Care Monotype Caster Name Role Phone Alfredo Handley Primary Care Provider [phone] Gina Hastings REMEDIAL MASSEUR, TIRE SPECIALIST Unavailable Jennifer Leonard APRN, SALES PERSON Unavailable [phone] Reason for Visit * Reason Comments Medication Refill Encounter Details Date Type Department Care Team (Late st Contact Info) Description 06/17/2023 Refill [facility] - [facility] [address] [place] [address] Gina Hastings, REMEDIAL MASSEUR, TIRE SPECIALIST [address] [place] [address] Medication Refill Social History Tobacco Use Types [...] Charlene Zamorano RN - 06/17/2023 1:19 PM SAXOPHONE ASSEMBLER Medication failed the protocol, provider to review [...] Dept 02/27/23 Office Visit Gina Hastings APRN, [facility] Neurology [place] Showing recent visits within past 365 days and meeting all other requirements Future Appointments Date Type Provider Dept 08/03/23 Appointment Gina Hastings APRN, [facility]rology [place] Showing future appointments within next 90 days and meeting all other requirements PHONE ASSEMBLER documented in this encounter Plan of Treatment Not on file documented as of this encounter Visit Diagnoses Diagnosis Chronic migraine w/o aura, not intractable, w/o stat migr documented in this encounter Care Teams Monotype Caster Relationship Specialty Start Date End Date Alfredo Handley PAC [address] [place] [address] PCP - General Physician Shoe Reconditioner 04/21/19 Gina Hastings APRN, TIRE SPECIALIST [address] [place] [address] Nurse Practitioner Advanced Practice Nurse 02/27/23 Jennifer Leonard APRN, SALES PERSON [address] [address] Nurse Practitioner Advanced Practice Nurse 02/18/24 documented as of this encounter
--- OUTSIDE RECORDS SUMMARY | 2024-12-05 17:08 | XMS_ITS | Clinical Summary ---
Author Organization [facility] Address [address] [place] [address] Phone Care Team Providers Care Catering Administrative Assistant Name Role Phone Alfredo Handley Primary Care Provider [phone] Gina Hastings APRN, LEGAL SUPPORT MANAGER Unavailable + [phone] Jennifer Leonard APRN, SENIOR HARDWARE ENGINEER Unavailable [phone] Allergies No known active allergies Medications amitriptyline [...] 09/19/2024 7:40 PM CDT Emergency [facility] Emergency [address] [facility] [place] [address] Darlene Morales APRN, SENIOR HARDWARE ENGINEER Pelvic pain Discharge Disposition: Discharged to home [...] HEPATITIS C ANTIBODY STAT 07/13/2019 7:26 PM [facility] PULP from Last 3 Months or Most Recently [...] Lino Perdomo M.D. MM: MM Report ID: [id number] Reading Location: [id number] Procedure Note Lino Perdomo MD - 09/19/2024 [...] Lino Perdomo M.D. MM: MM Report ID: [id number] Reading Location: [id number] IMPRESSION: No acute finding. Mild hepatic steatosis. Darlene Morales APRN, CNP IM CT ORDERABLES Final Result * POCT Urine HCG () (09/19/2024 5:24 PM CDT) POC URINE Negative POC URINE CONTROL [employer] [place] Urine 09/19/2024 5:24 PM CDT Darlene Morales APRN, CNP POINT OF CARE TEST ING (MANUAL) Final Result * (ABNORMAL) Urinalysis w/ Reflex (09/19/2024 5:21 PM CDT) [facility] SPECIFIC GRAVITY 1.010 1.003 - 1.030 09/19/2024 5:56 PM CDT [facility] URINE PH 6.0 5.0 - 9.0 09/19/2024 5:56 PM CDT [facility] WBC ESTERASE Negative Negative 09/19/2024 5:56 PM CDT [facility] NITRITE Negative Negative 09/19/2024 5:56 PM CDT [facility] PROTEIN, RANDOM URINE 15 mg/dL(A) Negative 09/19/2024 5:56 PM CDT [facility] URINE GLUCOSE, QUAL Negative Negative 09/19/2024 5:56 PM CDT [facility] URINE KETONES Negative Negative 09/19/2024 5:56 PM CDT [facility] UROBILINOGEN Normal Normal mg/dL 09/19/2024 5:56 PM CDT [facility] URINE BLOOD Negative Negative felicia/ul 09/19/2024 5:56 PM CDT [facility] URINALYSIS COLOR Yellow 09/20/19 5:56 PM CDT [facility] URINALYSIS CLARITY Clear 09/19/2024 5:56 PM CDT [facility] Urine URINE SPECIMEN / Unknown Non-Phlebotomy Collection / Unknown 09/19/2024 5:21 PM CDT 09/19/2024 5:48 PM CDT us Darlene Morales APRN, CNP URINE ORDERABLES F inal Result [facility] [address] [place] [address] * (ABNORMAL) CBC with Auto Differential (09/19/2024 4:07 PM CDT) [facility] WBC 12.18(H) 4.00 - 12.00 10(3)/mcL 09/19/2024 4:20 PM CDT [facility] RBC 5.06 3.80 - 5.30 10(6)/mcL 09/19/2024 4:20 PM CDT [facility] HEMOGLOBIN (HGB) 14.9 12.0 - 15.8 g/dL 09/19/2024 4:20 PM CDT [facility] HEMATOCRIT (HCT) 43.5 36.0 - 47.0 % 09/19/2024 4:20 PM CDT [facility] MCV 86.0 82.0 - 96.0 fL 09/19/2024 4:20 PM CDT [facility] MCH 29.4 26.0 - 34.0 pg 09/19/2024 4:20 PM CDT [facility] MCHC 34.3 31.0 - 36.0 g/dL 09/19/2024 4:20 PM CDT [facility] PLATELET COUNT 268 140 - 440 10(3)/[facility] 09/19/2024 4:20 PM CDT [facility] RDW 11.9 11.8 - 15.5 % 09/19/2024 4:20 PM CDT [facility] MPV 10.4 9.7 - 12.4 fL 09/19/2024 4:20 PM CDT [facility] NEUTROPHILS 61.3 47.0 - 73.0 % 09/19/2024 4:20 PM CDT [facility] LYMPHOCYTES 31.9 18.0 - 42.0 % 09/19/2024 4:20 PM CDT [facility] MONOCYTES 4.7 4.0 - 12.0 % 09/19/2024 4:20 PM CDT [facility] EOSINOPHILS 1.4 0.0 - 5.0 % 09/19/2024 4:20 PM CDT [facility] BASOPHILS 0.7 0.0 - 1.0 % 09/19/2024 4:20 PM CDT [facility] ABSOLUTE NEUTROPHILS 7.48 1.60 - 7.70 10(3)/mcL 09/19/2024 4:20 PM CDT [facility] ABSOLUTE LYMPHOCYTES 3.88(H) 1.30 - 3.20 10(3)/[facility] 09/19/2024 4:20 PM CDT [facility] ABSOLUTE MONOCYTES 0.57 0.20 - 1.00 10(3)/[facility] 09/19/2024 4:20 PM CDT [facility] ABSOLUTE EOSINOPHIL 0.17 0.00 - 0.40 10(3)/[facility] 09/19/2024 4:20 PM CDT [facility] ABSOLUTE BASOPHILS 0.08 0.00 - 0.10 10(3)/[facility] 09/19/2024 4:20 PM CDT [facility] NRBC PER 100 WBC 0 09/20/19 4:20 PM CDT [facility] Blood Venipuncture / Unknown 09/19/2024 4:07 PM CDT 09/19/2024 4:16 PM CDT us Darlene Morales APRN, CNP HEMATOLOGY ORDERAB LES Final Result [facility] [address] [place] [address] * (ABNORMAL) CMP (09/19/2024 4:07 PM CDT) SODIUM 141 136 - 145 mmol/L 09/19/2024 4:36 PM CDT [facility] POTASSIUM 3.8 3.5 - 5.1 mmol/L 09/19/2024 4:36 PM CDT [facility] CHLORIDE 106 98 - 107 mmol/L 09/19/2024 4:36 PM CDT [facility] CO2, VENOUS 27 22 - 30 mmol/L 09/19/2024 4:36 PM CDT [facility] ANION GAP 11.8 <18.0 mmol/L 09/19/2024 4:36 PM T [facility] GLUCOSE 127(H) 70 - 99 mg/dL 09/19/2024 4:36 PM T [facility] BUN 8 5 - 18 mg/dL 09/19/2024 4:[address] [facility] CREATININE, BLOOD 0.73 0.60 - 1.00 mg/dL 09/19/2024 4:36 PM T [facility] BUN/CREATININE RATIO 11(L) 12 - 20 ratio 09/19/2024 4:36 PM T [facility] TOTAL PROTEIN 8.1(H) 6.0 - 8.0 g/dL 09/19/2024 4:36 PM T [facility] ALBUMIN 4.5 3.5 - 5.0 g/dL 09/19/2024 4:[address] [facility] A/G RATIO 1.3 1.0 - 2.2 09/19/2024 4:36 PM T [facility] CALCIUM 9.6 8.7 - 10.5 mg/dL 09/19/2024 4:36 PM T [facility] T BILI 0.4 0.2 - 1.2 mg/dL 09/19/2024 4:[address] [facility] SGOT (AST) 23 <43 U/L 09/19/2024 4:[address] [facility] SGPT (ALT) 39 <56 U/L 09/19/2024 4:[address] [facility] ALKALINE PHOSPHATASE 97 40 - 150 U/L 09/19/2024 4:[address] [facility] GFR, ESTIMATED >60 >=60 09/19/2024 4:[address] [facility] Comment: Creatinine Clearance is the preferred criteria for selecting drug dose adjustments in renally impaired patients. The GFR is provided as additional pertinent clinical information. GFR is reported in mL/min/1.73 sq m. Calculation based on the Chronic Kidney Disease Epidemiology Collaboration (CKD- EPI) equation refit without adjustment for race. GFR, EST. >60 >=60 025 4:36 PM CDT [facility] GFR, EST. NONAFRICAN >60 >=60 09/19/2024 4:36 PM CDT [facility] Blood Venipuncture / Unknown 09/19/2024 4:07 PM CDT 09/19/2024 4:16 PM CDT us Darlene Morales APRN, SENIOR HARDWARE ENGINEER CHEMISTRY ORDERABL ES Final Result Performing Organization Address City/[facility]/ZIP Co de Phone Number [facility] [address] [place] [address] * Hepatitis C (Hcv) Antibody (07/13/2019 7:26 PM [facility]) hepatitis C antibody 0.18 <1 S/CO 07/14/2019 2:47 PM [facility] PULP [facility] Comment: Signal/Cutoff ratio < 0.79 is Nondetected Signal/Cutoff ratio 0.80-0.99 is Grayzone Signal/Cutoff ratio > 0.99 is Detected Supplemental assays are recommended if signal/cutoff ratio is >/=1.00. Signal/cutoff ratio result >/= 5.00 is 97% predictive of positivity for recombinant immunoblot assay (RIBA) and will be reported to the [place] Department of Public Health as required. Blood specimen (specimen) Butterfly Puncture / Unknown 07/13/2019 7:26 PM [facility] PULP 07/13/2019 7:46 PM [facility] PULP us Sonya Askew Page PAC CHEMISTRY ORDERABLES Final R esult [facility] [address] [place] [address], from Last 3 Months or Most Recently [...] measures to stabilize the patient. Care Teams Catering Administrative Assistant Relationship Specialty Start Date End Date Alfredo Handley, [facility] [address] [place] [id number] PCP - General Physician Board Machine Set Up Operator 04/21/19 Gina Hastings APRN, LEGAL SUPPORT MANAGER [address] [place] [address] Nurse Practitioner Advanced Practice Nurse 02/27/23 Jennifer Leonard APRN, SENIOR HARDWARE ENGINEER [address] [address] Nurse Practitioner Advanced Practice Nurse 02/18/24
--- NOTE | 2024-12-05 17:40 | ED.GENADULT ---
HPI - General Adult General Chief complaint: Extremity Problem,Nontraumatic Stated complaint: L wrist swelling Time Seen by Provider: 12/05/24 16:52 History of Present Illness HPI narrative: This is a 33-year-old female presenting with left wrist pain at her IV site after hysterectomy performed on 11/30/[address] Daniel. No other symptoms. Related Data Home Medications ?Medication ?Instructions ?Recorded ?Confirmed ?Last Taken ?Type amitriptyline 10 mg tablet 10 mg PO DAILY 04/07/24 12/05/24 11/29/24 History ergocalciferol (vitamin D2) 1,250 1,250 mcg PO WEEKLY 04/07/24 12/05/24 11/24/24 History mcg (50,000 unit) capsule escitalopram oxalate 10 mg tablet 10 mg PO DAILY 04/07/24 12/05/24 11/29/24 History hydroxyzine HCl 50 mg tablet 50 mg PO PRN PRN anxiety 04/07/24 12/05/24 11/29/24 History ubrogepant 50 mg tablet (Ubrelvy) 50 mg PO PRN PRN Migraine Headache 04/07/24 12/05/24 Unknown History alprazolam 0.25 mg tablet 0.25 mg PO PRN PRN anxiety 07/21/24 12/05/24 11/30/24 History sumatriptan succinate 50 mg tablet 50 mg PO PRN PRN migraine headache 07/21/24 12/05/24 Unknown History atorvastatin 20 mg tablet 20 mg PO HS 11/25/24 12/05/24 11/29/24 History Allergies Allergy/AdvReac Type Severity Reaction Status Date / Time No Known Allergies Allergy Verified 12/05/24 15:57 PMFSH Past Medical History Medical History History of suicide attempt PTSD (post-traumatic stress disorder) PCOS (polycystic ovarian syndrome) Herpes simplex Ovarian cancer Depression Vertigo Migraine headache Asthma Surgical History Surgical History History of cholecystectomy delivery delivered History of appendectomy History of ovarian cystectomy Family History Family History Father Epilepsy Diabetes mellitus Asthma Hyperlipidemia Breast cancer Hypertension Sibling Epilepsy Asthma Mother Asthma Hypertension Unknown Heart disease Social History Social History Smoking status: Current every day smoker Tobacco type: e-cigarettes/vaping Second hand tobacco smoke exposure: Yes Additional smoking assessment comments: CURRENTLY VAPING Alcohol use details: socially drinks Fireball Do You Feel Safe in your Home?: Yes Lack of Transportation: No Lack of Food: Never True Current Housing: I Have Housing Concerned About Future Housing: No Difficulty Paying Gas/Electric Bills: No Difficulty Paying for Meds: No Currently Unemployed: No Education: Don't Know Difficulty w/ Childcare or Family Care: No Living arrangements: with family Occupation/Education: occupation 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 Head: atraumatic. EYES: EOMI, NOSE: Atraumatic NECK: Trachea midline RESPIRATORY: No increased rate of breathing, CTAB CARDIOVASCULAR: RRR, focal exam of the left wrist showed pain/edema and a rope-like lump at her old IV site ABDOMINAL: Non-distended MUSCULOSKELETAl: No obvious deformities NEURO: Alert. Moving 4/4 extremities SKIN:: Warm, dry. Normal color PSYCHIATRIC: Normal affect Course Vital Signs Vital signs: Vital Signs Temperature 97.9 F 12/05/24 16:00 Pulse Rate 73 12/05/24 16:00 Respiratory Rate 16 12/05/24 16:00 Blood Pressure 129/92 H 12/05/24 16:00 Pulse Oximetry 100 12/05/24 16:00 Oxygen Delivery Room Air 12/05/24 16:00 Temperature 97.9 F 12/05/24 16:20 Pulse Rate 77 12/05/24 16:20 Respiratory Rate 20 12/05/24 16:20 Blood Pressure 134/75 12/05/24 16:20 Pulse Oximetry 98 12/05/24 16:20 Oxygen Delivery Room Air 12/05/24 16:20 Medical Decision Making [facility] Narrative Medical decision making narrative: -Course: 33-year-old female presenting with pain at her IV site. Ultrasound negative for DVT. Presentation consistent with superficial or thrombophlebitis. Patient will be discharged on NSAIDs and warm compresses. OBGYN follow-up. -DDX includes but is not limited to: Superficial thrombophlebitis, DVT, cellulitis Vital Signs Vital Signs: Vital Signs Temperature 97.9 F 12/05/24 16:00 Pulse Rate 73 12/05/24 16:00 Respiratory Rate 16 12/05/24 16:00 Blood Pressure 129/92 H 12/05/24 16:00 Pulse Oximetry 100 12/05/24 16:00 Oxygen Delivery Room Air 12/05/24 16:00 Temperature 97.9 F 12/05/24 16:20 Pulse Rate 77 12/05/24 16:20 Respiratory Rate 20 12/05/24 16:20 Blood Pressure 134/75 12/05/24 16:20 Pulse Oximetry 98 12/05/24 16:20 Oxygen Delivery Room Air 12/05/24 16:20 Discharge Plan Discharge Clinical Impression: Superficial thrombophlebitis Patient Disposition: Home Condition: Stable Instructions: Antibiotic Form, Superficial Thrombophlebitis (ED) Additional Instructions: Please use Motrin and Tylenol for pain. Please use warm compresses throughout the day. Please follow-up with your primary care physician or OBGYN for further management. Return to the ED if the pain is increasing, you have increased redness or any new or worsening symptoms Patient Language: Chinese Prescriptions: New ibuprofen 800 mg tablet 800 mg PO TID PRN (Reason: pain) 7 Days Qty: 21 0RF acetaminophen 500 mg tablet 1,000 mg PO TID PRN (Reason: aditya) 7 Days Qty: 42 0RF No Action hydroxyzine HCl 50 mg tablet 50 mg PO PRN PRN (Reason: anxiety) amitriptyline 10 mg tablet 10 mg PO DAILY Patient Comments: TAKES AT HS ergocalciferol (vitamin D2) 1,250 mcg (50,000 unit) capsule 1,250 mcg PO WEEKLY Patient Comments: TAKES ON THURSDAYS escitalopram oxalate 10 mg tablet 10 mg PO DAILY Patient Comments: TAKES AT HS Ubrelvy 50 mg tablet 50 mg PO PRN PRN (Reason: Migraine Headache) sumatriptan succinate 50 mg tablet 50 mg PO PRN PRN (Reason: migraine headache) alprazolam 0.25 mg tablet 0.25 mg PO PRN PRN (Reason: anxiety) fluticasone propionate [Flonase Allergy Relief] 50 mcg/actuation spray,suspension 1 spray intranasal DAILY Qty: 16 0RF Rx Instructions: administer into each nostril atorvastatin 20 mg tablet 20 mg PO HS hydrocodone-acetaminophen 5-325 mg tablet 1 - 2 tablet PO Q6H PRN (Reason: pain) Qty: 25 0RF Follow-up/Referrals: UNKNOWN,DOCTOR [Primary Care Provider] -
[2024-12-05 18:28] VITALS: BP 133/88; PULSE 79; RESP 20; O2SAT 100
== END 2024-12-05 18:29 | disposition home or self-care (01) ==
PROVIDERS: Emergency Provider Emergency Medicine
DX: I80.8 Phlebitis and thrombophlebitis of other sites (principal); F17.290 Nicotine dependence, other tobacco product, uncomplicated; E28.2 Polycystic ovarian syndrome; F32.A Depression, unspecified; J45.909 Unspecified asthma, uncomplicated
CPT/HCPCS: 93971; 99284

== ENCOUNTER 2025-06-02 09:56 | Emergency (ER) | payer OTHER, SELFPAY ==
[2025-06-02 10:00] VITALS: BP 134/90; PULSE 68; RESP 18; TEMP 36.6; O2SAT 100
[2025-06-02 10:21] LABS: EDCOVIDSCREEN Negative (Negative); EDINFLUASCREEN Negative (Negative); EDINFLUBSCREEN Negative (Negative)
--- NOTE | 2025-06-02 10:21 | ED.URI ---
HPI - URI/Sore Throat General Chief Complaint: Upper Respiratory Infection Stated Complaint: fever/dizzy/chest tight Time Seen by Provider: 06/02/25 10:05 Source: patient Mode of arrival: ambulatory Limitations: no limitations History of Present Illness HPI Narrative: Alexus is a 34-year-old female patient presenting to the clinic today with complaints fever, sinus pressure, sinus congestion, dizziness, cough, and some chest tightness for 1 week. She reports highest fever was 102? F. has been alternating Tylenol Motrin for her symptoms. Denies any chest pain currently. States at times it just feels like it is hard to get a deep breath in. Is coughing up and blowing out yellow and green phlegm. Related Data Home Medications ?Medication ?Instructions ?Recorded ?Confirmed ?Last Taken ?Type amitriptyline 10 mg tablet 10 mg PO DAILY 04/07/24 12/05/24 11/29/24 History escitalopram oxalate 10 mg tablet 10 mg PO DAILY 04/07/24 12/05/24 11/29/24 History hydroxyzine HCl 50 mg tablet 50 mg PO PRN PRN anxiety 04/07/24 12/05/24 11/29/24 History sumatriptan succinate 50 mg tablet 50 mg PO PRN PRN migraine headache 07/21/24 12/05/24 Unknown History Allergies Allergy/AdvReac Type Severity Reaction Status Date / Time No Known Allergies Allergy Verified 06/02/25 10:10 Review of Systems Review of Systems: Pertinent positives per HPI. Patient denies any rash, visual changes, dizziness, shortness of breath, chest pain, palpitations, nausea, vomiting, diarrhea, constipation, abdominal pain, or any urinary issues. [facility] Past Medical History Medical History History of suicide attempt PTSD (post-traumatic stress disorder) PCOS (polycystic ovarian syndrome) Herpes simplex Ovarian cancer Depression Vertigo Migraine headache Asthma Surgical History Surgical History History of cholecystectomy delivery delivered History of appendectomy History of ovarian cystectomy Family History Family History Father Epilepsy Diabetes mellitus Asthma Hyperlipidemia Breast cancer Hypertension Sibling Epilepsy Asthma Mother Asthma Hypertension Unknown Heart disease Social History Social History Smoking status: Current every day smoker Tobacco type: e-cigarettes/vaping Second hand tobacco smoke exposure: Yes Additional smoking assessment comments: CURRENTLY VAPING Alcohol use details: socially drinks Fireball Lack of Transportation: No Lack of Food: Never True Current Housing: I Have Housing Concerned About Future Housing: No Difficulty Paying Gas/Electric Bills: No Difficulty Paying for Meds: No Currently Unemployed: No Education: Don't Know Difficulty w/ Childcare or Family Care: No Living arrangements: with family Occupation/Education: occupation 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 There is no relevant family history pertinent to the patient complaint. Exam Narrative: General: Well-developed, obese, in no apparent distress Head: Normocephalic, atraumatic Eyes: Pupils equally round and reactive to light bilaterally, EOM intact, sclera and conjunctive clear, no discharge, lids normal Ears: TMs intact and congested, ear canals clear, no drainage, grossly hearing normal. Nose: Nares patent, yellow nasal discharge, moderate inflammation, maxillary and frontal sinus tenderness. Mouth: Oral pharynx red without lesions or masses, good dentition, MMM. Postnasal drip Neck: Supple, trachea midline, no enlargement of anterior or posterior cervical nodes, no thyroid masses or goiter palpable. Cardio: Regular rate and rhythm, s1 and s2 normal, no murmur appreciated. Resp: Clear to auscultation bilaterally, no rhonchi, rales, wheezing or rubs Course Course Level of Care: Express Care Visit Vital Signs Vital signs: Vital Signs Temperature 36.6 C 06/02/25 10:00 Pulse Rate 68 06/02/25 10:00 Respiratory Rate 18 06/02/25 10:00 Blood Pressure 134/90 06/02/25 10:00 Pulse Oximetry 100 06/02/25 10:00 Oxygen Delivery Room Air 06/02/25 10:00 Temperature 36.6 C 06/02/25 10:00 Pulse Rate 68 06/02/25 10:00 Respiratory Rate 18 06/02/25 10:00 Blood Pressure 134/90 06/02/25 10:00 Pulse Oximetry 100 06/02/25 10:00 Oxygen Delivery Room Air 06/02/25 10:00 [facility] Narrative Medical decision making narrative: At the time of visit patient is resting comfortably on the exam table. Patient appears to be nontoxic. Complaints fever, sinus pressure, sinus congestion, dizziness, cough, and some chest tightness for 1 week. She reports highest fever was 102? F. has been alternating Tylenol Motrin for her symptoms. Denies any chest pain currently. States at times it just feels like it is hard to get a deep breath in. Is coughing up and blowing out yellow and green phlegm. On exam patient has mild TMs intact and congested, yellow nasal drainage with moderate anterior turbinate inflammation, tenderness over the maxillary and frontal sinuses, oral pharynx red with postnasal drip, lung sounds are clear, heart rates regular rate and rhythm. Vital signs are stable. COVID and influenza testing was ordered. Labs: COVID and influenza testing was negative. Plan: I suspect patient has acute bacterial rhinosinusitis. Prescription for Augmentin and prednisone was sent to the pharmacy. Supportive measures were discussed with the patient and they voiced understanding discharge instructions and agrees to treatment plan. Return precautions reviewed. Differential Diagnosis Differential Diagnosis: Differential diagnostic considerations for upper respiratory infection include upper respiratory infection, croup, otitis media, sinusitis, viral infection, bronchitis, influenza, pharyngitis, strep, uvulitis. Lab Data Labs: Lab Results 06/02/25 Range/Units 10:19 POC Influenza A Ag Pending POC Influenza B Ag Pending POC SARS CoV-2 Ag Pending Discharge Plan Discharge Clinical Impression: Acute bacterial rhinosinusitis Patient Disposition: Home Condition: Stable Instructions: Antibiotic Form, Rhinosinusitis (ED) Additional Instructions: COVID and influenza testing was negative in the clinic today. Take prescription medications only as prescribed Augmentin and prednisone. Increase fluids and stay well hydrated May take Tylenol or motrin as directed on bottle for pain/fever May use Flonase 1 spray in each nare daily May take OTC antihistamines such as Zyrtec or Claritin daily as directed on bottle May apply Vicks vapor rub to chest to open sinuses Sinus rinses for congestion Cepacol spray, cough drops, throat lozenges, warm tea with honey/lemon, gargle salt water to soothe throat BRAT diet for diarrhea Clear liquids x 24 hours then advance as tolerated for nausea/vomiting Go to the ED if you develop a worsening in your condition- high fever not controlled by Tylenol or Motrin, dehydration, weakness, lethargy, shortness of breath, or chest pain. Follow up with your PCP in 3-5 days if symptoms persist. Patient Language: [place]an Prescriptions: New amoxicillin-pot clavulanate 875-125 mg tablet 1 tablet PO Q12H 7 Days Qty: 14 0RF prednisone 20 mg tablet 40 mg PO DAILY 5 Days Qty: 10 0RF No Action hydroxyzine HCl 50 mg tablet 50 mg PO PRN PRN (Reason: anxiety) amitriptyline 10 mg tablet 10 mg PO DAILY Patient Comments: TAKES AT HS escitalopram oxalate 10 mg tablet 10 mg PO DAILY Patient Comments: TAKES AT HS sumatriptan succinate 50 mg tablet 50 mg PO PRN PRN (Reason: migraine headache) Follow-up/Referrals: Ender,DARLENE Alaniz [Primary Care Provider] Time of Disposition: 10:16 Quality NIHSS Nursing Documentation ED NIHSS nursing documentation: reviewed/agree
== END 2025-06-02 10:23 | disposition home or self-care (01) ==
PROVIDERS: Emergency Provider Nurse Practitioner Family; PCP Physician Assistant
DX: J01.90 Acute sinusitis, unspecified (principal); B96.89 Other specified bacterial agents as the cause of diseases classified elsewhere; F17.290 Nicotine dependence, other tobacco product, uncomplicated; Z20.822 Contact with and (suspected) exposure to COVID-19
CPT/HCPCS: 87426; 87804; 99213; G0463